=== PATIENT | male | born 1935 | race Caucasian/White ===

== ENCOUNTER 2019-11-01 18:44 | Emergency (ER) | payer MEDICARE, SELFPAY ==
--- NOTE | ~2019-11-01 | XR_ITS ---
EXAMINATION: XR chest 2V DATE: 11/01/2019 19:34 INDICATION: Dizziness TECHNIQUE: frontal and lateral views of the chest were obtained. COMPARISON: Chest radiograph dated 07/22/[address] dated 07/29/2013 FINDINGS: Emphysema better appreciated on prior chest CT. Increased indistinct interstitial pattern in the bila teral lower lung zones with a few peripheral Elvia B-lines near the right costophrenic angle. Small bilateral pleural effusions with blunting at the costophrenic angles and posterior sulci. No pneumoth orax. Calcified pleural plaque projects between the anterior left third and fourth ribs. The cardiome diastinal silhouette is normal. There are bridging osteophytes at multiple levels in the spine, consi stent with diffuse idiopathic skeletal hyperostosis (DISH). IMPRESSION: 1. Emphysema. 2. Mild interstitial opacities at the bilateral lower lung bases most likely mild pulmonary edema alt rashaun differential includes atelectasis and pneumonia. 3. Small bilateral pleural effusions. Reviewed, dictated and finalized at location A. E REELING MACHINE OPERATOR IMPRESSION: 1. Emphysema. 2. Mild interstitial opacities at the bilateral lower lung bases most likely mi ld pulmonary edema although differential includes atelectasis and pneumonia. 3. Small bilateral pleural effusions.
[2019-11-01 18:46] VITALS: BP 176/68; PULSE 83; RESP 16; TEMP 36.6; O2SAT 91
--- NOTE | 2019-11-01 18:55 | ECG_ITS ---
Measurements Intervals [place] Rate: 78 P: -9 AL: 155 QRS: 56 QRSD: 91 T: 49 QT: 375 QTc: 429 Interpretive Statements SINUS OR ECTOPIC ATRIAL RHYTHM CANNOT RULE OUT SEPTAL INFARCT, AGE INDETERMINATE ABNORMAL ECG Electronically Signed On 11-01-2019 19:05:19 CUSHION MAT MAKER by Alex Allred D.O.
[2019-11-01 19:13] LABS: Glucose Point of Care 92 (65-105)
--- NOTE | 2019-11-01 19:14 | ED.DIZZY ---
HPI - Dizziness General Chief Complaint: Dizziness Stated Complaint: light headed Source: patient and RN notes reviewed Mode of arrival: wheelchair Limitations: no limitations History of Present Illness HPI Narrative: The patient, smoker/ nondrinker on minimal meds but with several medical problems and lives alone/ independently, presents with lightheadedness. Patient states he has 1/2-week worsening of month-long history of lightheadedness. Symptoms are mild, worse with activity, with rest. No fever measured, vomiting/diarrhea/dehydration, head?chest?abdominal pain, lateralizing weakness, true vertigo, speech?visual changes; symptoms seem worse in the last half week since he developed a cough. Patient usually walks with a wheeled walker, now is unable to completely ambulate unless with a wheelchair Past history is remarkable for carotid ultrasound showing significant 70% stenosis in the right, CT of the abdomen showing cirrhosis, horeshoe kidney and emphysema. Echocardiogram [2014] showing good EF. Head CT in the past showing microvascular disease; imaging of the neck showing old fusion Tonight screening EKG shows sinus rhythm at 78 bpm, MA 0.155, QTc 0.409 normal axis with MA WP versus old septal UT; POC influenza screen is negative, glucose 96 Advise go to higher-level care facility for higher level testing, which he agrees The patient has been informed that they may have pre-hypertension or Hypertension based on a BP reading in the department. I recommend that the patient call the primary care provider listed on their discharge instructions or a physician of their choice this week to arrange follow up for further evaluation of possible pre-hypertension or Hypertension Related Data Home Medications Medication Instructions Recorded Confirmed lorazepam 0.5 mg PO DAILY 11/01/19 11/01/19 Allergies Allergy/AdvReac Type Severity Reaction Status Date / Time No Known Allergies Allergy Verified 11/01/19 20:01 [facility] Past Medical History Medical History Anxiety Arthritis Esophageal varices History of cerebrovascular disease History of emphysema History of peripheral arterial disease Positional lightheadedness Sleep apnea Smoker Surgical History Surgical History (Updated 11/01/19 @ 21:17 by Christie Pascal) H/O cervical spine surgery History of total right knee replacement Family History Family History (Updated 12/17/18 @ 15:54 by DOCTOR UNKNOWN) Grandparent Diabetes mellitus Sibling Diabetes mellitus Social History Social History Smoking status: Never smoker Second hand tobacco smoke exposure: No Comments General/Constitutional: No weight loss,fever Eyes: N0: Redness,discharge Ears/Nose/Throat: No: Epistaxis,ear discharge Respiratory: Denies: Hemoptysis Gastrointestinal: No Vomiting, Bleeding-rectal Skin: No Lumps, eruption Neurologic: No Focal Weakness,Sz Hematologic: Denies: Petechiae/Purpura Psychiatric: No: Suicida ideationl All Other Systems: Reviewed and Negative Exam Narrative: Exam Narrative: General Appearance: Aged appearing, No distress- in wheelchair EYE: PERRLA, Conjunctiva clear, EOMI Ears: External ear normal Nose: Normal nose Mouth/Throat: Normal appearing, Normal lips Neck: Supple Respiratory: Airway patent,No respiratory distress,increased AP janae , decreased BS with crackles at basers Cardiovascular: RRR Abdomen: Soft, Non-tender, No massess, No organomegaly Musculoskeletal: Bilateral UE congenital deformity Skin: Warm, Dry Neurological: A&O x3, CN II-X intact Psychiatric: Normal mood, Normal affect Course Vital Signs Vital signs: Vital Signs Temperature 97.9 F 11/01/19 18:46 Pulse Rate 83 11/01/19 18:46 Respiratory Rate 16 11/01/19 18:46 Blood Pressure 176/68 H 11/01/19 18:46 Pulse Oximetry 91 11/01/19 18:46 Temperature 97.9 F 11/01/19 18:46 Pulse Rate 83 11/01/19 18:46 Respiratory Rate 1
== END 2019-11-01 19:40 | disposition short-term general hospital (02) ==
PROVIDERS: Emergency Provider Emergency Medicine; PCP Family Medicine
DX: R42 Dizziness and giddiness (principal); R91.8 Other nonspecific abnormal finding of lung field; J43.9 Emphysema, unspecified; I73.9 Peripheral vascular disease, unspecified; F17.200 Nicotine dependence, unspecified, uncomplicated; F41.9 Anxiety disorder, unspecified; G47.30 Sleep apnea, unspecified; I67.9 Cerebrovascular disease, unspecified; Z96.651 Presence of right artificial knee joint
CPT/HCPCS: 71046; 82948; 87804; 93005; 99213; G0463

== ENCOUNTER 2019-11-01 19:53 | Emergency (ER) | payer MEDICARE, SELFPAY ==
--- NOTE | ~2019-11-01 | CT_ITS ---
EXAMINATION: CT brain wo con DATE: 11/01/2019 22:01 INDICATION: Headache, dizziness, ataxia TECHNIQUE: Computed tomography (CT) of the head was performed without intravenous contrast. The mA wa s adjusted according to patient size. Iterative reconstruction technique was employed. Exam dose: 68 1.00 mGy-cm total exam DLP. COMPARISON: 07/27/2014 CT brain FINDINGS: No intracranial mass lesion or hemorrhage or cerebrovascular accident is evident. No midlin e shift or mass effects. There is mild to moderate cerebral volume loss. No subdural or epidural alf diamond. No orbital mass lesion. Paranasal sinuses and mastoid air cells are unremarkable. No fracture or bone destruction of the cranial vault. IMPRESSION: No significant intracranial abnormality Reviewed, dictated and finalized At Location A. Reviewed, dictated and finalized at location A. ATION ASSOCIATE
[2019-11-01 19:56] VITALS: BP 172/76; PULSE 87; RESP 16; TEMP 36.5; O2SAT 98
--- NOTE | 2019-11-01 19:59 | ECG_ITS ---
Measurements Intervals [place] Rate: 74 P: 52 AL: 159 QRS: 44 QRSD: 90 T: 39 QT: 407 QTc: 453 Interpretive Statements SINUS RHYTHM ATRIAL PREMATURE COMPLEX POSSIBLE LEFT ATRIAL ENLARGEMENT CANNOT RULE OUT SEPTAL INFARCT, AGE INDETERMINATE BASELINE ARTIFACT- I, II, III, AVR, AVL, AVF, V1-V6 ABNORMAL ECG Electronically Signed On 11-02-2019 8:04:33 REVENUE STAMP CUTTER by Alex Allred D.O.
[2019-11-01 20:12] LABS: Basophils Percent Auto 0.3 % (0.2-1.2); Eosinophils Absolute Auto 0.1 K/mm3 (0-0.3); Eosinophils Percent Auto 0.9 % (0-4.4); Hematocrit 43.5 % (42.0-52.0); Hemoglobin 14.5 g/dL (14.0-18.0); Immature Granulocyte Absolute 0.01 K/mm3 (0.00-0.031); Immature Granulocyte Percent A 0.1 % (0-0.5); Lymphocytes Absolute Auto 0.96 K/mm3 (0.9-3.2); Lymphocytes Percent Auto 14.2 % (18.3-44.2); Mean Corpuscular HGB Conc 33.3 g/dl (32-36); Mean Corpuscular Hemoglobin 33.9 pg (26-34); Mean Corpuscular Volume 101.6 fl (80-100); Mean Platelet Volume 10.2 fl (7.4-10.4); Monocytes Absolute Auto 0.5 K/mm3 (0.1-0.6); Monocytes Percent Auto 7.1 % (2.6-8.5); Neutrophils Absolute Auto 5.2 K/mm3 (1.3-6.7); Neutrophils Percent Auto 77.4 % (45.5-73.1); Platelet Count Result 181 k/mm3 (150-375); Red Blood Count 4.28 M/mm3 (4.6-6.20); Red Cell Distribution Width 13.9 % (11.5-14.5); White Blood Count 6.8 K/mm3 (4.5-10.0)
[2019-11-01 20:24] LABS: Blood Urea Nitrogen 10 mg/dL (9-20); Calcium 9.1 mg/dL (8.4-10.2); Carbon Dioxide 24 mmol/L (22-30); Chloride 103 mmol/L (98-107); Estimated CRCL calculation 77 ml/min; Estimated Glomerular Filt Rate > 60; Glucose 96 mg/dL (75-110); Potassium 4.1 mmol/L (3.4-5.0); Sodium 137 mmol/L (137-145)
[2019-11-01 20:36] LABS: Troponin I 0.015 ng/mL (0.000-0.034)
--- NOTE | 2019-11-01 20:56 | ED.DIZZY ---
HPI - Dizziness General Chief Complaint: Dizziness Stated Complaint: dizzy, cough Time Seen by Provider: 11/01/19 20:49 Source: patient, family and RN notes reviewed Mode of arrival: other Limitations: no limitations History of Present Illness HPI Narrative: Pt is a 84 y/o male who presents to the ED with c/o dizziness that began 10 years ago, but has progressively worsened. He notes that he sat on the edge of his bed for an hour before he moved to his seated walker. He states the severity of his dizziness is intermittent. Per pt's family, pt goes to bed late. Pt's family also states that a few months ago the pt got too dizzy and could not stand up. The family states the pt had to sit down for awhile before being able to get up to go back inside the house. Pt also reports near syncope to where he felt like he was tipping over, but denies a CHRISTIANSEN, ringing in his ears, changes in his vision, urinary hesitancy, urinary frequency, and urinary retention. Friends report to nurses they think maybe he takes too much ativan. MD elicited complaint: dizziness Onset (ago): year(s) (10, but progressively worsened today) Timing: constant Context: change in body position History of similar symptoms: Yes Associated symptoms: other (near syncope to where he felt like he was tipping over) Related Data Home Medications Medication Instructions Recorded Confirmed lorazepam 0.5 mg PO DAILY 11/01/19 11/01/19 Allergies Allergy/AdvReac Type Severity Reaction Status Date / Time No Known Allergies Allergy Verified 11/01/19 20:01 Review of Systems Review of Systems: All systems reviewed & are unremarkable except as noted in HPI and below Eyes: Eyes: Denies change in vision ENT: Denies other (ringing in his ears) Genitourinary: Genitourinary: Denies urinary frequency, Denies urinary hesitancy and Denies other (urinary retention) Neurologic: Reports dizziness, Reports syncope (near, to where he felt like he was tipping over) and Denies headache(s) [facility] Past Medical History Medical History Anxiety Arthritis Esophageal varices History of cerebrovascular disease History of emphysema History of peripheral arterial disease Positional lightheadedness Sleep apnea Smoker Surgical History Surgical History (Updated 11/01/19 @ 21:17 by Christie Pascal) H/O cervical spine surgery History of total right knee replacement Family History Family History (Updated 12/17/18 @ 15:54 by DOCTOR UNKNOWN) Grandparent Diabetes mellitus Sibling Diabetes mellitus Social History Social History Smoking status: Never smoker Second hand tobacco smoke exposure: No Exam Const: General: no acute distress and other (elderly, frail) Nutritional Appearance: well nourished Orientation/consciousness: patient oriented x3 (alert) and Other orientation findings (Alert) Limitations: no limitations HENMT: Head: normocephalic and atraumatic Ears: other (decreased hearing acuity in both ears) General nose exam: No nasal discharge present and no epistaxis Face and sinus: face symmetric Mouth: Yes lip normal, Yes tongue normal and Yes moist mucous membranes Throat: other (No exudate, no erythema) Eyes: Conjunctivae: conjunctivae normal Sclera: sclerae normal EOM: EOMs intact bilaterally Neck: Neck: full ROM, no lymphadenopathy and supple Thyroid: thyroid normal Chest: Chest palpation & inspection: no tenderness Resp: Effort & Inspection: normal respiratory effort Auscultation: clear to auscultation bilaterally, no rales, no rhonchi, no wheezes and other (breath sounds equal) Cardio: Rate: regular rate Rhythm: regular rhythm Heart sounds: Murmur heart sound present other (2/6 heart murmur at the apex) Back/Spine/Pelvis: Cervical Spine: cervical ROM abnormal (decreased movement of his head when rotating to the right) Skin: General skin exam: normal color and no rashes or lesions noted Neuro: General: patient oriented x3 (alert), moves all
[2019-11-01 21:34] VITALS: BP 168/69; BP 169/65; BP 174/71; PULSE 81; PULSE 93; PULSE 94
[2019-11-01 21:37] VITALS: BP 168/69; PULSE 88; RESP 21; O2SAT 91
[2019-11-01 22:12] VITALS: BP 192/75; PULSE 74; RESP 21; O2SAT 91
[2019-11-01 22:31] VITALS: BP 179/75; PULSE 81; RESP 20; O2SAT 91
[2019-11-01 23:31] VITALS: BP 182/77; PULSE 84; RESP 21; O2SAT 95
[2019-11-02 00:34] VITALS: BP 157/53; PULSE 70; RESP 18; TEMP 37.2; O2SAT 93
== END 2019-11-02 00:37 | disposition home or self-care (01) ==
PROVIDERS: Emergency Medicine; Emergency Provider Emergency Medicine; PCP Family Medicine
DX: R42 Dizziness and giddiness (principal); F41.9 Anxiety disorder, unspecified; M19.90 Unspecified osteoarthritis, unspecified site; Z86.73 Personal history of transient ischemic attack (TIA), and cerebral infarction without residual deficits; J43.9 Emphysema, unspecified; I73.9 Peripheral vascular disease, unspecified; G47.30 Sleep apnea, unspecified; Z96.651 Presence of right artificial knee joint; I49.1 Atrial premature depolarization; R94.31 Abnormal electrocardiogram [ECG] [EKG]
CPT/HCPCS: 36415; 70450; 80048; 84484; 85025; 93005; 99284

== ENCOUNTER 2019-12-08 09:07 | Outpatient (CLI) | payer MEDICARE, SELFPAY ==
--- NOTE | 2019-12-08 | ECHO_ITS ---
Patient Info Name: Tera Cortez Age: 84 years : 1935 Gender: Male Ht: 71 in Wt: 175 lbs BSA: 2.00 m2 HR: 73 bpm BP: 117 / 73 mmHg Technical Quality: Good Exam Date: 12/08/2019 9:43 AM Exam Location: [facility] Patient Status: Outpatient Admit Date: 12/08/2019 Staff Ordering Physician: Alex Allred DO Networking Specialist: Jean Carlos Osorio RDCS, RT Attending Provider: Alex Allred DO Referring Physician: Chalino DENT; Exam Type: CA echo doppler color flow Study Info Indications R60.0 - Localized edema Complete two-dimensional, color flow and Doppler transthoracic echocardiogram is performed. Summary 1. Left ventricular chamber dimension is normal. 2. Left ventricular systolic function is normal, estimated at 65-70%. 3. There is mildly increased left ventricular wall thickness. 4. The left ventricular diastolic function is grade I diastolic dysfunction. 5. E/e' 19 is elevated. 6. Global longitudinal strain is abnormal at -15.2%. 7. There is moderate aortic valve sclerosis. 8. The mitral valve has moderately calcified annulus. 9. There is mild to moderate tricuspid valve regurgitation. 10. Severe pulmonary hypertension, estimated pulmonary arterial systolic pressure is 66 mmHg. 11. There is trace pulmonic regurgitation. 12. Dilated inferior vena cava with >50% collapse upon inspiration consistent with elevated right atrial pressure, 10 mmHg. Left Ventricle E/e' 19 is elevated. Global longitudinal strain is abnormal at -15.2%. Left ventricular chamber dimension is normal. Left ventricular systolic function is normal, estimated at 65-70%. There is mildly increased left ventricular wall thickness. The left ventricular diastolic function is grade I diastolic dysfunction. Right Ventricle Right ventricular chamber dimension is normal. Right ventricular systolic function is normal. Left Atria Left atrial chamber dimension is normal. Right Atria Right atrial chamber dimension is normal. Aortic Valve The aortic valve is trileaflet. There is moderate aortic valve sclerosis. There is no aortic valve stenosis. There is no aortic valve regurgitation. Pulmonic Valve There is trace pulmonic regurgitation. Mitral Valve The mitral valve has moderately calcified annulus. There is no mitral valve stenosis. There is no mitral valve regurgitation. Tricuspid Valve There is mild to moderate tricuspid valve regurgitation. Severe pulmonary hypertension, estimated pulmonary arterial systolic pressure is 66 mmHg. Pericardium/Pleural There is no pericardial effusion. Inferior Vena Cava Dilated inferior vena cava with >50% collapse upon inspiration consistent with elevated right atrial pressure, 10 mmHg. Aorta The aortic root size at the sinus of Valsalva is not well visualized. Left Ventricular Outflow Tract Name Value Normal LVOT 2D LVOT Diameter 2.1 cm LVOT Doppler LVOT Peak Gradient 6 mmHg LVOT Mean Gradient 3 mmHg LVOT VTI 27 cm LVOT VTI/AV VTI Ratio 0.8
== END 2019-12-08 09:08 | disposition home or self-care (01) ==
PROVIDERS: PCP Family Medicine; Visit Provider Internal Medicine Cardiovascular Disease
DX: R60.0 Localized edema (principal); I08.3 Combined rheumatic disorders of mitral, aortic and tricuspid valves
CPT/HCPCS: 93306

== ENCOUNTER 2020-03-05 00:33 | Outpatient (CLI) | payer MEDICARE, SELFPAY ==
[2020-03-05 17:48] LABS: SARS-CoV-2 RNA PCR Negative
== END 2020-03-05 00:34 | disposition home or self-care (01) ==
LOC: ANHCOVIDDT 00:33
PROVIDERS: PCP Family Medicine; Visit Provider Specialist
DX: Z01.818 Encounter for other preprocedural examination (principal); Z11.59 Encounter for screening for other viral diseases
CPT/HCPCS: 87635; C9803; U0003

== ENCOUNTER 2020-03-08 05:37 | Day surgery (SDC) | payer MEDICARE, SELFPAY ==
[2020-03-05 11:10] VITALS: BMI 21.8
[2020-03-08] VITALS (14 sets, daily range): BP systolic 99–153; BP diastolic 38–69; PULSE 67–80; RESP 12–20; TEMP 36–37.1; O2SAT 94–99
--- NOTE | ~2020-03-08 | XR_ITS ---
EXAMINATION: XR chest 1V portable DATE: 03/08/2020 14:06 INDICATION: Pacer placement. TECHNIQUE: A single frontal view of the chest was obtained. COMPARISON: Chest 2 views 11/01/2019, CT abdomen and pelvis 08/13/2015 FINDINGS: There is a small right pleural effusion. There are calcified pleural plaques on the left. T here are airspace opacities in right mid and lower lung zones. No pneumothorax. The heart size is nor mal. There is a left chest wall pacer with leads in the right atrium and right ventricle. IMPRESSION: 1. Worsened small right pleural effusion. 2. Worsened airspace opacities in right mid and lower lung zones, consistent with atelectasis versus pneumonia. Reviewed, dictated and finalized at location A. IMPRESSION: 1. Worsened small right pleural effusion. 2. Worsened airspace opacities in right mid and lower lung zones, consistent wi th atelectasis versus pneumonia.
--- NOTE | ~2020-03-08 | XR_ITS ---
EXAMINATION: XR chest 2V DATE: 03/09/2020 14:37 INDICATION: Pacer placement. TECHNIQUE: Frontal and lateral views of the chest were obtained. COMPARISON: Chest single view 03/06/2020, CT abdomen and pelvis 08/13/2015 FINDINGS: There are lucencies and interstitial opacities in the lungs, consistent with emphysema. The re is a small right pleural effusion. There are airspace opacities at right lung base. No pneumothora x. The heart size is normal. There is a left chest wall pacer with leads in the right atrium and righ t ventricle. IMPRESSION: 1. Small right pleural effusion. 2. Airspace opacities at right lung base with interval improvement, consistent with atelectasis versu s pneumonia. 3. Emphysema. Reviewed, dictated and finalized at location A. IMPRESSION: 1. Small right pleural effusion. 2. Airspace opacities at right lung base with interval improvement, consistent with atelectasis versus pneumonia. 3. Emphysema.
--- NOTE | 2020-03-08 06:13 | ECG_ITS ---
Measurements Intervals [place] Rate: 66 P: 55 UT: 169 QRS: 61 QRSD: 88 T: 60 QT: 394 QTc: 415 Interpretive Statements SINUS RHYTHM CANNOT RULE OUT SEPTAL INFARCT, AGE INDETERMINATE ABNORMAL ECG Electronically Signed On 03-08-2020 14:27:46 CDT by Alex Allred D.O.
[2020-03-08 10:48] LABS: Basophils Percent Auto 0.4 % (0.2-1.2); Eosinophils Absolute Auto 0.2 K/mm3 (0-0.3); Eosinophils Percent Auto 2.4 % (0-4.4); Hematocrit 41.2 % (42.0-52.0); Hemoglobin 14.3 g/dL (14.0-18.0); Immature Granulocyte Absolute 0.01 K/mm3 (0.00-0.031); Immature Granulocyte Percent A 0.1 % (0-0.5); Lymphocytes Absolute Auto 1.11 K/mm3 (0.9-3.2); Lymphocytes Percent Auto 16.5 % (18.3-44.2); Mean Corpuscular HGB Conc 34.7 g/dl (32-36); Mean Corpuscular Hemoglobin 34.1 pg (26-34); Mean Corpuscular Volume 98.3 fl (80-100); Mean Platelet Volume 9.6 fl (7.4-10.4); Monocytes Absolute Auto 0.7 K/mm3 (0.1-0.6); Monocytes Percent Auto 9.7 % (2.6-8.5); Neutrophils Absolute Auto 4.8 K/mm3 (1.3-6.7); Neutrophils Percent Auto 70.9 % (45.5-73.1); Platelet Count Result 212 k/mm3 (150-375); Red Blood Count 4.19 M/mm3 (4.6-6.20); Red Cell Distribution Width 14.8 % (11.5-14.5); White Blood Count 6.7 K/mm3 (4.5-10.0)
[2020-03-08 11:01] LABS: Prothrombin Time 13.2 Seconds (11.1-14.7)
[2020-03-08 11:33] LABS: Blood Urea Nitrogen 15 mg/dL (9-20); Carbon Dioxide 26 mmol/L (22-30); Chloride 97 mmol/L (98-107); Estimated CRCL calculation 57 ml/min; Estimated Glomerular Filt Rate > 60; Glucose 88 mg/dL (75-110); Potassium 4.5 mmol/L (3.4-5.0); Sodium 127 mmol/L (137-145)
--- NOTE | 2020-03-08 13:15 | WPDCARDPROC ---
Cardiac Cath Procedure Note Date of procedure:: 03/08/20 Performing physician:: Misha Mariano MD Indication:: AV block with near-syncope Brief clinical history:: this is an 84-year-old man with the onset of near syncopal episode several months ago. Outpatient event monitor demonstrated variable AV block with AV block between 1st , and some third-degree AV block also. Because of symptomatic Nikolay arrhythmias and no medications that would affect AV node function pacemaker implantation was recommended Procedure Procedure performed:: implantation of permanent Medtronic dual chamber pacemaker Sedation/Medication given:: fentanyl 50 mg Versed 2 mg case start time 12:14 p.m. case end time 12:58 p.m. sedation provided by Shanda Ballard RN, trained observer Access site:: left subclavian vein Estimated blood loss:: 10-15 cc Procedure note:: Patient was brought to the cardiac catheterization lab in the postabsorptive state the left anterior chest wall was prepped and draped in the usual fashion. Anesthesia was given with 1% lidocaine infiltrated locally. An incision was then made about 1 in below the clavicle from the midclavicular line to the deltopectoral groove. Electrocautery was used to provide cutaneous hemostasis and using blunt dissection the prepectoral fascia was identified and a pacemaker pocket was created using blunt dissection inferior to the incision. This pocket was then packed with the antibiotic soaked 4 x 14 following this attention was turned to venous access. The patient had 2 punctures made of the left subclavian vein using modified Seldinger technique and 2 J wires with the supplied sheath were placed into the right atrial location on fluoroscopic visualization. Attention was turned to the ventricular lead. A 6 straight stylet was removed and the 3 cc syringe was used to form AJ tipped stylet which was used to navigate the lead through the right ventricle on out to the PA position. The straight stylet was then replaced into the lead is positioned into the right ventricular apex. The fixation screw was deployed and then the analyzer was used to assess pacing and sensing which was found to be appropriate. A 10 volt stimulation showed no evidence of extracardiac stimulation. Following this attention was turned to the atrial lead. The straight stylet was removed and a preformed J stylet was placed into the lead was maneuvered into the right atrial appendage easily. The fixation screw was then deployed in the analyzer demonstrated appropriate pacing and sensing. Once again a 10 volts stimuli showed no evidence of extracardiac stimulation. After this the leads were secured to the base of the pocket using the suture sleeves and 2 0 silk ties. The retained sponge was then removed from the pocket which was irrigated with antibiotic infused saline. Following this the pacemaker generator detailed below was connected to the leads using torque wrench in the entire assembly was placed into the newly created pocket. Pocket was then closed in layers using 3 0 Vicryl in interrupted fashion for the subcutaneous tissue and 4 0 Vicryl in a running subcuticular fashion for the skin. The wound was dressed with an Aquacel dressing and the patient was taken back to the holding area for recovery there were no apparent complications the procedure was uncomplicated. postop antibiotics analgesics and chest x-ray were ordered. Findings:: The patient received a CrowdCuritytronic dual-chamber pacemaker model WID R01. serial number is [id number] . programmed in the DDD mode lower rate limit is 60 upper rate limit 130 paste deviated AV delay 220 millisecond sensed AV delay 200 millisecond. The atrial lead is a Medtronic screw-in bipolar lead model 5076-52. serial number [id number]. the P-waves are sensed at 2.6 mV threshold is 0.75 volts at 0.4 milliseconds pacing impedance 532 Ohms. The ventricular lead is a Medtronic bipolar screw-in lead model 506-58
--- NOTE | 2020-03-08 14:33 | SUR.PHASEII ---
END PHASE II RECOVERY S/P PPM INSERTION W/ DR. PEPPER. PT. STATUS TO CHANGE TO EXTENDED RECOVERY OBSERVATION POST OUTPATIENT PROCEDURE AND REMAIN IN VIDEO EDITING INTERN 6 AT THIS TIME. SEE PCS FOR FURTHER DOCUMENTATION.
--- NOTE | 2020-03-08 14:34 | ADMGEN ---
This patient, Tera Cortez, was admitted to IMU Room 211-01. Patient/family oriented to hospital policies and general routines including ID bracelet, bed and alarms, visiting hours, pain management, procedures, bathroom and other care routines, personal items, smoking policy, room service/diet, and visiting hours. Valuables list has been completed. Information on how to activate the Rapid Response Team has been discussed. Patient/Family are encouraged to report perceived risks to care and to ask questions if they do not understand what they are told or what they should do.
[2020-03-08] MEDS: SODIUM CHLORIDE 0.9% IV 1,000 ML 50 ML IV CONT (17:03)
--- NOTE | 2020-03-08 18:30 | PC.NURSE ---
REPORT GIVEN TO ADAM ANAYA IN IMU. PT. IS EXTENDED RECOVERY STATUS POST PROCEDURE. HAS BEEN IN SOAPING DEPARTMENT SUPERVISOR 6 UP TO THIS TIME. NOW IS TRANSFERRING TO IMU 211 TO COMPLETE EXTENDED RECOVERY STAY. FAMILY HAS BEEN NOTIFIED OF ROOM CHANGE.
--- NOTE | 2020-03-08 18:45 | PC.NURSE ---
TRANSFERRED PT. FROM PHOTONICS ENGINEERING TECHNOLOGIST 6 TO IMU 211 VIA BED FOR BALANCE OF EXTENDED RECOVERY OBSERVATION STAY. ALL PERSONAL BELONGINGS SENT W/ PT. VOICES NO C/O. FAMILY AWARE OF TRANSFER.
--- NOTE | 2020-03-08 19:13 | PC.NURSE ---
Patient arrived via bed from [facility] pain center. Received report from HÉCTOR Godwin. NO s/s of distress. Left chest site unchanged from report.
[2020-03-08] MEDS: POTASSIUM CHLORIDE 10 MEQ TABLET.ER PO (21:08)
[2020-03-09] VITALS (12 sets, daily range): BP systolic 87–147; BP diastolic 45–61; PULSE 65–84; RESP 12–18; TEMP 35.8–36.9; O2SAT 94–96
[2020-03-09] MEDS: OMEGA 3 POLYUNSAT FATTY ACIDS 1 GM CAP PO (08:05)
[2020-03-09] MEDS: MULTIVITAMINS THERAPEUTIC TAB (*BKC) 1 TABLET PO (08:05)
[2020-03-09] MEDS: POTASSIUM CHLORIDE 10 MEQ TABLET.ER PO (08:05)
[2020-03-09] MEDS: lisinopriL 10 MG TABLET PO (08:06)
[2020-03-09] MEDS: FUROSEMIDE 20 MG TABLET PO (08:08)
[2020-03-09] MEDS: ASPIRIN 325 MG ENTERIC TABLET PO (08:08)
--- NOTE | 2020-03-09 14:53 | PM.DS ---
DS: Admitting Diagnosis Admitting Diagnosis Admitting Diagnosis: Symptomatic bradyarrhythmia (1st and 3rd degree heart block) DS: Discharge Diagnosis Discharge Diagnosis (1) Heart block AV complete: Code(s): I44.2 - Atrioventricular block, complete Status: Acute Assessment and Plan: Status post Medtronic dual-chamber pacemaker placement 03/08/[address] Mariano. Pacemaker functioning normally on interrogation on the day of discharge. Chest x-ray PA and lateral reveals no pneumothorax. (2) Dizziness: Code(s): R42 - Dizziness and giddiness Status: Acute Assessment and Plan: Dizziness when up to chair this morning. Found to be profoundly orthostatic. Dr Allred was contacted. Lisinopril will be decreased to 5 mg daily. After eating and 255 cc fluid bolus he was no longer dizzy. On second time out of bed he was not orthostatic. DS: Summary Hospital Course Hospital Course: 84-year-old man with the onset of near syncopal episode several months ago. Outpatient event monitor demonstrated variable AV block with AV block between 1st and some third-degree AV block also. Because of symptomatic Nikolay arrhythmias and no medications that would affect AV node function pacemaker implantation was recommended. Medtronic dual-chamber pacemaker was implanted by Dr. Mariano on March 08, 2020. He was monitored overnight. Pacemaker was functioning normally on the day of discharge. When he was assisted to the chair prior to his chest x-ray he became very dizzy. Blood pressure prior to getting out of bed was 143/55 at 11:30 a.m.. At 12:00 p.m. his blood pressure was 87/45 and he was symptomatic. He was not pacing at the time of this event. Over time his symptoms improved. Blood pressure was 104/79. He was given [address] Allred was contacted. He recommended decreasing lisinopril to 5 mg daily. He was assisted back to bed. He ate lunch. Again assisted out of bed with no changes in his blood pressure or reporting and symptoms. Chest x-ray PA and lateral was performed revealing no pneumothorax. He had no further dizziness. He was discharged home in stable condition. Status at Discharge Functional status at discharge: uses cane/walker Overall status at discharge: patient is back to baseline Time Spent with Patient Time attestation: Total time spent providing and/or coordinating discharge services: 32 minutes was spent in discharge. Time spent: Greater than 30 minutes Specific discharge activities: Instruction on activity restrictions including movement of his left arm, lifting restrictions and wearing the immobilizer. He was instructed the certainly may use his Rollator for balance. Instructions regarding his incision including not trying to remove the Aquacel dressing and to keep the dressing dry. Follow-up in [facility] office for incision check and pacemaker check in 1 week. Follow-up with Dr Allred 1-2 weeks. Time to do discharge order as well as discharge summary. Exam Narrative: Exam Narrative: Pleasant elderly gentleman in chair complaining of dizziness. Const: General: cooperative and no acute distress Nutritional Appearance: thin Orientation/consciousness: patient oriented x3 HENMT: Head: normal to inspection and atraumatic Ears: hearing grossly normal bilaterally General nose exam: Normal external nose present Face and sinus: normal facial exam Mouth: Yes moist mucous membranes Eyes: General: appearance normal, both eyes and all related structures Chest: Other: Left subclavian Aquacel dressing intact. No swelling or drainage on the dressing. Resp: Effort & Inspection: normal respiratory effort and able to speak in complete sentences Auscultation: diminished lung sounds on the right in the lower lung solorio Cardio: Rate: regular rate Rhythm: regular rhythm Heart sounds: no murmurs Peripher
== END 2020-03-09 16:20 | disposition home or self-care (01) ==
LOC: ANHCATHLAB 09:53 → ANHIMU 17:35
PROVIDERS: PCP Family Medicine; Visit Provider Specialist
PROC: 0JH606Z Insertion of Pacemaker, Dual Chamber into Chest Subcutaneous Tissue and Fascia, Open Approach (ICD-10-PCS; CPT 33208; principal; 2020-03-08 11:30)
DX: I44.2 Atrioventricular block, complete (principal); R55 Syncope and collapse; R42 Dizziness and giddiness; F17.210 Nicotine dependence, cigarettes, uncomplicated
CPT/HCPCS: 33208; 36415; 71045; 71046; 80048; 85025; 85610; 87635; 93005; A9270; C1779; C1785; C9803; J0690; J2250; J3010; J7030; J7040; U0003

== ENCOUNTER 2020-03-11 19:19 | Observation (INO) | payer MEDICARE, SELFPAY ==
--- NOTE | ~2020-03-11 | XR_ITS ---
EXAMINATION: XR chest 1V portable DATE: 03/11/2020 20:45 INDICATION: Hematoma line recently placed cardiac pacemaker. TECHNIQUE: frontal view of the chest was obtained. COMPARISON: Chest radiograph dated 03/09/2020 FINDINGS: Persistent small to moderate-sized right pleural effusion with associated atelectasis at the right syl ng base. Emphysema better appreciated on prior CT. Scattered calcified pleural plaques consistent wit h prior asbestos exposure. No pneumothorax or left-sided pleural effusion. Ill-defined hazy increased opacity projecting over the left upper lung zone which on CT corresponds to a large subcutaneous hem atoma surrounding the pacemaker. Pacemaker leads remain in expected position projecting over the righ t atrial appendage and apex of the right ventricle. The cardiomediastinal silhouette is normal. IMPRESSION: 1. Ill-defined hazy opacity projecting over the left upper lung zone which on CT corresponds to a lar ge subcutaneous hematoma surrounding the recently placed cardiac pacemaker in the left pectoral regio n. 2. Moderate right pleural effusion with right basilar atelectasis. 3. Emphysema. Reviewed, dictated and finalized at location A. IMPRESSION: 1. Ill-defined hazy opacity projecting over the left upper lung zone which on C T corresponds to a large subcutaneous hematoma surrounding the recently placed cardiac pacemaker in the left pectoral region. 2. Moderate right pleural effusion with right basilar atelectasis. 3. Emphysema.
--- NOTE | ~2020-03-11 | CT_ITS ---
EXAMINATION: CTA chest DATE: 03/11/2020 20:40 INDICATION: Hematoma overlying pacemaker side of the left chest. TECHNIQUE: Computed tomographic angiography (CTA) of the chest was performed with 100 mL Omnipaque-35 0 intravenous contrast. Volume-rendered 3D-reconstructions of the aorta and large arteries were const ructed by the technologist on a separate workstation. Automated exposure control and iterative recons truction technique were employed. The dose-length product was 478 mGy-cm. COMPARISON: None. FINDINGS: Moderate emphysema. Moderate posteriorly layering right pleural effusion with compressive atelectasis in the right upper and lower lobes. Mild smooth septal line thickening at the lung bases, right grea ter than left consistent with mild pulmonary edema. No pneumonia or pneumothorax. Scattered bilateral calcified pleural plaques consistent with prior asbestos exposure. Heart size is normal. No pericard ial effusion. Thoracic aorta is normal in caliber with no aneurysm or dissection. Dual-lead cardiac p acemaker with lead tips at the right atrial appendage and at the apex of the right ventricle. There i s a large hematoma surrounding the pacemaker device in the subcutaneous tissues overlying the left pe ctoral muscle. The hematoma measures 11.5 cm medial collateral, 11.4 cm craniocaudally and 6.2 cm ant eroposterior. There is asymmetric swelling of the left pectoral muscle but without a clearly defined intramuscular hematoma. Likely benign 7 mm low-attenuation nodule in the deep left thyroid lobe. No p athologically enlarged thoracic lymphadenopathy. Visualized upper abdomen is unremarkable. There are bridging osteophytes at multiple levels in the spine, consistent with diffuse idiopathic skeletal hyp erostosis (DISH). IMPRESSION: 1. 11.5 x 11.4 x 6.2 cm subcutaneous hematoma surrounding a left pectoral cardiac pacemaker device. 2. Moderate-sized right pleural effusion with dependent compressive atelectasis. 3. Moderate emphysema with mild pulmonary edema at the lung bases. 4. 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 Reviewed, dictated and finalized at location A. IMPRESSION: 1. 11.5 x 11.4 x 6.2 cm subcutaneous hematoma surrounding a left pectoral cardi ac pacemaker device. 2. Moderate-sized right pleural effusion with dependent compressive atelectasis . 3. Moderate emphysema with mild pulmonary edema at the lung bases. 4. 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
[2020-03-11 19:19] VITALS: BP 139/70; PULSE 82; RESP 23; TEMP 36.3; O2SAT 98
--- NOTE | 2020-03-11 19:23 | ED.GENADULT ---
HPI - General Adult General Chief complaint: Unspecified Stated complaint: pacemaker post op issues Time Seen by Provider: 03/11/20 19:23 Source: patient Mode of arrival: EMS Limitations: no limitations History of Present Illness HPI narrative: Patient is an 84-year-old male who presents to the emergency department for evaluation of postoperative complication. Patient had a dual-chamber pacemaker placed by Dr. Mariano on March 08, states he been doing well without complications after the surgery aside from this afternoon, when the patient walked from the kitchen into the living room, sat down in a recliner chair, leaned backwards, and all of a sudden felt acute pain over his left chest at the site of the pacemaker. Patient immediately began to notice a great deal of swelling, bruising, and called EMS. Patient was transported to our facility, reporting pain, swelling and bruising to the upper left chest. Pain is currently rated at a 7. Patient denies any recent heavy lifting. States he has been compliant with his medications, is only taking a daily aspirin. No numbness in the left arm. No difficulty breathing. Related Data Home Medications Medication Instructions Recorded Confirmed aspirin 325 mg tablet,delayed 325 mg PO DAILY 11/10/19 03/08/20 release multivitamin 1 tablet PO DAILY 11/10/19 03/08/20 omega-3 fatty acids 1,000 mg 1,000 mg PO DAILY 11/10/19 03/08/20 capsule lorazepam 0.5 mg tablet 1 mg PO DAILY PRN tablet 11/15/19 03/08/20 Allergies Allergy/AdvReac Type Severity Reaction Status Date / Time No Known Allergies Allergy Verified 03/11/20 19:24 Review of Systems Review of Systems: Narrative: CONSTITUTIONAL: Denies fever CARDIOVASCULAR: Reports left chest pain at the site of the pacemaker RESPIRATORY: Denies cough or dyspnea. GASTROINTESTINAL: Denies abdominal pain SKIN: Denies rash MUSCULOSKELETAL: Denies back pain NEUROLOGIC: Denies headache PMFSH Past Medical History Medical History Anxiety Arthritis Bradycardia Esophageal varices History of cerebrovascular disease History of emphysema History of peripheral arterial disease Positional lightheadedness Sleep apnea Smoker Surgical History Surgical History H/O cervical spine surgery History of total right knee replacement Family History Family History Grandparent Diabetes mellitus Sibling Diabetes mellitus Social History Social History Smoking status: Current every day smoker Tobacco type: cigarettes Second hand tobacco smoke exposure: No Alcohol intake: never Substance use: never Substance use type: does not use Gender identity (if verbalized by the patient): Male Spiritual care concerns: Yes Agree to blood products: Yes Exam Narrative: Exam Narrative: GENERAL: Awake, alert, conversant, thin, elderly HEAD: Normocephalic, atraumatic. EYES: PERRLA and EOMI. ENT: Nares clear, no rhinorrhea or epistaxis. Mucous membranes moist. NECK: Supple. CHEST: No respiratory distress, breathing even and non labored, significant area of ecchymosis, edema, to the left chest wall at the site of the pacemaker, over 10 cm of what appears to be hematoma, it is very firm to touch, no numbness HEART: Regular rate, sinus rhythm ABDOMEN:Non distended, non tender EXTREMITIES: Normal range of motion. No edema. SKIN: Warm, dry, no rash. NEURO:No focal deficits. Alert and oriented x3 Course Vital Signs Vital signs: Vital Signs Temperature 36.3 C L 03/11/20 19:19 Pulse Rate 82 03/11/20 19:19 Respiratory Rate 23 H 03/11/20 19:19 Blood Pressure 139/70 03/11/20 19:19 Pulse Oximetry 98 03/11/20 19:19 Temperature 36.3 C L 03/11/20 19:19 Pulse Rate 78 03/11/20 22:21 Respiratory Rate 18 03/11/20 22:21 Blood Pressure 124/58 L 03/11/20 22:21
[2020-03-11 19:24] VITALS: PULSE 78
[2020-03-11] MEDS: MORPHINE SULFATE 2 MG/ML INJ IV PUSH (19:41)
[2020-03-11 19:44] LABS: Basophils Percent Auto 0.4 % (0.2-1.2); Eosinophils Absolute Auto 0.1 K/mm3 (0-0.3); Eosinophils Percent Auto 1.3 % (0-4.4); Hematocrit 35.4 % (42.0-52.0); Hemoglobin 12.2 g/dL (14.0-18.0); Immature Granulocyte Absolute 0.01 K/mm3 (0.00-0.031); Immature Granulocyte Percent A 0.2 % (0-0.5); Lymphocytes Absolute Auto 0.78 K/mm3 (0.9-3.2); Lymphocytes Percent Auto 14.3 % (18.3-44.2); Mean Corpuscular HGB Conc 34.5 g/dl (32-36); Mean Corpuscular Hemoglobin 33.9 pg (26-34); Mean Corpuscular Volume 98.3 fl (80-100); Mean Platelet Volume 9.4 fl (7.4-10.4); Monocytes Absolute Auto 0.4 K/mm3 (0.1-0.6); Monocytes Percent Auto 7.9 % (2.6-8.5); Neutrophils Absolute Auto 4.1 K/mm3 (1.3-6.7); Neutrophils Percent Auto 75.9 % (45.5-73.1); Platelet Count Result 145 k/mm3 (150-375); Red Cell Distribution Width 14.4 % (11.5-14.5); White Blood Count 5.5 K/mm3 (4.5-10.0)
--- NOTE | 2020-03-11 19:49 | PC.NURSE ---
farhan wrap applied to contusion as ordered, pt mckay fair. no resp distress after wrap applied.
[2020-03-11 19:50] VITALS: BP 116/62; PULSE 83; RESP 16; O2SAT 99
[2020-03-11 19:54] LABS: INR 1.1; Prothrombin Time 13.6 Seconds (11.1-14.7)
[2020-03-11 19:55] LABS: Partial Thromboplastin Time 32.6 SECONDS (22.3-36.8)
[2020-03-11 20:01] LABS: Blood Urea Nitrogen 14 mg/dL (9-20); Carbon Dioxide 25 mmol/L (22-30); Chloride 98 mmol/L (98-107); Estimated CRCL calculation 74 ml/min; Estimated Glomerular Filt Rate > 60; Glucose 108 mg/dL (75-110); Potassium 4.4 mmol/L (3.4-5.0); Sodium 127 mmol/L (137-145)
[2020-03-11] MEDS: MORPHINE SULFATE 4 MG/ML INJ (21:33)
[2020-03-11 21:55] VITALS: BP 146/88; PULSE 79; RESP 16; O2SAT 98
[2020-03-11 22:21] VITALS: BP 124/58; PULSE 78; RESP 18; O2SAT 98
[2020-03-11 22:47] VITALS: BP 104/56; PULSE 104; RESP 18; O2SAT 98
--- NOTE | 2020-03-11 23:38 | ADMGEN ---
This patient, Tera Cortez, was admitted to 2 Medical Room 254-01. Patient/family oriented to hospital policies and general routines including ID bracelet, bed and alarms, visiting hours, pain management, procedures, bathroom and other care routines, personal items, smoking policy, room service/diet, and visiting hours. Valuables list has been completed. Information on how to activate the Rapid Response Team has been discussed. Patient/Family are encouraged to report perceived risks to care and to ask questions if they do not understand what they are told or what they should do.
[2020-03-11] MEDS: SODIUM CHLORIDE 0.9% IV 1,000 ML 75 ML IV CONT (23:53)
[2020-03-12] VITALS (11 sets, daily range): BP systolic 75–127; BP diastolic 40–55; PULSE 68–82; RESP 18–22; TEMP 36.4–36.6; O2SAT 94–100; BMI 21.4
[2020-03-12 05:47] LABS: Basophils Percent Auto 0.7 % (0.2-1.2); Eosinophils Absolute Auto 0.2 K/mm3 (0-0.3); Eosinophils Percent Auto 3.8 % (0-4.4); Hematocrit 29.8 % (42.0-52.0); Hemoglobin 10.4 g/dL (14.0-18.0); Immature Granulocyte Absolute 0.02 K/mm3 (0.00-0.031); Immature Granulocyte Percent A 0.3 % (0-0.5); Lymphocytes Absolute Auto 1.15 K/mm3 (0.9-3.2); Lymphocytes Percent Auto 19.2 % (18.3-44.2); Mean Corpuscular HGB Conc 34.9 g/dl (32-36); Mean Corpuscular Hemoglobin 33.7 pg (26-34); Mean Corpuscular Volume 96.4 fl (80-100); Mean Platelet Volume 9.3 fl (7.4-10.4); Monocytes Absolute Auto 0.6 K/mm3 (0.1-0.6); Platelet Count Result 131 k/mm3 (150-375); Red Blood Count 3.09 M/mm3 (4.6-6.20); Red Cell Distribution Width 14.1 % (11.5-14.5)
[2020-03-12 05:54] LABS: Potassium 4.5 mmol/L (3.4-5.0)
--- NOTE | 2020-03-12 09:06 | PM.IMHP ---
H&P: HPI History of Present Illness Chief complaint: Post operative hematoma Narrative: date of service : 03/12/2020 Tera Cortez is a 84 year old male With past medical history of hypertension , CVA, COPD, esophageal varices, tobacco abusewho underwent Medtronic dual-chamber pacemaker insertion on March 08, 2020 by . he went home on 03/09 . yesterday when he sat in his recliner he suddenly developed severe pain at the pacemaker site and noticed that there is swelling. It was very intense pain not relieved by Tylenol. he decided to come here to the emergency room. denies lower limb edema, shortness of breath, dizziness, syncope. he was take aspirin 325 mg daily. hemoglobin was 14 on March 08 and today it is 10, platelet count 130, sodium 127 CT thorax shows [id number] cm hematoma subcutaneous tissue with moderate size right pleural effusion, underlying emphysema, asbestosis.. echo 11/2019: 1. Left ventricular chamber dimension is normal. 2. Left ventricular systolic function is normal, estimated at 65-70%. 3. There is mildly increased left ventricular wall thickness. 4. The left ventricular diastolic function is grade I diastolic dysfunction. 5. E/e' 19 is elevated. 6. Global longitudinal strain is abnormal at -15.2%. 7. There is moderate aortic valve sclerosis. 8. The mitral valve has moderately calcified annulus. 9. There is mild to moderate tricuspid valve regurgitation. 10. Severe pulmonary hypertension, estimated pulmonary arterial systolic pressure is 66 mmHg. 11. There is trace pulmonic regurgitation. 12. Dilated inferior vena cava with >50% collapse upon inspiration consistent with elevated right atrial pressure, 10 mmHg. Review of Systems Review of Systems: All systems reviewed & are unremarkable except as noted in HPI and below Constitutional: Constitutional: Denies chills, Denies fatigue, Denies fever(s), Denies headache(s) and Denies snoring Eyes: Eyes: Denies eye discharge and Denies loss of vision ENT: Denies dizziness, Denies headache(s), Denies nasal discharge and Denies sore throat Cardiovascular: Cardiovascular: Reports as per HPI, Denies chest pain, Denies syncope, Denies rapid heart rate, Denies leg edema, Denies dyspnea, Denies dyspnea on exertion, Denies orthopnea and Denies paroxysmal nocturnal dyspnea Respiratory: Respiratory: Denies chest congestion, Denies cough, Denies dyspnea, Denies dyspnea on exertion, Denies snoring and Denies wheezing Gastrointestinal: Gastrointestinal: Denies abdominal pain, Denies diarrhea, Denies nausea and Denies vomiting Genitourinary: Genitourinary: Denies hematuria, Denies dysuria, Denies flank pain and Denies urinary frequency Musculoskeletal: Musculoskeletal: Denies myalgias, Denies arthralgias and Denies joint swelling Neurologic: Denies Abnormal speech present, Denies dizziness, Denies syncope, Denies headache(s), Denies focal weakness and Denies loss of vision Psychiatric: Psychiatric: Denies anxiety and Denies depression Endocrine: Endocrine: Denies cold intolerance, Denies fatigue and Denies heat intolerance Hematologic/Lymphatic: Hematologic/Lymphatic: Denies easy bleeding and Denies easy bruising Allergic/Immunologic: Allergic/Immunologic: Denies urticaria and Denies wheezing PMFSH Past Medical History Medical History Anxiety Arthritis Bradycardia Esophageal varices History of cerebrovascular disease History of emphysema History of peripheral arterial disease Positional lightheadedness Sleep apnea Smoker Surgical History Surgical History H/O cervical spine surgery History of total right knee replacement Family History Family History Grandparent Diabetes mellitus Sibling Diabetes mellitus Social History Social History
[2020-03-12] MEDS: POTASSIUM CHLORIDE 10 MEQ TABLET.ER PO (09:21)
[2020-03-12] MEDS: lisinopriL 5 MG TABLET PO (09:21)
[2020-03-12] MEDS: SODIUM CHLORIDE 0.9% IV 500 ML IV CONT (19:31)
[2020-03-13] VITALS (7 sets, daily range): BP systolic 123; BP diastolic 45–72; PULSE 72–107; RESP 18–20; TEMP 36.4–36.6; O2SAT 95–98
[2020-03-13 06:34] LABS: Hematocrit 30.3 % (42.0-52.0); Hemoglobin 10.5 g/dL (14.0-18.0); Mean Corpuscular HGB Conc 34.7 g/dl (32-36); Mean Corpuscular Hemoglobin 33.5 pg (26-34); Mean Corpuscular Volume 96.8 fl (80-100); Mean Platelet Volume 9.9 fl (7.4-10.4); Platelet Count Result 136 k/mm3 (150-375); Red Blood Count 3.13 M/mm3 (4.6-6.20); Red Cell Distribution Width 14.4 % (11.5-14.5); White Blood Count 5.7 K/mm3 (4.5-10.0)
[2020-03-13 06:43] LABS: Blood Urea Nitrogen 16 mg/dL (9-20); Calcium 8.3 mg/dL (8.4-10.2); Carbon Dioxide 24 mmol/L (22-30); Chloride 104 mmol/L (98-107); Estimated CRCL calculation 63 ml/min; Estimated Glomerular Filt Rate > 60; Glucose 84 mg/dL (75-110); Potassium 4.5 mmol/L (3.4-5.0); Sodium 131 mmol/L (137-145)
[2020-03-13] MEDS: POTASSIUM CHLORIDE 10 MEQ TABLET.ER PO (07:59)
--- NOTE | 2020-03-13 12:57 | PM.DS ---
DS: Admitting Diagnosis Admitting Diagnosis Admitting Diagnosis: Postprocedural hematoma of skin and subcutaneous tissue following other procedure DS: Summary Hospital Course Reason for hospitalization: Pacemaker Pocket hematoma Hospital Course: Patient presented with moderate to sever left shoulder pain and swelling start on day after hospital discharge where he received dual chamber pacer. His pain is not radiating and not limiting left arm function beyond baseline. He had mild swelling in left arm. His arm and left subclavicular swelling has been stable. CTA showed no extra-vasation. Hematoma has been stable in size and drop in HGB has become stable for last 48 hours. Pain has improved. Status at Discharge Functional status at discharge: uses cane/walker Time Spent with Patient Time attestation: Total time spent providing and/or coordinating discharge services: Exam Const: General: comfortable and no acute distress Other: Able to lie flat Neck: Neck: supple and no JVD Carotids: no bruits Resp: Auscultation: clear to auscultation bilaterally and lung sounds not diminished Other: Left subclavicular swelling and tenderness Cardio: Rate: regular rate Rhythm: regular rhythm Heart sounds: no gallops, no murmurs and no rubs GI: GI Palp: Yes Soft to palpation and No Tenderness to palpation present (GI) Auscultation: normal bowel sounds Skin: General skin exam: normal color, rashes and/or lesions noted and no erythema Other: Warm Neuro: Cranial nerves: Yes Equal, round and reactive pupils present Speech: normal speech Other: No obvious focal deficit or facial asymmetry Extrem: General: no edema Other: Normal capillary refills Intact distal pulses. DS: Data Data Completed and Pending Labs on day of discharge: Labs from last 24 hours 03/13/20 03/13/20 05:45 05:45 WBC 5.7 RBC 3.13 L Hgb 10.5 L Hct 30.3 L MCV 96.8 MCH 33.5 MCHC 34.7 RDW 14.4 Plt Count 136 L MPV 9.9 Sodium 131 L Potassium 4.5 Chloride 104 Carbon Dioxide 24 BUN 16 Creatinine 0.80 Estim Creat Clear Calc 63 Estimated GFR > 60 Glucose 84 Calcium 8.3 L Discharge Plan Discharge Attending physician on discharge: Philippe Glynn Discharging Clinician: Philippe Glynn Anticipated Discharge Date/Time: 03/13/20 13:06 Patient Disposition: Home, Self-Care Activity: other - see discharge instructions Diet: heart healthy Wound Care Instructions: other - see discharge instructions Discharge Instructions: ACTIVITY: No lifting, pushing or pulling more than 5 pounds with left arm for 3 more WEEKS No lifting left arm above shoulder height for 3 more WEEKS Wear immobilizer only if you are unable to remember the above activity restrictions. Recommend that it be worn at night. No tub baths, swimming pool or hot tub for 1MONTH. May shower after you are released to get incision wet FOLLOW-UP: Follow up with [facility], [place] office at [facility] [address] On March 16, 2020 at 1:30 pm to have dressing removed, incision checked and pacemaker checked. Please arrive by 1:15 pm for your appointment. Bring photo ID and insurance card(s) Sign up for [employer]. The activation code is on your appointment confirmation WOUND CARE: Do not remove elastistic dressing. You have a lot of bruising under your arm, down your stay left side and at the pacemaker site. This will possibly spread further down your body and turn several colors. This is to be expected. Do not get your dressing wet. When you are able to shower AFTER you are seen for your incision check in the office do not rub or scrub the incision. Pat dry after shower. NO lotions, powders, creams or ointments are to be applied to the incision Patient Instructions: Antibiotic Form, How to Stop Smoking (DC) Stand Alone Forms: General Discharge Inf
== END 2020-03-13 15:00 | disposition home health service (06) ==
LOC: ANHED 22:38 → ANH2MED 22:57
PROVIDERS: Nurse Practitioner Adult Health; Admitting Provider Internal Medicine Interventional Cardiology; Emergency Provider Emergency Medicine; PCP Family Medicine; Visit Provider Internal Medicine Interventional Cardiology
DX: L76.32 Postprocedural hematoma of skin and subcutaneous tissue following other procedure (principal); Z95.0 Presence of cardiac pacemaker; E87.1 Hypo-osmolality and hyponatremia; F17.210 Nicotine dependence, cigarettes, uncomplicated; I73.9 Peripheral vascular disease, unspecified; J44.9 Chronic obstructive pulmonary disease, unspecified; Z96.651 Presence of right artificial knee joint; Z86.73 Personal history of transient ischemic attack (TIA), and cerebral infarction without residual deficits
CPT/HCPCS: 36415; 71045; 71275; 80048; 84132; 85025; 85027; 85610; 85730; 96361; 96374; 96375; 96376; 99285; A9270; G0378; J0131; J2270; J7030; J7040; Q9967

== ENCOUNTER 2020-03-17 12:25 | Observation (INO) | payer MEDICARE, SELFPAY ==
[2020-03-17] VITALS (8 sets, daily range): BP systolic 110–156; BP diastolic 49–64; PULSE 72–86; RESP 12–22; TEMP 37.2–37.6; O2SAT 94–100; BMI 21.8
[2020-03-17 12:44] LABS: Hematocrit 32.1 % (42.0-52.0); Hemoglobin 10.8 g/dL (14.0-18.0); Mean Corpuscular HGB Conc 33.6 g/dl (32-36); Mean Corpuscular Hemoglobin 33.8 pg (26-34); Mean Corpuscular Volume 100.3 fl (80-100); Mean Platelet Volume 8.8 fl (7.4-10.4); Platelet Count Result 171 k/mm3 (150-375); Red Cell Distribution Width 14.8 % (11.5-14.5); White Blood Count 6.1 K/mm3 (4.5-10.0)
[2020-03-17 12:54] LABS: Prothrombin Time 13.3 Seconds (11.1-14.7)
[2020-03-17 12:55] LABS: Partial Thromboplastin Time 28.3 SECONDS (22.3-36.8)
[2020-03-17 13:00] LABS: Blood Urea Nitrogen 13 mg/dL (9-20); Calcium 8.7 mg/dL (8.4-10.2); Carbon Dioxide 28 mmol/L (22-30); Chloride 96 mmol/L (98-107); Estimated Glomerular Filt Rate > 60; Glucose 110 mg/dL (75-110); Potassium 4.3 mmol/L (3.4-5.0); Sodium 128 mmol/L (137-145)
--- NOTE | 2020-03-17 13:22 | P.HPUP_ITS ---
History and Physical Update Update Date/Time: 03/17/20 13:22 History and Physical has been reviewed, including an updated exam of the patient. The patient had an eventful pacemaker implant last Sunday by Dr. Mariano and the incision and site looked fine on discharge on Sunday. Howeve r on night he had intense pain and was admitted with a large hematoma of the pacemaker pocket. Hematocrit dropped from 41 to 35. This is treated conservatively, with a sling, cold compresses, analgesics is cetera. He was seen yesterday in the office and the hematoma seemed to be softer, although there was a lot of surrounding ecchymosis. Last night while sitting in doing nothing he again had fairly intense pain of the left shoulder area/pocket and came today to the office. His hematoma looks bigger, and more tense. It appears he has had intermittent bleeding into the pocket perhaps from a arterial bleed. I think that since this has not resolved with conservative measures, we need to evacuate the hematoma and look for a source of bleeding. Risks, benefits, and alternatives have been discussed and questions answered. One of my main concerns is that the patient will be at increased risk of infection with pocket re-exploration. He understands this. He is also aware that we may not find anything in particular that is bleeding which would be unfortunate but possible. Patient agrees to proceed with procedure.
--- NOTE | 2020-03-17 13:27 | WPDMODSED ---
Moderate Sedation Note-Pt Data Patient Data Diagnosis: Large pocket hematoma with recurrent bleeding into the pocket Present Complaint: Pain and swelling of the pacemaker pocket Procedure to be performed/Plan: Conscious sedation Exploration of the pacer pocket Hematoma evacuation Allergies Allergy/AdvReac Type Severity Reaction Status Date / Time No Known Allergies Allergy Verified 03/11/20 19:24 Home Medications Medication Instructions Recorded Confirmed Type multivitamin 1 tablet PO DAILY 11/10/19 03/17/20 History omega-3 fatty acids 1,000 mg 1,000 mg PO DAILY 11/10/19 03/17/20 History capsule lorazepam 0.5 mg tablet 1 mg PO HS PRN tablet 11/15/19 03/17/20 History potassium chloride 10 mEq 10 meq PO BID #60 tablet 12/16/19 03/17/20 Rx tablet,extended release furosemide 20 mg tablet 20 mg PO DAILY #90 tablet 01/27/20 03/17/20 Rx lisinopril 5 mg PO DAILY #15 tablet 03/09/20 03/17/20 Rx Sedation/Anesthesia: No previous sedation/anesthesia problems (including family history). [facility]LY [facility] Past Medical History Medical History Anxiety Arthritis Bradycardia Esophageal varices History of cerebrovascular disease History of emphysema History of peripheral arterial disease Positional lightheadedness Sleep apnea Smoker Surgical History Surgical History H/O cervical spine surgery History of total right knee replacement Family History Family History Grandparent Diabetes mellitus Sibling Diabetes mellitus Social History Social History Smoking packs per day: 0.5 Smoking cigarettes per day: 10.0 Smoking status: Current every day smoker Tobacco type: cigarettes Second hand tobacco smoke exposure: Yes Alcohol intake: former Substance use: never Substance use type: does not use Gender identity (if verbalized by the patient): Male Spiritual care concerns: No Agree to blood products: Yes Mod Sed Physical Exam Physical Exam Pre Procedural Exam: Normal: Appearance (Thin older male in no distress), Eyes, Ears, Nose, Neck, Throat, Lungs, Heart Size, Heart Rate, Heart Rhythm, Neuro Exam, Abdomen, Liver and Extremities and Variation: Airway (Dentures) and Skin (Pacemaker incision is intact. However there was a very large hematoma larger than a grapefruit in this area with a lot of surrounding ecchymosis) Hours since solid foods: 6 Hours since liquid intake: 6 Internal Medicine - PN: Obj Da Vital Signs Vital Signs: Vital Signs - 24 hr 03/17/20 13:01 Temperature 99.0 F Pulse Rate 79 Respiratory Rate 22 H Blood Pressure 121/52 L Pulse Oximetry 98 Labs CBC & Chem 7: 03/17/20 12:39 03/17/20 12:39 Labs: Laboratory Results - last 24 hr 03/17/20 03/17/20 03/17/20 12:39 12:39 12:39 WBC 6.1 RBC 3.20 L Hgb 10.8 L Hct 32.1 L MCV 100.3 H MCH 33.8 MCHC 33.6 RDW 14.8 H Plt Count 171 MPV 8.8 PT 13.3 INR 1.0 APTT 28.3 Sodium 128 L Potassium 4.3 Chloride 96 L Carbon Dioxide 28 BUN 13 Creatinine 0.70 Estim Creat Clear Calc Not Reportable Estimated GFR > 60 Glucose 110 Calcium 8.7 I have reviewed the patient's chest x-ray, op report, and CT scan. ASA Classification/Sedation ASA Classification/Sedation ASA Class: III Risks: Risks, benefits and alternatives explained and patient/family accepted plan for sedation. Patient re-evaluated immediately prior to sedation.
--- NOTE | 2020-03-17 14:58 | PM.PROC ---
Procedure Note - Detailed Date of procedure: 03/17/20 Pre-op diagnosis: PACEMAKER COMPLICATIONS Expanding hematoma of pacemaker pocket Post-op diagnosis: same Procedure performed: Conscious sedation Hematoma evacuation Exploration of the pacemaker pocket Description of procedure: Conscious sedation: Assessment: The patient has no history of anesthesia problems. The patient's oropharynx is clear. The patient was deemed to be a good candidate for conscious sedation. The patient had continuous hemodynamic monitoring during the procedure. Start time: 1349 Completion time: 1456 Total conscious sedation time: 67 minutes Medications: Versed 100 mcg IV push Trained observer: Joey Cardoza RN Outcome: The patient tolerated the procedure well with no complications. The patient was brought to the medical laboratory technologist and the left prepectoral area was prepped and draped in the usual fashion. He received lidocaine local anesthesia as well as vancomycin 1 g IV push and conscious sedation. An incision was made with the plasma blade over the existing pacemaker incision and carried down to the pocket. There was a very large amount of coagulated blood present which was evacuated with manual extraction as well as suction. The pacemaker pocket had been dissected by the hematoma and was the pocket was quite large. The pacemaker and leads were unremarkable , as was the insertion of the leads into the pectoral muscle. The pulse generator was placed in a vancomycin soaked gauze wrap. The site was irrigated multiple times with vancomycin solution. No single source of bleeding was noted but there was generalized oozing of the pectoral muscle and fascia which was cauterized extensively. When the pocket appeared clean and dry, the pulse generator was reintroduced into the pocket. A stay stitch was applied with 2 silk suture. 2 doses of topical thrombin were applied to the pectoral muscle and the entire pocket. The subcutaneous tissues were closed in a double layer intermittent suture fashion with 2 0 Vicryl suture and skin was closed in a continuous fashion with 4 0 Vicryl suture. A Steri-Strip was applied as was a clean dry dressing and a pressure dressing applied. Anesthesia: local Surgeon: Amanda Leahy MD Estimated blood loss (mL): 500 ( 500+ cc of clotted blood, active bleeding 15 cc's.) Drains: No Packing: No Pathology: none sent Complications: No immediate complications Condition: stable Disposition: observation
--- NOTE | 2020-03-17 16:08 | SUR.PHASEII ---
1520-pt back from the CCL after a successful hematoma extraction. No distress noted. Pressure dressing applied per MD order. No evidence of bleeding noted. AOx4. Will continue to monitor.
--- NOTE | 2020-03-17 17:15 | ADMGEN ---
This patient, Tera Cortez, was admitted to [facility]. Patient/family oriented to hospital policies and general routines including ID bracelet, bed and alarms, visiting hours, pain management, procedures, bathroom and other care routines, personal items, smoking policy, room service/diet, and visiting hours. Valuables list has been completed. Information on how to activate the Rapid Response Team has been discussed. Patient/Family are encouraged to report perceived risks to care and to ask questions if they do not understand what they are told or what they should do.
--- NOTE | 2020-03-17 18:53 | SUR.PHASEII ---
1620-pt into PCS recovery. No distress noted. End of Phase II recovery.
[2020-03-17] MEDS: SODIUM CHLORIDE 0.9% IV 1,000 ML 100 ML IV CONT (18:58)
[2020-03-17] MEDS: ACETAMINOPHEN 325 MG TABLET 650 MG PO (23:16)
[2020-03-18] VITALS: BP 107/35; PULSE 93; RESP 19; O2SAT 93
[2020-03-18] MEDS: LORAZEPAM 0.5 MG TABLET 1 MG PO (00:19)
[2020-03-18 04:00] VITALS: BP 144/49; PULSE 85; PULSE 89; RESP 15; TEMP 37.1; O2SAT 92
[2020-03-18 08:00] VITALS: BP 124/57; PULSE 90; RESP 14; O2SAT 100
--- NOTE | 2020-03-18 10:55 | PC.NURSE ---
1000-pt had slight puffy area under pressure dressing. Dressing applied. No distress noted. AOx4. Will continue to monitor.
[2020-03-18 11:49] LABS: Hematocrit 28.2 % (42.0-52.0); Hemoglobin 9.5 g/dL (14.0-18.0)
[2020-03-18 12:00] VITALS: BP 118/47; PULSE 94; RESP 16; O2SAT 97
[2020-03-18] MEDS: ACETAMINOPHEN 325 MG TABLET 650 MG PO (14:21)
--- NOTE | 2020-03-18 14:32 | PM.DS ---
DS: Admitting Diagnosis Admitting Diagnosis Admitting Diagnosis: Hematomas pacemaker pocket DS: Discharge Diagnosis Discharge Diagnosis (1) Postoperative hematoma: Qualifiers: Procedure type: non-dermatologic Surgical complication system/body Area: subcutaneous tissue Qualified Code(s): L76.32 - Postprocedural hematoma of skin and subcutaneous tissue following other procedure Status: Acute Assessment and Plan: Admitted for observation from the office 03/17/2020 due to development of a large hematoma at the pacemaker pocket. This was evacuated by Dr Leahy on 03/17/2020. Treat pressure dressings were applied. Vital signs were stable. Hemoglobin 03/17/2020 10.8. Hemoglobin this morning 9.5. H&H will be repeated on Sunday when he comes to the office. He will also have a BMP to evaluate his sodium. DS: Summary Hospital Course Reason for hospitalization: Hematoma pacemaker pocket Hospital Course: 84-year-old male that had a pacemaker implantation 03/08/2020. Complication with hematoma and significant pain at the site was admitted on 03/11/2020. Pressure dressings were applied. Vital signs and H&H were stable and he was discharged on 03/13/2020. Seen in the office on Sunday. Pressure dressing was removed. Hematomas was soft. It was smaller than the assessment on Sunday. He had no pain at that site. He was instructed to continue to hold his medications including aspirin, fish oil, furosemide, lisinopril. He presented back to the office on 03/17/2020 with a large hematoma that developed overnight. This was evacuated by Dr Leahy. The pocket was flushed with vancomycin as well as he received a dose of vancomycin. A pressure dressing was applied. Small amount of swelling noted at the base of the pocket this morning an additional pressure dressing applied. Vital signs were stable. hemoglobin 03/17/2020 10.8. Hemoglobin this morning 9.5. H&H as well as BMP will be repeated on Sunday when he comes to the office. He will be discharged with Keflex for 7 days. He was discharged home in stable condition . Status at Discharge Functional status at discharge: uses cane/walker Overall status at discharge: patient is not back to baseline (Due to limited mobility of the left arm) Time Spent with Patient Time attestation: Total time spent providing and/or coordinating discharge services: Time spent in the room with assessment, pressure dressing application, updating Angelika by phone, time spent in discharge summary as well as discharge orders. Total time 35 minutes Time spent: Greater than 30 minutes Exam Narrative: Exam Narrative: Comfortable in bed after eating lunch. Denied pain. Const: General: cooperative, comfortable and no acute distress Nutritional Appearance: thin Orientation/consciousness: patient oriented x3 HENMT: Head: normal to inspection, normocephalic and atraumatic Ears: hearing grossly impaired General nose exam: Normal external nose present, Normal nares present and no epistaxis Mouth: Yes Normal oral and palatal mucosa present and Yes moist mucous membranes Eyes: General: appearance normal, both eyes and all related structures Neck: Neck: normal visual inspection and no JVD Chest: Other: Pressure dressing left subclavian. Ecchymosis on the left ribcage in to his hip. Resp: Effort & Inspection: normal respiratory effort and able to speak in complete sentences Auscultation: clear to auscultation bilaterally Cardio: Jugular venous distension: no JVD Rate: regular rate Rhythm: regular rhythm Heart sounds: no murmurs GI: GI Palp: Yes Soft to palpation Auscultation: normal bowel sounds Skin: Lesions: no lesions Rashes: no rashes Other: Ecchymoses left rib cage. Neuro: General: patient oriented x3 Speech: normal speech Extrem: Right upper extremity: normal to inspection; no cyanosis Lef
== END 2020-03-18 16:00 | disposition home health service (06) ==
PROVIDERS: Nurse Practitioner Adult Health; Admitting Provider Internal Medicine Cardiovascular Disease; PCP Family Medicine; Visit Provider Internal Medicine Cardiovascular Disease
PROC: 0JH606Z Insertion of Pacemaker, Dual Chamber into Chest Subcutaneous Tissue and Fascia, Open Approach (ICD-10-PCS; CPT 33208; principal; 2020-03-17 13:00)
DX: L76.32 Postprocedural hematoma of skin and subcutaneous tissue following other procedure (principal); E87.1 Hypo-osmolality and hyponatremia; F17.210 Nicotine dependence, cigarettes, uncomplicated; Z96.651 Presence of right artificial knee joint
CPT/HCPCS: 10140; 33208; 36415; 80048; 85014; 85018; 85027; 85610; 85730; 96360; 96361; A9270; C1779; C1785; G0378; J0690; J2250; J3010; J3370; J7030; J7040

== ENCOUNTER 2020-03-23 12:31 | Outpatient (CLI) | payer MEDICARE, SELFPAY ==
[2020-03-23 13:21] LABS: Hematocrit 31.3 % (42.0-52.0); Hemoglobin 10.6 g/dL (14.0-18.0)
[2020-03-23 13:35] LABS: Blood Urea Nitrogen 11 mg/dL (9-20); Calcium 8.6 mg/dL (8.4-10.2); Carbon Dioxide 28 mmol/L (22-30); Chloride 97 mmol/L (98-107); Estimated Glomerular Filt Rate > 60; Glucose 97 mg/dL (75-110); Potassium 4.3 mmol/L (3.4-5.0); Sodium 130 mmol/L (137-145)
== END 2020-03-23 12:32 | disposition home or self-care (01) ==
PROVIDERS: Family Provider Internal Medicine Cardiovascular Disease; Visit Provider Nurse Practitioner Adult Health
DX: E87.1 Hypo-osmolality and hyponatremia (principal)
CPT/HCPCS: 36415; 80048; 85014; 85018

== ENCOUNTER 2020-11-30 14:58 | Outpatient (CLI) | payer MEDICARE, SELFPAY | END 2020-11-30 14:59 | disposition home or self-care (01) | LOC: ANHCOVIDVC 14:58 | PROVIDERS: PCP Internal Medicine Cardiovascular Disease | DX: Z23 Encounter for immunization (principal) | CPT/HCPCS: 0001A; 91300 ==

== ENCOUNTER 2020-12-21 14:58 | Outpatient (CLI) | payer MEDICARE, SELFPAY | END 2020-12-21 14:59 | disposition home or self-care (01) | LOC: ANHCOVIDVC 14:58 | PROVIDERS: PCP Internal Medicine Cardiovascular Disease | DX: Z23 Encounter for immunization (principal) | CPT/HCPCS: 0002A; 91300 ==

== ENCOUNTER 2021-05-20 18:43 | Emergency (ER) | payer MEDICARE, SELFPAY ==
--- NOTE | ~2021-05-20 | CT_ITS ---
EXAMINATION: CT abdomen pelvis w con DATE: 05/20/2021 20:05 INDICATION: Abdominal pain TECHNIQUE: Computed tomography (CT) of the abdomen and pelvis was performed with intravenous contrast . Automated exposure control and iterative reconstruction technique were employed. Exam dose: 372.56 mGy-cm total exam DLP. COMPARISON: 08/20/2017 Limited abdominal ultrasound 08/13/2015 CT abdomen pelvis FINDINGS: Severe emphysematous changes are noted in the lung bases, interstitial septal soft tissue t hickening involving particularly the right lung base, consistent with interstitial fibrosis or pneumo nitis. Normal heart size. Right atrial and ventricular pacemaker leads. No pericardial effusion. No pleural effusion. There is surface nodularity of the liver consistent with cirrhosis. No hepatic space-occupying mass l esion is evident. Normal splenic size. The gallbladder is present. No bile duct or pancreatic duct di latation. No pancreatic mass lesion or calcification. Adrenal glands are unremarkable. Horseshoe kidney. Up to 3.5 cm renal cysts. There is extensive abdominal aortic calcification but not aneurysm. No intraperitoneal or retroperit cerrato or pelvic mass lesion or lymphadenopathy or ascites. Prostate enlargement and calcifications. There is diffuse moderate bladder wall thickening. Diverticulosis of the colon; no evidence of diverticulitis. There are are fluid distended small bowel segments with fluid levels which may be secondary to enteritis or mild adynamic ileus. No bowel obst ruction or intraperitoneal free air. Diffuse osteopenia. Very prominent spurring. The lumbar spine.] Is fusion at L4-5 interspace. There is degenerative disc disease throughout the lumbar spine. There is prominent degenerative change at the apophyseal joints. No spondylolisthesis. Bilateral hip osteoarthritis. IMPRESSION: Severe emphysema Interstitial fibrosis or pneumonitis, right lower lobe Cirrhosis Horseshoe kidney; renal cysts Prostate enlargement and calcifications, with associated moderate diffuse bladder wall thickening Fluid distended small bowel with air-fluid levels, which may be due to enteritis or adynamic ileus Diverticulosis of the colon; no CT evidence of diverticulitis or bowel obstruction Reviewed, dictated and finalized at [facility] Reviewed, dictated and finalized at [facility]. IMPRESSION: Severe emphysema Interstitial fibrosis or pneumonitis, right lower lobe Cirrhosis Horseshoe kidney; renal cysts Prostate enlargement and calcifications, with associated moderate diffuse bladd er wall thickening Fluid distended small bowel with air-fluid levels, which may be due to enteriti s or adynamic ileus Diverticulosis of the colon; no CT evidence of diverticulitis or bowel obstruct ion
[2021-05-20 18:53] VITALS: BP 133/75; PULSE 86; RESP 19; TEMP 36.6; O2SAT 96
--- NOTE | 2021-05-20 19:15 | ED.GENADULT ---
HPI - General Adult General Chief complaint: Abdominal Pain Stated complaint: llq pain Time Seen by Provider: 05/20/21 19:03 Source: RN notes reviewed History of Present Illness HPI narrative: Patient presents emergency department from home via EMS for abdominal pain. Patient states pain began approximately a month ago but is worsened over the past 2 days the pain is located left lower quadrant and radiates into the left side states the pain is worse at times with movement and he states the pain will come and go states at times will have no pain and other times he will have severe pain she is currently laying in bed his pain is improved he denies any fevers or chills nausea vomiting diarrhea or any other symptoms states he not taking medication for the pain today Related Data Home Medications Medication Instructions Recorded Confirmed multivitamin 1 tablet PO DAILY 11/10/19 05/19/21 acetaminophen 500 mg tablet 500 mg PO Q6H PRN 04/08/20 05/19/21 Allergies Allergy/AdvReac Type Severity Reaction Status Date / Time No Known Allergies Allergy Verified 05/19/21 15:28 Review of Systems Review of Systems: Gen.: Denies fevers or chills ENT: Denies congestion Respiratory: Denies shortness of breath or cough CV: Denies chest pain or palpitations GI: See HPI denies burning, urgency, frequency or hematuria Musculoskeletal: Denies back pain or muscle pain Neuro: Denies numbness, tingling, weakness or focal weakness Skin: Denies rash Except as documented, all other systems reviewed and negative [facility] Past Medical History Medical History Anxiety Arthritis Bradycardia Esophageal varices History of cerebrovascular disease History of emphysema History of peripheral arterial disease Hypertension Positional lightheadedness Sleep apnea Smoker Surgical History Surgical History H/O cervical spine surgery History of total right knee replacement Family History Family History Grandparent Diabetes mellitus Sibling Diabetes mellitus Social History Social History Smoking packs per day: 0.5 Smoking cigarettes per day: 10.0 Smoking status: Current every day smoker Tobacco type: cigarettes Second hand tobacco smoke exposure: Yes Alcohol intake: former Substance use: never Substance use type: does not use Gender identity (if verbalized by the patient): Male Sexual Orientation (if Verbalized by the Patient): Straight or Heterosexual Spiritual care concerns: No Agree to blood products: Yes Exam Narrative: APPEARANCE: No acute distress, nontoxic, resting in bed HEENT: Normocephalic, atraumatic, OMM RESPIRATORY: No respiratory distress, clear to auscultation bilaterally with no rhonchi wheezing or rales CARDIOVASCULAR: RRR s murmur ABDOMINAL: Soft nondistended nontender palpation left lower quadrant with a hernia present that is reducible no percussion tenderness MUSCULOSKELETAl: Moves all extremities. No clubbing, cyanosis or edema. NEURO: Awake and alert. Following commands, speech normal, no focal deficits SKIN:: Warm, dry. Normal Color PSYCHIATRIC: Normal affect/mood Course Course Emergency Course: Called and discussed with Dr. Mcclendon presentation work-up agrees with plan for discharge to follow-up as an outpatient Reviewed CT scan believe interstitial pneumonitis on CT scan as the patient's pain is in the left lower quadrant ongoing for the past 1 month no cough On reexam patient has no further recurrence of hernia patient able to ambulate in the ED with no difficulty patient also able to eat and drink in ED with no difficulty Discharge Vital Signs Vital signs: Vital Signs Temperature 98 F 05/20/21 18:53 Pulse Rate 86 05/20/21 18:53 Respiratory Rate 19 05/20/21 18:53 Blood Pressure 133/75 05/20/21 18:53 Puls
[2021-05-20 19:28] VITALS: BP 121/71; PULSE 77; RESP 17; TEMP 36.9; O2SAT 95
[2021-05-20 19:32] LABS: Basophils Percent Auto 0.7 % (0.2-1.2); Eosinophils Absolute Auto 0.1 K/mm3 (0-0.3); Eosinophils Percent Auto 2.2 % (0-4.4); Hematocrit 41.3 % (42.0-52.0); Hemoglobin 13.9 g/dL (14.0-18.0); Immature Granulocyte Absolute 0.01 K/mm3 (0.00-0.031); Immature Granulocyte Percent A 0.2 % (0-0.5); Lymphocytes Absolute Auto 0.82 K/mm3 (0.9-3.2); Lymphocytes Percent Auto 18.1 % (18.3-44.2); Mean Corpuscular HGB Conc 33.7 g/dl (32-36); Mean Corpuscular Hemoglobin 34.5 pg (26-34); Mean Corpuscular Volume 102.5 fl (80-100); Mean Platelet Volume 9.5 fl (7.4-10.4); Monocytes Absolute Auto 0.4 K/mm3 (0.1-0.6); Monocytes Percent Auto 9.1 % (2.6-8.5); Neutrophils Absolute Auto 3.2 K/mm3 (1.3-6.7); Neutrophils Percent Auto 69.7 % (45.5-73.1); Platelet Count Result 158 k/mm3 (150-375); Red Blood Count 4.03 M/mm3 (4.6-6.20); Red Cell Distribution Width 14.6 % (11.5-14.5); White Blood Count 4.5 K/mm3 (4.5-10.0)
--- NOTE | 2021-05-20 19:36 | PC.NURSE ---
Patient attempting to provided urine at this time
[2021-05-20 19:42] LABS: Alanine Aminotransferase 21 U/L (4-50); Albumin Level 3.9 g/dL (3.5-5.1); Alkaline Phosphatase 130 U/L (38-126); Anion Gap 5 mmol/L (8-16); Aspartate Amino Transferase 31 U/L (17-59); Bilirubin,Total 0.8 mg/dL (0.2-1.3); Blood Urea Nitrogen 13 mg/dL (9-20); Calcium 8.9 mg/dL (8.4-10.2); Carbon Dioxide 28 mmol/L (22-30); Chloride 100 mmol/L (98-107); Estimated Glomerular Filt Rate > 60; Glucose 99 mg/dL (65-110); Lactic Acid Reflex 0.8 mmol/L (0.7-2.1); Lipase 57 U/L (23-300); Potassium 4.2 mmol/L (3.4-5.0); Sodium 133 mmol/L (137-145)
[2021-05-20 19:43] LABS: INR 0.9; Prothrombin Time 12.5 Seconds (11.1-14.7)
[2021-05-20 19:44] LABS: Partial Thromboplastin Time 27.3 SECONDS (22.3-36.8)
[2021-05-20 19:49] LABS: Add Urine Microscopic? YES; Appearance Urine Clear (Clear); Bilirubin Urine Negative (Negative); Blood Urine Negative (Negative); Color Urine Yellow (Yellow); Glucose Urine UA Negative (Negative); Ketones Urine Negative (Negative); Leukocyte Esterase Ur Negative LEU/UL (Negative); Nitrate Urine Negative (Negative); Protein Urine 1+ mg/dL (Negative); RBC Urine 0-2 /hpf (0-2); Specific Grav Ur 1.012 (1.001-1.035); Squamous Epithelial Cell Urine Rare /hpf (Few); Urobilinogen Urine Negative mg/dL (<2.0); WBC Urine 0-3 /hpf
[2021-05-20 20:07] VITALS: BP 120/72; PULSE 77; RESP 24; TEMP 36.6; O2SAT 94
[2021-05-20 21:01] VITALS: BP 144/75; PULSE 101; RESP 18; TEMP 37.3; O2SAT 97
[2021-05-20 22:14] VITALS: BP 149/63; PULSE 75; RESP 13; TEMP 37.2; O2SAT 97
[2021-05-20 23:50] VITALS: BP 149/63; PULSE 104; RESP 24; O2SAT 98
== END 2021-05-20 23:51 | disposition home or self-care (01) ==
PROVIDERS: Emergency Provider Emergency Medicine; PCP Family Medicine
DX: K46.9 Unspecified abdominal hernia without obstruction or gangrene (principal); J43.9 Emphysema, unspecified; Z86.73 Personal history of transient ischemic attack (TIA), and cerebral infarction without residual deficits; M19.90 Unspecified osteoarthritis, unspecified site; I73.9 Peripheral vascular disease, unspecified; G47.30 Sleep apnea, unspecified; Z96.651 Presence of right artificial knee joint; F17.210 Nicotine dependence, cigarettes, uncomplicated; R91.8 Other nonspecific abnormal finding of lung field; Q63.1 Lobulated, fused and horseshoe kidney; N28.1 Cyst of kidney, acquired; K57.90 Diverticulosis of intestine, part unspecified, without perforation or abscess without bleeding; R93.3 Abnormal findings on diagnostic imaging of other parts of digestive tract; N40.0 Benign prostatic hyperplasia without lower urinary tract symptoms
CPT/HCPCS: 36415; 74177; 80053; 81001; 83605; 83690; 85025; 85610; 85730; 96374; 99284; J0131; Q9967

== ENCOUNTER 2021-06-17 13:43 | Outpatient (CLI) | payer MEDICARE, SELFPAY ==
--- NOTE | 2021-06-17 13:45 | ECG_ITS ---
Measurements Intervals [place] Rate: 82 P: 64 [place]: 168 QRS: 52 QRSD: 86 T: 56 QT: 355 QTc: 416 Interpretive Statements SINUS RHYTHM ATRIAL AND VENTRICULAR PREMATURE COMPLEXES POSSIBLE LEFT ATRIAL ENLARGEMENT DELAYED PRECORDIAL R/S TRANSITION BASELINE ARTIFACT- I, II, AVR, AVL, AVF BORDERLINE ECG Electronically Signed On 06-17-2021 14:09:22 CDT by Alex Allred D.O.
== END 2021-06-17 13:44 | disposition home or self-care (01) ==
PROVIDERS: PCP Family Medicine; Visit Provider Surgery
DX: Z01.818 Encounter for other preprocedural examination (principal); K40.90 Unilateral inguinal hernia, without obstruction or gangrene, not specified as recurrent; Z95.0 Presence of cardiac pacemaker
CPT/HCPCS: 36415; 86850; 86900; 86901; 93005

== ENCOUNTER 2021-06-22 11:06 | Observation (INO) | payer MEDICARE, SELFPAY ==
[2021-06-10 15:09] VITALS: BMI 22.4
[2021-06-21] VITALS (14 sets, daily range): BP systolic 106–159; BP diastolic 50–82; PULSE 61–110; RESP 12–18; TEMP 36.2–36.9; O2SAT 91–100
[2021-06-21] MEDS: ACETAMINOPHEN 500 MG TABLET 1000 MG PO (07:08)
[2021-06-21] MEDS: LACTATED RINGERS 1,000 ML 30 ML IV CONT ×2 (07:22→10:04)
[2021-06-21] MEDS: KETOROLAC 15 MG/ML VIAL (*BKC) IV PUSH (07:23)
--- NOTE | 2021-06-21 08:18 | WPDHPUPDATE1 ---
History and Physical Update Update Date/Time: 06/21/21 08:18 History and Physical has been reviewed, including an updated exam of the patient. There are NO changes in the patient's condition. Risks, benefits, and alternatives have been discussed and questions answered. Patient agrees to proceed with procedure.
[2021-06-21] MEDS: ceFAZolin 2 GM/D5W 50 ML 2 GM/50 ML BAG IVPB (08:26)
[2021-06-21] MEDS: BUPIVACAINE HCL 0.5% PF 30 ML VIAL INFILTRATE (09:08)
--- NOTE | 2021-06-21 09:55 | W.PM.PROC2 ---
Procedure Note - Detailed Date of Procedure 06/21/21 Pre-op Diagnosis Left inguinal hernia Post-op Diagnosis same (Direct LIH) Procedure Performed Laparoscopic left inguinal hernia repair with mesh, da Earnestine assisted Surgeon Alan Mcclendon DO Anesthesia general and local (0.5% bupivacaine) Indications This is an 85-year-old man who presents for left inguinal hernia repair. The patient has a large left inguinal hernia and recently had an ER visit with an incarceration of the hernia. The hernia was able to be reduced in the emergency department but patient continues to have problems with and pain and a large bulge. Discussions were made with the patient about treatment options and decision was made to proceed with laparoscopic left inguinal hernia repair with mesh, de Earnestine assisted. Findings Laparoscopic left inguinal hernia repair was performed. A robotic transabdominal preperitoneal approach was used. The patient was found to have a large direct left inguinal hernia. A wide preperitoneal pocket was created and the hernia was then repaired using a Bard 3DMax large mid mesh. No specimens were obtained for pathology. There was no evidence of right inguinal hernia. Description of Procedure Procedure as well as risks, benefits, and alternatives were discussed with the patient. Written consent was obtained and placed in chart prior to procedure. Patient was brought back to surgical suite. He was placed supine on operating table. Time-out was done to confirm patient and procedure. He was then intubated by Anesthesia Department. His abdomen was prepped and draped in sterile fashion using chlorhexidine prep. 0.5% bupivacaine with epinephrine was infiltrated at each location for incision. A 12 millimeter transverse incision was made just superior to the umbilicus using a 15 blade scalpel. Blunt dissection was carried out down to the linea alba. A vertical incision was made at the linea alba using a 15 blade scalpel. The peritoneum was then bluntly entered. A 12 millimeter trocar was inserted and carbon dioxide insufflation was used to create a pneumoperitoneum. A camera was inserted and the abdominal cavity was inspected. The patient was placed in slight Trendelenburg position. An 8 millimeter incision was made on the right lateral abdomen and an 8 millimeter trocar was inserted under direct visualization. Another 8 millimeter incision was made in the left lateral abdomen and an 8 millimeter trocar was inserted under direct visualization. The robotic arms were brought up to the patient's bedside and secured to the ports. The camera and instruments were inserted. I then moved over to the robotic console and took control of the camera and instruments. After careful inspection of the abdominal cavity, I began scoring the peritoneum along the left lower quadrant using scissors with electrocautery. The preperitoneal plane was entered and this was carefully dissected caudally along the inferior epigastric vessels. Careful dissection with scissors with electrocautery and blunt dissection was used to continue this dissection. I dissected far enough laterally to allow for mesh placement, and also dissected medially to identify the pubic arch and Merlin's ligament. The hernia sac was identified and carefully dissected posteriorly. The cord contents were also identified and the peritoneum was carefully dissected far enough posteriorly to allow for mesh placement. Once an adequate pocket was created, I then placed the mesh within the preperitoneal pocket and carefully unfolded it. The mesh was centered on the hernia defect with adequate overlap circumferentially. The inferior edge of the mesh was inspected to ensure that it was far enough away from the peritoneal edge. The mesh appeared in proper position overlying the entire myopectineal orifice. The peritoneum was then closed over the mesh using a 3-0 V-lock running absorbable suture. The robotic instrum
[2021-06-21] MEDS: fentaNYL CITRATE INJ (*CRX) 100 MCG/2 ML VIAL 25 MCG IV PUSH (10:24)
--- NOTE | 2021-06-21 11:45 | ADMGEN ---
This patient, Tera Cortez, was admitted to Medical Room 246-01. Patient/family oriented to hospital policies and general routines including ID bracelet, bed and alarms, visiting hours, pain management, procedures, bathroom and other care routines, personal items, smoking policy, room service/diet, and visiting hours. Information on how to activate the Rapid Response Team has been discussed. Patient/Family are encouraged to report perceived risks to care and to ask questions if they do not understand what they are told or what they should do.
[2021-06-21] MEDS: HYDROcodone/acetaminophen (*CRX) 5-325 MG TABLET 1 TAB PO ×2 (12:08→20:49)
[2021-06-21] MEDS: LACTATED RINGERS 1,000 ML 100 ML IV CONT (12:08)
[2021-06-21] MEDS: LORazepam (*CRX) 1 MG TABLET PO (23:24)
[2021-06-21] MEDS: LIDOCAINE HCL 2% GEL UROJET 10 ML PKG MUCOUS MEM (23:41)
[2021-06-21] MEDS: MORPHINE SULFATE (*CRX) 2 MG/ML INJ IV PUSH (23:43)
[2021-06-22] VITALS (9 sets, daily range): BP systolic 84–120; BP diastolic 38–76; PULSE 77–106; RESP 14–18; TEMP 36.6–37.7; O2SAT 92–99
[2021-06-22] MEDS: HYDROcodone/acetaminophen (*CRX) 5-325 MG TABLET 1 TAB PO ×3 (05:10→20:33)
[2021-06-22] MEDS: TAMSULOSIN HCL 0.4 MG CAPSULE PO (09:35)
--- NOTE | 2021-06-22 10:47 | ECG_ITS ---
Measurements Intervals [place] Rate: 91 P: 33 ID: 157 QRS: 39 QRSD: 88 T: 45 QT: 331 QTc: 407 Interpretive Statements SINUS RHYTHM VENTRICULAR PREMATURE COMPLEX AND FREQUENT ATRIAL PREMATURE COMPLEXES POSSIBLE LEFT ATRIAL ENLARGEMENT ABNORMAL ECG Electronically Signed On 06-22-2021 11:37:45 CDT by Alex Allred D.O.
--- NOTE | 2021-06-22 10:48 | PM.PNGS ---
Progress Note: A&P Assessment and Plan (1) Left inguinal hernia: Code(s): K40.90 - Unilateral inguinal hernia, without obstruction or gangrene, not specified as recurrent Status: Acute Assessment and Plan: Patient POD#1 and had urinary retention overnight. Now with slight hypotension this morning and some dizziness. Will order a 500 cc IV fluid bolus. HR irregular on exam as well, obtain EKG. Continue Coude catheter for urinary retention. If BP and dizziness improves, encouraged trying to increase activity and ambulating later today. Patient does live at home alone and has not yet been out of bed. Plan to monitor him again overnight. (2) Dizziness: Code(s): R42 - Dizziness and giddiness Status: Acute (3) Urinary retention: Code(s): R33.9 - Retention of urine, unspecified Status: Acute Assessment and Plan: Coude catheter in place. Will leave indwelling urinary catheter for now. Started Flomax this morning. With his issues with dizziness and hypotention, may need to hold this for now. Subjective Subjective Date/Time Seen: 06/22/21 10:48 Post Op day: 1 (lap left inguinal hernia repair, da marry assisted) Patient reports: no new complaints, still having pain and no flatus Interval history: 85 yo M who underwent a laparoscopic left inguinal hernia repair yesterday. Reportedly, had issues with urinary retention overnight and nursing had complications with trying to straight cath the patient. Ultimately, a Coude catheter was placed as an indwelling catheter, which is still in place. This morning, his blood pressure was 84/46 per the nurse and this was taken manually. I went to the bedside after she reported this. Patient is alert and oriented. He states he feels foggy and has had some dizziness when sitting up this morning. He does have a history of positional dizziness. BP retaken and was 98/42. He recently had a pain pill and states his pain is okay right now. He still has not gotten out of bed. Review of Systems Review of Systems: All systems reviewed & are unremarkable except as noted in HPI and below Constitutional: Constitutional: Reports as per HPI, Reports no additional constitutional complaints, Denies chills and Denies weakness Cardiovascular: Cardiovascular: Reports no additional cardiovascular complaints, Denies chest pain and Denies leg edema Respiratory: Respiratory: Reports no additional respiratory complaints, Denies cough and Denies dyspnea Gastrointestinal: Gastrointestinal: Reports as per HPI, Reports no additional gastrointestinal complaints and Reports bloating Neurologic: Reports system reviewed and no additional complaints, except as documented, Denies Abnormal speech present, Denies confusion, Reports dizziness, Denies focal weakness, Denies numbness and Denies tingling Exam Const: General: comfortable, no acute distress, alert and awake Orientation/consciousness: patient oriented x3 Resp: Effort & Inspection: normal respiratory effort Auscultation: clear to auscultation bilaterally Cardio: Rate: regular rate Rhythm: abnormal rhythm irregularly irregular GI: Inspection: non-distended, incision (Abdominal incisions clean and dry, glue intact.) and no visible herniation GI Palp: Yes Soft to palpation, Yes Tenderness to palpation present (GI) (incisional) and No Guarding due to palpation present (GI) Auscultation: normal bowel sounds : Male General Exam: No hernia Scrotum: no scrotal swelling Urinary Catheter: Urinary Catheter: patent and draining and urine dark Skin: General skin exam: normal color Neuro: General: moves all extremities and no focal motor deficits Cranial nerves: Yes Equal, round and reactive pupils present Speech: normal speech Gait exam (Neuro): Unable to assess gait Motor exam (neuro): 5/5 motor strength present throughout Sensory Exam: normal sensation Extrem: General: no clubbing, cyanosis or edema and no calf tenderness Psych: Men
[2021-06-22] MEDS: SODIUM CHLORIDE 0.9% IV 500 ML IV CONT (11:20)
[2021-06-22 13:25] LABS: Anion Gap 6 mmol/L (8-16); Blood Urea Nitrogen 18 mg/dL (9-20); Calcium 8.2 mg/dL (8.4-10.2); Carbon Dioxide 27 mmol/L (22-30); Chloride 100 mmol/L (98-107); Estimated CRCL calculation 60 ml/min; Estimated Glomerular Filt Rate > 60; Glucose 150 mg/dL (65-110); Potassium 4.2 mmol/L (3.4-5.0); Sodium 133 mmol/L (137-145)
--- NOTE | 2021-06-22 14:02 | WPDANESPN ---
Anes - Prog Note Post-Op Date/Time: 06/22/21 14:02 Cardiovascular status: normal Respiratory status: normal Airway patency: baseline Mental status: baseline Post-Op hydration status: normal Vital Signs: Last Vital Signs Temp 36.9 C 06/22/21 10:02 Pulse 77 06/22/21 10:02 Resp 14 06/22/21 10:02 BP 98/42 L 06/22/21 10:42 Pulse Ox 92 06/22/21 10:02 Pain Score (VAS): 0 I/O: Intake & Output 06/21/21 06/22/21 06/22/21 23:59 07:59 15:59 Intake Total 121 906 8070 Output Total 600 Balance 900 -150 1220 Laboratory Tests 06/22/21 12:46 06/22/21 12:46 Sodium 133 L Potassium 4.2 Chloride 100 Carbon Dioxide 27 Anion Gap 6 L BUN 18 Creatinine 0.80 Estim Creat Clear Calc 60 Estimated GFR > 60 Glucose 150 H Calcium 8.2 L Post-procedural complaints: none Patient Feedback: Patient satisfied with anesthetic care.
--- NOTE | 2021-06-22 14:03 | WPDANESPN ---
Anes - Prog Note Post-Op Date/Time: 06/22/21 14:03 Cardiovascular status: normal Respiratory status: normal Airway patency: baseline Mental status: baseline Post-Op hydration status: normal Vital Signs: Last Vital Signs Temp 36.9 C 06/22/21 10:02 Pulse 77 06/22/21 10:02 Resp 14 06/22/21 10:02 BP 98/42 L 06/22/21 10:42 Pulse Ox 92 06/22/21 10:02 Pain Score (VAS): 0 I/O: Intake & Output 06/21/21 06/22/21 06/22/21 23:59 07:59 15:59 Intake Total 232 919 1740 Output Total 600 Balance 900 -150 1220 Laboratory Tests 06/22/21 12:46 06/22/21 12:46 Sodium 133 L Potassium 4.2 Chloride 100 Carbon Dioxide 27 Anion Gap 6 L BUN 18 Creatinine 0.80 Estim Creat Clear Calc 60 Estimated GFR > 60 Glucose 150 H Calcium 8.2 L Post-procedural complaints: none Patient Feedback: Patient satisfied with anesthetic care.
[2021-06-23] VITALS (12 sets, daily range): BP systolic 108–149; BP diastolic 40–64; PULSE 72–87; RESP 14–18; TEMP 36.7–37.3; O2SAT 89–99
[2021-06-23] MEDS: HYDROcodone/acetaminophen (*CRX) 5-325 MG TABLET 1 TAB PO ×2 (04:05→21:37)
--- NOTE | 2021-06-23 09:00 | PC.NURSE ---
Patient continues to c/o dizziness when up to chair. Flomax held per conversation with Sakina Acosta NP.
[2021-06-23] MEDS: FAMOTIDINE 20 MG TABLET PO ×2 (10:06→21:32)
[2021-06-23] MEDS: LORazepam (*CRX) 1 MG TABLET PO (10:06)
--- NOTE | 2021-06-23 13:01 | PM.PNGS ---
Progress Note: A&P Assessment and Plan (1) Left inguinal hernia: Code(s): K40.90 - Unilateral inguinal hernia, without obstruction or gangrene, not specified as recurrent Status: Acute Assessment and Plan: patient is still not ambulating much and requiring supplemental oxygen. I discussed that ambulation will help with some of the pneumoperitoneum pains that patient is likely experiencing. Encouraged incentive spirometry. Patient is still not safe to go home on his own, therefore will continue to work on ambulation and breathing and plan to discharge tomorrow if improving. Will remove Lebron at 7:00 a.m. and have a voiding trial. (2) Urinary retention: Code(s): R33.9 - Retention of urine, unspecified Status: Acute (3) COPD with emphysema: Qualifiers: Emphysema type: unspecified Qualified Code(s): J43.9 - Emphysema, unspecified Code(s): J43.9 - Emphysema, unspecified Status: Acute (4) Hypoxia: Code(s): R09.02 - Hypoxemia Status: Acute Subjective Subjective Date/Time Seen: 06/23/21 13:01 Interval history: Patient still not able to ambulate much. Still on supplemental oxygen per nasal cannula. Typically uses a walker at home and has a walker in his room. Still has a Lebron in place. He is mostly complaining of right upper abdominal pain. Not really complaining of any pain at the incisions or in the left groin. Tolerating diet. Exam GI: Inspection: incision ( Mild ecchymosis around incisions) GI Palp: Yes Tenderness to palpation present (GI) ( right upper quadrant), No Guarding due to palpation present (GI) and No Hernia present Auscultation: normal bowel sounds Objective Data Vital Signs Vital Signs: Vital Signs - 24 hr 06/22/21 13:45 06/22/21 14:15 06/22/21 17:30 Temperature 36.6 C 36.9 C Pulse Rate 83 87 Respiratory Rate 16 18 Blood Pressure 94/38 L 109/54 L 117/58 L Pulse Oximetry 99 99 06/22/21 20:31 06/23/21 02:00 06/23/21 05:24 Temperature 36.7 C 37.2 C 36.7 C Pulse Rate 77 87 72 Respiratory Rate 16 18 14 Blood Pressure 120/50 L 112/40 L 108/49 L Pulse Oximetry 97 91 99 09/30/21 05:45 06/23/21 06:07 06/23/21 08:00 Temperature Pulse Rate Respiratory Rate Blood Pressure Pulse Oximetry 99 96 96 06/23/21 09:54 Temperature 37.1 C Pulse Rate 82 Respiratory Rate 16 Blood Pressure 109/50 L Pulse Oximetry 94 Intake/Output Intake/Output: Intake & Output 06/20/21 06/21/21 06/22/21 06/23/21 23:59 23:59 23:59 23:59 Intake Total 1400 2210 810 Output Total 1100 1300 Balance 1400 1110 -490 Meds/Results Medications: Active Medications Generic Name Dose Route Start Last Admin Trade Name Freq PRN Reason Stop Dose Admin Acetaminophen 500 mg 06/21/21 11:38 Acetaminophen 500 Mg Tablet PO Q6H PRN Mild Pain (1-3) or Fever Hydrocodone Bitart/Acetaminophen 1 tab 06/21/21 11:38 06/23/21 04:05 Hydrocodone/Acetaminophen (*Crx) 5-325 Mg Tablet PO 1 tab Q4H PRN Administration Pain Rated 4-6 Famotidine 20 mg 06/23/21 09:00 06/23/21 10:06 Famotidine 20 Mg Tablet PO 20 mg Q12HR BROOKS Administration Lorazepam 1 mg 06/21/21 11:38 06/23/21 10:06 Lorazepam (*Crx) 1 Mg Tablet PO 1 mg BID PRN Administration anxiety Morphine Sulfate 2 mg 06/21/21 11:38 06/21/21 23:43 Morphine Sulfate (*Crx) 2 Mg/Ml Inj IV PUSH 2 mg Q2H PRN Administration Pain Rated 4-6 Ondansetron HCl 4 mg 06/21/21 11:38 Ondansetron Inj 4 Mg/2 Ml Vial IV PUSH Q4H PRN Nausea And Vomiting Tamsulosin HCl 0.4 mg 06/22/21 09:00 06/23/21 10:02 Tamsulosin Hcl 0.4 Mg Capsule PO Not Given [facility] Labs Labs: Laboratory Results - last 24 hr 06/22/21 12:46 Sodium 133 L Potassium 4.2 Chloride 100 Carbon Dioxide 27 Anion Gap 6 L BUN 18 Creatinine 0.80 Estim Creat Clear Calc 60 Estimated GFR > 60 Glucose 150 H Calcium 8.2
[2021-06-24 00:52] VITALS: BP 127/57; PULSE 89; RESP 16; TEMP 37.1; O2SAT 92
[2021-06-24] MEDS: HYDROcodone/acetaminophen (*CRX) 5-325 MG TABLET 1 TAB PO (03:19)
[2021-06-24 05:26] VITALS: BP 156/70; PULSE 84; RESP 20; TEMP 37.3; O2SAT 91
[2021-06-24] MEDS: LORazepam (*CRX) 1 MG TABLET PO (08:09)
[2021-06-24] MEDS: FAMOTIDINE 20 MG TABLET PO (08:09)
[2021-06-24 10:00] VITALS: BP 116/48; PULSE 89; RESP 16; TEMP 36.9; O2SAT 94
[2021-06-24] MEDS: polyethylene glycoL 3350 17 GM POWD.PACK PO (10:34)
--- NOTE | 2021-06-24 11:24 | PM.DS ---
DS: Admitting Diagnosis Discharge Date 06/24/21 Admitting Diagnosis Left inguinal hernia, postoperative pain DS: Discharge Diagnosis Discharge Diagnosis (1) Left inguinal hernia: Code(s): K40.90 - Unilateral inguinal hernia, without obstruction or gangrene, not specified as recurrent Status: Acute (2) Urinary retention: Code(s): R33.9 - Retention of urine, unspecified Status: Resolved Assessment and Plan: Lebron catheter removed this patient able to urinate difficulty (3) Sleep apnea: Code(s): G47.30 - Sleep apnea, unspecified Status: Acute (4) Smoker: Code(s): F17.200 - Nicotine dependence, unspecified, uncomplicated Status: Acute DS: Summary Hospital Course Reason for hospitalization: recovery after left inguinal hernia repair Hospital Course: this is an 85-year-old man who presented for left inguinal hernia repair. He underwent laparoscopic left inguinal hernia repair on 06/21/2021 and was admitted for postoperative pain control recovery. He was requiring IV and p.o. pain meds initially and had very limited mobility. He experienced postoperative urinary retention and required a Lebron to be placed overnight on 06/21. On postop day 1 he was slightly hypotensive and was experiencing some with orthostasis with dizziness and lightheadedness when he would stand up. He was still requiring maximum assistance for any mobility with and getting out of bed. He was given a 500 mL bolus of IV fluids and this appeared to help with his blood pressure. On postop day 2 his blood pressure was more stable and he was tolerating a regular diet. He was still having limited mobility and was requiring supplemental oxygen per nasal cannula. Physical therapy was ordered to help with ambulation and further assessment for safety needs at home. On postop day 3 his Lebron catheter was removed and he was able to urinate without difficulty. He was able to get up and ambulate with a walker a little better. Home health arrangements were made and patient felt comfortable going home with the aid of his family and home health. He was discharged on 06/24/2021 Status at Discharge Functional status at discharge: uses cane/walker Overall status at discharge: patient is progressing back to baseline Time Spent with Patient Time attestation: Total time spent providing and/or coordinating discharge services: Time spent: Less than 30 minutes Exam Const: General: cooperative and no acute distress Chest: Chest palpation & inspection: normal inspection of the chest Resp: Effort & Inspection: normal respiratory effort Auscultation: clear to auscultation bilaterally Cardio: Jugular venous distension: no JVD Rate: regular rate Rhythm: regular rhythm Heart sounds: S1 normal heart sound present and S2 normal heart sound present GI: Inspection: non-distended and incision ( healing well) GI Palp: Yes Soft to palpation and Yes Tenderness to palpation present (GI) ( slight tenderness at right subcostal region) Auscultation: normal bowel sounds Other: right subcostal tenderness likely musculoskeletal in origin Discharge Plan Discharge Attending physician on discharge: Alan Perez Discharging Clinician: Alan Perez Patient Disposition: Home Health Service Activity: may shower Diet: regular Wound Care Instructions: follow printed instructions Discharge Instructions: Per Care Coordination, Patient will discharge home with [facility] ([phone]) for PT/OT and correction. Please fax discharge instructions and medications to [phone]. DISCHARGE INSTRUCTION SHEET FOR HERNIA, GALLBLADDER AND APPENDIX SURGERIES DR. PEREZ PATIENT TO TAKE HOME 1. May shower, no soaking in bath x 2weeks. 2. Call office for: Wound increasingly painful or bleeding Vomiting Fever of greater than 101 degrees 3. If no bowel movement for three days, t
== END 2021-06-24 14:45 | disposition home health service (06) ==
LOC: ANHSURGERY 11:18 → ANH2MED 11:18
PROVIDERS: Nurse Practitioner Family; Admitting Provider Surgery; PCP Family Medicine; Visit Provider Surgery
PROC: 8E0Y4CZ Robotic Assisted Procedure of Lower Extremity, Percutaneous Endoscopic Approach (ICD-10-PCS; CPT 49650; principal; 2021-06-21 08:30)
DX: K40.90 Unilateral inguinal hernia, without obstruction or gangrene, not specified as recurrent (principal); J43.9 Emphysema, unspecified; G47.30 Sleep apnea, unspecified; R33.9 Retention of urine, unspecified; F17.210 Nicotine dependence, cigarettes, uncomplicated; Z95.0 Presence of cardiac pacemaker
CPT/HCPCS: 49650; S2900; 36415; 80048; 86850; 86900; 86901; 93005; 97165; 97535; A9270; G0378; J0330; J0690; J1100; J1885; J2270; J2370; J2405; J2704; J2710; J3010; J7030; J7040; J7120

== ENCOUNTER 2022-03-06 09:14 | Outpatient (CLI) | payer MEDICARE, SELFPAY ==
--- NOTE | ~2022-03-06 | US_ITS ---
EXAMINATION: US abdomen complete DATE: 03/06/2022 10:46 INDICATION: Unspecified cirrhosis of the liver TECHNIQUE: Multiple grayscale and Doppler ultrasound images of the abdomen were obtained. COMPARISON: 08/20/2017 FINDINGS: Atherosclerotic abdominal aorta measures 2.3 cm in AP diameter proximally, 2.1 cm in the mid aorta an d 2.6 cm the distal thoracic aorta. The visualized proximal inferior vena cava is normal. The pancrea tic head and body are normal in appearance. The pancreatic tail is not visualized. Liver has normal contour. There is increased parenchymal echogenicity and coarsened echotexture with mild surface nodu larity consistent with cirrhosis. No liver lesion identified. No intrahepatic biliary duct dilation suspected. Portal venous flow was seen in the hepatopetal, normal direction and has normal Doppler wa veform. The gallbladder is normal in appearance. There is no cholelithiasis. The common bile duct me asures 4 mm, which is normal. 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 Diffuse kid baldev measures approximately 12.5 cm in maximal transaxial length and 4.7 cm in maximal orthogonal widt h of the left moiety and 3.6 cm at the right renal moiety. 3.6 cm anechoic cyst arising from the righ t renal moiety. No urolithiasis or hydronephrosis. Normal spleen measuring 10.2 cm in maximal length. IMPRESSION: 1. Horseshoe kidney. 2. Cirrhosis. Reviewed, dictated and finalized at location A.
[2022-03-06 10:41] LABS: Hematocrit 41.4 % (42.0-52.0); Hemoglobin 13.7 g/dL (14.0-18.0); Mean Corpuscular HGB Conc 33.1 g/dl (32-36); Mean Corpuscular Hemoglobin 34.8 pg (26-34); Mean Corpuscular Volume 105.1 fl (80-100); Mean Platelet Volume 9.5 fl (7.4-10.4); Platelet Count Result 143 k/mm3 (150-375); Red Blood Count 3.94 M/mm3 (4.6-6.20); Red Cell Distribution Width 14.6 % (11.5-14.5); White Blood Count 3.8 K/mm3 (4.5-10.0)
[2022-03-06 10:57] LABS: INR 1.1; Prothrombin Time 14.2 Seconds (11.1-14.7)
[2022-03-06 10:58] LABS: Ammonia < 9 umol/L (9-30); Partial Thromboplastin Time 29.7 SECONDS (22.3-36.8)
[2022-03-06 10:59] LABS: Alanine Aminotransferase 21 U/L (6-50); Albumin Level 3.8 g/dL (3.5-5.1); Alkaline Phosphatase 107 U/L (38-126); Anion Gap 0 mmol/L (8-16); Aspartate Amino Transferase 31 U/L (17-59); Bilirubin,Total 0.8 mg/dL (0.2-1.3); Blood Urea Nitrogen 13 mg/dL (9-20); Calcium 8.5 mg/dL (8.4-10.2); Carbon Dioxide 32 mmol/L (22-30); Chloride 104 mmol/L (98-107); Cholesterol 146 mg/dL (0-200); Estimated Glomerular Filt Rate > 60; Glucose 90 mg/dL (65-110); HDL Direct 55 mg/dL; Hemoglobin A1C 5.3 % (<5.7); Potassium 4.1 mmol/L (3.4-5.0); Sodium 136 mmol/L (137-145); Triglycerides 62 mg/dL (<150)
[2022-03-06 11:10] LABS: LDL Cholesterol Direct 61 mg/dL
[2022-03-07 15:07] LABS: Folic Acid > 20.0 ng/mL (2.76->20)
== END 2022-03-06 09:15 | disposition home or self-care (01) ==
PROVIDERS: PCP Family Medicine; Visit Provider Family Medicine
DX: K74.60 Unspecified cirrhosis of liver (principal); R42 Dizziness and giddiness; E78.2 Mixed hyperlipidemia; D75.89 Other specified diseases of blood and blood-forming organs; E11.65 Type 2 diabetes mellitus with hyperglycemia; Q63.1 Lobulated, fused and horseshoe kidney
CPT/HCPCS: 36415; 76700; 80053; 80061; 82140; 82607; 82746; 83036; 84443; 85027; 85610; 85730

== ENCOUNTER 2023-02-18 20:42 | Observation (INO) | payer MEDICARE, SELFPAY ==
[2023-02-18] VITALS (20 sets, daily range): BP systolic 144–184; BP diastolic 73–103; PULSE 64–88; RESP 14–27; TEMP 36.3; O2SAT 91–94
--- NOTE | ~2023-02-18 | XR_ITS ---
EXAMINATION: XR chest 1V portable DATE: 02/18/2023 21:21 INDICATION: Food bolus TECHNIQUE: frontal view of the chest was obtained. COMPARISON: Chest radiograph and CT dated 03/11/2020 FINDINGS: Hyperexpansion of lungs consistent with moderate emphysema better appreciated on prior CT. 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 Reticular opacities in the bilateral mid and lower lung zones, right greater than left, which could represent a telectasis, mild pulmonary edema or pneumonia. No pneumothorax. Possible very small right pleural eff usion. The cardiomediastinal silhouette is within normal limits for AP technique. Dual lead pacemaker seen with leads projecting over the expected locations of the right atrium and right ventricle. IMPRESSION: 1. Reticular opacities in the bilateral mid and lower lung zones which could represent atelectasis/sc arring versus mild pulmonary edema or pneumonia. 2. 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 Reviewed, dictated and finalized at location A. IMPRESSION: 1. Reticular opacities in the bilateral mid and lower lung zones which could re present atelectasis/scarring versus mild pulmonary edema or pneumonia. 2. Emphysema and bilateral calcified pleural plaques consistent with prior asbe stos exposure.
--- NOTE | 2023-02-18 21:02 | ED.SKABFB ---
HPI - Skin/Abscess/Foreign Bdy General Chief complaint: Skin/Abscess/Foreign Body <MARSHA Coyle Last Filed: 02/19/23 01:16> Stated complaint: GI FOOD BOLUS <MARSHA Coyle Last Filed: 02/19/23 01:16> Time Seen by Provider: 02/18/23 20:50 <MARSHA Coyle Last Filed: 02/19/23 01:16> History of Present Illness HPI narrative: Patient is an 87-year-old male here for evaluation of suspected food bolus. Patient states that he was eating steak for dinner about an hour ago and he felt it get stuck in his esophagus. He has since been unable to swallow his own secretions and has been spitting them out. He attempted to clear it by drinking small sips of fluids but has been spitting them out. He states this is happened once in the past but it cleared on its own and he has never required an EGD. <MARSHA Coyle Last Filed: 02/19/23 01:16> Related Data Home medications: Home Medications Medication Instructions Recorded Confirmed multivitamin (Daily Multi-Vitamin 1 tablet PO DAILY 11/10/19 02/19/23 tablet) acetaminophen 500 mg tablet 500 mg PO Q6H PRN Pain 04/08/20 02/19/23 (Tylenol Extra Strength) <MARSHA Coyle Last Filed: 02/19/23 01:16> Allergies/Adverse reactions: Allergies Allergy/AdvReac Type Severity Reaction Status Date / Time No Known Allergies Allergy Verified 02/18/23 20:52 <MARSHA Coyle Last Filed: 02/19/23 01:16> Review of Systems Review of Systems: Gen.: Denies fevers or chills Eyes: Denies eye pain or visual change ENT: Denies congestion Respiratory: Denies shortness of breath or cough CV: Denies chest pain or palpitations GI: Reports food bolus sensation. Denies abdominal pain nausea, emesis or diarrhea denies burning, urgency, frequency or hematuria Musculoskeletal: Denies back pain or muscle pain Neuro: Denies numbness, tingling, weakness or focal weakness Skin: Denies rash Except as documented, all other systems reviewed and negative <Janell George PA-C - Last Filed: 02/19/23 01:16> [facility] Past Medical History Medical History: Medical History Anxiety Arthritis Bradycardia Cirrhosis History of cerebrovascular disease History of emphysema History of peripheral arterial disease Hypertension Hyponatremia Positional lightheadedness Sleep apnea Smoker <Janell George PA-C - Last Filed: 02/19/23 01:16> Surgical History Surgical History: Surgical History H/O cervical spine surgery H/O inguinal hernia repair Laparoscopic left inguinal hernia repair with mesh, da Earnestine assisted History of total right knee replacement <Janell George PA-C - Last Filed: 02/19/23 01:16> Family History Family History: Family History Grandparent Diabetes mellitus Sibling Diabetes mellitus Father Bladder cancer Mother Cerebrovascular accident <Janell George PA-C - Last Filed: 02/19/23 01:16> Social History Social History: Social History (Updated 12/18/22 @ 13:52 by Courtney Timmons [facility]) Smoking packs per day: 1 Smoking cigarettes per day: 20.0 Years smoked: 63 Smoking pack-years: 63.00 Smoking status: Current every day smoker Second hand tobacco smoke exposure: Yes Alcohol intake: never Alcohol use details: HEAVY DRINKER 40 YEARS AGO, QUIT 1979 Substance use: never Substance use type: does not use Lack of Transportation: No Lack of Food: Never True Current Housing: I Have Housing Concerned About Future Housing: No Difficulty Paying Gas/Electric Bills: No Difficulty Paying for Meds: No Currently Unemployed: No Education: High School Diploma/GED Difficulty w/ Childcare or Family Care: No Living arrangements: alone 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
[2023-02-18 21:21] LABS: Basophils Percent Auto 0.9 % (0.2-1.2); Eosinophils Absolute Auto 0.1 K/mm3 (0-0.3); Eosinophils Percent Auto 3.2 % (0-4.4); Hematocrit 44.1 % (42.0-52.0); Hemoglobin 14.5 g/dL (14.0-18.0); Immature Granulocyte Absolute 0.01 K/mm3 (0.00-0.031); Immature Granulocyte Percent A 0.2 % (0-0.5); Lymphocytes Percent Auto 27.3 % (18.3-44.2); Mean Corpuscular HGB Conc 32.9 g/dl (32-36); Mean Corpuscular Hemoglobin 34.7 pg (26-34); Mean Corpuscular Volume 105.5 fl (80-100); Mean Platelet Volume 10.2 fl (7.4-10.4); Monocytes Absolute Auto 0.4 K/mm3 (0.1-0.6); Monocytes Percent Auto 9.8 % (2.6-8.5); Neutrophils Absolute Auto 2.6 K/mm3 (1.3-6.7); Neutrophils Percent Auto 58.6 % (45.5-73.1); Platelet Count Result 137 k/mm3 (150-375); Red Blood Count 4.18 M/mm3 (4.6-6.20); Red Cell Distribution Width 15.3 % (11.5-14.5); White Blood Count 4.4 K/mm3 (4.5-10.0)
[2023-02-18] MEDS: HYOSCYAMINE SULFATE 0.125 MG TABLET SUBLINGUAL (22:44)
[2023-02-18] MEDS: SODIUM CHLORIDE 0.9% IV 1,000 ML 999 ML IV CONT (22:44)
[2023-02-18 22:59] LABS: Anion Gap 3 mmol/L (8-16); Blood Urea Nitrogen 24 mg/dL (9-20); Calcium 8.9 mg/dL (8.4-10.2); Carbon Dioxide 34 mmol/L (22-30); Chloride 102 mmol/L (98-107); Estimated CRCL calculation 64 ml/min; Estimated Glomerular Filt Rate > 60; Glucose 96 mg/dL (65-110); Potassium 4.6 mmol/L (3.4-5.0); Sodium 139 mmol/L (137-145)
[2023-02-19] VITALS (10 sets, daily range): BP systolic 94–170; BP diastolic 42–73; PULSE 79–94; RESP 16–25; TEMP 36.2–36.6; O2SAT 92–100; BMI 21.4; BMI 20.2
--- NOTE | 2023-02-19 01:12 | ADMGEN ---
This patient, Tera Cortez, was admitted to [facility] Surg Room 313-01. Patient/family oriented to hospital policies and general routines including ID bracelet, bed and alarms, visiting hours, pain management, procedures, bathroom and other care routines, personal items, smoking policy, room service/diet, and visiting hours. Information on how to activate the Rapid Response Team has been discussed. Patient/Family are encouraged to report perceived risks to care and to ask questions if they do not understand what they are told or what they should do.
--- NOTE | 2023-02-19 01:46 | PM.IMHP ---
H&P: [facility] History of Present Illness Date/Time: 02/19/23 01:46 Chief Complaint: Steak is stuck in my throat Narrative: 87-year-old male with a past medical history of severe pulmonary hypertension, diastolic dysfunction, pacemaker placement and chronic tobacco use who presented to the ER via EMS after eating a steak and getting the food stuck. He reports that he made a steak at home and after he had eaten a couple of bites he got a bite stuck. He reported that the bite was a little bit larger than his prior bite. He denies ever having had an EGD before. He has noticed over the year having more difficulty swallowing certain foods. He has gotten food stuck 1 other time but was able to clear the food on his own. At this time he has not been able the clearly food and is unable to manage his secretions. He waited for an hour before calling EMS in the sitting to come to the ER. In the ER they tried to give the patient some sips of soda but he immediately had emesis of the material. He is unable to manage his secretions in his having to suction himself. Gastroenterology recommend the patient received hyoscyamine. The patient had no response to this. Gastroenterology also recommend patient receive a bolus of IV fluids which the patient received. The patient denies any shortness of breath, chest pain or palpitations. He denies any lower extremity swelling although some is noted on exam. He denies history of heart failure. He does have a history of obstructive sleep apnea. He has no current respiratory symptoms. He reports that he has been having normal bowel movements. On exam he had a palpable large bladder. However the patient was able double weighed 600 mL right after my exam. He does have a history of urinary retention in the past but is not on any medications. He denies any current urinary symptoms. He does report that he has had progressive decline in function of his right arm. He has chronic congenital deformities of bilateral forearms. He has noticed some muscle wasting of the thenar eminence and inter thenar space. He has chronic decreased sensation of the left hand in arm he has been having some lightheadedness with standing. Review of Systems Review of Systems: 12 systems were reviewed with pertinent positives and negatives per HPI. Except as documented in the HPI, all other systems were reviewed and are negative. 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 History of emphysema History of peripheral arterial disease Hypertension Hyponatremia Positional lightheadedness Severe pulmonary hypertension Noted on echo 11/2019: RVSP 66, EF 65-70, mildly increased left ventricular wall thickness, diastolic dysfunction grade 1, moderate aortic valve sclerosis, [id number] tricuspid valve regurgitation, elevated right atrial pressures Sleep apnea Smoker Tricuspid regurgitation Surgical History Surgical History (Updated 02/19/23 @ 03:44 by Tarsha Goins DO) H/O cervical spine surgery H/O inguinal hernia repair Laparoscopic left inguinal hernia repair with mesh, da Earnestine assisted History of surgery on upper extremity Surgery of the forearms as a child to help with function History of total right knee replacement Pacemaker (02/2020) Family History Family History Grandparent Diabetes mellitus Sibling Diabetes mellitus Father Bladder cancer Mother Cerebrovascular accident Social History Social History (Updated 02/19/23 @ 03:43 by Tarsha Goins DO) Social History: His common-law of 50 years in 2009. He has no biologic children but had 5 step children. He is still in close contact with
[2023-02-19] MEDS: LORazepam INJ (*CRX) 2 MG/ML VIAL 0.5 MG IV PUSH (02:18)
[2023-02-19] MEDS: SODIUM CHLORIDE 0.9% IV 1,000 ML 75 ML IV CONT (02:18)
--- NOTE | 2023-02-19 07:09 | WPDGICN ---
Assessment and Plan Assessment and plan (1) Food impaction of esophagus: Qualifiers: Encounter type: initial encounter Qualified Code(s): T18.128A - Food in esophagus causing other injury, initial encounter Code(s): T18.128A - Food in esophagus causing other injury, initial encounter Status: Acute Assessment and Plan: Patient presents with food impaction. This is suspicious for esophageal narrowing. Patient has received IV fluids. Plan for EGD and attempt to dislodge this piece of food. Further recommendations may be given after endoscopy. (2) COPD with emphysema: Qualifiers: Emphysema type: unspecified Qualified Code(s): J43.9 - Emphysema, unspecified Code(s): J43.9 - Emphysema, unspecified Status: Acute GI Consult Note Consult date/time: 02/19/23 07:09 Reason for consult: Food impaction. HPI: Tera Cortez is a 87 year old male I am asked to see at the request of the emergency room because of food impaction. Patient in usual state of health. On Sunday evening was eating steak. He states this became lodged in his chest he subsequently was unable to eat or swallow. Patient states he has had some increasing difficulty swallowing recently. Patient denies any weight loss. Previous EGD 2016 was unremarkable. Patient's family history noncontributory. Patient was given a trial of sublingual Levsin with no change in symptoms. He was given IV fluids. In monitored overnight. He continues to have difficulty swallowing this morning. . Review of Systems Review of Systems: Review of systems noncontributory. 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 History of emphysema History of peripheral arterial disease Hypertension Hyponatremia Positional lightheadedness Severe pulmonary hypertension Noted on echo 11/2019: RVSP 66, EF 65-70, mildly increased left ventricular wall thickness, diastolic dysfunction grade 1, moderate aortic valve sclerosis, [id number] tricuspid valve regurgitation, elevated right atrial pressures Sleep apnea Smoker Tricuspid regurgitation Surgical History Surgical History (Updated 02/19/23 @ 03:44 by Tarsha Goins DO) H/O cervical spine surgery H/O inguinal hernia repair Laparoscopic left inguinal hernia repair with mesh, da Earnestine assisted History of surgery on upper extremity Surgery of the forearms as a child to help with function History of total right knee replacement Pacemaker (02/2020) Family History Family History Grandparent Diabetes mellitus Sibling Diabetes mellitus Father Bladder cancer Mother Cerebrovascular accident Social History Social History (Updated 02/19/23 @ 03:43 by Tarsha Goins DO) Social History: His common-law of 50 years in 2009. He has no biologic children but had 5 step children. He is still in close contact with 3 of his step children. He has smoked between 0.5-1 pack of cigarettes per day since he was a teenager and still continues to smoke. He quit drinking alcohol when he was 42 years old but used to be quite heavy drinker. He denies any illicit substance use. 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 Code status: DNR/DNI (the patient reports he would be okay with noninvasive ventilatory support and or pressors if needed but if these measures fail he would not want to be intubated or have cardiac resuscitation. He is looking for good quality of life not necessarily quantity.) Healthcare power of estate attorney: Angelika Gann (stepdaughter) Smoking packs per day: 1 Smoking cigarettes per day: 20.0 Years smoked: 69 Smoking p
--- NOTE | 2023-02-19 08:44 | PM.IMPN ---
Progress Note: A&P Assessment and Plan (1) Food impaction of esophagus: Qualifiers: Encounter type: initial encounter Qualified Code(s): T18.128A - Food in esophagus causing other injury, initial encounter Code(s): T18.128A - Food in esophagus causing other injury, initial encounter Status: Acute Assessment and Plan: Patient reports symptom onset after eating T-bone steak. Appreciate gastroenterology consultation. Planning for EGD this afternoon to attempt to remove fluid bolus. NPO diet at this time. (2) Smoker: Code(s): F17.200 - Nicotine dependence, unspecified, uncomplicated Status: Acute Assessment and Plan: Nicotine patch has been provided as needed for symptoms of withdrawal per patient request. (3) COPD with emphysema: Qualifiers: Emphysema type: unspecified Qualified Code(s): J43.9 - Emphysema, unspecified Code(s): J43.9 - Emphysema, unspecified Status: Acute Assessment and Plan: No evidence of acute exacerbation. Patient does not use nebulizers at home. He is in no distress. Chest x-ray does demonstrate reticular opacities bilateral mid and lower lung zones which could be atelectasis scarring versus mild pulmonary edema or pneumonia. Patient is asymptomatic and appears euvolemic. IV fluids decreased to 75 mL/hour given the patient's history of severe pulmonary hypertension to try to avoid fluid overload. Plan to discontinue IV fluids when diet is advanced (4) Severe pulmonary hypertension: Code(s): I27.20 - Pulmonary hypertension, unspecified Status: Acute Assessment and Plan: The patient may have some pulmonary edema versus atelectasis. See plan above. Incentive spirometry during admission (5) Gait instability: Code(s): R26.81 - Unsteadiness on feet Status: Acute Assessment and Plan: The patient ambulates with a walker at home. Continue fall precautions. Will change activity level to ambulate with assistance. (6) On supplemental oxygen therapy: Code(s): Z99.81 - Dependence on supplemental oxygen Status: Acute Assessment and Plan: Patient has been placed on 2 L supplemental oxygen, however no documented episodes of hypoxia. He is not on home oxygen therapy. CXR reviewed as discussed above. Continue incentive spirometry. Wean oxygen as tolerated with goal sats 90% or above Subjective Date/time seen: 02/19/23 08:44 Interval history: Date of service: 02/19/2023 Tera Cortez an 87-year-old male with history of COPD, vascular disease, hypertension, sleep apnea who is seen in follow-up for food impaction of the esophagus. Patient states that he is feeling better today, though still is having some difficulty with swallowing. He feels this that a piece of food is stuck right in the middle of his throat. Reports he was eating steak with this sensation occurred. Reports a similar issue over 1 year ago, but states he typically has no trouble swallowing his food. Denies dysphagia or odynophagia. States that he thinks sometimes he gets ?too lazy to chew.? Denies nausea, vomiting, fever, chills, cough, chest pain, shortness of breath, dizziness, lightheadedness. Review of Systems Review of Systems: All systems reviewed & are unremarkable except as noted in HPI and below Exam Narrative: General: Thin, chronically ill-appearing 87-year-old male, sitting up in bed, comfortable, NARD Neuro: awake, alert and oriented x4, speech clear, no focal neuro deficits noted HEENMT: normocephalic, atraumatic, EOMI, sclerae anicteric Respiratory: Diminished breath sounds bilaterally without crackles, rhonchi, or wheezes, nonlabored breathing Cardio: regular rate, regular rhythm, pacemaker implanted in left chest wall Abdomen: nondistended, normoactive bowel sounds, soft, nontender to palpation Extremities: no edema, erythema, or tenderness to palpation Ski
--- NOTE | 2023-02-19 09:31 | PC.NURSE ---
To GI Lab per zee at 0830, IV saline locked. Report given to HÉCTOR Thompson.
[2023-02-19] MEDS: LACTATED RINGERS 1,000 ML 150 ML IV CONT (09:49)
--- NOTE | 2023-02-19 09:57 | WPDANESEPPF ---
Anes - Initial Pre Proc Eval Procedure: Operation Date: 02/19/23 08:30 Proposed Procedures p Esophagogastroduodenoscopy - Roberto Garcia MD Date/Time: 02/19/23 09:57 Surgeon: Khalida Hidalgo PA-C Pre Op Diagnosis: food bolus Patient Data Age: 87 Gender: M Height: 1.83 m Weight: 67.8 kg Last Vital Signs Temp 36.6 C 02/19/23 06:00 Pulse 81 02/19/23 08:59 Resp 18 02/19/23 08:59 BP 114/63 02/19/23 09:12 Pulse Ox 97 02/19/23 08:59 O2 Del Method Nasal Cannula 02/19/23 08:59 O2 Flow Rate 2 02/19/23 08:59 Allergies Allergy/AdvReac Type Severity Reaction Status Date / Time No Known Allergies Allergy Verified 02/19/23 08:55 Home Medications Medication Instructions Recorded Confirmed Type multivitamin (Daily Multi-Vitamin 1 tablet PO DAILY 11/10/19 02/19/23 History tablet) acetaminophen 500 mg tablet 500 mg PO Q6H PRN Pain 04/08/20 02/19/23 History (Tylenol Extra Strength) zinc oxide-white petrolatum 15 1 applic topical TID #113 grams 05/02/22 02/19/23 Rx %-49 % topical ointment (Sensi-Care Protective Barrier) alprazolam 1 mg tablet 1 mg PO TID PRN anxiety #90 tabs 12/18/22 02/19/23 Rx Laboratory Tests 02/18/23 02/18/23 21:16 22:38 WBC 4.4 L K/mm3 (4.5-10.0) RBC 4.18 L M/mm3 (4.6-6.20) Hgb 14.5 g/dL (14.0-18.0) Hct 44.1 % (42.0-52.0) MCV 105.5 H fl (80-100) MCH 34.7 H pg (26-34) MCHC 32.9 g/dl (32-36) RDW 15.3 H % (11.5-14.5) Plt Count 137 L k/mm3 (150-375) MPV 10.2 fl (7.4-10.4) Immature Gran % (Auto) 0.2 % (0-0.5) Neut % (Auto) 58.6 % (45.5-73.1) Lymph % (Auto) 27.3 % (18.3-44.2) [place] % (Auto) 9.8 H % (2.6-8.5) Eos % (Auto) 3.2 % (0-4.4) Baso % (Auto) 0.9 % (0.2-1.2) Lymph # (Auto) 1.20 K/mm3 (0.9-3.2) [place] # (Auto) 0.4 K/mm3 (0.1-0.6) Eos # (Auto) 0.1 K/mm3 (0-0.3) Baso # (Auto) 0.0 K/mm3 (0.0-0.1) Abs Immat Gran (auto) 0.01 K/mm3 (0.00-0.031) Absolute Neuts (auto) 2.6 K/mm3 (1.3-6.7) Absolute Nucleated RBC 0.0 K/mm3 (0.0-0.012) Nucleated RBC % 0.0 % (0.0-0.2) Sodium 139 mmol/L (137-145) Potassium 4.6 mmol/L (3.4-5.0) Chloride 102 mmol/L (98-107) Carbon Dioxide 34 H mmol/L (22-30) Anion Gap 3 L mmol/L (8-16) BUN 24 H D mg/dL (9-20) Creatinine 0.70 mg/dL (0.7-1.3) Estim Creat Clear Calc 64 ml/min Estimated GFR > 60 (59 - ) Glucose 96 mg/dL (65-110) Calcium 8.9 mg/dL (8.4-10.2) Patient hx anesthesia problems: none Family hx anesthesia problems: none Results Review: All pre-operative results and documents have been reviewed as part of the pre-operative evaluation. 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 History of emphysema History of peripheral arterial disease Hypertension Hyponatremia Positional lightheadedness Severe pulmonary hypertension Noted on echo 11/2019: RVSP 66, EF 65-70, mildly increased left ventricular wall thickness, diastolic dysfunction grade 1, moderate aortic valve sclerosis, [id number] tricuspid valve regurgitation, elevated right atrial pressures Sleep apnea Smoker Tricuspid regurgitation Surgical History Surgical History (Updated 02/19/23 @ 03:44 by Tarsha Goins, ) H/O cervical spine surgery H/O inguinal hernia repair Laparoscopic left inguinal hernia repair with mesh, da Earnestine assisted History of surgery on upper extremity Surgery of the forearms as a child to help with function History of total right knee replacement Pacemake
--- NOTE | 2023-02-19 10:54 | PC.NURSE ---
Returned from GI Lab at 1045. Report received from HÉCTOR Thompson.
[2023-02-19] MEDS: ALPRAZolam (*CRX) 0.5 MG TABLET 1 MG PO (12:35)
--- NOTE | 2023-02-19 13:29 | PM.DS ---
DS: Admitting Diagnosis Discharge Date 02/19/2023 Admitting Diagnosis Food impaction of esophagus DS: Discharge Diagnosis Discharge Diagnosis (1) Food impaction of esophagus: Qualifiers: Encounter type: initial encounter Qualified Code(s): T18.128A - Food in esophagus causing other injury, initial encounter Code(s): T18.128A - Food in esophagus causing other injury, initial encounter Status: Acute Assessment and Plan: Patient reports symptom onset after eating T-bone steak. Seen in consultation by Gastroenterology. Underwent EGD and food impaction was removed. Patient noted to have esophagitis from trauma due to food impaction therefore dilation was not performed. He will need to follow-up in 1-2 months for repeat EGD with dilation. Maintain soft, bite size diet and chew food thoroughly prior to swallowing. (2) Smoker: Code(s): F17.200 - Nicotine dependence, unspecified, uncomplicated Status: Acute Assessment and Plan: Nicotine patch provided during admission. Alcohol cessation Education provided (3) COPD with emphysema: Qualifiers: Emphysema type: unspecified Qualified Code(s): J43.9 - Emphysema, unspecified Code(s): J43.9 - Emphysema, unspecified Status: Acute Assessment and Plan: Not in acute exacerbation. Chest x-ray does demonstrate reticular opacities bilateral mid and lower lung zones which could be atelectasis scarring versus mild pulmonary edema or pneumonia. No findings to suggest infectious process, patient asymptomatic, euvolemic. (4) Severe pulmonary hypertension: Code(s): I27.20 - Pulmonary hypertension, unspecified Status: Acute Assessment and Plan: The patient may have some pulmonary edema versus atelectasis. See above. Incentive spirometry provided during admission (5) Gait instability: Code(s): R26.81 - Unsteadiness on feet Status: Acute Assessment and Plan: The patient ambulates with a walker at home. Fall precautions implemented during admission. (6) On supplemental oxygen therapy: Code(s): Z99.81 - Dependence on supplemental oxygen Status: Resolved Assessment and Plan: Patient was placed on 2 L supplemental oxygen, however no documented episodes of hypoxia. He is not on home oxygen therapy. CXR reviewed as discussed above. Patient was able to be weaned to room air without difficulty and O2 sats were stable DS: Summary Hospital Course Hospital Course: Date of admission: 02/18/2023 Date of discharge: 02/19/2023 Tera Cortez an 87-year-old male with history of COPD, vascular disease, hypertension, sleep apnea?who presented to the emergency department on 02/18/2023 due to concerns for food bolus. On presentation to ED, vital signs were stable, CBC and BMP unremarkable. Patient admitted to hospitalist service for further evaluation management was seen in consultation by Gastroenterology. Underwent EGD on 02/19/2023 with removal of food bolus. Follow-up with GI in 1-2 months for a esophageal dilation. Patient feeling improved, eager for discharge home. He was discharged in hemodynamically stable condition on 02/19/2023. Time Spent with Patient Time attestation: Total time spent providing and/or coordinating discharge services: 45 minutes Time spent: Greater than 30 minutes Exam Narrative: General: Thin, chronically ill-appearing 87-year-old male, sitting up in bed, comfortable, NARD Neuro: awake, alert and oriented x4, speech clear, no focal neuro deficits noted HEENMT: normocephalic, atraumatic, EOMI, sclerae anicteric Respiratory: Diminished breath sounds bilaterally without crackles, rhonchi, or wheezes, nonlabored breathing Cardio: regular rate, regular rhythm, pacemaker implanted in left chest wall Abdomen: nondistended, normoactive bowel sounds, soft, nontender to palpation Extremities: no edema, erythema, or
== END 2023-02-19 15:00 | disposition home or self-care (01) ==
LOC: ANHED 23:37 → ANH3MEDSUR 02-19 06:26
PROVIDERS: Internal Medicine Gastroenterology; Admitting Provider Internal Medicine; Emergency Provider Physician Assistant; PCP Family Medicine; Visit Provider Physician Assistant
PROC: 0DJ08ZZ Inspection of Upper Intestinal Tract, Via Natural or Artificial Opening Endoscopic (ICD-10-PCS; CPT 43235; principal; 2023-02-19 08:30)
DX: T18.128A Food in esophagus causing other injury, initial encounter (principal); K20.90 Esophagitis, unspecified without bleeding; Q39.4 Esophageal web; J43.9 Emphysema, unspecified; F41.9 Anxiety disorder, unspecified; M19.90 Unspecified osteoarthritis, unspecified site; I11.9 Hypertensive heart disease without heart failure; Z95.0 Presence of cardiac pacemaker; R26.81 Unsteadiness on feet; I27.20 Pulmonary hypertension, unspecified; G47.30 Sleep apnea, unspecified; F17.210 Nicotine dependence, cigarettes, uncomplicated; J92.9 Pleural plaque without asbestos; I73.9 Peripheral vascular disease, unspecified; Z99.81 Dependence on supplemental oxygen; Z79.1 Long term (current) use of non-steroidal anti-inflammatories (NSAID); Z79.899 Other long term (current) drug therapy
CPT/HCPCS: 43247; 36415; 71045; 80048; 85025; 96361; 96374; 99285; A9270; G0378; J2060; J2704; J7030; J7120

== ENCOUNTER 2023-05-23 20:49 | Inpatient (IN) | payer MEDICARE, SELFPAY ==
--- NOTE | ~2023-05-23 | XR_ITS ---
EXAMINATION: XR chest 2V DATE: 05/29/2023 14:14 INDICATION: Diastolic heart failure. TECHNIQUE: Frontal and lateral views of the chest were obtained. COMPARISON: Chest single view 05/23/2023, chest single view 02/18/2023 FINDINGS: There are small right and moderate-sized left pleural effusions. There are lucencies in the lungs, consistent with emphysema. There are airspace opacities at right lung base and left mid and l ower lung zones. There is a diffuse interstitial pattern in the lungs. There are calcified bilateral pleural plaques, which may be seen with asbestosis exposure. No pneumothorax. The heart size is little l. There is a left chest wall pacer with leads in the right atrium and right ventricle. IMPRESSION: 1. Mild pulmonary edema. 2. Airspace opacities at right lung base and in left mid and lower lung zones, consistent with atelec tasis versus pneumonia. 3. Emphysema. 4. Small right and moderate-sized left pleural effusions. Reviewed, dictated and finalized at location A. IMPRESSION: 1. Mild pulmonary edema. 2. Airspace opacities at right lung base and in left mid and lower lung zones, consistent with atelectasis versus pneumonia. 3. Emphysema. 4. Small right and moderate-sized left pleural effusions.
--- NOTE | ~2023-05-23 | XR_ITS ---
EXAMINATION: XR chest 1V portable Exam Date/Time: 05/23/2023 21:35 CDT HISTORY: CHF Comparison: 02/10/2023. RESULT: Lines, tubes, and devices: Left chest pacer with intact leads. Lungs and pleura: Moderate diffuse reticular opacities and scattered patchy groundglass opacities. S egmental consolidation in the left lung base. Moderate left and mild right costophrenic angle bluntin g. Cardiomediastinal silhouette: Stable. Other: No acute osseous or upper abdominal finding. Calcified pleural plaques. IMPRESSION: Moderate pulmonary edema. Left basilar airspace disease, likely represents atelectasis, but infection is not excluded. Moderate left and small right pleural effusions. Asbestos related pleural disease. Reviewed, dictated and finalized at location K. IMPRESSION: Moderate pulmonary edema. Left basilar airspace disease, likely represents atel ectasis, but infection is not excluded. Moderate left and small right pleural e ffusions. Asbestos related pleural disease.
--- NOTE | ~2023-05-23 | XR_ITS ---
Portable chest x-ray Comparison: 05/29/2023 Clinical History: Shortness of breath Findings: [id number] left pleural effusion present with left basilar atelectasis. There is pa tchy bilateral airspace disease and interstitial prominence, most compatible pulmonary edema. Underly ing COPD/chronic interstitial disease is possible. Cardiomediastinal silhouette is stable, with pace maker device. Bones and soft tissues are unremarkable. Impression: [id number]-me-[id number] left pleural effusion with left basilar atelectasis. Probable mild pulmonary edema pattern. Probable underlying COPD/chronic interstitial disease. Reviewed, dictated and finalized at location . Impression: Bofeq-ee-vcrzyiii left pleural effusion with left basilar atelectasis. Probable mild pulmonary edema pattern. Probable underlying COPD/chronic interstitial disease.
--- NOTE | 2023-05-23 20:57 | ED.MALEGU ---
HPI - Male Genitourinary General Chief complaint: Urogenital-Male Stated complaint: GROIN AND GENITAL SWELLING Time Seen by Provider: 05/23/23 20:54 Related Data Home Medications Medication Instructions Recorded Confirmed multivitamin (Daily Multi-Vitamin 1 tablet PO DAILY 11/10/19 02/19/23 tablet) acetaminophen 500 mg tablet 500 mg PO Q6H PRN Pain 04/08/20 02/19/23 (Tylenol Extra Strength) Allergies Allergy/AdvReac Type Severity Reaction Status Date / Time No Known Allergies Allergy Verified 02/19/23 08:55 [facility] Past Medical History Medical History (Updated 02/19/23 @ 13:31 by Khalida Hidalgo PA-C) Anxiety Arthritis Bradycardia Cirrhosis Congenital deformity of both upper extremities Forearms 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 History of emphysema History of peripheral arterial disease Hypertension Hyponatremia Positional lightheadedness Severe pulmonary hypertension Noted on echo 11/2019: RVSP 66, EF 65-70, mildly increased left ventricular wall thickness, diastolic dysfunction grade 1, moderate aortic valve sclerosis, [id number] tricuspid valve regurgitation, elevated right atrial pressures Sleep apnea Smoker Tricuspid regurgitation Surgical History Surgical History (Updated 02/19/23 @ 03:44 by Tarsha Goins DO) H/O cervical spine surgery H/O inguinal hernia repair Laparoscopic left inguinal hernia repair with mesh, da Earnestine assisted History of surgery on upper extremity Surgery of the forearms as a child to help with function History of total right knee replacement Pacemaker (02/2020) Family History Family History Grandparent Diabetes mellitus Sibling Diabetes mellitus Father Bladder cancer Mother Cerebrovascular accident Social History Social History (Updated 02/19/23 @ 03:43 by Tarsha Goins DO) Social History: His common-law of 50 years in 2009. He has no biologic children but had 5 step children. He is still in close contact with 3 of his step children. He has smoked between 0.5-1 pack of cigarettes per day since he was a teenager and still continues to smoke. He quit drinking alcohol when he was 42 years old but used to be quite heavy drinker. He denies any illicit substance use. 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 Code status: DNR/DNI (the patient reports he would be okay with noninvasive ventilatory support and or pressors if needed but if these measures fail he would not want to be intubated or have cardiac resuscitation. He is looking for good quality of life not necessarily quantity.) Healthcare power of state's attorney: Angelika Gann (stepdaughter) Smoking packs per day: 1 Smoking cigarettes per day: 20.0 Years smoked: 69 Smoking pack-years: 69.00 Smoking status: Current every day smoker Second hand tobacco smoke exposure: Yes Alcohol intake: former Alcohol use details: HEAVY DRINKER 40 YEARS AGO, QUIT 1979 Substance use: never Substance use type: does not use Lack of Transportation: No Lack of Food: Never True Current Housing: I Have Housing Concerned About Future Housing: No Difficulty Paying Gas/Electric Bills: No Difficulty Paying for Meds: No Currently Unemployed: No Education: High School Diploma/GED Difficulty w/ Childcare or Family Care: No Living arrangements: alone 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nder identity (if verbalized by the patient): Male Sexual Orientation (if Verbalized by the Patient): Straight or Heterosexual Spiritual care concerns: No Agree to blood products: Yes Discharge Plan Discharge Prescriptions: No Action Sensi-Care Protective Barrier 15-49 % ointment 1 applic topical TID Qty: 113 0RF multivitamin [Daily Multi-Vitamin] Tablet 1 tablet PO DAILY acetaminophen [Tylenol Extra Strength] 500
[2023-05-23 20:58] VITALS: BP 120/74; PULSE 87; RESP 15; TEMP 36.3; O2SAT 85
[2023-05-23 21:01] VITALS: O2SAT 100
--- NOTE | 2023-05-23 21:09 | ECG_ITS ---
Measurements Intervals [place] Rate: 78 P: 48 MD: 180 QRS: 163 QRSD: 130 T: -29 QT: 376 QTc: 430 Interpretive Statements SINUS RHYTHM WITH OCCASIONAL SUPRAVENTRICULAR PREMATURE COMPLEXES LEFT ATRIAL ENLARGEMENT [-0.15mV P WAVE IN V1/V2] MARKED RIGHT AXIS DEVIATION [QRS AXIS > 100] RIGHT BUNDLE BRANCH BLOCK [120+ ms QRS DURATION, UPRIGHT V1, 40+ ms S IN I/aVL/V4/V5/V6] ANTEROSEPTAL MYOCARDIAL INFARCTION , OF INDETERMINATE AGE [40+ ms Q WAVE IN V1-V4] ABNORMAL ECG COMPARED TO ECG 06/22/2021 11:01:52 RIGHT BUNDLE-BRANCH BLOCK NOW PRESENT MYOCARDIAL INFARCT FINDING NOW PRESENT Electronically Signed On 05-24-2023 9:45:10 CDT by Arnold Perales M.D.
--- NOTE | 2023-05-23 21:48 | PC.NURSE ---
Patient's SPO2 is down to 85% on room air. Notified EDP who advised to not apply oxygen until ABG was drawn by respiratory.
[2023-05-23 22:12] LABS: Alveolar/Arterial O2 Gradient 52.7 mmHg; Fractional Inspired Oxygen 21 %; HCO3 ABG 29.3 mEq/l (22.0-26.0); Oxygen Content ABG 15.8 %vol (16.0-22.0); PCO2 ABG 50.3 mmHg (35.0-45.0); PO2 FiO2 Ratio Arterial Blood 1.75 %; Total Hemoglobin 16.5 g/dL (12.0-18.0); pH ABG 7.383 (7.350-7.450)
[2023-05-23 22:14] LABS: Oxygen Saturation ABG 68.6 % (95.0-100.0); PO2 ABG 36.8 mmHg (80.0-100.0)
[2023-05-23 22:15] LABS: Modified Allen's Test Pass; Oxyhemoglobin 68.3 % THb (90.0-100.0); Site Drawn RIGHT BRACHIAL
[2023-05-23 22:16] LABS: Device ROOM AIR
[2023-05-23 22:29] LABS: Alanine Aminotransferase 26 U/L (6-50); Albumin Level 3.8 g/dL (3.5-5.1); Alkaline Phosphatase 123 U/L (38-126); Anion Gap 4 mmol/L (8-16); Aspartate Amino Transferase 39 U/L (17-59); Bilirubin,Total 1.1 mg/dL (0.2-1.3); Blood Urea Nitrogen 22 mg/dL (9-20); Calcium 8.7 mg/dL (8.4-10.2); Carbon Dioxide 32 mmol/L (22-30); Chloride 91 mmol/L (98-107); Estimated CRCL calculation 73 ml/min; Estimated Glomerular Filt Rate > 60; Glucose 93 mg/dL (65-110); INR 1.2; Potassium 4.8 mmol/L (3.4-5.0); Prothrombin Time 15.7 Seconds (11.1-14.7); Sodium 127 mmol/L (137-145)
[2023-05-23 22:30] LABS: Partial Thromboplastin Time 33.4 SECONDS (22.3-36.8)
[2023-05-23 22:41] VITALS: O2SAT 100
[2023-05-23 22:42] LABS: Basophils Percent Auto 0.5 % (0.2-1.2); Eosinophils Absolute Auto 0.1 K/mm3 (0-0.3); Hematocrit 47.1 % (42.0-52.0); Hemoglobin 15.9 g/dL (14.0-18.0); Immature Granulocyte Absolute 0.01 K/mm3 (0.00-0.031); Immature Granulocyte Percent A 0.2 % (0-0.5); Lymphocytes Absolute Auto 0.83 K/mm3 (0.9-3.2); Mean Corpuscular HGB Conc 33.8 g/dl (32-36); Mean Corpuscular Volume 103.7 fl (80-100); Mean Platelet Volume 9.9 fl (7.4-10.4); Monocytes Absolute Auto 0.7 K/mm3 (0.1-0.6); Monocytes Percent Auto 11.6 % (2.6-8.5); Neutrophils Absolute Auto 4.3 K/mm3 (1.3-6.7); Neutrophils Percent Auto 72.7 % (45.5-73.1); Platelet Count Result 130 k/mm3 (150-375); Red Blood Count 4.54 M/mm3 (4.6-6.20); Red Cell Distribution Width 16.2 % (11.5-14.5); White Blood Count 5.9 K/mm3 (4.5-10.0)
[2023-05-23 22:45] LABS: NT Pro B Type Natriuretic Pept 10300 pg/mL (19.9-100); Troponin I 0.097 ng/mL (0.000-0.034)
--- NOTE | 2023-05-23 22:56 | PC.NURSE ---
EDP ordered 60mg furosemide IVP.
[2023-05-23 22:57] VITALS: BP 120/68; PULSE 79; RESP 14; O2SAT 98
--- NOTE | 2023-05-23 22:57 | PC.NURSE ---
Per EDP patient does not need a urine specimen.
[2023-05-23] MEDS: FUROSEMIDE INJ 40 MG/4 ML VIAL 60 MG IV PUSH (23:04)
--- NOTE | 2023-05-23 23:26 | PM.IMHP ---
H&P: HPI History of Present Illness Date/Time: 05/23/23 23:26 Chief Complaint: Patient was brought to the ER for evaluation by his with complaints of swelling in the penis, scrotum and worsening shortness of breath Narrative: Our patient is an unfortunate 87 years old white male with multiple medical issues as mentioned below, who is complaining of worsening shortness of breath, weakness, tiredness and fatigue for the last few days. He also started noticing swelling of his penis and scrotum as well as his both legs over the last 24 hours, which made him concerned and he came to the ER for evaluation. Workup was done which showed generalized edema secondary to CHF exacerbation. Patient also had chest x-ray yet he denies any chest pain. He has been started on IV diuresis and is being admitted for medical management, cardiology evaluation and further workup per as per their recommendations. 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 History of emphysema History of peripheral arterial disease Hypertension Hyponatremia Positional lightheadedness Severe pulmonary hypertension Noted on echo 11/2019: RVSP 66, EF 65-70, mildly increased left ventricular wall thickness, diastolic dysfunction grade 1, moderate aortic valve sclerosis, [id number] tricuspid valve regurgitation, elevated right atrial pressures Sleep apnea Smoker Tricuspid regurgitation Surgical History Surgical History (Updated 02/19/23 @ 03:44 by Tarsha Goins DO) H/O cervical spine surgery H/O inguinal hernia repair Laparoscopic left inguinal hernia repair with mesh, da Earnestine assisted History of surgery on upper extremity Surgery of the forearms as a child to help with function History of total right knee replacement Pacemaker (02/2020) Family History Family History Grandparent Diabetes mellitus Sibling Diabetes mellitus Father Bladder cancer Mother Cerebrovascular accident Social History Social History (Updated 02/19/23 @ 03:43 by Tarsha Goins DO) Social History: His common-law of 50 years in 2009. He has no biologic children but had 5 step children. He is still in close contact with 3 of his step children. He has smoked between 0.5-1 pack of cigarettes per day since he was a teenager and still continues to smoke. He quit drinking alcohol when he was 42 years old but used to be quite heavy drinker. He denies any illicit substance use. 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 Code status: DNR/DNI (the patient reports he would be okay with noninvasive ventilatory support and or pressors if needed but if these measures fail he would not want to be intubated or have cardiac resuscitation. He is looking for good quality of life not necessarily quantity.) Healthcare power of criminal attorney: Angelika Johnlinda (stepdaughter) Smoking packs per day: 0.75 Smoking cigarettes per day: 15.0 Years smoked: 64 Smoking pack-years: 48.00 Smoking status: Current every day smoker Second hand tobacco smoke exposure: Yes Alcohol intake: current Alcohol use details: HEAVY DRINKER 40 YEARS AGO, QUIT 1979 Substance use: former Substance use type: does not use Lack of Transportation: No Lack of Food: Never True Current Housing: I Have Housing Concerned About Future Housing: No Difficulty Paying Gas/Electric Bills: No Difficulty Paying for Meds: No Currently Unemployed: No Education: Decline to Answer Difficulty w/ Childcare or Family Care: No Living arrangements: alone Occupation
[2023-05-23 23:53] VITALS: O2SAT 93
[2023-05-23 23:54] LABS: Appearance Urine Clear (Clear); Bilirubin Urine Negative (Negative); Blood Urine Negative (Negative); Color Urine Yellow (Yellow); Glucose Urine UA Negative (Negative); Ketones Urine Negative (Negative); Leukocyte Esterase Ur Negative LEU/UL (Negative); Nitrate Urine Negative (Negative); Protein Urine Negative (Negative); Specific Grav Ur 1.011 (1.001-1.035)
[2023-05-23 23:58] VITALS: BP 126/86; PULSE 88; RESP 15; O2SAT 99
--- NOTE | 2023-05-23 23:58 | PC.NURSE ---
After ABG was drawn per EDP keep SPO2 above 88% with nasal cannula. Patient currently at 2L/min with an SPO2 of 98%
[2023-05-23 23:59] LABS: Add Urine Microscopic? NO
[2023-05-24] VITALS (19 sets, daily range): BP systolic 93–120; BP diastolic 44–80; PULSE 50–98; RESP 16–94; TEMP 35.8–37.2; O2SAT 91–99; BMI 22.7
--- NOTE | 2023-05-24 | ECHO_ITS ---
Patient Info Name: Tera Cortez Age: 87 years : 1935 Gender: Male Ht: 72 in Wt: 166 lbs BSA: 1.95 m2 HR: 74 bpm BP: 94 / 74 mmHg Technical Quality: Fair Exam Date: 05/24/2023 12:48 PM Exam Location: [facility] Pulmonary Exam Room: 211 Patient Status: Inpatient Admit Date: 05/23/2023 Staff Ordering Physician: Anand Houston MD Cotton Puller: Abby Sanchez RDCS Attending Provider: Anand Houston MD Referring Physician: Rosemarie AGUIRRE; Exam Type: CA echo dop color flow w con Study Info Indications - chf Complete two-dimensional, color flow and Doppler transthoracic echocardiogram is performed with contrast to opacify the left ventricle and to improve the deliniation of the left ventricle endocardial borders. Contrast/Agitated Saline Contrast/Ag. Saline: Definity Amount: 2.00 ml Administered By: Abby Sanchez [facility] Existing IV Access: Yes IV Access Condition: patent with no signs of infiltration Summary 1. Definity contrast administered improved wall motion interpretation. 2. Left ventricular chamber dimension is normal. 3. Left ventricular systolic function is normal, estimated at 65-70%. 4. The left ventricular diastolic function is grade I diastolic dysfunction. 5. Linear artifact in right ventricle suggestive of catheter(s), pacemaker lead(s), or ICD lead(s). 6. Right ventricular chamber dimension is moderately enlarged. 7. Right ventricular systolic function is moderately reduced. 8. Linear artifact in the right atrium suggestive of catheter(s), pacemaker lead(s), or ICD lead(s). 9. There is mild aortic valve sclerosis. 10. The mitral valve has moderately calcified annulus. 11. There is mild tricuspid valve regurgitation. 12. Severe pulmonary hypertension, estimated pulmonary arterial systolic pressure is 84 mmHg. 13. Dilated inferior vena cava with >50% collapse upon inspiration consistent with elevated right atrial pressure, 10 mmHg. 14. There is trivial pericardial effusion. 15. Large pleural effusion noted with large coagulated masses suggesting chronicity. Left Ventricle Tissue doppler is not performed. Definity contrast administered improved wall motion interpretation. Left ventricular chamber dimension is normal. Left ventricular systolic function is normal, estimated at 65-70%. The left ventricular diastolic function is grade I diastolic dysfunction. Right Ventricle Linear artifact in right ventricle suggestive of catheter(s), pacemaker lead(s), or ICD lead(s). Right ventricular chamber dimension is moderately enlarged. Right ventricular systolic function is moderately reduced. Left Atria Left atrial chamber dimension is normal. Right Atria Linear artifact in the right atrium suggestive of catheter(s), pacemaker lead(s), or ICD lead(s). Right atrial chamber dimension is not well visualized. Aortic Valve The aortic valve is trileaflet. There is mild aortic valve sclerosis. There is no aortic valve stenosis. There is no aortic valve regurgitation. Pulmonic Valve There is no pulmonic regurgitation. Mitral Valve The mitral valve has moderately calcified annulus. There is no mitral valve stenosis. There is no mitral valve regurgitation. Tricuspid Valve There is mild tricuspid valve regurgitation. Severe pulmonary hypertension, estimated pulmonary arterial systolic pressure is 84 mmHg. Pericardium/Pleural Large pleural effusion noted with large coagulated masses suggesting chronicity. There is trivial pericardial effusion. Inferior Vena Cava Dilated infer
[2023-05-24 00:29] LABS: Influenza A QL RT-PCR Negative (Negative); Influenza B QL RT-PCR Negative (Negative); RSV RNA, RT-PCR Negative (Negative); SARS-CoV-2 RNA PCR Negative (Negative)
--- NOTE | 2023-05-24 00:35 | ADMGEN ---
0035: This patient, Tera Cortez, was admitted to IMU Room 211-01. Patient/family oriented to hospital policies and general routines including ID bracelet, bed and alarms, visiting hours, pain management, procedures, bathroom and other care routines, personal items, smoking policy, room service/diet, and visiting hours. Information on how to activate the Rapid Response Team has been discussed. Patient/Family are encouraged to report perceived risks to care and to ask questions if they do not understand what they are told or what they should do.
[2023-05-24 03:32] LABS: Troponin I 0.093 ng/mL (0.000-0.034)
[2023-05-24 05:43] LABS: Basophils Percent Auto 0.5 % (0.2-1.2); Eosinophils Absolute Auto 0.1 K/mm3 (0-0.3); Eosinophils Percent Auto 2.7 % (0-4.4); Hematocrit 46.7 % (42.0-52.0); Hemoglobin 15.9 g/dL (14.0-18.0); Lymphocytes Absolute Auto 0.65 K/mm3 (0.9-3.2); Lymphocytes Percent Auto 14.8 % (18.3-44.2); Mean Corpuscular Hemoglobin 34.5 pg (26-34); Mean Corpuscular Volume 101.3 fl (80-100); Mean Platelet Volume 9.3 fl (7.4-10.4); Monocytes Absolute Auto 0.5 K/mm3 (0.1-0.6); Monocytes Percent Auto 11.8 % (2.6-8.5); Neutrophils Absolute Auto 3.1 K/mm3 (1.3-6.7); Neutrophils Percent Auto 70.2 % (45.5-73.1); Platelet Count Result 133 k/mm3 (150-375); Red Blood Count 4.61 M/mm3 (4.6-6.20); Red Cell Distribution Width 15.6 % (11.5-14.5); White Blood Count 4.4 K/mm3 (4.5-10.0)
[2023-05-24 06:00] LABS: Anion Gap 2 mmol/L (8-16); Blood Urea Nitrogen 22 mg/dL (9-20); Calcium 8.2 mg/dL (8.4-10.2); Carbon Dioxide 37 mmol/L (22-30); Chloride 91 mmol/L (98-107); Estimated CRCL calculation 63 ml/min; Estimated Glomerular Filt Rate > 60; Glucose 100 mg/dL (65-110); Magnesium 1.7 mg/dL (1.6-2.3); Phosphorus 5.6 mg/dL (2.5-4.5); Potassium 4.4 mmol/L (3.4-5.0); Sodium 130 mmol/L (137-145)
[2023-05-24 06:05] LABS: Troponin I 0.116 ng/mL (0.000-0.034)
[2023-05-24] MEDS: ASPIRIN 81 MG CHEWABLE TABLET PO (08:54)
[2023-05-24] MEDS: DOCUSATE SODIUM 100 MG CAPSULE PO (08:54)
[2023-05-24] MEDS: MULTIVITAMINS THERAPEUTIC TAB (*BKC) 1 TABLET PO (08:54)
[2023-05-24] MEDS: ENOXAPARIN 40 MG/0.4 ML SYRINGE SUB-Q (08:55)
[2023-05-24] MEDS: ALPRAZolam (*CRX) 0.5 MG TABLET 1 MG PO (09:02)
[2023-05-24] MEDS: FUROSEMIDE INJ 40 MG/4 ML VIAL 20 MG IV PUSH (09:03)
--- NOTE | 2023-05-24 10:03 | PM.IMPN ---
Progress Note: A&P Assessment and Plan (1) Acute exacerbation of CHF (congestive heart failure): Code(s): I50.9 - Heart failure, unspecified Status: Acute Assessment and Plan: Continuous cardiac tele monitoring Oxygen via nasal cannula to keep O2 sats > 90% Patient received Lasix 60 mg IV x1 dose in the ER Continue with Lasix 40 mg IV b.i.d. on the floor Strict I&Os Patient's penile and scrotal swelling due to fluid accumulation is slowly improving with diuresis Fluid restriction and low-sodium diet Patient had minimally elevated troponin I level of 0.097 likely from demand ischemia. Patient is not complaining of any chest pain Cardiology consult ordered for evaluation and further treatment recommendations Continue with the current home meds to be adjusted as per Cardiology Will order echocardiogram (2) Severe pulmonary hypertension: Code(s): I27.20 - Pulmonary hypertension, unspecified Status: Acute Assessment and Plan: Will check echocardiogram to confirm (3) COPD with emphysema: Qualifiers: Emphysema type: unspecified Qualified Code(s): J43.9 - Emphysema, unspecified Code(s): J43.9 - Emphysema, unspecified Status: Acute Assessment and Plan: No wheezing. Continue nebulization (4) Cirrhosis: Code(s): K74.60 - Unspecified cirrhosis of liver Status: Acute (5) Tobacco abuse: Code(s): Z72.0 - Tobacco use Status: Acute Assessment and Plan: Patient counseled on smoking cessation (6) History of peripheral arterial disease: Code(s): Z86.79 - Personal history of other diseases of the circulatory system Status: Acute (7) History of cerebrovascular disease: Code(s): Z86.79 - Personal history of other diseases of the circulatory system Status: Acute Subjective Date/time seen: 05/24/23 10:03 Interval history: Patient reports some shortness of breath. Currently on oxygen. Not on oxygen at home Review of Systems Review of Systems: All systems reviewed & are unremarkable except as noted in HPI and below Exam Narrative: PHYSICAL EXAMINATION: General physical exam: Well-developed, well-nourished, patient appears very tired and fatigued Head/eyes: Atraumatic, EOMI, PERRLA. ENT: Moist mucous membranes, nasal passages clear. Neck: Supple, full range of motion, trachea midline. CVS: S1 + S2 + , regular rate and rhythm, no murmurs Respiratory: Bilaterally poor air entry in both lung solorio, mild B/L crackles, Urology: ++ swollen penis and scrotum secondary to dependent edema, no bilateral CVA tenderness Abdomen: Soft, non-tender, bowel sounds +ve, no organomegaly Extremities: No clubbing, no cyanosis, ++ bilateral pitting edema, no calf tenderness Musculoskeletal: Moves all, decreased range of motion, no muscle spasms Skin: Warm, dry, no jaundice, no cyanosis Neurological: Awake, alert, oriented x 3, cranial nerves II-XII intact, no focal neurological deficits Psychiatric: Normal mood, non suicidal Objective Data Vital Signs Vital Signs: Vital Signs - 24 hr 05/23/23 20:58 05/23/23 21:01 05/23/23 22:41 Temperature 97.4 F L Pulse Rate 87 Respiratory Rate 15 Blood Pressure 120/74 Pulse Oximetry 85 L 100 100 Oxygen Delivery Room Air Nasal Cannula Nasal Cannula Oxygen Flow Rate 3 2 05/23/23 22:57 05/23/23 23:53 05/23/23 23:58 Temperature Pulse Rate 79 88 Respiratory Rate 14 15 Blood Pressure 120/68 126/86 Pulse Oximetry 98 93 99 Oxygen Delivery Nasal Cannula Oxygen Flow Rate 2 05/24/23 00:22 05/24/23 00:31 05/24/23 01:03 Temperature 98.3 F 97.5 F L Pulse Rate 94 73 73 Respiratory Rate 17 18 Blood Pressure 112/80 120/80 Pulse Oximetry 95 91 96 Oxygen Delivery Nasal Cannula Oxygen Flow Rate 2 05/24/23 02:00 05/24/23 03:14 05/24/23 03:53 Temperature 97.7 F Pulse Rate 77 77 89 Respiratory Rate 20 Blood Pressure 115/59 L Pulse Oximetr
--- NOTE | 2023-05-24 11:47 | PM.CNCAR ---
Assessment and Plan Assessment and plan (1) Acute exacerbation of CHF (congestive heart failure): Code(s): I50.9 - Heart failure, unspecified Status: Acute Assessment and Plan: Probably acute on chronic diastolic heart failure. Obtain echo. Continue Furosemide 40 mg IV BID. (2) COPD with emphysema: Qualifiers: Emphysema type: unspecified Qualified Code(s): J43.9 - Emphysema, unspecified Code(s): J43.9 - Emphysema, unspecified Status: Acute (3) Tobacco abuse: Code(s): Z72.0 - Tobacco use Status: Acute Assessment and Plan: Counseled regarding smoking cessation. (4) Pacemaker: Onset Date: 02/2020 Code(s): Z95.0 - Presence of cardiac pacemaker Status: Acute Assessment and Plan: Stable. (5) Hypertension: Code(s): I10 - Essential (primary) hypertension Status: Acute Assessment and Plan: Stable. (6) Elevated troponin: Code(s): R77.8 - Other specified abnormalities of plasma proteins Status: Acute Assessment and Plan: Trending up to .116. Could be related to acute heart failure. Check troponin in AM. History of Present Illness History of Present Illness Consult date/time: 05/24/23 11:47 Reason For Visit: CHF, Acute Hypoxic Respiratory Failure, Elevated T Narrative: 87 yr old man who is my regular cardiology patient presents to ER due to sob. He has a history of COPD, TIA, smoking, hypertension, Medtronic pacemaker for heart block. His is present at bedside. Reports in past month he noted more sob and edema of legs and has progressed to scrotal swelling. He ambulates with a walker about 100 feet and at times feels off balance and has left hip pain.? Denies chest pain, orthopnea, PND.? Admits to smoking less than 1/2 ppd. Cardiovascular Procedures Echo/MUGA:: 12/08/19 EF 65-70%, mild LVH, grade I diastolic dysfunction (E/e' 19), mod MAC, mild-mod TR with severe pulm hypertension with RVSP 66 mmHg, trace PI. Electrophysiology:: 06/22/21 EKG: Sinus rhythm, PAC's and PVC's. 03/17/20 Dr. Leahy: Evacuation of hematoma from pacemaker pocket. 03/08/20 Dr. Mariano: Implant Medtronic dual chamber pacemaker. 11/28/19 EKG: Sinus rhythm with second degree AV block 2:1 AV block, type I or II, with ventricular rate at 43 bpm. 11/01/19 EKG: Sinus rhythm at 76 bpm, PAC, LAE, cannot r/o septal infarct, age indeterminate. Stress Tests:: 11/01/19 CXR: Small bilateral pleural effusions. Mild interstitial opacities bilaterally, likely pulm edema or atelectasis or pneumonia. Review of Systems Review of Systems: All systems reviewed & are unremarkable except as noted in HPI and below Constitutional: Constitutional: Reports as per HPI, Denies chills, Reports fatigue and Denies fever(s) Cardiovascular: Cardiovascular: Reports as per HPI, Denies chest pain, Denies irregular heart rhythm, Reports leg edema and Denies lightheadedness Respiratory: Respiratory: Reports as per HPI and Reports dyspnea Gastrointestinal: Gastrointestinal: Reports as per HPI and Denies abdominal pain Genitourinary: Genitourinary: Reports as per HPI and Denies dysuria Musculoskeletal: Musculoskeletal: Reports as per HPI Neurologic: Reports as per HPI, Denies dizziness and Denies syncope [facility] Past Medical History Medical History (Updated 05/24/23 @ 11:53 by Alex Allred DO) Anxiety Arthritis Bradycardia Cirrhosis Congenital deformity of both upper extremities Forearms 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
[2023-05-24] MEDS: PERFLUTREN LIPID MICROSPHERES 1.5 ML VIAL DILUTED TO 10 ML TOTAL VOLUME IV PUSH (13:15)
--- NOTE | 2023-05-24 15:07 | IVDEFINITY ---
Prior to administration of IV Definity the patient was educated on the risks and benefits of the imaging enhancing agent including potential adverse side effects. The patient verbalized understanding. Allergies were verified. No exclusion criteria were identified and at least one of the following inclusion criteria were met: 1) physician request, 2) patient technically difficult to image (per the [place] [employer]chocardi[employer] guidelines of two or more segments not discernable within the apical view), or 3) questionable left ventricular function. ?
[2023-05-24] MEDS: FUROSEMIDE INJ 40 MG/4 ML VIAL IV PUSH (21:20)
[2023-05-25] VITALS (15 sets, daily range): BP systolic 94–127; BP diastolic 39–56; PULSE 80–107; RESP 18–24; TEMP 36.2–37.5; O2SAT 90–98
[2023-05-25] MEDS: ALPRAZolam (*CRX) 0.5 MG TABLET 1 MG PO ×2 (04:39→16:38)
[2023-05-25 06:01] LABS: Blood Urea Nitrogen 23 mg/dL (9-20); Calcium 8.1 mg/dL (8.4-10.2); Carbon Dioxide > 40 mmol/L (22-30); Chloride 88 mmol/L (98-107); Estimated CRCL calculation 61 ml/min; Estimated Glomerular Filt Rate > 60; Glucose 98 mg/dL (65-110); Potassium 4.2 mmol/L (3.4-5.0); Sodium 132 mmol/L (137-145)
[2023-05-25 06:13] LABS: Troponin I 0.182 ng/mL (0.000-0.034)
--- NOTE | 2023-05-25 07:42 | PM.PNCARD ---
Progress Note: A&P Assessment and Plan (1) Acute exacerbation of CHF (congestive heart failure): Code(s): I50.9 - Heart failure, unspecified Status: Acute Assessment and Plan: Acute on chronic diastolic heart failure. 05/24/23 Echo: EF 65-70%, grade I diastolic dysfunction, mod RVE/hypokinesis, severe pulm hypertension with RVSP 84 mmHg. Continue Furosemide 40 mg IV BID. Start Spironolactone 12.5 mg daily and Jardiance 10 mg daily. Fluid restriction to 1.5 l/day. (2) COPD with emphysema: Qualifiers: Emphysema type: unspecified Qualified Code(s): J43.9 - Emphysema, unspecified Code(s): J43.9 - Emphysema, unspecified Status: Acute (3) Tobacco abuse: Code(s): Z72.0 - Tobacco use Status: Acute Assessment and Plan: Counseled regarding smoking cessation. (4) Pacemaker: Onset Date: 02/2020 Code(s): Z95.0 - Presence of cardiac pacemaker Status: Acute Assessment and Plan: Stable. (5) Hypertension: Code(s): I10 - Essential (primary) hypertension Status: Acute Assessment and Plan: Stable. (6) Elevated troponin: Code(s): R77.8 - Other specified abnormalities of plasma proteins Status: Acute Assessment and Plan: Trending up to .182. Probably secondary to acute diastolic heart failure and pulm hypertension. Subjective Date/time seen: 05/25/23 07:42 Interval history: Denies chest pain. Has some sob and cough. Exam Const: General: cooperative and comfortable Orientation/consciousness: oriented to person, oriented to place and oriented to time Resp: Auscultation: no crackles, no rales, no rhonchi, no wheezes and diminished lung sounds Cardio: Rate: regular rate Rhythm: regular rhythm Heart sounds: no murmurs Peripheral pulses: dorsalis pedis present Neuro: General: oriented to person, oriented to place and oriented to time Extrem: Right lower extremity: edema Left lower extremity: edema Other: Mild edema of both legs Objective Data Vital Signs Vital Signs: Vital Signs - 24 hr 05/24/23 08:00 05/24/23 08:00 05/24/23 08:00 Temperature 97.2 F L Pulse Rate 74 80 Respiratory Rate 20 Blood Pressure 94/44 L Pulse Oximetry 96 94 Oxygen Delivery Nasal Cannula Oxygen Flow Rate 2 05/24/23 10:00 05/24/23 12:00 05/24/23 12:00 Temperature 96.4 F L Pulse Rate 82 80 Respiratory Rate 22 H Blood Pressure 112/65 Pulse Oximetry 97 99 Oxygen Delivery Nasal Cannula Oxygen Flow Rate 2 05/24/23 16:00 05/24/23 08:13 05/24/23 12:00 Temperature 98 F Pulse Rate 50 L 95 Respiratory Rate 94 H Blood Pressure 93/56 L Pulse Oximetry 94 93 Oxygen Delivery Nasal Cannula Oxygen Flow Rate 2 05/24/23 14:00 05/24/23 16:00 05/24/23 18:00 Temperature Pulse Rate 85 87 98 Respiratory Rate Blood Pressure Pulse Oximetry Oxygen Delivery Oxygen Flow Rate 05/24/23 16:00 05/24/23 20:00 05/24/23 20:00 Temperature 99 F Pulse Rate 84 Respiratory Rate 16 Blood Pressure 103/56 L Pulse Oximetry 96 94 97 Oxygen Delivery Nasal Cannula Nasal Cannula Oxygen Flow Rate 2 2 05/24/23 20:00 05/24/23 22:00 05/24/23 23:50 Temperature Pulse Rate 86 92 Respiratory Rate Blood Pressure Pulse Oximetry 97 Oxygen Delivery Nasal Cannula Oxygen Flow Rate 2 05/25/23 00:00 05/25/23 00:00 05/25/23 01:58 Temperature 97.1 F L Pulse Rate 95 95 82 Respiratory Rate 18 Blood Pressure 108/39 L Pulse Oximetry 95 Oxygen Delivery Oxygen Flow Rate 05/25/23 03:30 05/25/23 04:00 05/25/23 04:45 Temperature 98.5 F Pulse Rate 80 90 84 Respiratory Rate 18 Blood Pressure 125/46 L Pulse Oximetry 97 98 Oxygen Delivery Nasal Cannula Oxygen Flow Rate 2 05/25/23 06:00 Temperature Pulse Rate 90 Respiratory Rate Blood Pressure Pulse Oximetry Oxygen Delivery Oxygen Flow Rate Intake/Output
--- NOTE | 2023-05-25 08:18 | PCOTNOTE ---
Pt. currently has Bed Rest orders. Can be seen be seen by therapy when activity is approved by hospitalist. Following.
[2023-05-25] MEDS: ASPIRIN 81 MG CHEWABLE TABLET PO (08:24)
[2023-05-25] MEDS: EMPAGLIFLOZIN 10 MG TABLET PO (08:24)
[2023-05-25] MEDS: FUROSEMIDE INJ 40 MG/4 ML VIAL IV PUSH (08:24)
[2023-05-25] MEDS: MULTIVITAMINS THERAPEUTIC TAB (*BKC) 1 TABLET PO (08:24)
[2023-05-25] MEDS: DOCUSATE SODIUM 100 MG CAPSULE PO ×2 (08:24→16:36)
[2023-05-25] MEDS: ENOXAPARIN 40 MG/0.4 ML SYRINGE SUB-Q (08:25)
[2023-05-25] MEDS: SPIRONOLACTONE 12.5 MG TABLET PO (08:26)
--- NOTE | 2023-05-25 10:29 | PM.IMPN ---
Progress Note: A&P Assessment and Plan (1) Acute exacerbation of CHF (congestive heart failure): Code(s): I50.9 - Heart failure, unspecified Status: Acute Assessment and Plan: Oxygen via nasal cannula to keep O2 sats > 90% improving with diuresis With change Lasix to p.o. since he appears to be in contraction alkalosis Fluid restriction and low-sodium diet Continue with the current home meds to be adjusted as per Cardiology Will order echocardiogram (2) Severe pulmonary hypertension: Code(s): I27.20 - Pulmonary hypertension, unspecified Status: Acute Assessment and Plan: Will check echocardiogram to confirm (3) COPD with emphysema: Qualifiers: Emphysema type: unspecified Qualified Code(s): J43.9 - Emphysema, unspecified Code(s): J43.9 - Emphysema, unspecified Status: Acute Assessment and Plan: No wheezing. Continue nebulization (4) Cirrhosis: Code(s): K74.60 - Unspecified cirrhosis of liver Status: Acute (5) Tobacco abuse: Code(s): Z72.0 - Tobacco use Status: Acute Assessment and Plan: Patient counseled on smoking cessation (6) History of peripheral arterial disease: Code(s): Z86.79 - Personal history of other diseases of the circulatory system Status: Acute (7) History of cerebrovascular disease: Code(s): Z86.79 - Personal history of other diseases of the circulatory system Status: Acute Subjective Date/time seen: 05/25/23 10:29 Interval history: Improving. Oxygen requirement coming down Review of Systems Review of Systems: All systems reviewed & are unremarkable except as noted in HPI and below Exam Narrative: PHYSICAL EXAMINATION: General physical exam: Well-developed, well-nourished, patient appears very tired and fatigued Head/eyes: Atraumatic, EOMI, PERRLA. ENT: Moist mucous membranes, nasal passages clear. Neck: Supple, full range of motion, trachea midline. CVS: S1 + S2 + , regular rate and rhythm, no murmurs Respiratory: Bilaterally poor air entry in both lung solorio, mild B/L crackles, Urology: ++ swollen penis and scrotum secondary to dependent edema, no bilateral CVA tenderness Abdomen: Soft, non-tender, bowel sounds +ve, no organomegaly Extremities: No clubbing, no cyanosis, ++ bilateral pitting edema, no calf tenderness Musculoskeletal: Moves all, decreased range of motion, no muscle spasms Skin: Warm, dry, no jaundice, no cyanosis Neurological: Awake, alert, oriented x 3, cranial nerves II-XII intact, no focal neurological deficits Psychiatric: Normal mood, non suicidal Objective Data Vital Signs Vital Signs: Vital Signs - 24 hr 05/24/23 12:00 05/24/23 12:00 05/24/23 16:00 Temperature 96.4 F L 98 F Pulse Rate 80 50 L Respiratory Rate 22 H 94 H Blood Pressure 112/65 93/56 L Pulse Oximetry 97 99 94 Oxygen Delivery Nasal Cannula Oxygen Flow Rate 2 05/24/23 12:00 05/24/23 14:00 05/24/23 16:00 Temperature Pulse Rate 95 85 87 Respiratory Rate Blood Pressure Pulse Oximetry Oxygen Delivery Oxygen Flow Rate 05/24/23 18:00 05/24/23 16:00 05/24/23 20:00 Temperature Pulse Rate 98 Respiratory Rate Blood Pressure Pulse Oximetry 96 94 Oxygen Delivery Nasal Cannula Nasal Cannula Oxygen Flow Rate 2 2 05/24/23 20:00 05/24/23 20:00 05/24/23 22:00 Temperature 99 F Pulse Rate 84 86 92 Respiratory Rate 16 Blood Pressure 103/56 L Pulse Oximetry 97 Oxygen Delivery Oxygen Flow Rate 05/24/23 23:50 05/25/23 00:00 05/25/23 00:00 Temperature 97.1 F L Pulse Rate 95 95 Respiratory Rate 18 Blood Pressure 108/39 L Pulse Oximetry 97 95 Oxygen Delivery Nasal Cannula Oxygen Flow Rate 2 05/25/23 01:58 05/25/23 03:30 05/25/23 04:00 Temperature Pulse Rate 82 80 90 Respiratory Rate Blood Pressure Pulse Oximetry 97 Oxygen Delivery Nasal Cannula Oxygen Flow Ra
--- NOTE | 2023-05-25 13:17 | PCPTNOTE ---
Spoke with Dr. Houston, pt is OK to come off bedrest to participate in therapy. RN aware.
[2023-05-25] MEDS: FUROSEMIDE 40 MG TABLET PO (16:36)
[2023-05-26] VITALS (14 sets, daily range): BP systolic 103–114; BP diastolic 36–48; PULSE 81–104; RESP 17–20; TEMP 36.6–37.1; O2SAT 86–95
[2023-05-26] MEDS: ALPRAZolam (*CRX) 0.5 MG TABLET 1 MG PO ×2 (00:31→16:03)
[2023-05-26 06:03] LABS: Blood Urea Nitrogen 29 mg/dL (9-20); Calcium 7.9 mg/dL (8.4-10.2); Carbon Dioxide > 40 mmol/L (22-30); Chloride 89 mmol/L (98-107); Estimated CRCL calculation 61 ml/min; Estimated Glomerular Filt Rate > 60; Glucose 88 mg/dL (65-110); Potassium 3.9 mmol/L (3.4-5.0); Sodium 133 mmol/L (137-145)
--- NOTE | 2023-05-26 07:31 | PM.PNCARD ---
Progress Note: A&P Assessment and Plan (1) Acute exacerbation of CHF (congestive heart failure): Code(s): I50.9 - Heart failure, unspecified Status: Acute Assessment and Plan: Acute on chronic diastolic heart failure. 05/24/23 Echo: EF 65-70%, grade I diastolic dysfunction, mod RVE/hypokinesis, severe pulm hypertension with RVSP 84 mmHg. Continue Furosemide 40 mg PO BID. Increase Spironolactone 25 mg daily and Jardiance 10 mg daily. Fluid restriction to 1.5 l/day. (2) COPD with emphysema: Qualifiers: Emphysema type: unspecified Qualified Code(s): J43.9 - Emphysema, unspecified Code(s): J43.9 - Emphysema, unspecified Status: Acute (3) Tobacco abuse: Code(s): Z72.0 - Tobacco use Status: Acute Assessment and Plan: Counseled regarding smoking cessation. (4) Pacemaker: Onset Date: 02/2020 Code(s): Z95.0 - Presence of cardiac pacemaker Status: Acute Assessment and Plan: Stable. (5) Hypertension: Code(s): I10 - Essential (primary) hypertension Status: Acute Assessment and Plan: Stable. (6) Elevated troponin: Code(s): R77.8 - Other specified abnormalities of plasma proteins Status: Acute Assessment and Plan: Trending up to .182. Probably secondary to acute diastolic heart failure and pulm hypertension. Subjective Date/time seen: 05/26/23 07:31 Interval history: Denies chest pain. Has some sob and cough. Exam Const: General: cooperative and comfortable Orientation/consciousness: oriented to person, oriented to place and oriented to time Resp: Auscultation: no crackles, no rales, no rhonchi, no wheezes and diminished lung sounds Cardio: Rate: regular rate Rhythm: regular rhythm Heart sounds: no murmurs Peripheral pulses: dorsalis pedis present Neuro: General: oriented to person, oriented to place and oriented to time Extrem: Right lower extremity: edema Left lower extremity: edema Other: Mild edema of both legs Objective Data Vital Signs Vital Signs: Vital Signs - 24 hr 05/25/23 08:00 05/25/23 08:00 05/25/23 10:00 Temperature 97.8 F Pulse Rate 84 90 89 Respiratory Rate 22 H Blood Pressure 104/48 L Pulse Oximetry 94 Oxygen Delivery Oxygen Flow Rate 05/25/23 08:00 05/25/23 12:00 05/25/23 12:12 Temperature 98.5 F Pulse Rate 89 82 Respiratory Rate 22 H 22 H Blood Pressure 111/46 L Pulse Oximetry 94 92 92 Oxygen Delivery Nasal Cannula Nasal Cannula Oxygen Flow Rate 2 1 05/25/23 12:00 05/25/23 12:00 05/25/23 13:19 Temperature Pulse Rate 97 97 Respiratory Rate 22 H Blood Pressure Pulse Oximetry 92 Oxygen Delivery Nasal Cannula Nasal Cannula Oxygen Flow Rate 2 2 05/25/23 14:00 05/25/23 16:00 05/25/23 16:00 Temperature 98.5 F Pulse Rate 91 86 89 Respiratory Rate 24 H Blood Pressure 127/56 L Pulse Oximetry 92 Oxygen Delivery Oxygen Flow Rate 05/25/23 16:00 05/25/23 18:00 05/25/23 20:00 Temperature 99.5 F Pulse Rate 89 96 107 H Respiratory Rate 24 H 20 Blood Pressure 94/39 L Pulse Oximetry 92 90 Oxygen Delivery Nasal Cannula Oxygen Flow Rate 2 05/25/23 20:00 05/25/23 20:00 05/25/23 22:00 Temperature Pulse Rate 97 85 Respiratory Rate Blood Pressure Pulse Oximetry 90 Oxygen Delivery Nasal Cannula Oxygen Flow Rate 2 05/26/23 00:00 05/26/23 00:00 05/26/23 04:00 Temperature 98.8 F Pulse Rate 84 Respiratory Rate 20 Blood Pressure 106/43 L Pulse Oximetry 92 95 90 Oxygen Delivery Nasal Cannula Nasal Cannula Oxygen Flow Rate 2 2 05/26/23 04:00 05/26/23 00:00 05/26/23 02:00 Temperature 97.9 F Pulse Rate 92 85 89 Respiratory Rate 20 Blood Pressure 106/36 L Pulse Oximetry 90 Oxygen Delivery Oxygen Flow Rate 05/26/23 04:00 05/26/23 05:46 Temperature Pulse Rate 85 94 Respiratory Rate Blood Pressure Pulse Oximetry
[2023-05-26] MEDS: DOCUSATE SODIUM 100 MG CAPSULE PO ×2 (09:07→16:03)
[2023-05-26] MEDS: ENOXAPARIN 40 MG/0.4 ML SYRINGE SUB-Q (09:07)
[2023-05-26] MEDS: EMPAGLIFLOZIN 10 MG TABLET PO (09:07)
[2023-05-26] MEDS: SPIRONOLACTONE 25 MG TABLET PO (09:07)
[2023-05-26] MEDS: MULTIVITAMINS THERAPEUTIC TAB (*BKC) 1 TABLET PO (09:07)
[2023-05-26] MEDS: FUROSEMIDE 40 MG TABLET PO ×2 (09:07→16:03)
[2023-05-26] MEDS: ASPIRIN 81 MG CHEWABLE TABLET PO (09:08)
--- NOTE | 2023-05-26 11:54 | PM.IMPN ---
Progress Note: A&P Assessment and Plan (1) Acute exacerbation of CHF (congestive heart failure): Code(s): I50.9 - Heart failure, unspecified Status: Acute Assessment and Plan: Continue p.o. Lasix Fluid restriction and low-sodium diet Continue with the current home meds to be adjusted as per Cardiology echocardiogram ?1. Definity contrast administered improved wall motion interpretation. ? 2. Left ventricular chamber dimension is normal. ? 3. Left ventricular systolic function is normal, estimated at 65-70%. ? 4. The left ventricular diastolic function is grade I diastolic dysfunction. ? 5. Linear artifact in right ventricle suggestive of catheter(s), pacemaker lead(s), or ICD lead(s). ? 6. Right ventricular chamber dimension is moderately enlarged. ? 7. Right ventricular systolic function is moderately reduced. ? 8. Large pleural effusion noted with large coagulated masses suggesting chronicity. ? 9. There is mild aortic valve sclerosis. ? 10. The mitral valve has moderately calcified annulus. ? 11. There is mild tricuspid valve regurgitation. ? 12. Severe pulmonary hypertension, estimated pulmonary arterial systolic pressure is 84 mmHg. ? 13. Dilated inferior vena cava with >50% collapse upon inspiration consistent with elevated right atrial pressure, 10 mmHg. ? 14. There is trivial pericardial effusion. ? (2) Severe pulmonary hypertension: Code(s): I27.20 - Pulmonary hypertension, unspecified Status: Acute Assessment and Plan: Echocardiogram done (3) COPD with emphysema: Qualifiers: Emphysema type: unspecified Qualified Code(s): J43.9 - Emphysema, unspecified Code(s): J43.9 - Emphysema, unspecified Status: Acute Assessment and Plan: No wheezing. Continue nebulization (4) Cirrhosis: Code(s): K74.60 - Unspecified cirrhosis of liver Status: Acute (5) Tobacco abuse: Code(s): Z72.0 - Tobacco use Status: Acute Assessment and Plan: Patient counseled on smoking cessation (6) History of peripheral arterial disease: Code(s): Z86.79 - Personal history of other diseases of the circulatory system Status: Acute (7) History of cerebrovascular disease: Code(s): Z86.79 - Personal history of other diseases of the circulatory system Status: Acute Plan Needs PT OT. Needs rehab Subjective Date/time seen: 05/26/23 11:54 Interval history: at baseline clinically. Significant weakness Review of Systems Review of Systems: All systems reviewed & are unremarkable except as noted in HPI and below Exam Narrative: PHYSICAL EXAMINATION: General physical exam: Well-developed, well-nourished, patient appears very tired and fatigued Head/eyes: Atraumatic, EOMI, PERRLA. ENT: Moist mucous membranes, nasal passages clear. Neck: Supple, full range of motion, trachea midline. CVS: S1 + S2 + , regular rate and rhythm, no murmurs Respiratory: Bilaterally poor air entry in both lung solorio, mild B/L crackles, Urology: ++ swollen penis and scrotum secondary to dependent edema, no bilateral CVA tenderness Abdomen: Soft, non-tender, bowel sounds +ve, no organomegaly Extremities: No clubbing, no cyanosis, ++ bilateral pitting edema, no calf tenderness Musculoskeletal: Moves all, decreased range of motion, no muscle spasms Skin: Warm, dry, no jaundice, no cyanosis Neurological: Awake, alert, oriented x 3, cranial nerves II-XII intact, no focal neurological deficits Psychiatric: Normal mood, non suicidal Objective Data Vital Signs Vital Signs: Vital Signs - 24 hr 05/25/23 12:00 05/25/23 12:12 05/25/23 12:00 Temperature 98.5 F Pulse Rate 82 97 Respiratory Rate 22 H Blood Pressure 111/46 L Pulse Oximetry 92 92 Oxygen Delivery Nasal Cannula Oxygen Flow Rate 1 05/25/23 12:00 05/25/23 13:19 05/25/23 14:00 Temperature Pulse Rate 97 91 Respiratory Rate 22 H Blood Pressure Pulse Oximetr
--- NOTE | 2023-05-26 15:09 | PC.NURSE ---
This patient, Tera Cortez, was transferred to [facility] on 05/26/23 at 1510. Personal belongings sent with patient. Report given to Nargis ANAYA. Appropriate documentation sent with patient. patient family notified of new room.
--- NOTE | 2023-05-26 22:22 | PC.NURSE ---
HR recheck 86 apical
[2023-05-27] VITALS (7 sets, daily range): BP systolic 100–123; BP diastolic 41–53; PULSE 69–100; RESP 13–20; TEMP 36.3–37.2; O2SAT 90–98
[2023-05-27] MEDS: ALPRAZolam (*CRX) 0.5 MG TABLET 1 MG PO ×3 (00:46→16:15)
[2023-05-27 07:11] LABS: Blood Urea Nitrogen 30 mg/dL (9-20); Calcium 7.9 mg/dL (8.4-10.2); Carbon Dioxide > 40 mmol/L (22-30); Chloride 90 mmol/L (98-107); Estimated CRCL calculation 58 ml/min; Estimated Glomerular Filt Rate > 60; Glucose 90 mg/dL (65-110); Potassium 4.2 mmol/L (3.4-5.0); Sodium 134 mmol/L (137-145)
[2023-05-27 07:45] LABS: Hematocrit 44.4 % (42.0-52.0); Mean Corpuscular HGB Conc 31.5 g/dl (32-36); Mean Corpuscular Volume 107.8 fl (80-100); Mean Platelet Volume 10.1 fl (7.4-10.4); Platelet Count Result 141 k/mm3 (150-375); Red Blood Count 4.12 M/mm3 (4.6-6.20); Red Cell Distribution Width 15.9 % (11.5-14.5); White Blood Count 4.7 K/mm3 (4.5-10.0)
[2023-05-27] MEDS: ASPIRIN 81 MG CHEWABLE TABLET PO (08:11)
[2023-05-27] MEDS: FUROSEMIDE 40 MG TABLET PO ×2 (08:11→16:15)
[2023-05-27] MEDS: DOCUSATE SODIUM 100 MG CAPSULE PO ×2 (08:11→16:15)
[2023-05-27] MEDS: MULTIVITAMINS THERAPEUTIC TAB (*BKC) 1 TABLET PO (08:11)
[2023-05-27] MEDS: EMPAGLIFLOZIN 10 MG TABLET PO (08:11)
[2023-05-27] MEDS: ENOXAPARIN 40 MG/0.4 ML SYRINGE SUB-Q (08:11)
[2023-05-27] MEDS: SPIRONOLACTONE 25 MG TABLET PO (08:11)
--- NOTE | 2023-05-27 08:26 | PM.PNCARD ---
Progress Note: A&P Assessment and Plan (1) Acute exacerbation of CHF (congestive heart failure): Code(s): I50.9 - Heart failure, unspecified Status: Acute Assessment and Plan: Acute on chronic diastolic heart failure. 05/24/23 Echo: EF 65-70%, grade I diastolic dysfunction, mod RVE/hypokinesis, severe pulm hypertension with RVSP 84 mmHg. Continue Furosemide 40 mg PO BID, Spironolactone 25 mg daily and Jardiance 10 mg daily. Fluid restriction to 1.5 l/day. PT/OT. (2) COPD with emphysema: Qualifiers: Emphysema type: unspecified Qualified Code(s): J43.9 - Emphysema, unspecified Code(s): J43.9 - Emphysema, unspecified Status: Acute (3) Tobacco abuse: Code(s): Z72.0 - Tobacco use Status: Acute Assessment and Plan: Counseled regarding smoking cessation. (4) Pacemaker: Onset Date: 02/2020 Code(s): Z95.0 - Presence of cardiac pacemaker Status: Acute Assessment and Plan: Stable. (5) Hypertension: Code(s): I10 - Essential (primary) hypertension Status: Acute Assessment and Plan: Stable. (6) Elevated troponin: Code(s): R77.8 - Other specified abnormalities of plasma proteins Status: Acute Assessment and Plan: Trending up to .182. Probably secondary to acute diastolic heart failure and pulm hypertension. Subjective Date/time seen: 05/27/23 08:26 Interval history: Denies chest pain. Has some sob and cough. Exam Const: General: cooperative and comfortable Orientation/consciousness: oriented to person, oriented to place and oriented to time Resp: Auscultation: clear to auscultation bilaterally, no crackles, no rales, no rhonchi, no wheezes and diminished lung sounds Cardio: Rate: regular rate Rhythm: regular rhythm Heart sounds: no murmurs Peripheral pulses: dorsalis pedis present Neuro: General: oriented to person, oriented to place and oriented to time Extrem: Right lower extremity: edema Left lower extremity: edema Other: Mild edema of both legs Objective Data Vital Signs Vital Signs: Vital Signs - 24 hr 05/26/23 10:22 05/26/23 10:29 05/26/23 10:00 Temperature Pulse Rate 101 H Respiratory Rate Blood Pressure Pulse Oximetry 86 L 90 Oxygen Delivery Nasal Cannula Nasal Cannula Oxygen Flow Rate 1 2 Fraction of Inspired Oxygen 05/26/23 12:00 05/26/23 20:00 05/26/23 22:00 Temperature 97.9 F Pulse Rate 104 H 86 Respiratory Rate 17 Blood Pressure 114/48 L Pulse Oximetry 90 92 Oxygen Delivery Nasal Cannula Oxygen Flow Rate 2 Fraction of Inspired Oxygen 05/26/23 22:20 05/27/23 05:48 05/26/23 23:02 Temperature 97.3 F L Pulse Rate 86 84 Respiratory Rate 13 Blood Pressure 107/53 L Pulse Oximetry 93 94 Oxygen Delivery Nasal Cannula Oxygen Flow Rate 2 Fraction of Inspired Oxygen 28 Intake/Output Intake/Output: Intake & Output 05/24/23 05/25/23 05/26/23 05/27/23 23:59 23:59 23:59 23:59 Intake Total 960 1010 1340 Output Total 4950 2800 1302 600 Balance -3990 -1790 38 -600 Meds/Results Medications: Active Medications Generic Name Dose Route Start Last Admin Trade Name Freq PRN Reason Stop Dose Admin Acetaminophen 500 mg 05/24/23 06:12 Acetaminophen 500 Mg Tablet PO Q6H PRN Pain Al Hydrox/Mg Hydrox/Simethicone 30 ml 05/24/23 01:31 Mag Hydrox/Al Hydrox/Simeth 30 Ml Udc PO QID PRN Dyspepsia Alprazolam 1 mg 05/24/23 06:12 05/27/23 08:11 Alprazolam (*Crx) 0.5 Mg Tablet PO 1 mg TID PRN Administration anxiety Aspirin 81 mg 05/24/23 08:00 05/27/23 08:11 Aspirin 81 Mg Chewable Tablet PO 81 mg DAILY@0800 BROOKS Administration Docusate Sodium 100 mg 05/24/23 09:00 05/27/23 08:11 Docusate Sodium 100 Mg Capsule PO 100 mg BID BROOKS Administration Empagliflozin 10 mg 05/25/23 09:00 05/27/23 08:11 Empagliflozin 10 Mg Tablet PO 10 m
--- NOTE | 2023-05-27 10:14 | PM.IMPN ---
Progress Note: A&P Assessment and Plan (1) Acute exacerbation of CHF (congestive heart failure): Code(s): I50.9 - Heart failure, unspecified Status: Acute Assessment and Plan: Continue p.o. Lasix, Jardiance Fluid restriction and low-sodium diet Continue with the current home meds to be adjusted as per Cardiology echocardiogram ?1. Definity contrast administered improved wall motion interpretation. ? 2. Left ventricular chamber dimension is normal. ? 3. Left ventricular systolic function is normal, estimated at 65-70%. ? 4. The left ventricular diastolic function is grade I diastolic dysfunction. ? 5. Linear artifact in right ventricle suggestive of catheter(s), pacemaker lead(s), or ICD lead(s). ? 6. Right ventricular chamber dimension is moderately enlarged. ? 7. Right ventricular systolic function is moderately reduced. ? 8. Large pleural effusion noted with large coagulated masses suggesting chronicity. ? 9. There is mild aortic valve sclerosis. ? 10. The mitral valve has moderately calcified annulus. ? 11. There is mild tricuspid valve regurgitation. ? 12. Severe pulmonary hypertension, estimated pulmonary arterial systolic pressure is 84 mmHg. ? 13. Dilated inferior vena cava with >50% collapse upon inspiration consistent with elevated right atrial pressure, 10 mmHg. ? 14. There is trivial pericardial effusion. ? (2) Severe pulmonary hypertension: Code(s): I27.20 - Pulmonary hypertension, unspecified Status: Acute Assessment and Plan: Echocardiogram done (3) COPD with emphysema: Qualifiers: Emphysema type: unspecified Qualified Code(s): J43.9 - Emphysema, unspecified Code(s): J43.9 - Emphysema, unspecified Status: Acute Assessment and Plan: No wheezing. Continue nebulization (4) Cirrhosis: Code(s): K74.60 - Unspecified cirrhosis of liver Status: Acute (5) Tobacco abuse: Code(s): Z72.0 - Tobacco use Status: Acute Assessment and Plan: Patient counseled on smoking cessation (6) History of peripheral arterial disease: Code(s): Z86.79 - Personal history of other diseases of the circulatory system Status: Acute (7) History of cerebrovascular disease: Code(s): Z86.79 - Personal history of other diseases of the circulatory system Status: Acute Plan Needs PT OT. Needs rehab. Pending placement Subjective Date/time seen: 05/27/23 10:14 Interval history: Shortness of breath is at baseline. Review of Systems Review of Systems: All systems reviewed & are unremarkable except as noted in HPI and below Exam Narrative: PHYSICAL EXAMINATION: General physical exam: Well-developed, well-nourished, patient appears very tired and fatigued Head/eyes: Atraumatic, EOMI, PERRLA. ENT: Moist mucous membranes, nasal passages clear. Neck: Supple, full range of motion, trachea midline. CVS: S1 + S2 + , regular rate and rhythm, no murmurs Respiratory: Bilaterally poor air entry in both lung solorio, mild B/L crackles, Urology: ++ swollen penis and scrotum secondary to dependent edema, no bilateral CVA tenderness Abdomen: Soft, non-tender, bowel sounds +ve, no organomegaly Extremities: No clubbing, no cyanosis, ++ bilateral pitting edema, no calf tenderness Musculoskeletal: Moves all, decreased range of motion, no muscle spasms Skin: Warm, dry, no jaundice, no cyanosis Neurological: Awake, alert, oriented x 3, cranial nerves II-XII intact, no focal neurological deficits Psychiatric: Normal mood, non suicidal Objective Data Vital Signs Vital Signs: Vital Signs - 24 hr 05/26/23 10:22 05/26/23 10:29 05/26/23 12:00 Temperature Pulse Rate 104 H Respiratory Rate Blood Pressure Pulse Oximetry 86 L 90 Oxygen Delivery Nasal Cannula Nasal Cannula Oxygen Flow Rate 1 2 Fraction of Inspired Oxygen 05/26/23 20:00 05/26/23 22:00 05/26/23 22:20 Temperature 97.9 F Pulse Rate 86 86
--- NOTE | 2023-05-27 11:08 | PC.NURSE ---
Pt's step daughter and self-appointed primary administrator health care facility informed me that pt should not be taking Xanax. She believes he is addicted and should be weaned off. I explained that it was based on his pharmacy/home med history and that it is PRN. Pt is also oriented and of legal age therefore pt has the right to take or not take a med. Pt is asking for the PRN med, it is available, therefore I gave him the PRN med. At this time pt stated, I have been really anxious and I asked for it and want it. I don't want her to stop it. Pt's step-daughter was quite argumentative and accused me of refusing to do my job. I attempted to explain that I do not order meds, merely administer the ones available as appropriate and that we are an acute care facility not a [employer] [facility] [employer] [facility] facility therefore weaning pt off of meds is not within our scope as it takes months to do that therefore this is a conversation to be had with the primary care doctor. Pt agreed and was satisfied. Pt's step daughter was not.
[2023-05-28 06:00] VITALS: BP 135/58; PULSE 88; RESP 20; TEMP 37.2; O2SAT 91
[2023-05-28 06:52] LABS: Blood Urea Nitrogen 31 mg/dL (9-20); Calcium 8.1 mg/dL (8.4-10.2); Carbon Dioxide > 40 mmol/L (22-30); Chloride 91 mmol/L (98-107); Estimated CRCL calculation 60 ml/min; Estimated Glomerular Filt Rate > 60; Glucose 106 mg/dL (65-110); Potassium 4.2 mmol/L (3.4-5.0); Sodium 135 mmol/L (137-145)
--- NOTE | 2023-05-28 07:45 | PM.PNCARD ---
Progress Note: A&P Assessment and Plan (1) Acute exacerbation of CHF (congestive heart failure): Code(s): I50.9 - Heart failure, unspecified Status: Acute Assessment and Plan: Acute on chronic diastolic heart failure. 05/24/23 Echo: EF 65-70%, grade I diastolic dysfunction, mod RVE/hypokinesis, severe pulm hypertension with RVSP 84 mmHg. Continue Furosemide 40 mg PO BID, Spironolactone 25 mg daily and Jardiance 10 mg daily. Fluid restriction to 1.5 l/day. Decrease Furosemide 40 mg PO daily. PT/OT. (2) COPD with emphysema: Qualifiers: Emphysema type: unspecified Qualified Code(s): J43.9 - Emphysema, unspecified Code(s): J43.9 - Emphysema, unspecified Status: Acute (3) Tobacco abuse: Code(s): Z72.0 - Tobacco use Status: Acute Assessment and Plan: Counseled regarding smoking cessation. (4) Pacemaker: Onset Date: 02/2020 Code(s): Z95.0 - Presence of cardiac pacemaker Status: Acute Assessment and Plan: Stable. (5) Hypertension: Code(s): I10 - Essential (primary) hypertension Status: Acute Assessment and Plan: Stable. (6) Elevated troponin: Code(s): R77.8 - Other specified abnormalities of plasma proteins Status: Acute Assessment and Plan: Trending up to .182. Probably secondary to acute diastolic heart failure and pulm hypertension. Subjective Date/time seen: 05/28/23 07:45 Interval history: Denies chest pain. Has some sob and cough. Exam Const: General: cooperative and comfortable Orientation/consciousness: oriented to person, oriented to place and oriented to time Resp: Auscultation: clear to auscultation bilaterally, no crackles, no rales, no rhonchi, no wheezes and diminished lung sounds Cardio: Rate: regular rate Rhythm: regular rhythm Heart sounds: no murmurs Peripheral pulses: dorsalis pedis present Neuro: General: oriented to person, oriented to place and oriented to time Extrem: Right lower extremity: edema Left lower extremity: edema Other: Mild edema of both legs Objective Data Vital Signs Vital Signs: Vital Signs - 24 hr 05/27/23 08:10 05/27/23 09:15 05/27/23 14:00 Temperature 98.7 F Pulse Rate 69 Respiratory Rate 20 Blood Pressure 100/41 L Pulse Oximetry 92 91 98 Oxygen Delivery Nasal Cannula Nasal Cannula Oxygen Flow Rate 2 2 Fraction of Inspired Oxygen 05/27/23 20:49 05/27/23 20:00 05/27/23 22:00 Temperature 98.9 F Pulse Rate 100 Respiratory Rate 20 Blood Pressure 123/44 L Pulse Oximetry 92 92 90 Oxygen Delivery Nasal Cannula Nasal Cannula Oxygen Flow Rate 2 2 Fraction of Inspired Oxygen 28 05/28/23 06:00 Temperature 98.9 F Pulse Rate 88 Respiratory Rate 20 Blood Pressure 135/58 L Pulse Oximetry 91 Oxygen Delivery Oxygen Flow Rate Fraction of Inspired Oxygen Intake/Output Intake/Output: Intake & Output 05/25/23 05/26/23 05/27/23 05/28/23 23:59 23:59 23:59 23:59 Intake Total 1010 1340 660 240 Output Total 2800 1302 1400 300 Balance -1790 38 -740 -60 Meds/Results Medications: Active Medications Generic Name Dose Route Start Last Admin Trade Name Freq PRN Reason Stop Dose Admin Acetaminophen 500 mg 05/24/23 06:12 Acetaminophen 500 Mg Tablet PO Q6H PRN Pain Al Hydrox/Mg Hydrox/Simethicone 30 ml 05/24/23 01:31 Mag Hydrox/Al Hydrox/Simeth 30 Ml Udc PO QID PRN Dyspepsia Alprazolam 1 mg 05/24/23 06:12 05/27/23 16:15 Alprazolam (*Crx) 0.5 Mg Tablet PO 1 mg TID PRN Administration anxiety Aspirin 81 mg 05/24/23 08:00 05/27/23 08:11 Aspirin 81 Mg Chewable Tablet PO 81 mg DAILY@0800 BROOKS Administration Docusate Sodium 100 mg 05/24/23 09:00 05/27/23 16:15 Docusate Sodium 100 Mg Capsule PO 100 mg BID BROOKS Administration Empagliflozin 10 mg 05/25/23 09:00 05/27/23 08:11 Empagliflozin 10 Mg Tablet PO 10 mg
[2023-05-28] MEDS: DOCUSATE SODIUM 100 MG CAPSULE PO ×2 (08:23→16:31)
[2023-05-28] MEDS: SPIRONOLACTONE 25 MG TABLET PO (08:23)
[2023-05-28] MEDS: EMPAGLIFLOZIN 10 MG TABLET PO (08:23)
[2023-05-28] MEDS: MULTIVITAMINS THERAPEUTIC TAB (*BKC) 1 TABLET PO (08:23)
[2023-05-28] MEDS: ASPIRIN 81 MG CHEWABLE TABLET PO (08:23)
[2023-05-28] MEDS: FUROSEMIDE 40 MG TABLET PO (08:24)
[2023-05-28] MEDS: ENOXAPARIN 40 MG/0.4 ML SYRINGE SUB-Q (08:24)
--- NOTE | 2023-05-28 11:08 | PM.IMPN ---
Progress Note: A&P Assessment and Plan (1) Acute exacerbation of CHF (congestive heart failure): Code(s): I50.9 - Heart failure, unspecified Status: Acute Assessment and Plan: Continue p.o. Lasix, Jardiance Fluid restriction and low-sodium diet Continue with the current home meds to be adjusted as per Cardiology echocardiogram ?1. Definity contrast administered improved wall motion interpretation. ? 2. Left ventricular chamber dimension is normal. ? 3. Left ventricular systolic function is normal, estimated at 65-70%. ? 4. The left ventricular diastolic function is grade I diastolic dysfunction. ? 5. Linear artifact in right ventricle suggestive of catheter(s), pacemaker lead(s), or ICD lead(s). ? 6. Right ventricular chamber dimension is moderately enlarged. ? 7. Right ventricular systolic function is moderately reduced. ? 8. Large pleural effusion noted with large coagulated masses suggesting chronicity. ? 9. There is mild aortic valve sclerosis. ? 10. The mitral valve has moderately calcified annulus. ? 11. There is mild tricuspid valve regurgitation. ? 12. Severe pulmonary hypertension, estimated pulmonary arterial systolic pressure is 84 mmHg. ? 13. Dilated inferior vena cava with >50% collapse upon inspiration consistent with elevated right atrial pressure, 10 mmHg. ? 14. There is trivial pericardial effusion. ? (2) Severe pulmonary hypertension: Code(s): I27.20 - Pulmonary hypertension, unspecified Status: Acute (3) COPD with emphysema: Qualifiers: Emphysema type: unspecified Qualified Code(s): J43.9 - Emphysema, unspecified Code(s): J43.9 - Emphysema, unspecified Status: Acute Assessment and Plan: No wheezing. Continue nebulization (4) Cirrhosis: Code(s): K74.60 - Unspecified cirrhosis of liver Status: Acute (5) Tobacco abuse: Code(s): Z72.0 - Tobacco use Status: Acute Assessment and Plan: Patient counseled on smoking cessation (6) History of peripheral arterial disease: Code(s): Z86.79 - Personal history of other diseases of the circulatory system Status: Acute (7) History of cerebrovascular disease: Code(s): Z86.79 - Personal history of other diseases of the circulatory system Status: Acute Plan Needs PT OT. Needs rehab. Pending placement Subjective Date/time seen: 05/28/23 11:08 Interval history: Stable Review of Systems Review of Systems: All systems reviewed & are unremarkable except as noted in HPI and below Exam Narrative: PHYSICAL EXAMINATION: General physical exam: Well-developed, well-nourished, patient appears very tired and fatigued Head/eyes: Atraumatic, EOMI, PERRLA. ENT: Moist mucous membranes, nasal passages clear. Neck: Supple, full range of motion, trachea midline. CVS: S1 + S2 + , regular rate and rhythm, no murmurs Respiratory: Bilaterally poor air entry in both lung solorio, mild B/L crackles, Urology: ++ swollen penis and scrotum secondary to dependent edema, no bilateral CVA tenderness Abdomen: Soft, non-tender, bowel sounds +ve, no organomegaly Extremities: No clubbing, no cyanosis, ++ bilateral pitting edema, no calf tenderness Musculoskeletal: Moves all, decreased range of motion, no muscle spasms Skin: Warm, dry, no jaundice, no cyanosis Neurological: Awake, alert, oriented x 3, cranial nerves II-XII intact, no focal neurological deficits Psychiatric: Normal mood, non suicidal Objective Data Vital Signs Vital Signs: Vital Signs - 24 hr 05/27/23 14:00 05/27/23 20:49 05/27/23 20:00 Temperature 98.7 F Pulse Rate 69 Respiratory Rate 20 Blood Pressure 100/41 L Pulse Oximetry 98 92 92 Oxygen Delivery Nasal Cannula Nasal Cannula Oxygen Flow Rate 2 2 Fraction of Inspired Oxygen 28 05/27/23 22:00 05/28/23 06:00 Temperature 98.9 F 98.9 F Pulse Rate 100 88 Respiratory Rate 20 20 Blood Pressure 123/44 L 135/58 L Pulse Oximetry 9
[2023-05-28 14:00] VITALS: BP 118/48; PULSE 83; RESP 22; TEMP 36.3; O2SAT 85
[2023-05-28] MEDS: ALPRAZolam (*CRX) 0.5 MG TABLET 1 MG PO ×2 (16:31→23:53)
[2023-05-28 20:00] VITALS: O2SAT 90
[2023-05-28 22:00] VITALS: BP 108/46; PULSE 88; RESP 20; TEMP 36.4; O2SAT 90
[2023-05-29 06:00] VITALS: BP 110/46; PULSE 87; RESP 20; TEMP 36.8; O2SAT 93
[2023-05-29 07:00] LABS: Blood Urea Nitrogen 34 mg/dL (9-20); Carbon Dioxide > 40 mmol/L (22-30); Chloride 94 mmol/L (98-107); Estimated CRCL calculation 68 ml/min; Estimated Glomerular Filt Rate > 60; Glucose 93 mg/dL (65-110); Potassium 4.3 mmol/L (3.4-5.0); Sodium 136 mmol/L (137-145)
--- NOTE | 2023-05-29 07:48 | PM.PNCARD ---
Progress Note: A&P Assessment and Plan (1) Acute exacerbation of CHF (congestive heart failure): Code(s): I50.9 - Heart failure, unspecified Status: Acute Assessment and Plan: Acute on chronic diastolic heart failure. 05/24/23 Echo: EF 65-70%, grade I diastolic dysfunction, mod RVE/hypokinesis, severe pulm hypertension with RVSP 84 mmHg. Continue Furosemide 40 mg PO daily, Spironolactone 25 mg daily and Jardiance 10 mg daily. Fluid restriction to 1.5 l/day. Recheck CXR. PT/OT. (2) COPD with emphysema: Qualifiers: Emphysema type: unspecified Qualified Code(s): J43.9 - Emphysema, unspecified Code(s): J43.9 - Emphysema, unspecified Status: Acute (3) Tobacco abuse: Code(s): Z72.0 - Tobacco use Status: Acute Assessment and Plan: Counseled regarding smoking cessation. (4) Pacemaker: Onset Date: 02/2020 Code(s): Z95.0 - Presence of cardiac pacemaker Status: Acute Assessment and Plan: Stable. (5) Hypertension: Code(s): I10 - Essential (primary) hypertension Status: Acute Assessment and Plan: Stable. (6) Elevated troponin: Code(s): R77.8 - Other specified abnormalities of plasma proteins Status: Acute Assessment and Plan: Trending up to .182. Probably secondary to acute diastolic heart failure and pulm hypertension. Subjective Date/time seen: 05/29/23 07:48 Interval history: Denies chest pain. Has some sob and cough. Exam Const: General: cooperative and comfortable Orientation/consciousness: oriented to person, oriented to place and oriented to time Resp: Auscultation: clear to auscultation bilaterally, no crackles, no rales, no rhonchi, no wheezes and diminished lung sounds Cardio: Rate: regular rate Rhythm: regular rhythm Heart sounds: no murmurs Peripheral pulses: dorsalis pedis present Neuro: General: oriented to person, oriented to place and oriented to time Extrem: Right lower extremity: edema Left lower extremity: edema Other: Mild edema of both legs Objective Data Vital Signs Vital Signs: Vital Signs - 24 hr 05/28/23 14:00 05/28/23 22:00 05/28/23 20:00 Temperature 97.3 F L 97.6 F Pulse Rate 83 88 Respiratory Rate 22 H 20 Blood Pressure 118/48 L 108/46 L Pulse Oximetry 85 L 90 90 Oxygen Delivery Nasal Cannula Oxygen Flow Rate 3 Fraction of Inspired Oxygen 28 05/29/23 06:00 Temperature 98.2 F Pulse Rate 87 Respiratory Rate 20 Blood Pressure 110/46 L Pulse Oximetry 93 Oxygen Delivery Oxygen Flow Rate Fraction of Inspired Oxygen Intake/Output Intake/Output: Intake & Output 05/26/23 05/27/23 05/28/23 05/29/23 23:59 23:59 23:59 23:59 Intake Total 1340 660 240 Output Total 1302 1400 900 150 Balance 38 -740 -660 -150 Meds/Results Medications: Active Medications Generic Name Dose Route Start Last Admin Trade Name Freq PRN Reason Stop Dose Admin Acetaminophen 500 mg 05/24/23 06:12 Acetaminophen 500 Mg Tablet PO Q6H PRN Pain Al Hydrox/Mg Hydrox/Simethicone 30 ml 05/24/23 01:31 Mag Hydrox/Al Hydrox/Simeth 30 Ml Udc PO QID PRN Dyspepsia Alprazolam 1 mg 05/24/23 06:12 05/28/23 23:53 Alprazolam (*Crx) 0.5 Mg Tablet PO 1 mg TID PRN Administration anxiety Aspirin 81 mg 05/24/23 08:00 05/28/23 08:23 Aspirin 81 Mg Chewable Tablet PO 81 mg DAILY@0800 BROOKS Administration Docusate Sodium 100 mg 05/24/23 09:00 05/28/23 16:31 Docusate Sodium 100 Mg Capsule PO 100 mg BID BROOKS Administration Empagliflozin 10 mg 05/25/23 09:00 05/28/23 08:23 Empagliflozin 10 Mg Tablet PO 10 mg DAILY BROOKS Administration Enoxaparin Sodium 40 mg 05/24/23 09:00 05/28/23 08:24 Enoxaparin 40 Mg/0.4 Ml Syringe SUB-Q 40 mg DAILY BROOKS Administration Furosemide 40 mg 05/28/23 09:00 05/28/23 08:24 Furosemide 40 Mg Tablet PO 40 mg DAILY BROOKS Administrati
[2023-05-29] MEDS: SPIRONOLACTONE 25 MG TABLET PO (09:13)
[2023-05-29] MEDS: ASPIRIN 81 MG CHEWABLE TABLET PO (09:13)
[2023-05-29] MEDS: MULTIVITAMINS THERAPEUTIC TAB (*BKC) 1 TABLET PO (09:13)
[2023-05-29] MEDS: DOCUSATE SODIUM 100 MG CAPSULE PO ×2 (09:13→17:37)
[2023-05-29] MEDS: FUROSEMIDE 40 MG TABLET PO (09:13)
[2023-05-29] MEDS: ENOXAPARIN 40 MG/0.4 ML SYRINGE SUB-Q (09:14)
[2023-05-29] MEDS: EMPAGLIFLOZIN 10 MG TABLET PO (09:14)
--- NOTE | 2023-05-29 10:27 | PM.IMPN ---
Progress Note: A&P Assessment and Plan (1) Acute exacerbation of CHF (congestive heart failure): Code(s): I50.9 - Heart failure, unspecified Status: Acute Assessment and Plan: Acute on chronic diastolic heart failure. 05/24/23 Echo: EF 65-70%, grade I diastolic dysfunction, mod RVE/hypokinesis, severe pulm hypertension with RVSP 84 mmHg. Continue Furosemide 40 mg PO daily, Spironolactone 25 mg daily and Jardiance 10 mg daily. Fluid restriction to 1.5 l/day. (2) COPD with emphysema: Qualifiers: Emphysema type: unspecified Qualified Code(s): J43.9 - Emphysema, unspecified Code(s): J43.9 - Emphysema, unspecified Status: Acute Assessment and Plan: Stable (3) Tobacco abuse: Code(s): Z72.0 - Tobacco use Status: Acute Assessment and Plan: Counseled regarding smoking cessation. (4) Pacemaker: Onset Date: 02/2020 Code(s): Z95.0 - Presence of cardiac pacemaker Status: Acute Assessment and Plan: Stable. (5) Hypertension: Code(s): I10 - Essential (primary) hypertension Status: Acute Assessment and Plan: Stable. (6) Elevated troponin: Code(s): R77.8 - Other specified abnormalities of plasma proteins Status: Acute Assessment and Plan: Trending up to .182. Probably secondary to acute diastolic heart failure and pulm hypertension. Plan Pending placement Subjective Date/time seen: 05/29/23 10:27 Interval history: Stable Review of Systems Review of Systems: All systems reviewed & are unremarkable except as noted in HPI and below Exam Narrative: PHYSICAL EXAMINATION: General physical exam: thin Head/eyes: Atraumatic, EOMI, PERRLA. ENT: Moist mucous membranes, nasal passages clear. Neck: Supple, full range of motion, trachea midline. CVS: S1 + S2 + , regular rate and rhythm, no murmurs Respiratory: Bilaterally poor air entry in both lung solorio, mild B/L crackles, Urology: ++ swollen penis and scrotum secondary to dependent edema, no bilateral CVA tenderness Abdomen: Soft, non-tender, bowel sounds +ve, no organomegaly Extremities: No clubbing, no cyanosis, ++ bilateral pitting edema, no calf tenderness Musculoskeletal: Moves all, decreased range of motion, no muscle spasms Skin: Warm, dry, no jaundice, no cyanosis Neurological: Awake, alert, oriented x 3, cranial nerves II-XII intact, no focal neurological deficits Psychiatric: Normal mood, non suicidal Objective Data Vital Signs Vital Signs: Vital Signs - 24 hr 05/28/23 14:00 05/28/23 22:00 05/28/23 20:00 Temperature 97.3 F L 97.6 F Pulse Rate 83 88 Respiratory Rate 22 H 20 Blood Pressure 118/48 L 108/46 L Pulse Oximetry 85 L 90 90 Oxygen Delivery Nasal Cannula Oxygen Flow Rate 3 Fraction of Inspired Oxygen 28 05/29/23 06:00 Temperature 98.2 F Pulse Rate 87 Respiratory Rate 20 Blood Pressure 110/46 L Pulse Oximetry 93 Oxygen Delivery Oxygen Flow Rate Fraction of Inspired Oxygen Intake/Output Intake/Output: Intake & Output 05/26/23 05/27/23 05/28/23 05/29/23 23:59 23:59 23:59 23:59 Intake Total 1340 / 1340 660 / 660 240 / 240 236 / 236 Output Total 1302 / 1302 1400 / 1400 900 / 900 610 / 610 Balance 38 / 38 -740 / -740 -660 / -660 -374 / -374 Meds/Results Medications: Active Medications Generic Name Dose Route Start Last Admin Trade Name Freq PRN Reason Stop Dose Admin Acetaminophen 500 mg 05/24/23 06:12 Acetaminophen 500 Mg Tablet PO Q6H PRN Pain Al Hydrox/Mg Hydrox/Simethicone 30 ml 05/24/23 01:31 Mag Hydrox/Al Hydrox/Simeth 30 Ml Udc PO QID PRN Dyspepsia Alprazolam 1 mg 05/24/23 06:12 05/28/23 23:53 Alprazolam (*Crx) 0.5 Mg Tablet PO 1 mg TID PRN Administration anxiety Aspirin 81 mg 05/24/23 08:00 05/29/23 09:13 Aspirin 81 Mg Chewable Tablet PO 81 mg DAILY@0800 BROOKS Administration Docusate Sodium 100 mg 04/26
[2023-05-29 14:00] VITALS: BP 114/54; PULSE 80; RESP 22; TEMP 36.1; O2SAT 90
[2023-05-29] MEDS: ALPRAZolam (*CRX) 0.5 MG TABLET 1 MG PO ×2 (14:22→22:53)
[2023-05-29 20:00] VITALS: O2SAT 93
[2023-05-29 22:00] VITALS: BP 109/56; PULSE 79; RESP 14; TEMP 36.3; O2SAT 90
[2023-05-30 06:00] VITALS: BP 115/64; PULSE 74; RESP 14; TEMP 36.2; O2SAT 95
--- NOTE | 2023-05-30 07:55 | PM.PNCARD ---
Progress Note: A&P Assessment and Plan (1) Acute exacerbation of CHF (congestive heart failure): Code(s): I50.9 - Heart failure, unspecified Status: Acute Assessment and Plan: Acute on chronic diastolic heart failure. 05/24/23 Echo: EF 65-70%, grade I diastolic dysfunction, mod RVE/hypokinesis, severe pulm hypertension with RVSP 84 mmHg. Continue Furosemide 40 mg PO daily, Spironolactone 25 mg daily and Jardiance 10 mg daily. Fluid restriction to 1.5 l/day. CXR 05/29/23 shows improvement in pulm edema to mild now. PT/OT. No further cardiac workup. Continue diuretics and Jardiance. (2) COPD with emphysema: Qualifiers: Emphysema type: unspecified Qualified Code(s): J43.9 - Emphysema, unspecified Code(s): J43.9 - Emphysema, unspecified Status: Acute (3) Tobacco abuse: Code(s): Z72.0 - Tobacco use Status: Acute Assessment and Plan: Counseled regarding smoking cessation. (4) Pacemaker: Onset Date: 02/2020 Code(s): Z95.0 - Presence of cardiac pacemaker Status: Acute Assessment and Plan: Stable. (5) Hypertension: Code(s): I10 - Essential (primary) hypertension Status: Acute Assessment and Plan: Stable. (6) Elevated troponin: Code(s): R77.8 - Other specified abnormalities of plasma proteins Status: Acute Assessment and Plan: Trending up to .182. Probably secondary to acute diastolic heart failure and pulm hypertension. Subjective Date/time seen: 05/30/23 07:55 Interval history: Denies chest pain. Has some sob and cough. Exam Const: General: cooperative and comfortable Orientation/consciousness: oriented to person, oriented to place and oriented to time Resp: Auscultation: no crackles, no rales, no rhonchi, no wheezes and diminished lung sounds Cardio: Rate: regular rate Rhythm: regular rhythm Heart sounds: no murmurs Peripheral pulses: dorsalis pedis present Neuro: General: oriented to person, oriented to place and oriented to time Extrem: Right lower extremity: edema Left lower extremity: edema Other: Mild edema of both legs Objective Data Vital Signs Vital Signs: Vital Signs - 24 hr 05/29/23 14:00 05/29/23 20:00 05/29/23 22:00 Temperature 96.9 F L 97.3 F L Pulse Rate 80 79 Respiratory Rate 22 H 14 Blood Pressure 114/54 L 109/56 L Pulse Oximetry 90 93 90 Oxygen Delivery Nasal Cannula Oxygen Flow Rate 2 05/30/23 06:00 Temperature 97.2 F L Pulse Rate 74 Respiratory Rate 14 Blood Pressure 115/64 Pulse Oximetry 95 Oxygen Delivery Oxygen Flow Rate Intake/Output Intake/Output: Intake & Output 05/27/23 05/28/23 05/29/23 05/30/23 23:59 23:59 23:59 23:59 Intake Total 660 240 416 Output Total 9055 499 8474 950 [facility]740 [phone] Meds/Results Medications: Active Medications Generic Name Dose Route Start Last Admin Trade Name Freq PRN Reason Stop Dose Admin Acetaminophen 500 mg 05/24/23 06:12 Acetaminophen 500 Mg Tablet PO Q6H PRN Pain Al Hydrox/Mg Hydrox/Simethicone 30 ml 05/24/23 01:31 Mag Hydrox/Al Hydrox/Simeth 30 Ml Udc PO QID PRN Dyspepsia Alprazolam 1 mg 05/24/23 06:12 05/29/23 22:53 Alprazolam (*Crx) 0.5 Mg Tablet PO 1 mg TID PRN Administration anxiety Aspirin 81 mg 05/24/23 08:00 05/29/23 09:13 Aspirin 81 Mg Chewable Tablet PO 81 mg DAILY@0800 BROOKS Administration Docusate Sodium 100 mg 05/24/23 09:00 05/29/23 17:37 Docusate Sodium 100 Mg Capsule PO 100 mg BID BROOKS Administration Empagliflozin 10 mg 05/25/23 09:00 05/29/23 09:14 Empagliflozin 10 Mg Tablet PO 10 mg DAILY BROOKS Administration Enoxaparin Sodium 40 mg 05/24/23 09:00 05/29/23 09:14 Enoxaparin 40 Mg/0.4 Ml Syringe SUB-Q 40 mg DAILY BROOKS Administration Furosemide 40 mg 05/28/23 09:00 05/29/23 09:13 Furosemide 40 Mg Tablet PO 40 mg DAILY [facility] Adm
[2023-05-30] MEDS: MULTIVITAMINS THERAPEUTIC TAB (*BKC) 1 TABLET PO (08:46)
[2023-05-30] MEDS: ALPRAZolam (*CRX) 0.5 MG TABLET 1 MG PO ×2 (08:46→16:04)
[2023-05-30] MEDS: EMPAGLIFLOZIN 10 MG TABLET PO (08:46)
[2023-05-30] MEDS: DOCUSATE SODIUM 100 MG CAPSULE PO ×2 (08:46→16:04)
[2023-05-30] MEDS: SPIRONOLACTONE 25 MG TABLET PO (08:46)
[2023-05-30] MEDS: ASPIRIN 81 MG CHEWABLE TABLET PO (08:46)
[2023-05-30] MEDS: FUROSEMIDE 40 MG TABLET PO (08:46)
--- NOTE | 2023-05-30 09:33 | PCNWS ---
Weekly nutritional screen. Patient is tolerating current diet Heart healthy with adequate intake, 100% meals. 1600 ml/day fluid restriction. No weight loss reported. No nutritional needs at this time.
[2023-05-30 09:54] VITALS: O2SAT 90
[2023-05-30 10:26] LABS: Hematocrit 46.3 % (42.0-52.0); Mean Corpuscular HGB Conc 32.4 g/dl (32-36); Mean Corpuscular Hemoglobin 34.5 pg (26-34); Mean Corpuscular Volume 106.4 fl (80-100); Mean Platelet Volume 9.7 fl (7.4-10.4); Platelet Count Result 144 k/mm3 (150-375); Red Blood Count 4.35 M/mm3 (4.6-6.20); Red Cell Distribution Width 15.9 % (11.5-14.5); White Blood Count 4.8 K/mm3 (4.5-10.0)
[2023-05-30] MEDS: ENOXAPARIN 40 MG/0.4 ML SYRINGE SUB-Q (10:42)
[2023-05-30 14:00] VITALS: BP 114/52; PULSE 92; RESP 16; TEMP 36.3; O2SAT 91
--- NOTE | 2023-05-30 15:24 | PM.IMPN ---
Progress Note: A&P Assessment and Plan (1) Acute exacerbation of CHF (congestive heart failure): Code(s): I50.9 - Heart failure, unspecified Status: Acute Assessment and Plan: Acute on chronic diastolic heart failure. 05/24/23 Echo: EF 65-70%, grade I diastolic dysfunction, mod RVE/hypokinesis, severe pulm hypertension with RVSP 84 mmHg. Continue Furosemide 40 mg PO daily, Spironolactone 25 mg daily and Jardiance 10 mg daily. Fluid restriction to 1.5 l/day. (2) COPD with emphysema: Qualifiers: Emphysema type: unspecified Qualified Code(s): J43.9 - Emphysema, unspecified Code(s): J43.9 - Emphysema, unspecified Status: Acute Assessment and Plan: Stable (3) Tobacco abuse: Code(s): Z72.0 - Tobacco use Status: Acute Assessment and Plan: Counseled regarding smoking cessation. (4) Pacemaker: Onset Date: 02/2020 Code(s): Z95.0 - Presence of cardiac pacemaker Status: Acute Assessment and Plan: Stable. (5) Hypertension: Code(s): I10 - Essential (primary) hypertension Status: Acute Assessment and Plan: Stable. (6) Elevated troponin: Code(s): R77.8 - Other specified abnormalities of plasma proteins Status: Acute Assessment and Plan: Trending up to .182. Probably secondary to acute diastolic heart failure and pulm hypertension. Plan Pending placement Subjective Date/time seen: 05/30/23 15:24 Interval history: Patient was brought to the ER for evaluation by his with complaints of swelling in the penis, scrotum and worsening shortness of breath secondary to CHF exacerbation pt doing better, still needing oxygen continue to diuresis in the hospital transitioned to oral medications hopeful dc in 1-2 days time Review of Systems Review of Systems: All systems reviewed & are unremarkable except as noted in HPI and below Exam Narrative: PHYSICAL EXAMINATION: General physical exam: thin Head/eyes: Atraumatic, EOMI, PERRLA. ENT: Moist mucous membranes, nasal passages clear. Neck: Supple, full range of motion, trachea midline. CVS: S1 + S2 + , regular rate and rhythm, no murmurs Respiratory: Bilaterally poor air entry in both lung solorio, mild B/L crackles, Urology: ++ swollen penis and scrotum secondary to dependent edema, no bilateral CVA tenderness Abdomen: Soft, non-tender, bowel sounds +ve, no organomegaly Extremities: No clubbing, no cyanosis, ++ bilateral pitting edema, no calf tenderness Musculoskeletal: Moves all, decreased range of motion, no muscle spasms Skin: Warm, dry, no jaundice, no cyanosis Neurological: Awake, alert, oriented x 3, cranial nerves II-XII intact, no focal neurological deficits Psychiatric: Normal mood, non suicidal Objective Data Vital Signs Vital Signs: Vital Signs - 24 hr 05/29/23 20:00 05/29/23 22:00 05/30/23 06:00 Temperature 36.3 C L 36.2 C L Pulse Rate 79 74 Respiratory Rate 14 14 Blood Pressure 109/56 L 115/64 Pulse Oximetry 93 90 95 Oxygen Delivery Nasal Cannula Oxygen Flow Rate 2 05/30/23 09:54 05/30/23 14:00 Temperature 36.3 C L Pulse Rate 92 Respiratory Rate 16 Blood Pressure 114/52 L Pulse Oximetry 90 91 Oxygen Delivery Nasal Cannula Oxygen Flow Rate 2 Intake/Output Intake/Output: Intake & Output 05/27/23 05/28/23 05/29/23 05/30/23 23:59 23:59 23:59 23:59 Intake Total 660 240 416 480 Output Total 4176 328 4856 1650 [facility]740 [phone] Meds/Results Medications: Active Medications Generic Name Dose Route Start Last Admin Trade Name Freq PRN Reason Stop Dose Admin Acetaminophen 500 mg 05/24/23 06:12 Acetaminophen 500 Mg Tablet PO Q6H PRN Pain Al Hydrox/Mg Hydrox/Simethicone 30 ml 05/24/23 01:31 Mag Hydrox/Al Hydrox/Simeth 30 Ml Udc PO QID PRN Dyspepsia Alprazolam 1 mg 05/24/23 06:12 05/30/23 08:46 Alprazolam (*Crx) 0.5 Mg Tablet PO 1
[2023-05-30 20:00] VITALS: PULSE 80; RESP 20; O2SAT 93
[2023-05-30 21:59] VITALS: BP 113/52; PULSE 80; RESP 20; TEMP 36.1; O2SAT 93
[2023-05-31] MEDS: ACETAMINOPHEN 500 MG TABLET PO ×2 (03:18→17:15)
[2023-05-31] MEDS: ALPRAZolam (*CRX) 0.5 MG TABLET 1 MG PO ×2 (03:18→20:33)
[2023-05-31 06:00] VITALS: BP 103/50; PULSE 73; RESP 18; TEMP 36.4; O2SAT 93
[2023-05-31 06:48] LABS: Anion Gap 0 mmol/L (8-16); Blood Urea Nitrogen 31 mg/dL (9-20); Carbon Dioxide 39 mmol/L (22-30); Chloride 92 mmol/L (98-107); Estimated CRCL calculation 64 ml/min; Estimated Glomerular Filt Rate > 60; Glucose 94 mg/dL (65-110); Potassium 4.5 mmol/L (3.4-5.0); Sodium 131 mmol/L (137-145)
[2023-05-31 08:00] VITALS: O2SAT 94
--- NOTE | 2023-05-31 08:00 | PM.PNCARD ---
Progress Note: A&P Assessment and Plan (1) Acute exacerbation of CHF (congestive heart failure): Code(s): I50.9 - Heart failure, unspecified Status: Acute Assessment and Plan: Acute on chronic diastolic heart failure. 05/24/23 Echo: EF 65-70%, grade I diastolic dysfunction, mod RVE/hypokinesis, severe pulm hypertension with RVSP 84 mmHg. Continue Furosemide 40 mg PO daily, Spironolactone 25 mg daily and Jardiance 10 mg daily. Fluid restriction to 1.5 l/day. CXR 05/29/23 shows improvement in pulm edema to mild now. PT/OT. No further cardiac workup. Continue diuretics and Jardiance. (2) COPD with emphysema: Qualifiers: Emphysema type: unspecified Qualified Code(s): J43.9 - Emphysema, unspecified Code(s): J43.9 - Emphysema, unspecified Status: Acute (3) Tobacco abuse: Code(s): Z72.0 - Tobacco use Status: Acute Assessment and Plan: Counseled regarding smoking cessation. (4) Pacemaker: Onset Date: 02/2020 Code(s): Z95.0 - Presence of cardiac pacemaker Status: Acute Assessment and Plan: Stable. (5) Hypertension: Code(s): I10 - Essential (primary) hypertension Status: Acute Assessment and Plan: Stable. (6) Elevated troponin: Code(s): R77.8 - Other specified abnormalities of plasma proteins Status: Acute Assessment and Plan: Trending up to .182. Probably secondary to acute diastolic heart failure and pulm hypertension. Subjective Date/time seen: 05/31/23 08:00 Interval history: Denies chest pain. Has some sob and cough. Exam Const: General: cooperative and comfortable Orientation/consciousness: oriented to person, oriented to place and oriented to time Resp: Auscultation: no crackles, no rales, no rhonchi, no wheezes and diminished lung sounds Cardio: Rate: regular rate Rhythm: regular rhythm Heart sounds: no murmurs Peripheral pulses: dorsalis pedis present Neuro: General: oriented to person, oriented to place and oriented to time Extrem: Right lower extremity: edema Left lower extremity: edema Other: Mild edema of both legs Objective Data Vital Signs Vital Signs: Vital Signs - 24 hr 05/30/23 09:54 05/30/23 14:00 05/30/23 21:59 Temperature 97.3 F L 97.0 F L Pulse Rate 92 80 Respiratory Rate 16 20 Blood Pressure 114/52 L 113/52 L Pulse Oximetry 90 91 93 Oxygen Delivery Nasal Cannula Oxygen Flow Rate 2 Fraction of Inspired Oxygen 05/30/23 20:00 05/31/23 06:00 Temperature 97.6 F Pulse Rate 80 73 Respiratory Rate 20 18 Blood Pressure 103/50 L Pulse Oximetry 93 93 Oxygen Delivery Nasal Cannula Oxygen Flow Rate 2 Fraction of Inspired Oxygen 28 Intake/Output Intake/Output: Intake & Output 05/28/23 05/29/23 05/30/23 05/31/23 23:59 23:59 23:59 23:59 Intake Total 240 416 480 Output Total 900 2120 8340 [address] [place] [phone] Meds/Results Medications: Active Medications Generic Name Dose Route Start Last Admin Trade Name Freq PRN Reason Stop Dose Admin Acetaminophen 500 mg 05/24/23 06:12 05/31/23 03:18 Acetaminophen 500 Mg Tablet PO 500 mg Q6H PRN Administration Pain Al Hydrox/Mg Hydrox/Simethicone 30 ml 05/24/23 01:31 Mag Hydrox/Al Hydrox/Simeth 30 Ml Udc PO QID PRN Dyspepsia Alprazolam 1 mg 05/24/23 06:12 05/31/23 03:18 Alprazolam (*Crx) 0.5 Mg Tablet PO 1 mg TID PRN Administration anxiety Aspirin 81 mg 05/24/23 08:00 05/30/23 08:46 Aspirin 81 Mg Chewable Tablet PO 81 mg DAILY@0800 [facility] Administration Docusate Sodium 100 mg 05/24/23 09:00 05/30/23 16:04 Docusate Sodium 100 Mg Capsule PO 100 mg BID BROOKS Administration Empagliflozin 10 mg 05/25/23 09:00 05/30/23 08:46 Empagliflozin 10 Mg Tablet PO 10 mg DAILY BROOSK Administration Enoxaparin Sodium 40 mg 05/24/23 09:00 05/30/23 10:42 Enoxaparin 40 Mg/0.4 Ml Syringe SUB-Q
[2023-05-31 09:36] VITALS: O2SAT 90
[2023-05-31] MEDS: EMPAGLIFLOZIN 10 MG TABLET PO (09:54)
[2023-05-31] MEDS: ASPIRIN 81 MG CHEWABLE TABLET PO (09:54)
[2023-05-31] MEDS: MULTIVITAMINS THERAPEUTIC TAB (*BKC) 1 TABLET PO (09:54)
[2023-05-31] MEDS: FUROSEMIDE 40 MG TABLET PO (09:54)
[2023-05-31] MEDS: SPIRONOLACTONE 25 MG TABLET PO (09:54)
[2023-05-31] MEDS: DOCUSATE SODIUM 100 MG CAPSULE PO ×2 (09:54→17:13)
[2023-05-31] MEDS: ENOXAPARIN 40 MG/0.4 ML SYRINGE SUB-Q (09:56)
[2023-05-31 14:30] VITALS: BP 104/54; PULSE 98; RESP 16; TEMP 35.9; O2SAT 93
--- NOTE | 2023-05-31 16:04 | PM.IMPN ---
Progress Note: A&P Assessment and Plan (1) Acute exacerbation of CHF (congestive heart failure): Code(s): I50.9 - Heart failure, unspecified Status: Acute Assessment and Plan: Acute on chronic diastolic heart failure. 05/24/23 Echo: EF 65-70%, grade I diastolic dysfunction, mod RVE/hypokinesis, severe pulm hypertension with RVSP 84 mmHg. Continue Furosemide 40 mg PO daily, Spironolactone 25 mg daily and Jardiance 10 mg daily. Fluid restriction to 1.5 l/day. Will recheck chest x-ray in a.m. (2) COPD with emphysema: Qualifiers: Emphysema type: unspecified Qualified Code(s): J43.9 - Emphysema, unspecified Code(s): J43.9 - Emphysema, unspecified Status: Acute Assessment and Plan: Stable (3) Tobacco abuse: Code(s): Z72.0 - Tobacco use Status: Acute Assessment and Plan: Counseled regarding smoking cessation. (4) Pacemaker: Onset Date: 02/2020 Code(s): Z95.0 - Presence of cardiac pacemaker Status: Acute Assessment and Plan: Stable. (5) Hypertension: Code(s): I10 - Essential (primary) hypertension Status: Acute Assessment and Plan: Stable. (6) Elevated troponin: Code(s): R77.8 - Other specified abnormalities of plasma proteins Status: Acute Assessment and Plan: Trending up to .182. Probably secondary to acute diastolic heart failure and pulm hypertension. Plan Plan placement Subjective Date/time seen: 05/31/23 16:04 Interval history: Patient was brought to the ER for evaluation by his with complaints of swelling in the penis, scrotum and worsening shortness of breath secondary to CHF exacerbation No new complaints. Still has some shortness of breath with exertion. Feels better. Mild cough persist Review of Systems Review of Systems: All systems reviewed & are unremarkable except as noted in HPI and below Exam Narrative: General physical exam: thin any acute distress Head/eyes: Atraumatic, EOMI, PERRLA. ENT: Moist mucous membranes, nasal passages clear. Neck: Supple, full range of motion, trachea midline. CVS: S1 + S2 + , regular rate and rhythm, no murmurs Respiratory: Bilaterally poor air entry in both lung solorio, mild B/L crackles, Abdomen: Soft, non-tender, bowel sounds +ve, no organomegaly Extremities: No clubbing, no cyanosis, 1+ edema, no calf tenderness Musculoskeletal: Moves all, decreased range of motion, no muscle spasms Skin: Warm, dry, no jaundice, no cyanosis Neurological: Awake, alert, oriented x 3, cranial nerves II-XII intact, no focal neurological deficits Psychiatric: Normal mood, non suicidal Objective Data Vital Signs Vital Signs: Vital Signs - 24 hr 05/30/23 21:59 05/30/23 20:00 05/31/23 06:00 Temperature 97.0 F L 97.6 F Pulse Rate 80 80 73 Respiratory Rate 20 20 18 Blood Pressure 113/52 L 103/50 L Pulse Oximetry 93 93 93 Oxygen Delivery Nasal Cannula Oxygen Flow Rate 2 Fraction of Inspired Oxygen 28 05/31/23 09:36 05/31/23 08:00 05/31/23 14:30 Temperature 96.6 F L Pulse Rate 98 Respiratory Rate 16 Blood Pressure 104/54 L Pulse Oximetry 90 94 93 Oxygen Delivery Nasal Cannula Nasal Cannula Oxygen Flow Rate 2 2 Fraction of Inspired Oxygen Intake/Output Intake/Output: Intake & Output 05/28/23 05/29/23 05/30/23 05/31/23 23:59 23:59 23:59 23:59 Intake Total 240 416 480 480 Output Total 900 1610 1850 1025 [facility] [phone] Meds/Results Medications: Active Medications Generic Name Dose Route Start Last Admin Trade Name Freq PRN Reason Stop Dose Admin Acetaminophen 500 mg 05/24/23 06:12 05/31/23 03:18 Acetaminophen 500 Mg Tablet PO 500 mg Q6H PRN Administration Pain Al Hydrox/Mg Hydrox/Simethicone 30 ml 05/24/23 01:31 Mag Hydrox/Al Hydrox/Simeth 30 Ml Udc PO QID PRN Dyspepsia Alprazolam 1 mg 05/24/23 06:12 05/31/23 03:18 Alprazolam (*
[2023-05-31 20:00] VITALS: PULSE 98; RESP 16; O2SAT 93
[2023-05-31 22:00] VITALS: BP 102/49; PULSE 90; RESP 18; TEMP 37.2; O2SAT 93
[2023-06-01 01:19] VITALS: O2SAT 93
[2023-06-01 06:00] VITALS: BP 102/47; PULSE 76; RESP 18; TEMP 36.4; O2SAT 90
[2023-06-01 06:18] LABS: Eosinophils Absolute Auto 0.1 K/mm3 (0-0.3); Eosinophils Percent Auto 2.2 % (0-4.4); Hematocrit 44.8 % (42.0-52.0); Hemoglobin 14.2 g/dL (14.0-18.0); Immature Granulocyte Absolute 0.01 K/mm3 (0.00-0.031); Immature Granulocyte Percent A 0.2 % (0-0.5); Immature Platelet Fraction Pct 4.5 % (0.9-11.2); Lymphocytes Absolute Auto 0.81 K/mm3 (0.9-3.2); Lymphocytes Percent Auto 19.5 % (18.3-44.2); Mean Corpuscular HGB Conc 31.7 g/dl (32-36); Mean Corpuscular Hemoglobin 34.2 pg (26-34); Mean Platelet Volume 10.2 fl (7.4-10.4); Monocytes Absolute Auto 0.5 K/mm3 (0.1-0.6); Neutrophils Absolute Auto 2.7 K/mm3 (1.3-6.7); Neutrophils Percent Auto 65.1 % (45.5-73.1); Platelet Count Result 141 k/mm3 (150-375); Red Blood Count 4.15 M/mm3 (4.6-6.20); Red Cell Distribution Width 15.7 % (11.5-14.5); White Blood Count 4.2 K/mm3 (4.5-10.0)
[2023-06-01 06:25] LABS: Alanine Aminotransferase 28 U/L (6-50); Albumin Level 3.2 g/dL (3.5-5.1); Alkaline Phosphatase 111 U/L (38-126); Anion Gap 0 mmol/L (8-16); Aspartate Amino Transferase 33 U/L (17-59); Bilirubin,Total 0.9 mg/dL (0.2-1.3); Blood Urea Nitrogen 32 mg/dL (9-20); Calcium 8.2 mg/dL (8.4-10.2); Carbon Dioxide 39 mmol/L (22-30); Chloride 94 mmol/L (98-107); Estimated CRCL calculation 65 ml/min; Estimated Glomerular Filt Rate > 60; Glucose 86 mg/dL (65-110); Magnesium 2.3 mg/dL (1.6-2.3); Potassium 4.4 mmol/L (3.4-5.0); Sodium 133 mmol/L (137-145)
[2023-06-01 07:34] LABS: Hypochromasia 1+ (NORMAL); Macrocytosis 1+ (NORMAL); Platelet Estimate Decreased (Adequate); Schistocytes None Seen (NORMAL)
--- NOTE | 2023-06-01 07:57 | PM.PNCARD ---
Progress Note: A&P Assessment and Plan (1) Acute exacerbation of CHF (congestive heart failure): Code(s): I50.9 - Heart failure, unspecified Status: Acute Assessment and Plan: Resolving. Acute on chronic diastolic heart failure. 05/24/23 Echo: EF 65-70%, grade I diastolic dysfunction, mod RVE/hypokinesis, severe pulm hypertension with RVSP 84 mmHg. Continue Furosemide 40 mg PO daily, Spironolactone 25 mg daily and Jardiance 10 mg daily. Fluid restriction to 1.5 l/day. CXR 05/31/23 shows improvement in pleural effusion to mild-mod left side only now. PT/OT. No further cardiac workup. Continue diuretics and Jardiance. Placement in progress as he is too weak to go home. (2) COPD with emphysema: Qualifiers: Emphysema type: unspecified Qualified Code(s): J43.9 - Emphysema, unspecified Code(s): J43.9 - Emphysema, unspecified Status: Acute (3) Tobacco abuse: Code(s): Z72.0 - Tobacco use Status: Acute Assessment and Plan: Counseled regarding smoking cessation. (4) Pacemaker: Onset Date: 02/2020 Code(s): Z95.0 - Presence of cardiac pacemaker Status: Acute Assessment and Plan: Stable. (5) Hypertension: Code(s): I10 - Essential (primary) hypertension Status: Acute Assessment and Plan: Stable. (6) Elevated troponin: Code(s): R77.8 - Other specified abnormalities of plasma proteins Status: Acute Assessment and Plan: Trending up to .182. Probably secondary to acute diastolic heart failure and pulm hypertension. Subjective Date/time seen: 06/01/23 07:57 Interval history: Denies chest pain. Has some sob and cough. Exam Const: General: cooperative and comfortable Orientation/consciousness: oriented to person, oriented to place and oriented to time Resp: Auscultation: clear to auscultation bilaterally, no crackles, no rales, no rhonchi, no wheezes and diminished lung sounds Cardio: Rate: regular rate Rhythm: regular rhythm Heart sounds: no murmurs Peripheral pulses: dorsalis pedis present Neuro: General: oriented to person, oriented to place and oriented to time Extrem: Right lower extremity: edema Left lower extremity: edema Other: Mild edema of both legs Objective Data Vital Signs Vital Signs: Vital Signs - 24 hr 05/31/23 09:36 05/31/23 08:00 05/31/23 14:30 Temperature 96.6 F L Pulse Rate 98 Respiratory Rate 16 Blood Pressure 104/54 L Pulse Oximetry 90 94 93 Oxygen Delivery Nasal Cannula Nasal Cannula Oxygen Flow Rate 2 2 Fraction of Inspired Oxygen 05/31/23 20:00 05/31/23 22:00 06/01/23 01:19 Temperature 98.9 F Pulse Rate 98 90 Respiratory Rate 16 18 Blood Pressure 102/49 L Pulse Oximetry 93 93 93 Oxygen Delivery Nasal Cannula Nasal Cannula Oxygen Flow Rate 2 2 Fraction of Inspired Oxygen 28 06/01/23 06:00 Temperature 97.6 F Pulse Rate 76 Respiratory Rate 18 Blood Pressure 102/47 L Pulse Oximetry 90 Oxygen Delivery Oxygen Flow Rate Fraction of Inspired Oxygen Intake/Output Intake/Output: Intake & Output 05/29/23 05/30/23 05/31/23 06/01/23 23:59 23:59 23:59 23:59 Intake Total 416 480 720 Output Total 3165 7358 2827 [facility]8584 [phone] Meds/Results Medications: Active Medications Generic Name Dose Route Start Last Admin Trade Name Freq PRN Reason Stop Dose Admin Acetaminophen 500 mg 05/24/23 06:12 05/31/23 17:15 Acetaminophen 500 Mg Tablet PO 500 mg Q6H PRN Administration Pain Al Hydrox/Mg Hydrox/Simethicone 30 ml 05/24/23 01:31 Mag Hydrox/Al Hydrox/Simeth 30 Ml Udc PO QID PRN Dyspepsia Alprazolam 1 mg 05/24/23 06:12 05/31/23 20:33 Alprazolam (*Crx) 0.5 Mg Tablet PO 1 mg TID PRN Administration anxiety Aspirin 81 mg 05/24/23 08:00 05/31/23 09:54 Aspirin 81 Mg Chewable Tablet PO 81 mg DAILY@0800 BROOKS Administration Docusate Sodium 100
[2023-06-01] MEDS: EMPAGLIFLOZIN 10 MG TABLET PO (08:50)
[2023-06-01] MEDS: MULTIVITAMINS THERAPEUTIC TAB (*BKC) 1 TABLET PO (08:50)
[2023-06-01] MEDS: SPIRONOLACTONE 25 MG TABLET PO (08:50)
[2023-06-01] MEDS: FUROSEMIDE INJ 40 MG/4 ML VIAL IV PUSH (08:50)
[2023-06-01] MEDS: FUROSEMIDE 40 MG TABLET PO (08:50)
[2023-06-01] MEDS: ASPIRIN 81 MG CHEWABLE TABLET PO (08:50)
[2023-06-01] MEDS: ENOXAPARIN 40 MG/0.4 ML SYRINGE SUB-Q (08:50)
[2023-06-01] MEDS: DOCUSATE SODIUM 100 MG CAPSULE PO (08:50)
[2023-06-01] MEDS: ALPRAZolam (*CRX) 0.5 MG TABLET 1 MG PO (09:31)
--- NOTE | 2023-06-01 12:06 | PM.DS ---
DS: Admitting Diagnosis Discharge Date 06/01/2023 Admitting Diagnosis Shortness of breath DS: Discharge Diagnosis Discharge Diagnosis (1) Acute exacerbation of CHF (congestive heart failure): Code(s): I50.9 - Heart failure, unspecified Status: Acute (2) COPD with emphysema: Qualifiers: Emphysema type: unspecified Qualified Code(s): J43.9 - Emphysema, unspecified Code(s): J43.9 - Emphysema, unspecified Status: Acute (3) Tobacco abuse: Code(s): Z72.0 - Tobacco use Status: Acute (4) Pacemaker: Onset Date: 02/2020 Code(s): Z95.0 - Presence of cardiac pacemaker Status: Acute (5) Hypertension: Code(s): I10 - Essential (primary) hypertension Status: Acute (6) Elevated troponin: Code(s): R77.8 - Other specified abnormalities of plasma proteins Status: Acute DS: Summary Hospital Course Hospital Course: Is 87-year-old who presents with worsening shortness of breath weakness tiredness and fatigue for past few days. He also started noticing swelling in his penis and scrotum along with his legs. Workup revealed generalized edema secondary to CHF exacerbation. Elevated BNP 60942. Troponin was mildly elevated. He was started on IV diuresis. Cardiology was consulted. His diuresis was monitored with subsequent improvement. PT OT was also consulted during the hospital stay. He needed further rehabilitation is going to go to a rehab facility from here. Will continue to follow up with hand kiss setter as well as primary care for continued close monitoring. He also needed oxygen supplementation. Echo 05/24/2023 showed EF 65-70% grade 1 diastolic dysfunction moderate RV E/hypokinesis severe pulmonary hypertension with RVSP 84 mm Hg. Oxygen supplementation to keep SpO2 more than 90% Time Spent with Patient Time attestation: Total time spent providing and/or coordinating discharge services: 35 minutes Exam Narrative: General physical exam: thin any acute distress Head/eyes: Atraumatic, EOMI, PERRLA. ENT: Moist mucous membranes, nasal passages clear. Neck: Supple, full range of motion, trachea midline. CVS: S1 + S2 + , regular rate and rhythm, no murmurs Respiratory: Bilaterally poor air entry in both lung solorio, mild B/L crackles, Abdomen: Soft, non-tender, bowel sounds +ve, no organomegaly Extremities: No clubbing, no cyanosis, 1+ edema, no calf tenderness Musculoskeletal: Moves all, decreased range of motion, no muscle spasms Skin: Warm, dry, no jaundice, no cyanosis Neurological: Awake, alert, oriented x 3, cranial nerves II-XII intact, no focal neurological deficits Psychiatric: Normal mood, non suicidal DS: Data Data Completed and Pending Completed studies during hospitalization: Exam Type: ? ? CA echo dop color flow w con Study Info Indications ?? ? - chf Complete two-dimensional, color flow and Doppler transthoracic echocardiogram is performed with contrast to opacify the left ventricle and to improve the deliniation of the left ventricle endocardial borders. Account #: ? ? [id number] Contrast/Agitated Saline Contrast/Ag. Saline: ? ? Definity Amount: ? ? 2.00 ml Administered By: ? ? Daniel,? Abby ESQUIVEL Existing IV Access: ? ? Yes IV Access Condition: ? ? patent with no signs of infiltration Summary ? 1. Definity contrast administered improved wall motion interpretation. ? 2. Left ventricular chamber dimension is normal. ? 3. Left ventricular systolic function is normal, estimated at 65-70%. ? 4. The left ventricular diastolic function is grade I diastolic dysfunction. ? 5. Linear artifact in right ventricle suggestive of catheter(s), pacemaker lead(s), or ICD lead(s). ? 6. Right ventricular chamber dimension is moderately enlarged. ? 7. Right ventricular systolic function is moderately reduced. ? 8. Linear artifact in the right atrium suggestive of catheter(s), pacemaker lead(s)
[2023-06-01 14:00] VITALS: BP 106/60; PULSE 53; RESP 20; TEMP 36.4; O2SAT 96
== END 2023-06-01 15:35 | DRG 291 ==
LOC: ANHED 21:12 → ANHIMU 05-24 00:09 → ANH3MEDSUR 05-26 15:08
PROVIDERS: Family Medicine; Hospitalist; Internal Medicine Cardiovascular Disease; Admitting Provider Family Medicine; Emergency Provider Emergency Medicine; PCP Family Medicine; Visit Provider Internal Medicine
DX: I11.0 Hypertensive heart disease with heart failure (principal); I50.33 Acute on chronic diastolic (congestive) heart failure; J44.9 Chronic obstructive pulmonary disease, unspecified; I27.20 Pulmonary hypertension, unspecified; I73.9 Peripheral vascular disease, unspecified; I07.1 Rheumatic tricuspid insufficiency; K74.60 Unspecified cirrhosis of liver; Q68.8 Other specified congenital musculoskeletal deformities; G47.30 Sleep apnea, unspecified; M19.90 Unspecified osteoarthritis, unspecified site; F41.9 Anxiety disorder, unspecified; F17.210 Nicotine dependence, cigarettes, uncomplicated; Z96.651 Presence of right artificial knee joint; Z20.822 Contact with and (suspected) exposure to COVID-19; Z95.0 Presence of cardiac pacemaker
CPT/HCPCS: 36415; 36600; 71045; 71046; 80048; 80053; 81003; 82805; 83735; 83880; 84100; 84484; 85025; 85027; 85055; 85610; 85730; 87637; 93005; 96374; 97110; 97116; 97161; 97165; 97530; 97535; 99285; A9270; C8929; J1650; J1940; Q9957

== ENCOUNTER 2023-07-18 15:28 | Inpatient (IN) | payer MEDICARE, SELFPAY ==
[2023-07-18] VITALS (15 sets, daily range): BP systolic 94–129; BP diastolic 53–87; PULSE 100–118; RESP 14–98; TEMP 36.4; O2SAT 18–100
--- NOTE | ~2023-07-18 | XR_ITS ---
XR chest 2V DATE: 07/18/2023 16:06 INDICATION: Weakness TECHNIQUE: AP and lateral views COMPARISON: 06/01/2023 portable AP chest FINDINGS: There are patchy infiltrates in the mid and particularly lower lung zones, left greater marcela n right, with left lower lobe atelectasis additionally as a result of mild to moderate left pleural e ffusion. Small right pleural effusion. There is pulmonary vascular prominence and redistribution. Bilateral Elvia B-lines are noted suggesting pulmonary interstitial edema or interstitial pneumoniti s or fibrosis. Left dual-lead pacemaker device with leads overlying right atrium and right ventricle. Aortic arch ca lcification, mild aortic unfolding. IMPRESSION: Congestive changes including pulmonary vascular congestion, probably pulmonary interstiti al edema, bilateral pleural effusions, left greater than right Bilateral mid and lower pulmonary infiltrates, greater on the left. Differential diagnosis for infil trates includes pneumonia and/or pulmonary edema Reviewed, dictated and finalized at location A. IMPRESSION: Congestive changes including pulmonary vascular congestion, probabl y pulmonary interstitial edema, bilateral pleural effusions, left greater than right Bilateral mid and lower pulmonary infiltrates, greater on the left. Differenti al diagnosis for infiltrates includes pneumonia and/or pulmonary edema
--- NOTE | ~2023-07-18 | XR_ITS ---
EXAMINATION: XR chest 1V portable DATE: 07/23/2023 08:12 INDICATION: Left pleural effusion. Cough. TECHNIQUE: A single frontal view of the chest was obtained on 2 radiographs. COMPARISON: Chest single view 07/22/2023, chest CT 07/20/2023 FINDINGS: There is chronic mild elevation of left hemidiaphragm. There is a diffuse interstitial kitty arin in the lungs. There are small pleural effusions. No pneumothorax. The heart size is normal. There is a left chest wall pacer with leads in the right atrium and right ventricle. IMPRESSION: 1. Small pleural effusions. 2. Diffuse interstitial pattern in the lungs, likely secondary to a combination of emphysema and mild pulmonary edema. Reviewed, dictated and finalized at location E.
--- NOTE | ~2023-07-18 | XR_ITS ---
EXAM: XR pelvis 1-2V DATE: 07/18/2023 17:21 HISTORY: fall PATIENT UNABLE TO AMBULATE TODAY . COMPARISON: None available. FINDINGS: Normal mineralization. No fracture or dislocation. No lytic or blastic lesion. Severe dege nerative change in the lumbar spine. Moderate bilateral hip osteoarthritic arthritis. Moderate pelvic and hip enthesopathy. No erosion or periosteal change. Extensive vascular calcification. IMPRESSION: No acute osseous finding in the pelvis. Reviewed, dictated and finalized at location K.
--- NOTE | ~2023-07-18 | US_ITS ---
CORRECTED REPORT exam description [facility] [place]/26[place]23 This report was recreated on 07/26/23. Original report was US thoracentesis w imaging DATE: 07/22/2023 12:15 INDICATION: Left pleural effusion TECHNIQUE: The purpose, technique of the procedure and potential locations including bleeding and pneumothorax were discussed with the patient's healthcare power of prosecuting attorney as well as the patient himself. Both indicated understanding and gave consent. An appropriate site for percutaneous intercostal access was identified along the posterolateral lower left chest wall. The skin was prepared with sterile Betadine solution. 1% lidocaine local anesthetic was administered to the skin and underlying subcutaneous tissues. Subsequently a single stick needle/catheter was introduced into the pleural space uneventfully, yielding clear yellowish pleural fluid. A small specimen was collected for diagnostic testing. Subsequently, 1.6 L of dark fei pleural fluid was drained into a vacuum container. The patient was very cooperative and tolerated procedure without complaint or apparent complication. IMPRESSION: Successful percutaneous ultrasound guided left thoracentesis yielding 1.6 L of pleural fluid Reviewed, dictated and finalized at [facility]. Reviewed, dictated and finalized at location B. MTDD IMPRESSION: Successful percutaneous ultrasound guided left thoracentesis yieldi ng 1.6 L of pleural fluid
--- NOTE | ~2023-07-18 | XR_ITS ---
XR chest 1V portable DATE: 07/21/2023 07:24 INDICATION: Low oxygen saturation on BiPAP TECHNIQUE: Portable upright AP views on 07/13/202011/28/2014 and 0716 hours COMPARISON: 07/20/2023 CTA chest 07/20/2023 portable AP chest FINDINGS: There is bilateral hyperinflation consistent with COPD documented by CT chest examination o f 07/20/2023. There is moderate left pleural effusion. There are patchy bilateral pulmonary infiltrates and left mi d and both lower lung zones, left greater than right. No pneumothorax. Heart size is within normal range. There is thoracic aortic calcification. Left-sided dual-lead pacemaker device with leads overlying right atrium and right ventricle. Diffuse osteopenia. IMPRESSION: Persistent bilateral lung infiltrates involving particularly the left mid and both lower lung zones, left greater than right and moderate left pleural effusion; little interval change since 07/20/2023 Reviewed, dictated and finalized at location A. IMPRESSION: Persistent bilateral lung infiltrates involving particularly the le ft mid and both lower lung zones, left greater than right and moderate left ple ural effusion; little interval change since 07/20/2023
--- NOTE | ~2023-07-18 | XR_ITS ---
EXAMINATION: XR chest 1V portable DATE: 07/20/2023 11:01 INDICATION: Increasing oxygen requirement TECHNIQUE: frontal view of the chest was obtained. COMPARISON: Chest radiograph dated 07/18/2023 FINDINGS: Again seen is a gradient of the lower lung predominant airspace opacities throughout the left lung co nsistent with moderate-sized posterior layering pleural effusion. The degree of layering appears incr eased with increased density of the hazy opacities in the left midlung zone but decrease in size of a more dense opacity at the left lower lung zone. Persistent increased interstitial pattern in the sahil ateral mid and lower lung zones consistent with mild pulmonary edema. Small right pleural effusion wi th blunting at the costophrenic angle. No pneumothorax. Heart size is normal. Dual lead pacemaker see n with leads projecting over the expected locations of the right atrium and right ventricle. IMPRESSION: 1. No significant changes accounting for differences in positioning in a moderate-sized left and smal l right pleural effusions with associated atelectasis in the left lower lung zone. 2. Unchanged mild diffuse interstitial pattern which could represent pulmonary edema or pneumonia. Reviewed, dictated and finalized at location A. IMPRESSION: 1. No significant changes accounting for differences in positioning in a modera te-sized left and small right pleural effusions with associated atelectasis in the left lower lung zone. 2. Unchanged mild diffuse interstitial pattern which could represent pulmonary edema or pneumonia.
--- NOTE | ~2023-07-18 | CT_ITS ---
EXAMINATION: CTA chest PE protocol DATE: 07/20/2023 17:09 INDICATION: Worsening respiratory failure TECHNIQUE: Computed tomography angiography (CTA) of the chest was performed with 100 mL Omnipaque-350 intravenous contrast timed to evaluate the pulmonary arteries. Coronal maximum intensity projection 3D-reconstructions were created by the technologist. The dose-length product (DLP) was 416.46 mGy-cm. Automated exposure control and iterative reconstruction technique were employed. COMPARISON: 03/11/2020 FINDINGS: The pulmonary arteries are well-opacified. No pulmonary embolism is identified. There is mo derate emphysema. There is a moderate to large sized left pleural effusion. There is a small right pl eural effusion. There is dependent atelectasis of the lungs. The left lower lobe is nearly completely collapsed. Cardiomegaly is noted. There is enlargement of the main and central pulmonary arteries, c onsistent with pulmonary hypertension. A dual-lead cardiac pacemaker of the left chest wall ends with leads in expected locations. There are bridging osteophytes at multiple levels in the spine, consist ent with diffuse idiopathic skeletal hyperostosis (DISH). IMPRESSION: 1. No pulmonary embolus identified. 2. Moderate to large left pleural effusion with near complete passive atelectasis of the left lower l obe. 3. Cardiomegaly. 4. Moderate emphysema. Reviewed, dictated and finalized at location F. IMPRESSION: 1. No pulmonary embolus identified. 2. Moderate to large left pleural effusion with near complete passive atelectas is of the left lower lobe. 3. Cardiomegaly. 4. Moderate emphysema.
--- NOTE | ~2023-07-18 | CT_ITS ---
EXAMINATION: CT brain wo con DATE: 07/18/2023 17:48 INDICATION: fall . TECHNIQUE: Computed tomography (CT) of the head was performed without intravenous contrast. The mA wa s adjusted according to patient size. Iterative reconstruction technique was employed. The dose-lengt h product was 681.00 mGy-cm. COMPARISON: 11/01/19. FINDINGS: No acute intracranial hemorrhage or extra-axial fluid collection. No hydrocephalus, mass, or herniation. No acute ischemic infarct. Unremarkable dural venous sinus attenuation. No acute osseous abnormality. Bilateral mastoid fluid, the remaining aerated spaces are clear. Moderate atrophy and chronic white matter change. Atherosclerotic intracranial calcification. IMPRESSION: No acute intracranial process. Reviewed, dictated and finalized at location K.
--- NOTE | ~2023-07-18 | CT_ITS ---
EXAMINATION: CT cervical spine wo con DATE: 07/18/2023 17:48 INDICATION: fall TECHNIQUE: Computed tomography (CT) of the cervical spine was performed without intravenous contrast. Automated exposure control and iterative reconstruction technique were employed. The dose-length pro duct was 322.12 mGy-cm. COMPARISON: None. FINDINGS: Vertebral Body Alignment: Intact. Craniocervical and atlantoaxial alignment: Moderate degenerative change. Alignment intact. Osseous structures/fracture: No evidence of a lytic or blastic process in the visualized spine. No e vidence of acute fracture. Posterior decompression spanning C2-C7. Cervical soft tissues: The paraspinal soft tissues planes are maintained. Bilateral mastoid fluid. Bi apical pleural scarring. Emphysematous change. Partially visualized pacing wires. Degenerative changes: Severe multilevel degenerative disc disease. Moderate multilevel facet arthropa thy. IMPRESSION: No acute fracture or traumatic malalignment in the cervical spine. Severe emphysema. Large left pleural effusion. Reviewed, dictated and finalized at location K.
--- NOTE | ~2023-07-18 | XR_ITS ---
EXAMINATION: XR chest 1V portable Exam Date/Time: 07/22/2023 11:32 CDT HISTORY: Post Thoracentesis Comparison: 07/21/2023. RESULT: Lines, tubes, and devices: Left chest pacer with intact leads. Lungs and pleura: Moderate diffuse reticular opacities with scattered patchy groundglass opacities, overlying chronic senescent and emphysematous changes. Improved left basilar aeration. Cardiomediastinal silhouette: Stable. Other: No acute osseous or upper abdominal finding. IMPRESSION: Moderate interstitial edema. Improved small right pleural effusion. Infection is not excluded. Reviewed, dictated and finalized at location K. IMPRESSION: Moderate interstitial edema. Improved small right pleural effusion. Infection i s not excluded.
--- NOTE | ~2023-07-18 | XR_ITS ---
MODIFIED ESOPHAGRAM HISTORY: Witnessed choking episode TECHNIQUE: Modified barium esophagram was performed on 07/24/2023. I administered fluoroscopy and per formed the exam with speech pathologist. Patient was seated for lateral fluoroscopic imaging for ing estion of thin liquids, pudding, solids and quantified amounts, followed by thin liquids in uncontrol led amounts. This was recorded on tape. A single fluoroscopic spot image was also recorded. The DAP f or this procedure was 1.352 Gycm2. The amount of fluoroscopy time used during this procedure was 2.4 minutes. FINDINGS: Oral stage: Adequate function. Pharyngeal stage: There is reduced laryngeal elevation. There is vallecular residue. Laryngeal penetr ation with silent aspiration. There are bridging osteophytes at multiple levels consistent with diffu se idiopathic skeletal hyperostosis (DISH). This includes prominent anterior endplate osteophytes at C3-C4 which appear to contribute to the pharyngeal dysphagia. Cervical/esophageal stage: Adequate function. IMPRESSION: Pharyngeal dysphagia with laryngeal penetration and silent aspiration. Please correlate with speech pathologist findings and specific feeding recommendations. Reviewed, dictated and finalized at location A. IMPRESSION: Pharyngeal dysphagia with laryngeal penetration and silent aspirati on. Please correlate with speech pathologist findings and specific feeding rec ommendations.
--- NOTE | 2023-07-18 15:30 | ECG_ITS ---
Measurements Intervals [place] Rate: 93 P: 45 [place]: 159 QRS: 173 QRSD: 120 T: 14 QT: 339 QTc: 424 Interpretive Statements SINUS RHYTHM WITH OCCASIONAL SUPRAVENTRICULAR PREMATURE COMPLEXES POSSIBLE LEFT ATRIAL ENLARGEMENT [-0.1mV P WAVE IN V1/V2] MARKED RIGHT AXIS DEVIATION [QRS AXIS > 100] RIGHT BUNDLE BRANCH BLOCK POSSIBLE OLD sEPTAL MYOCARDIAL INFARCTION COMPARED TO ECG 05/23/2023 21:56:36 NO SIGNIFICANT CHANGES Electronically Signed On 07-18-2023 20:34:41 CDT by Amanda Leahy M.D.
[2023-07-18 16:02] LABS: Basophils Percent Auto 0.4 % (0.2-1.2); Eosinophils Percent Auto 0.7 % (0-4.4); Hematocrit 46.4 % (42.0-52.0); Hemoglobin 14.2 g/dL (14.0-18.0); Immature Granulocyte Absolute 0.01 K/mm3 (0.00-0.031); Immature Granulocyte Percent A 0.2 % (0-0.5); Lymphocytes Absolute Auto 0.34 K/mm3 (0.9-3.2); Lymphocytes Percent Auto 7.5 % (18.3-44.2); Mean Corpuscular HGB Conc 30.6 g/dl (32-36); Mean Corpuscular Hemoglobin 34.1 pg (26-34); Mean Corpuscular Volume 111.3 fl (80-100); Mean Platelet Volume 10.2 fl (7.4-10.4); Monocytes Absolute Auto 0.5 K/mm3 (0.1-0.6); Monocytes Percent Auto 11.8 % (2.6-8.5); Neutrophils Absolute Auto 3.6 K/mm3 (1.3-6.7); Neutrophils Percent Auto 79.4 % (45.5-73.1); Platelet Count Result 138 k/mm3 (150-375); Red Blood Count 4.17 M/mm3 (4.6-6.20); Red Cell Distribution Width 18.6 % (11.5-14.5); White Blood Count 4.5 K/mm3 (4.5-10.0)
--- NOTE | 2023-07-18 16:15 | PC.NURSE ---
Spoke w/ pt stepdaughter(POA) Munira, she would like an update because she does not believe the pt can or should go home. Would like the pt to go to a facility.
--- NOTE | 2023-07-18 16:17 | ED.WEAKNESS ---
HPI - Weakness General Chief complaint: Weakness Stated complaint: weakness Time Seen by Provider: 07/18/23 15:45 History of Present Illness HPI Narrative: Patient states that he has been having increasing dyspnea over the last couple of months, he had been admitted here recently for CHF exacerbation. He has been getting increasingly debilitated, he still lives alone with home health, however has been having more difficulty ambulating, and he thinks that is because of the oxygen that he has to carry around with them, he seemed to have gotten tingled with that last night and fell, and had trouble getting up until his heel dipper came this morning and that is why they came to the ER Related Data Home Medications Medication Instructions Recorded Confirmed multivitamin (Daily Multi-Vitamin 1 tablet PO DAILY 11/10/19 06/22/23 tablet) acetaminophen 500 mg tablet 500 mg PO Q6H PRN Pain 04/08/20 06/22/23 (Tylenol Extra Strength) Allergies Allergy/AdvReac Type Severity Reaction Status Date / Time No Known Allergies Allergy Verified 06/22/23 15:34 Review of Systems Review of Systems: CONST: No fever. HEENT: Denies head trauma C/V: No chest pain RESP: Difficulty breathing GI: No abdominal pain : No dysuria. M/S: No joint pain. SKIN: No rash. 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 History of emphysema History of peripheral arterial disease Hypertension Severe pulmonary hypertension Noted on echo 11/2019: RVSP 66, EF 65-70, mildly increased left ventricular wall thickness, diastolic dysfunction grade 1, moderate aortic valve sclerosis, [id number] tricuspid valve regurgitation, elevated right atrial pressures Sleep apnea Smoker Tricuspid regurgitation Surgical History Surgical History H/O cervical spine surgery H/O inguinal hernia repair Laparoscopic left inguinal hernia repair with mesh, da Earnestine assisted History of surgery on upper extremity Surgery of the forearms as a child to help with function History of total right knee replacement Pacemaker (02/2020) Family History Family History Grandparent Diabetes mellitus Sibling Diabetes mellitus Father Bladder cancer Mother Cerebrovascular accident Social History Social History (Updated 06/22/23 @ 15:37 by Carlee Benjamin [facility]) Social History: His common-law of 50 years in 2009. He has no biologic children but had 5 step children. He is still in close contact with 3 of his step children. He has smoked between 0.5-1 pack of cigarettes per day since he was a teenager and still continues to smoke. He quit drinking alcohol when he was 42 years old but used to be quite heavy drinker. He denies any illicit substance use. 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 Code status: DNR/DNI (the patient reports he would be okay with noninvasive ventilatory support and or pressors if needed but if these measures fail he would not want to be intubated or have cardiac resuscitation. He is looking for good quality of life not necessarily quantity.) Healthcare power of banking attorney: Angelika Gann (stepdaughter) Smoking packs per day: 0.75 Smoking cigarettes per day: 15.0 Years smoked: 64 Smoking pack-years: 48.00 Smoking status: Current every day smoker Second hand tobacco smoke exposure: Yes Smoking end date: 05/23/23 Alcohol intake: current Alcohol use details: HEAVY DRINKER 40 YEARS AGO, QUIT 1979 Substance use: former Substance use type: does not use Lack of Transpo
[2023-07-18 16:28] LABS: Alanine Aminotransferase 40 U/L (6-50); Albumin Level 3.5 g/dL (3.5-5.1); Alkaline Phosphatase 105 U/L (38-126); Aspartate Amino Transferase 38 U/L (17-59); Bilirubin,Total 0.8 mg/dL (0.2-1.3); Blood Urea Nitrogen 37 mg/dL (9-20); Calcium 8.5 mg/dL (8.4-10.2); Carbon Dioxide > 40 mmol/L (22-30); Chloride 98 mmol/L (98-107); Estimated CRCL calculation 81 ml/min; Estimated Glomerular Filt Rate > 60; Glucose 126 mg/dL (65-110); Potassium 4.5 mmol/L (3.4-5.0); Sodium 138 mmol/L (137-145)
[2023-07-18] MEDS: ALBUTEROL SULFATE NEB 2.5 MG/3 ML INH 15 MG INHALATION (16:38)
[2023-07-18] MEDS: IPRATROPIUM BR 0.02% INH SOLN 0.5 MG/2.5 ML VIAL 1 MG INHALATION (16:38)
[2023-07-18 16:40] LABS: Hypochromasia 1+ (NORMAL); Schistocytes None Seen (NORMAL)
[2023-07-18 16:41] LABS: Anisocytosis 2+ (NORMAL); Macrocytosis 1+ (NORMAL)
[2023-07-18] MEDS: FUROSEMIDE INJ 40 MG/4 ML VIAL IV PUSH (16:49)
[2023-07-18 16:58] LABS: NT Pro B Type Natriuretic Pept 8620 pg/mL (19.9-100)
[2023-07-18 17:46] LABS: Appearance Urine Clear (Clear); Bilirubin Urine Negative (Negative); Blood Urine Negative (Negative); Color Urine Yellow (Yellow); Glucose Urine UA 3+ mg/dL (Negative); Ketones Urine Negative (Negative); Leukocyte Esterase Ur Negative LEU/UL (Negative); Nitrate Urine Negative (Negative); Protein Urine Negative (Negative); Specific Grav Ur 1.019 (1.001-1.035); pH Urine 5.5 (5.0-9.0)
[2023-07-18 17:50] LABS: Add Urine Microscopic? NO
[2023-07-18 18:33] LABS: Alveolar/Arterial O2 Gradient 33.8 mmHg; Base Excess ABG 9.4 mEq/l (+/-2.0); Carboxyhemoglobin 1.9 % THb (0-2.0); Fractional Inspired Oxygen 21 %; HCO3 ABG 37.2 mEq/l (22.0-26.0); Methemoglobin ABG 0.3 %THb (0-1.5); Oxygen Content ABG 16.2 %vol (16.0-22.0); PO2 FiO2 Ratio Arterial Blood 1.91 %; Reduced Hemoglobin 24.5 %THb (0-5.0); Total Hemoglobin 15.8 g/dL (12.0-18.0); pH ABG 7.388 (7.350-7.450)
[2023-07-18 18:35] LABS: Oxyhemoglobin 73.3 % THb (90.0-100.0); PCO2 ABG 63.2 mmHg (35.0-45.0); PO2 ABG 40.2 mmHg (80.0-100.0); Site Drawn RIGHT RADIAL
[2023-07-18 18:36] LABS: Device ROOM AIR; Modified Allen's Test Pass
--- NOTE | 2023-07-18 18:36 | PC.NURSE ---
This RN noticed the pt was having difficulty breathing and laboring on 7L via nasal cannula. Pt oxygen saturation was 80%. Placed pt on non rebreather and O2 sats increased to 85%. MD notified and ordered BiPap and ABG for pt. Pt is now on Bipap and at 100% and no longer laboring.
--- NOTE | 2023-07-18 20:13 | PM.IMHP ---
H&P: HPI History of Present Illness Date/Time: 07/18/23 20:13 Chief Complaint: FALL Narrative: This is an 87-year-old male with past medical history significant for type diabetes mellitus, chronic respiratory failure on supplemental oxygen at home, COPD/emphysema, heart block, former smoker. Patient presents to the emergency room after he was found very weak he lives by himself and has home health care the home health nurse was there to visit patient had a fall recently with no loss of consciousness and has been very weak overall in emergency room patient found to have low pulse oxygenation currently on BiPAP most of the history has been obtained upon reviewing medical records and family member who is at bedside. Patient is unable to provide any history preliminary workup was significant for brain natriuretic peptide up wards 8000 XR chest 2V DATE: 07/18/2023 16:06 INDICATION: Weakness? TECHNIQUE: AP and lateral views? COMPARISON: 06/01/2023 portable AP chest? FINDINGS: There are patchy infiltrates in the mid and particularly lower lung zones, left greater than right, with left lower lobe atelectasis additionally as a result of mild to moderate left pleural effusion. Small right pleural effusion. There is pulmonary vascular prominence and redistribution. Bilateral Elvia B-lines are noted suggesting pulmonary interstitial edema or interstitial pneumonitis or fibrosis. Left dual-lead pacemaker device with leads overlying right atrium and right ventricle. Aortic arch calcification, mild aortic unfolding.? IMPRESSION: Congestive changes including pulmonary vascular congestion, probably pulmonary interstitial edema, bilateral pleural effusions, left greater than right Bilateral mid and lower pulmonary infiltrates, greater on the left.? Differential diagnosis for infiltrates includes pneumonia and/or pulmonary edema EXAM:? XR pelvis 1-2V DATE: 07/18/2023 17:21 HISTORY: fall PATIENT UNABLE TO AMBULATE TODAY . COMPARISON:? None available. FINDINGS:? Normal mineralization. No fracture or dislocation. No lytic or blastic lesion. Severe degenerative change in the lumbar spine. Moderate bilateral hip osteoarthritic arthritis. Moderate pelvic and hip enthesopathy. No erosion or periosteal change. Extensive vascular calcification. IMPRESSION: No acute osseous finding in the pelvis. EXAMINATION: CT brain wo con DATE: 07/18/2023 17:48 INDICATION: fall . TECHNIQUE: Computed tomography (CT) of the head was performed without intravenous contrast. The mA was adjusted according to patient size. Iterative reconstruction technique was employed. The dose-length product was 681.00 mGy-cm. COMPARISON: 11/01/19. FINDINGS: No acute intracranial hemorrhage or extra-axial fluid collection. No hydrocephalus, mass, or herniation. No acute ischemic infarct. Unremarkable dural venous sinus attenuation. No acute osseous abnormality. Bilateral mastoid fluid, the remaining aerated spaces are clear. Moderate atrophy and chronic white matter change. Atherosclerotic intracranial calcification. IMPRESSION:? No acute intracranial process. EXAMINATION: CT cervical spine wo con DATE: 07/18/2023 17:48 INDICATION: fall TECHNIQUE: Computed tomography (CT) of the cervical spine was performed without intravenous contrast. Automated exposure control and iterative reconstruction technique were employed. The dose-length product was 322.12 mGy-cm. COMPARISON: None. FINDINGS: Vertebral Body Alignment: Intact. Craniocervical and atlantoaxial alignment: Moderate degenerative change. Alignment intact. Osseous structures/fracture: No evidence of a lytic or blastic process in the visualized spine.? No evidence of acute fracture. Posterior decompression spanning C2-C7. Cervical soft tissues: The paraspinal soft tissues planes are maintained. Bilateral mastoid fluid. Biapical pleural scarring. Emphysematous change. Partially visualized pacing wire
[2023-07-19] VITALS (22 sets, daily range): BP systolic 91–134; BP diastolic 39–60; PULSE 55–117; RESP 12–26; TEMP 36.3–36.8; O2SAT 92–98; BMI 18.5; BMI 17.4
--- NOTE | 2023-07-19 01:29 | ADMGEN ---
This patient, Tera Cortez, was admitted to IMU Room 203-01 at 0050. Patient/family oriented to hospital policies and general routines including ID bracelet, bed and alarms, visiting hours, pain management, procedures, bathroom and other care routines, personal items, smoking policy, room service/diet, and visiting hours. Information on how to activate the Rapid Response Team has been discussed. Patient/Family are encouraged to report perceived risks to care and to ask questions if they do not understand what they are told or what they should do.
[2023-07-19] MEDS: ALBUTEROL SULFATE NEB 2.5 MG/3 ML INH INHALATION ×4 (07:20→20:31)
[2023-07-19] MEDS: IPRATROPIUM BR 0.02% INH SOLN 0.5 MG/2.5 ML VIAL INHALATION ×4 (07:20→20:31)
[2023-07-19] MEDS: ASPIRIN 81 MG CHEWABLE TABLET PO (10:32)
--- NOTE | 2023-07-19 10:56 | PCOTNOTE ---
Attempted OT evaluation at 1040, pt with respiratory. Will follow.
--- NOTE | 2023-07-19 11:30 | PM.CNCAR ---
Assessment and Plan Assessment and plan (1) Diastolic heart failure: Code(s): I50.30 - Unspecified diastolic (congestive) heart failure Status: Acute Assessment and Plan: Acute on chronic diastolic HF. NTproBNP 8,620 which is improved compared to last hospitalization. Start Lasix 20 mg IV BID and resume Spironolactone 25 mg daily and Jardiance 10 mg daily. (2) Pacemaker: Onset Date: 02/2020 Code(s): Z95.0 - Presence of cardiac pacemaker Status: Acute Assessment and Plan: Medtronic. Stable. (3) Severe pulmonary hypertension: Code(s): I27.20 - Pulmonary hypertension, unspecified Status: Acute (4) COPD with emphysema: Qualifiers: Emphysema type: unspecified Qualified Code(s): J43.9 - Emphysema, unspecified Code(s): J43.9 - Emphysema, unspecified Status: Acute History of Present Illness History of Present Illness Consult date/time: 07/19/23 11:30 Reason For Visit: Sepsis, PNA, Elev Trop Narrative: 87 yr old man who is a patient of Dr. Briceño presents for a follow up visit regarding his cardiovascular status.? He has a history of diastolic dysfunction, pulm hypertension, COPD, TIA, smoking, hypertension, Medtronic pacemaker for heart block. States he felt weak and sob, and home health called ambulance and brought him to ER. States he felt very weak and had some sob. He was hospitalized on 05/23/23 for diastolic heart failure. He is on 2 l/m oxygen since hospitalization. He quit smoking in April 2023. Denies chest pain, orthopnea, PND, edema. He had pacemaker implanted and since then he no longer feels dizzy or fuzzy.? Previously, he reported since he had cervical vertebral surgery he has been having difficulty with balance issues and feeling fuzzy. He ambulates with a walker about 100 feet and at times feels off balance and has left hip pain.? Cardiovascular Procedures Echo/MUGA:: 05/24/23 Echo: EF 65-70%, grade I diastolic dysfunction, mod RVE/hypokinesis, severe pulm hypertension with RVSP 84 mmHg. 12/08/19 EF 65-70%, mild LVH, grade I diastolic dysfunction (E/e' 19), mod MAC, mild-mod TR with severe pulm hypertension with RVSP 66 mmHg, trace PI. Electrophysiology:: 05/23/23 EKG: Sinus rhythm, PAC's, RAD, LAE, RBBB, anteroseptal infarct, age indeterminate. 06/22/21 EKG: Sinus rhythm, PAC's and PVC's. 03/17/20 Dr. Leahy: Evacuation of hematoma from pacemaker pocket. 03/08/20 Dr. Mariano: Implant Medtronic dual chamber pacemaker. 11/28/19 EKG: Sinus rhythm with second degree AV block 2:1 AV block, type I or II, with ventricular rate at 43 bpm. 11/01/19 EKG: Sinus rhythm at 76 bpm, PAC, LAE, cannot r/o septal infarct, age indeterminate. Stress Tests:: 11/01/19 CXR: Small bilateral pleural effusions. Mild interstitial opacities bilaterally, likely pulm edema or atelectasis or pneumonia. 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 History of emphysema History of peripheral arterial disease Hypertension Severe pulmonary hypertension Noted on echo 11/2019: RVSP 66, EF 65-70, mildly increased left ventricular wall thickness, diastolic dysfunction grade 1, moderate aortic valve sclerosis, [id number] tricuspid valve regurgitation, elevated right atrial pressures Sleep apnea Smoker Tricuspid regurgitation Surgical History Surgical History H/O cervical spine surgery H/O inguinal hernia repair Laparoscopic left inguinal hernia repair with mesh, da Earnestine assisted History of surgery on upper extremity Surgery of the forearms as a child to help with function History of total right knee replacement Pacemaker (02/2020) Family History Family History (Reviewed 06/22
[2023-07-19 12:19] LABS: Folic Acid > 20.0 ng/mL (2.76->20)
--- NOTE | 2023-07-19 14:46 | PCPTNOTE ---
Attempted PT evaluation, pt getting breathing treatment. Will follow.
--- NOTE | 2023-07-19 15:27 | PM.IMPN ---
Progress Note: A&P Assessment and Plan (1) Acute respiratory failure with hypoxia and hypercapnia: Code(s): J96.01 - Acute respiratory failure with hypoxia; J96.02 - Acute respiratory failure with hypercapnia Status: Acute Assessment and Plan: currently on Nasal cannula oxygen continue titrating (2) Acute exacerbation of CHF (congestive heart failure): Code(s): I50.9 - Heart failure, unspecified Status: Acute Assessment and Plan: cardiac diet strict input and output Lasix and Spironolactone Cardiology consulted Summary ? 1. Definity contrast administered improved wall motion interpretation. ? 2. Left ventricular chamber dimension is normal. ? 3. Left ventricular systolic function is normal, estimated at 65-70%. ? 4. The left ventricular diastolic function is grade I diastolic dysfunction. ? 5. Linear artifact in right ventricle suggestive of catheter(s), pacemaker lead(s), or ICD lead(s). ? 6. Right ventricular chamber dimension is moderately enlarged. ? 7. Right ventricular systolic function is moderately reduced. ? 8. Linear artifact in the right atrium suggestive of catheter(s), pacemaker lead(s), or ICD lead(s). ? 9. There is mild aortic valve sclerosis. ? 10. The mitral valve has moderately calcified annulus. ? 11. There is mild tricuspid valve regurgitation. ? 12. Severe pulmonary hypertension, estimated pulmonary arterial systolic pressure is 84 mmHg. ? 13. Dilated inferior vena cava with >50% collapse upon inspiration consistent with elevated right atrial pressure, 10 mmHg. ? 14. There is trivial pericardial effusion. ? 15. Large pleural effusion noted with large coagulated masses suggesting chronicity. (3) Pacemaker: Onset Date: 02/2020 Code(s): Z95.0 - Presence of cardiac pacemaker Status: Acute Assessment and Plan: Interrogate pacemaker as needed (4) Gait instability: Code(s): R26.81 - Unsteadiness on feet Status: Acute Assessment and Plan: Bed rest Fall precautions (5) Severe pulmonary hypertension: Code(s): I27.20 - Pulmonary hypertension, unspecified Status: Acute Assessment and Plan: Patient on chronic supplemental oxygen at home by nasal cannula (6) COPD with emphysema: Qualifiers: Emphysema type: unspecified Qualified Code(s): J43.9 - Emphysema, unspecified Code(s): J43.9 - Emphysema, unspecified Status: Acute Assessment and Plan: Breathing treatments q.4 hours (7) Sleep apnea: Code(s): G47.30 - Sleep apnea, unspecified Status: Acute Assessment and Plan: Currently on BiPAP Plan DVT prophylaxis Sq lovenox Subjective Date/time seen: 07/19/23 15:27 Interval history: Patient comfortable at bedside. noted he came to the ER on account of SOB and lightheadedness Review of Systems Review of Systems: ROS unobtainable: Yes unobtainable due to medical condition (on BiPAP) Exam Const: General: comfortable, no acute distress, well developed, alert, awake and average body habitus Nutritional Appearance: average body habitus Orientation/consciousness: patient oriented x3 HENMT: Head: normal to inspection, normocephalic and atraumatic Ears: hearing grossly normal bilaterally Face/Nose/Sinus: normal facial exam Face and sinus: normal facial exam Eyes: General: appearance normal, both eyes and all related structures Pupils: Equal, round and reactive pupils present EOM: EOMs intact bilaterally Neck: Neck: full ROM, no lymphadenopathy and no JVD Thyroid: thyroid normal Lymphatic: no lymphadenopathy noted Resp: Effort & Inspection: normal respiratory effort and able to speak in complete sentences Auscultation: clear to auscultation bilaterally Cardio: Jugular venous distension: no JVD Rate: regular rate Rhythm: regular rhythm Heart sounds: S1 normal heart sound present and S2 normal heart sound present : General: Yes deferre
[2023-07-19] MEDS: FUROSEMIDE INJ 40 MG/4 ML VIAL 20 MG IV PUSH (18:34)
[2023-07-20] VITALS (35 sets, daily range): BP systolic 98–128; BP diastolic 35–64; PULSE 91–185; RESP 18–33; TEMP 36.1–37; O2SAT 85–100
[2023-07-20] MEDS: IPRATROPIUM BR 0.02% INH SOLN 0.5 MG/2.5 ML VIAL INHALATION ×4 (00:17→20:21)
[2023-07-20] MEDS: ALBUTEROL SULFATE NEB 2.5 MG/3 ML INH INHALATION ×3 (00:17→12:20)
[2023-07-20 04:41] LABS: Basophils Percent Auto 0.3 % (0.2-1.2); Eosinophils Absolute Auto 0.1 K/mm3 (0-0.3); Eosinophils Percent Auto 1.8 % (0-4.4); Hematocrit 43.1 % (42.0-52.0); Hemoglobin 13.5 g/dL (14.0-18.0); Immature Granulocyte Absolute 0.02 K/mm3 (0.00-0.031); Immature Granulocyte Percent A 0.3 % (0-0.5); Lymphocytes Absolute Auto 0.59 K/mm3 (0.9-3.2); Lymphocytes Percent Auto 9.7 % (18.3-44.2); Mean Corpuscular HGB Conc 31.3 g/dl (32-36); Mean Corpuscular Hemoglobin 33.9 pg (26-34); Mean Corpuscular Volume 108.3 fl (80-100); Mean Platelet Volume 10.3 fl (7.4-10.4); Monocytes Absolute Auto 0.6 K/mm3 (0.1-0.6); Monocytes Percent Auto 9.6 % (2.6-8.5); Neutrophils Absolute Auto 4.7 K/mm3 (1.3-6.7); Neutrophils Percent Auto 78.3 % (45.5-73.1); Platelet Count Result 142 k/mm3 (150-375); Red Blood Count 3.98 M/mm3 (4.6-6.20); Red Cell Distribution Width 18.5 % (11.5-14.5); White Blood Count 6.1 K/mm3 (4.5-10.0)
[2023-07-20 04:59] LABS: Lactic Acid Reflex 1.7 mmol/L (0.7-2.0)
[2023-07-20 05:02] LABS: Alanine Aminotransferase 32 U/L (6-50); Albumin Level 3.1 g/dL (3.5-5.1); Alkaline Phosphatase 95 U/L (38-126); Aspartate Amino Transferase 32 U/L (17-59); Bilirubin,Total 1.1 mg/dL (0.2-1.3); Blood Urea Nitrogen 28 mg/dL (9-20); Calcium 8.4 mg/dL (8.4-10.2); Carbon Dioxide > 40 mmol/L (22-30); Chloride 95 mmol/L (98-107); Estimated CRCL calculation 76 ml/min; Estimated Glomerular Filt Rate > 60; Glucose 104 mg/dL (65-110); Potassium 3.8 mmol/L (3.4-5.0); Sodium 136 mmol/L (137-145)
[2023-07-20 05:17] LABS: Schistocytes None Seen (NORMAL); Target Cells 1+ (NORMAL)
[2023-07-20 05:18] LABS: Anisocytosis 1+ (NORMAL); Hypochromasia 1+ (NORMAL); Macrocytosis 1+ (NORMAL)
[2023-07-20 05:23] LABS: Platelet Estimate Adequate (Adequate)
--- NOTE | 2023-07-20 06:23 | ECG_ITS ---
Measurements Intervals [place] Rate: 110 P: AR: 0 QRS: 175 QRSD: 120 T: 25 QT: 344 QTc: 466 Interpretive Statements SINUS TACHYCARDIA WITH PACS AND PVCS MARKED RIGHT AXIS DEVIATION [QRS AXIS > 100] RIGHT BUNDLE BRANCH BLOCK AND POSSIBLE RIGHT VENTRICULAR HYPERTROPHY [RBBB, 1.5 mV R IN V1, RAD] ABNORMAL ECG COMPARED TO ECG 07/18/2023 15:36:20 NO SIGNIFICANT CHANGE Electronically Signed On 07-20-2023 7:39:17 CDT by Misha Mariano M.D.
--- NOTE | 2023-07-20 06:44 | PC.NURSE ---
0630 ekg obtained due to rhythm change. Patient noted to be in afib with a rate 100-125. 0645 Dr Rodriguez informed and orders received.
[2023-07-20] MEDS: dilTIAZem HCl INJ 25 MG/5 ML VIAL 10 MG IV PUSH (07:01)
--- NOTE | 2023-07-20 07:52 | PM.PNCARD ---
Progress Note: A&P Assessment and Plan (1) Diastolic heart failure: Code(s): I50.30 - Unspecified diastolic (congestive) heart failure Status: Acute Assessment and Plan: Acute on chronic diastolic HF. NTproBNP 8,620 which is improved compared to last hospitalization. On Lasix 20 mg IV BID and Spironolactone 25 mg daily and Jardiance 10 mg daily. (2) Pacemaker: Onset Date: 02/2020 Code(s): Z95.0 - Presence of cardiac pacemaker Status: Acute Assessment and Plan: Medtronic. Stable. (3) Severe pulmonary hypertension: Code(s): I27.20 - Pulmonary hypertension, unspecified Status: Acute (4) COPD with emphysema: Qualifiers: Emphysema type: unspecified Qualified Code(s): J43.9 - Emphysema, unspecified Code(s): J43.9 - Emphysema, unspecified Status: Acute Subjective Date/time seen: 07/20/23 07:52 Interval history: Has sob. No chest pain. He reports last night not knowing where he was at and got very anxious. Exam Const: General: cooperative, healthy appearing and comfortable Orientation/consciousness: oriented to person, oriented to place and oriented to time Resp: Auscultation: no crackles, no rales, no rhonchi, no wheezes and diminished lung sounds Cardio: Rate: tachycardic Rhythm: regular rhythm Heart sounds: no murmurs Peripheral pulses: dorsalis pedis present Neuro: General: oriented to person, oriented to place and oriented to time Extrem: Right lower extremity: no edema Left lower extremity: no edema Objective Data Vital Signs Vital Signs: Vital Signs - 24 hr 07/19/23 08:00 07/19/23 08:00 07/19/23 11:05 Temperature 97.3 F L Pulse Rate 60 60 87 Respiratory Rate 16 16 18 Blood Pressure 123/50 L Pulse Oximetry 97 97 Oxygen Delivery Nasal Cannula Oxygen Flow Rate 3 Fraction of Inspired Oxygen 40 07/19/23 11:15 07/19/23 08:00 07/19/23 10:00 Temperature Pulse Rate 88 97 83 Respiratory Rate 18 Blood Pressure Pulse Oximetry Oxygen Delivery Oxygen Flow Rate Fraction of Inspired Oxygen 07/19/23 12:00 07/19/23 12:00 07/19/23 12:00 Temperature 98.1 F Pulse Rate 94 111 H Respiratory Rate 12 Blood Pressure 91/48 L Pulse Oximetry 92 95 Oxygen Delivery Nasal Cannula Oxygen Flow Rate 3 Fraction of Inspired Oxygen 07/19/23 14:00 07/19/23 15:14 07/19/23 15:05 Temperature Pulse Rate 107 H 102 H Respiratory Rate 18 Blood Pressure Pulse Oximetry Oxygen Delivery Nasal Cannula Oxygen Flow Rate 3 Fraction of Inspired Oxygen 07/19/23 15:15 07/19/23 15:33 07/19/23 16:00 Temperature 98.3 F Pulse Rate 94 55 L Respiratory Rate 18 20 Blood Pressure 112/53 L Pulse Oximetry 95 Oxygen Delivery Nasal Cannula Oxygen Flow Rate 3 Fraction of Inspired Oxygen 07/19/23 16:00 07/19/23 16:00 07/19/23 18:00 Temperature Pulse Rate 108 H 108 H 117 H Respiratory Rate 20 Blood Pressure Pulse Oximetry 95 Oxygen Delivery Nasal Cannula Oxygen Flow Rate 3 Fraction of Inspired Oxygen 40 07/19/23 19:30 07/19/23 20:33 07/19/23 20:44 Temperature 97.4 F L Pulse Rate 100 112 H Respiratory Rate 18 18 18 Blood Pressure 134/57 L Pulse Oximetry 96 93 Oxygen Delivery Nasal Cannula Oxygen Flow Rate 3 Fraction of Inspired Oxygen 07/19/23 20:44 07/19/23 20:00 07/19/23 20:00 Temperature Pulse Rate 113 H 110 H Respiratory Rate 18 Blood Pressure Pulse Oximetry 95 Oxygen Delivery Nasal Cannula Oxygen Flow Rate 3 Fraction of Inspired Oxygen 07/19/23 22:00 07/20/23 00:00 07/20/23 00:17 Temperature 97 F L Pulse Rate 117 H 103 H 107 H Respiratory Rate 18 18 Blood Pressure 128/64 Pulse Oximetry 92 Oxygen Delivery Oxygen Flow Rate Fraction of Inspired Oxygen 07/20/23 00:26 07/20/23 00:00 07/20/23 00:00 Temperature Pulse Rate 108 H 109 H Respiratory Rate 18 Blood
[2023-07-20] MEDS: FUROSEMIDE INJ 40 MG/4 ML VIAL 20 MG IV PUSH (09:18)
[2023-07-20] MEDS: SPIRONOLACTONE 25 MG TABLET PO (09:18)
[2023-07-20] MEDS: EMPAGLIFLOZIN 10 MG TABLET PO (09:18)
[2023-07-20] MEDS: ASPIRIN 81 MG CHEWABLE TABLET PO (09:18)
[2023-07-20] MEDS: ENOXAPARIN 40 MG/0.4 ML SYRINGE SUB-Q (09:18)
[2023-07-20] MEDS: ALPRAZolam (*CRX) 0.5 MG TABLET 1 MG PO ×2 (09:27→21:10)
--- NOTE | 2023-07-20 10:17 | P.CDI_ITS ---
severe CDI Query Clarification Request BMI 17.4 Nutritional Diagnostic Statement Moderate protein calorie malnutrition related to inadequate energy intake and a reduced appetite as evidenced by significant weight loss of -14% noted in EMR, low BMI of 17.5, poor po intake. Please refer to the comprehensive nutrition assessment for further information. Please clarify severity of protein calorie malnutrition if known: * Mild * Moderate * Severe * Other/ Unspecified
--- NOTE | 2023-07-20 11:48 | PM.IMPN ---
Progress Note: A&P Assessment and Plan (1) Acute respiratory failure with hypoxia and hypercapnia: Code(s): J96.01 - Acute respiratory failure with hypoxia; J96.02 - Acute respiratory failure with hypercapnia Status: Acute Assessment and Plan: worsening oxygen increased from 2 to 8 liters overnight CTA chest ordered titrate oxygen and monitor (2) Acute exacerbation of CHF (congestive heart failure): Code(s): I50.9 - Heart failure, unspecified Status: Acute Assessment and Plan: cardiac diet strict input and output Hold Lasix and Spironolactone due to alkalosis, started on Acetazolamide Cardiology following Summary ? 1. Definity contrast administered improved wall motion interpretation. ? 2. Left ventricular chamber dimension is normal. ? 3. Left ventricular systolic function is normal, estimated at 65-70%. ? 4. The left ventricular diastolic function is grade I diastolic dysfunction. ? 5. Linear artifact in right ventricle suggestive of catheter(s), pacemaker lead(s), or ICD lead(s). ? 6. Right ventricular chamber dimension is moderately enlarged. ? 7. Right ventricular systolic function is moderately reduced. ? 8. Linear artifact in the right atrium suggestive of catheter(s), pacemaker lead(s), or ICD lead(s). ? 9. There is mild aortic valve sclerosis. ? 10. The mitral valve has moderately calcified annulus. ? 11. There is mild tricuspid valve regurgitation. ? 12. Severe pulmonary hypertension, estimated pulmonary arterial systolic pressure is 84 mmHg. ? 13. Dilated inferior vena cava with >50% collapse upon inspiration consistent with elevated right atrial pressure, 10 mmHg. ? 14. There is trivial pericardial effusion. ? 15. Large pleural effusion noted with large coagulated masses suggesting chronicity. (3) Pacemaker: Onset Date: 02/2020 Code(s): Z95.0 - Presence of cardiac pacemaker Status: Acute Assessment and Plan: Interrogate pacemaker as needed (4) Gait instability: Code(s): R26.81 - Unsteadiness on feet Status: Acute Assessment and Plan: Bed rest Fall precautions (5) Severe pulmonary hypertension: Code(s): I27.20 - Pulmonary hypertension, unspecified Status: Acute Assessment and Plan: Patient on chronic supplemental oxygen at home by nasal cannula (6) COPD with emphysema: Qualifiers: Emphysema type: unspecified Qualified Code(s): J43.9 - Emphysema, unspecified Code(s): J43.9 - Emphysema, unspecified Status: Acute Assessment and Plan: Breathing treatments q.4 hours (7) Sleep apnea: Code(s): G47.30 - Sleep apnea, unspecified Status: Acute Assessment and Plan: Currently on BiPAP Plan DVT prophylaxis Sq lovenox Subjective Date/time seen: 07/20/23 11:48 Interval history: oxygen requirement increased to 8 liters overnight, CT chest ordered, CXR unchanged Review of Systems Review of Systems: ROS unobtainable: Yes unobtainable due to medical condition (on BiPAP) Exam Const: General: comfortable, no acute distress, well developed, alert, awake and average body habitus Nutritional Appearance: average body habitus Orientation/consciousness: patient oriented x3 HENMT: Head: normal to inspection, normocephalic and atraumatic Ears: hearing grossly normal bilaterally Face/Nose/Sinus: normal facial exam Face and sinus: normal facial exam Eyes: General: appearance normal, both eyes and all related structures Pupils: Equal, round and reactive pupils present EOM: EOMs intact bilaterally Neck: Neck: full ROM, no lymphadenopathy and no JVD Thyroid: thyroid normal Lymphatic: no lymphadenopathy noted Resp: Effort & Inspection: normal respiratory effort and able to speak in complete sentences Auscultation: clear to auscultation bilaterally Cardio: Jugular venous distension: no JVD Rate: regular rate Rhythm: regular rhythm Heart sounds: S1 n
[2023-07-20] MEDS: AMIODARONE 360 MG/D5W 200 ML 360 MG/200 ML BAG 33.33 MG IV CONT (13:33)
[2023-07-20] MEDS: AMIODARONE 150 MG/D5W 100 ML 150 MG/100 ML BAG 200 MG IV CONT (13:59)
--- NOTE | 2023-07-20 15:44 | ECG_ITS ---
Measurements Intervals [place] Rate: 168 P: MT: 0 QRS: 170 QRSD: 119 T: 26 QT: 278 QTc: 465 Interpretive Statements ATRIAL FIBRILLATION WITH RAPID VENTRICULAR RESPONSE MARKED RIGHT AXIS DEVIATION [QRS AXIS > 100] PATTERN CONSISTENT WITH PULMONARY DISEASE RIGHT BUNDLE BRANCH BLOCK AND POSSIBLE RIGHT VENTRICULAR HYPERTROPHY [RBBB, 1.5 mV R IN V1, RAD] ABNORMAL ECG COMPARED TO ECG 07/20/2023 06:33:15 ATRIAL FIBRILLATION NOW PRESENT Electronically Signed On 07-21-2023 14:32:40 CDT by Mikael Crenshaw M.D.
[2023-07-20] MEDS: METOPROLOL TARTRATE 12.5 MG TABLET PO ×2 (17:22→23:48)
--- NOTE | 2023-07-20 19:35 | PC.NURSE ---
Patient's heart rate elevated to 180's at [address] Allred was notified of the status change, and he ordered an amiodarone drip for the patient, but to hold the bolus of amiodarone that we usually give since the patient's blood pressure is running soft. 1345 Dr. Allred was notified again of the patient's heart rate being in SVT, and still elevated between 160's and 200's. Patient was asymptomatic with a blood pressure 90's/50's. Dr. Allred ordered the original amiodarone bolus, but at a slower rate so as to not drop the patient's pressure, and it was administered over [address] Allred was called to notify him of the patient's heart rate still not decreasing and it had gone from an SVT to more of an A. fib.. Dr. Allred said to let the patient stay on the amiodarone drip, and that he should convert back to a regular rhythm with this medication. 1700 Dr. Allred said to give oral metoprolol if the blood pressure is greater than 100 systolically. 30 minutes after oral metoprolol was given, patient's rate decreased into the 110's. Amiodarone drip continued.
[2023-07-20] MEDS: AMIODARONE 360 MG/D5W 200 ML 360 MG/200 ML BAG 16.67 MG IV CONT (19:39)
[2023-07-20] MEDS: LEVALBUTEROL NEB 1.25 MG/3 ML INHALATION (20:21)
[2023-07-20] MEDS: ACETAMINOPHEN 325 MG TABLET 650 MG PO (21:10)
[2023-07-21] VITALS (31 sets, daily range): BP systolic 100–125; BP diastolic 39–58; PULSE 61–100; RESP 20–29; TEMP 36.3–36.8; O2SAT 89–100
[2023-07-21 04:46] LABS: Basophils Percent Auto 0.4 % (0.2-1.2); Eosinophils Absolute Auto 0.2 K/mm3 (0-0.3); Eosinophils Percent Auto 4.3 % (0-4.4); Hematocrit 49.3 % (42.0-52.0); Immature Granulocyte Absolute 0.01 K/mm3 (0.00-0.031); Immature Granulocyte Percent A 0.2 % (0-0.5); Lymphocytes Absolute Auto 0.57 K/mm3 (0.9-3.2); Lymphocytes Percent Auto 10.7 % (18.3-44.2); Mean Corpuscular HGB Conc 30.4 g/dl (32-36); Mean Corpuscular Hemoglobin 33.8 pg (26-34); Mean Platelet Volume 10.2 fl (7.4-10.4); Monocytes Absolute Auto 0.6 K/mm3 (0.1-0.6); Monocytes Percent Auto 11.3 % (2.6-8.5); Neutrophils Absolute Auto 3.9 K/mm3 (1.3-6.7); Neutrophils Percent Auto 73.1 % (45.5-73.1); Platelet Count Result 166 k/mm3 (150-375); Red Blood Count 4.44 M/mm3 (4.6-6.20); White Blood Count 5.3 K/mm3 (4.5-10.0)
[2023-07-21 04:51] LABS: Lactic Acid Reflex 0.8 mmol/L (0.7-2.0)
[2023-07-21 04:55] LABS: Alanine Aminotransferase 52 U/L (6-50); Albumin Level 3.5 g/dL (3.5-5.1); Alkaline Phosphatase 123 U/L (38-126); Aspartate Amino Transferase 53 U/L (17-59); Bilirubin,Total 0.9 mg/dL (0.2-1.3); Blood Urea Nitrogen 42 mg/dL (9-20); Calcium 8.3 mg/dL (8.4-10.2); Carbon Dioxide > 40 mmol/L (22-30); Chloride 95 mmol/L (98-107); Estimated CRCL calculation 41 ml/min; Estimated Glomerular Filt Rate > 60; Glucose 139 mg/dL (65-110); Potassium 4.9 mmol/L (3.4-5.0); Sodium 137 mmol/L (137-145)
[2023-07-21 05:06] LABS: Platelet Estimate Adequate (Adequate)
[2023-07-21 05:07] LABS: Anisocytosis 1+ (NORMAL); Polychromasia 1+ (NORMAL)
[2023-07-21 05:09] LABS: Schistocytes Rare (NORMAL)
--- NOTE | 2023-07-21 07:02 | PC.NURSE ---
Patient desatting to the 60s with bipap on. Pt coughing, FIO2 increased to 100%. Now satting 100. Dr Goins made aware and stat CXR ordered.
[2023-07-21] MEDS: AMIODARONE 360 MG/D5W 200 ML 360 MG/200 ML BAG 16.67 MG IV CONT ×2 (07:08→17:46)
--- NOTE | 2023-07-21 07:44 | ECG_ITS ---
Measurements Intervals [place] Rate: 85 P: 59 SD: 179 QRS: 170 QRSD: 131 T: 25 QT: 385 QTc: 459 Interpretive Statements SINUS RHYTHM WITH PREMATURE ATRIAL CONTRACTION LEFT ATRIAL ENLARGEMENT [-0.15mV P WAVE IN V1/V2] MARKED RIGHT AXIS DEVIATION [QRS AXIS > 100] RIGHT BUNDLE BRANCH BLOCK AND POSSIBLE RIGHT VENTRICULAR HYPERTROPHY [RBBB, 1.5 mV R IN V1, RAD] ABNORMAL ECG COMPARED TO ECG 07/20/2023 16:08:15 SINUS RHYTHM HAS REPLACED ATRIAL FIBRILLATION Electronically Signed On 07-21-2023 14:38:16 CDT by Mikael Crenshaw M.D.
--- NOTE | 2023-07-21 08:05 | PC.NURSE ---
This morning before shift change around 0650, MARKETING OPERATIONS CONSULTANT changed out pt's pulse ox due to poor pleth reading. When good wave form obtained, spo2 read 83% and then began to decline. Pt had already been on the bipap with an fio2 of 35%. Pt very drowsy but opened eyes to shaking, spo2 declined to 70's, increased fio2 to 100% but spo2 continued to drop down to high 50's. Pt able to cough and spo2 improved and held in the 70's. Called RT and charge histotechnologist. online editor ordered stat CXR per Dr Goins. Pt's spo2 then came back up to 100% and was able to titrate fio2 back down to 80%before leaving the room.
--- NOTE | 2023-07-21 08:34 | PM.PNCARD ---
Progress Note: A&P Assessment and Plan (1) Diastolic heart failure: Code(s): I50.30 - Unspecified diastolic (congestive) heart failure Status: Acute Assessment and Plan: Acute on chronic diastolic HF in setting of severe pulm hypertension. NTproBNP 8,620 which is improved compared to last hospitalization. On Lasix 20 mg IV BID and Spironolactone 25 mg daily which were discontinued by hospitalist due to metabolic alkalosis, and started on Diamox. On Jardiance 10 mg daily. Consider pulmonology consult to optimize oxygenation. Consider left thoracentesis given large pleural effusion with near complete collapse of left lower lobe and not being diuresed aggressively given metabolic alkalosi. (2) Pacemaker: Onset Date: 02/2020 Code(s): Z95.0 - Presence of cardiac pacemaker Status: Acute Assessment and Plan: [employer]. Stable. (3) Severe pulmonary hypertension: Code(s): I27.20 - Pulmonary hypertension, unspecified Status: Acute (4) COPD with emphysema: Qualifiers: Emphysema type: unspecified Qualified Code(s): J43.9 - Emphysema, unspecified Code(s): J43.9 - Emphysema, unspecified Status: Acute (5) PAF (paroxysmal atrial fibrillation): Code(s): I48.0 - Paroxysmal atrial fibrillation Status: Acute Assessment and Plan: Back in sinus rhythm. New onset on 07/20/23. Amiodarone drip started and restored sinus rhythm. Will continue as transition to PO this afternoon, however, given lethargy and unable to swallow pills, would continue Amiodarone drip. Subjective Date/time seen: 07/21/23 08:34 Interval history: He is lethargic this morning on BiPAP. Has sob. Had atrial fib with RVR yesterday and started on Amiodarone drip which restored sinus rhythm after a few hours. Exam Const: General: lethargic Resp: Auscultation: no crackles, no rales, no rhonchi, no wheezes and diminished lung sounds Cardio: Rate: regular rate Rhythm: regular rhythm Heart sounds: no murmurs Peripheral pulses: dorsalis pedis present Neuro: General: oriented to person, oriented to place and oriented to time Extrem: Right lower extremity: no edema Left lower extremity: no edema Objective Data Vital Signs Vital Signs: Vital Signs - 24 hr 07/20/23 08:35 07/20/23 09:20 07/20/23 11:55 Temperature 97.9 F Pulse Rate 106 H Respiratory Rate 18 Blood Pressure 100/51 L Pulse Oximetry 92 91 92 Oxygen Delivery High Flow Nasal Cannula High Flow Nasal Cannula Oxygen Flow Rate 8 6 07/20/23 12:20 07/20/23 12:36 07/20/23 13:33 Temperature Pulse Rate 118 H 120 H 168 H Respiratory Rate 20 20 Blood Pressure 113/48 L Pulse Oximetry Oxygen Delivery Oxygen Flow Rate 07/20/23 10:00 07/20/23 12:00 07/20/23 12:00 Temperature Pulse Rate 111 H 122 H Respiratory Rate Blood Pressure Pulse Oximetry 92 Oxygen Delivery High Flow Nasal Cannula Oxygen Flow Rate 6 07/20/23 14:00 07/20/23 15:58 07/20/23 16:00 Temperature 98.5 F Pulse Rate 162 H 169 H 185 H Respiratory Rate 20 Blood Pressure 106/56 L Pulse Oximetry 100 Oxygen Delivery Oxygen Flow Rate 07/20/23 16:00 07/20/23 18:00 07/20/23 19:39 Temperature Pulse Rate 105 H 101 H Respiratory Rate Blood Pressure Pulse Oximetry 100 Oxygen Delivery High Flow Nasal Cannula Oxygen Flow Rate 6 07/20/23 19:59 07/20/23 20:21 07/20/23 20:27 Temperature 97.9 F Pulse Rate 95 100 99 Respiratory Rate 20 20 Blood Pressure 99/47 L Pulse Oximetry 93 100 Oxygen Delivery High Flow Nasal Cannula Oxygen Flow Rate 6 07/20/23 20:44 07/20/23 20:00 07/20/23 22:00 Temperature Pulse Rate 105 H Respiratory Rate 20 Blood Pressure Pulse Oximetry 93 98 Oxygen Delivery High Flow Nasal Cannula High Flow Nasal Cannula Oxygen Flow Rate 6 5 07/20/23 23:05 07/20/23 21:00 07/20/23 22:00 Temperature Pulse Rate 9
[2023-07-21] MEDS: LEVALBUTEROL NEB 1.25 MG/3 ML INHALATION ×3 (08:36→19:40)
[2023-07-21] MEDS: IPRATROPIUM BR 0.02% INH SOLN 0.5 MG/2.5 ML VIAL INHALATION ×3 (08:36→19:40)
[2023-07-21 10:06] LABS: Alveolar/Arterial O2 Gradient 116.7 mmHg; Base Excess ABG 9.5 mEq/l (+/-2.0); Fractional Inspired Oxygen 40 %; HCO3 ABG 40.7 mEq/l (22.0-26.0); Oxygen Saturation ABG 88.3 % (95.0-100.0); Oxyhemoglobin 89.1 % THb (90.0-100.0); PO2 ABG 64.4 mmHg (80.0-100.0); PO2 FiO2 Ratio Arterial Blood 1.61 %; Total Hemoglobin 15.2 g/dL (12.0-18.0)
[2023-07-21 10:08] LABS: PCO2 ABG 90.5 mmHg (35.0-45.0)
[2023-07-21 10:09] LABS: Device NON-INVASIVE VENT; Modified Allen's Test Pass; Non-Invasive Vent Rate 4 /MIN; Site Drawn LEFT RADIAL; pH ABG 7.271 (7.350-7.450)
[2023-07-21 10:10] LABS: Non-Invasive Expiratory Pressure 5 CMH2O; Non-Invasive Inspiratory Pressure 12 CMH2O
--- NOTE | 2023-07-21 11:00 | PM.IMPN ---
Progress Note: A&P Assessment and Plan (1) Acute respiratory failure with hypoxia and hypercapnia: Code(s): J96.01 - Acute respiratory failure with hypoxia; J96.02 - Acute respiratory failure with hypercapnia Status: Acute Assessment and Plan: worsening oxygen increased from 2 to 8 liters overnight CTA chest showed left pleural effusion with emphysema titrate oxygen and monitor (2) Acute exacerbation of CHF (congestive heart failure): Code(s): I50.9 - Heart failure, unspecified Status: Acute Assessment and Plan: cardiac diet strict input and output Hold Lasix and Spironolactone due to alkalosis, started on Acetazolamide Alkalosis likely from respiratory acidosis compensation Monitor on BiPAP Cardiology following Summary ? 1. Definity contrast administered improved wall motion interpretation. ? 2. Left ventricular chamber dimension is normal. ? 3. Left ventricular systolic function is normal, estimated at 65-70%. ? 4. The left ventricular diastolic function is grade I diastolic dysfunction. ? 5. Linear artifact in right ventricle suggestive of catheter(s), pacemaker lead(s), or ICD lead(s). ? 6. Right ventricular chamber dimension is moderately enlarged. ? 7. Right ventricular systolic function is moderately reduced. ? 8. Linear artifact in the right atrium suggestive of catheter(s), pacemaker lead(s), or ICD lead(s). ? 9. There is mild aortic valve sclerosis. ? 10. The mitral valve has moderately calcified annulus. ? 11. There is mild tricuspid valve regurgitation. ? 12. Severe pulmonary hypertension, estimated pulmonary arterial systolic pressure is 84 mmHg. ? 13. Dilated inferior vena cava with >50% collapse upon inspiration consistent with elevated right atrial pressure, 10 mmHg. ? 14. There is trivial pericardial effusion. ? 15. Large pleural effusion noted with large coagulated masses suggesting chronicity. (3) Pacemaker: Onset Date: 02/2020 Code(s): Z95.0 - Presence of cardiac pacemaker Status: Acute Assessment and Plan: Interrogate pacemaker as needed (4) Gait instability: Code(s): R26.81 - Unsteadiness on feet Status: Acute Assessment and Plan: Bed rest Fall precautions PT/OT (5) Severe pulmonary hypertension: Code(s): I27.20 - Pulmonary hypertension, unspecified Status: Acute Assessment and Plan: Patient on chronic supplemental oxygen at home by nasal cannula, 1.5 L oxygen now on BiPAP (6) COPD with emphysema: Qualifiers: Emphysema type: unspecified Qualified Code(s): J43.9 - Emphysema, unspecified Code(s): J43.9 - Emphysema, unspecified Status: Acute Assessment and Plan: Breathing treatments q.4 hours Methylprednisone 40mg bid BiPAP and abg and adjust bipap accordingly (7) Sleep apnea: Code(s): G47.30 - Sleep apnea, unspecified Status: Acute Assessment and Plan: Currently on BiPAP (8) Pneumonia: Code(s): J18.9 - Pneumonia, unspecified organism Status: Acute Assessment and Plan: CXR showed bilateral infiltrates Blood culture and mRSA PCR Start Levaquin and Doxycycline monitor (9) Pleural effusion, left: Code(s): J90 - Pleural effusion, not elsewhere classified Status: Acute Assessment and Plan: thoracentesis and pleural fluid studies ordered (10) PAF (paroxysmal atrial fibrillation): Code(s): I48.0 - Paroxysmal atrial fibrillation Status: Acute Assessment and Plan: on Amiodarone cardiology following Plan DVT prophylaxis Sq lovenox Subjective Date/time seen: 07/21/23 11:00 Interval history: He is lethargic this morning on BiPAP. Has sob. Abg showed primary respiratory acidosis with metabolic alkalosis CXR showed bilateral infiltrate started on Cefepime and DOxycycline Review of Systems Review of Systems: ROS unobtainable: Yes unobtainable due to
[2023-07-21] MEDS: CEFEPIME 2 GM/NS 50 ML 2 GM/50 ML BAG IVPB (11:47)
[2023-07-21] MEDS: ENOXAPARIN 40 MG/0.4 ML SYRINGE SUB-Q (11:49)
[2023-07-21] MEDS: DOXYCYCLINE 100 MG/NS 100 ML 100 MG/100 ML BAG IVPB ×2 (12:40→23:26)
--- NOTE | 2023-07-21 12:50 | PM.CNPUL ---
Assessment and Plan Assessment and plan (1) Pleural effusion, left: Code(s): J90 - Pleural effusion, not elsewhere classified Status: Acute Assessment and Plan: He has a large left pleural effusion. This is loculated, can be seen in the coronal view with fluid all along the posterior lung and tracking up the side of the left thorax, trapping lung tissue. Thoracentesis may not be able to get much out. This is still worth a try. The echo on 05/24/23 notes that he has clotted material indicating chronicity, so thoracentesis may not be able to remove much fluid. He needs the tap for therapeutic and diagnostic purposes. He has orders for pleural fluid including pH, protein, LDH, glucose, cell count and differential. If he has a large volume of fluid that can be removed, he needs to have cytology on this. (2) Pneumonia: Code(s): J18.9 - Pneumonia, unspecified organism Status: Acute Assessment and Plan: He has bilat infiltrates, L>R, normal WBC without fever. He had a cough with clear thick sputum. Artur check CRP, procalcitonin, urine antigens for Legionella and Pneumococcus to assure that these common pathogens aren't missed. (3) Severe pulmonary hypertension: Code(s): I27.20 - Pulmonary hypertension, unspecified Status: Acute Assessment and Plan: echo 05/24/23 shows RVSP 84 mmHg, large RV, reduced RV function, preserved EF 65-70%. This is due to his COPD, may also be worsened by his dCHF, has not had ROBINA checked. I will send ROBINA to make sure that an unapprecaited autoimmune issue is not the cause of pulmonary hypertension. (4) Acute on chronic respiratory failure with hypoxia and hypercapnia: Code(s): J96.21 - Acute and chronic respiratory failure with hypoxia; J96.22 - Acute and chronic respiratory failure with hypercapnia Status: Acute Assessment and Plan: He has been on O2 since May discharge, using 3 L/min at home. Saturation drops with any activity. He will need re-evaluation before discharge. Plan He is improving with the changes in BiPAP, higher IPAP to EPAP gradient ordered by the hospitalist. His family asked about having the thoracentesis; this is a minor procedure, will help him feel less short of breath and give diagnostic information to help decide what is causing his effusion. plan: He needs to use BiPAP to improve ventilation and oxygenation; proceed with thoracentesis, add cytology to orders. He may not be able to get much fluid out since it is loculated and may be clotted per the echo 05/24/23. Continue antibiotics -Cefepime & Doxycycline- for now, decide to de-escalate and stop if his pleural fluid does not show signs of infection and infitlrates improve Add COPD controller medication; he is on no controller meds at home. I started nebulizer budesonide BID; he can continue levalbuterol and ipratropium nebs. He might benefit from having a nebulizer at home. ROBINA for severe pulmonary hypertension, TSH w reflex T4 for high MCV May need to look at placement at discharge. This is his third admission since January, going downhill since. More sedentary. We discussed code status; he does not want to be on a ventilator, does not want chest compressions or shocks. His code status was entered by ER physician Jul 18. He has discussed this on several occasions with family and staff. History of Present Illness History of Present Illness Consult date: 07/21/23 Requesting physician: Alex Allred DO Chief complaint: Pleural effusion Narrative: patient was seen 07/21 at 13:10, and I returned 15:50 when his step daughters were present; they helped with the history, mulu Angelika who spends significant time with him at
--- NOTE | 2023-07-21 12:51 | PCSTNOTE ---
Attempted bedside swallowing evaluation. Respiratory therapist with patient. On breathing treatment and not fully alert. Discussed with RN taking off patient's oxygen mask to do swallowing evaluation and was told not to. Patient will be scheduled for bedside swallowing evaluation tomorrow.
[2023-07-21 12:57] LABS: Alveolar/Arterial O2 Gradient 119.3 mmHg; Base Excess ABG 10.6 mEq/l (+/-2.0); Fractional Inspired Oxygen 40 %; HCO3 ABG 40.3 mEq/l (22.0-26.0); Oxygen Content ABG 19.7 %vol (16.0-22.0); Oxygen Saturation ABG 93.5 % (95.0-100.0); Oxyhemoglobin 93.4 % THb (90.0-100.0); PO2 ABG 75.5 mmHg (80.0-100.0); PO2 FiO2 Ratio Arterial Blood 1.89 %; pH ABG 7.328 (7.350-7.450)
[2023-07-21 13:01] LABS: PCO2 ABG 78.6 mmHg (35.0-45.0); Site Drawn LEFT BRACHIAL
[2023-07-21 13:02] LABS: Device NON-INVASIVE VENT
[2023-07-21 13:03] LABS: Non-Invasive Expiratory Pressure 5 CMH2O; Non-Invasive Inspiratory Pressure 16 CMH2O; Non-Invasive Vent Rate 20 /MIN
--- NOTE | 2023-07-21 13:47 | PCPTNOTE ---
RN advised to not see patient for PT today due to change in respiratory and patient on continuous BIPAP. PT will continue to follow per plan of care.
[2023-07-21 14:28] LABS: Mean Platelet Volume 10.5 fl (7.4-10.4); Platelet Count Result 160 k/mm3 (150-375)
[2023-07-21 14:41] LABS: INR 1.1; Prothrombin Time 14.3 Seconds (11.1-14.7)
[2023-07-21 14:42] LABS: Partial Thromboplastin Time 38.2 SECONDS (22.3-36.8)
[2023-07-21 16:27] LABS: Alveolar/Arterial O2 Gradient 132.5 mmHg; Base Excess ABG 12.5 mEq/l (+/-2.0); Fractional Inspired Oxygen 40 %; HCO3 ABG 40.9 mEq/l (22.0-26.0); Oxygen Content ABG 19.3 %vol (16.0-22.0); Oxygen Saturation ABG 93.8 % (95.0-100.0); Oxyhemoglobin 93.2 % THb (90.0-100.0); PO2 ABG 72.4 mmHg (80.0-100.0); PO2 FiO2 Ratio Arterial Blood 1.81 %; Total Hemoglobin 14.7 g/dL (12.0-18.0); pH ABG 7.386 (7.350-7.450)
[2023-07-21 16:30] LABS: PCO2 ABG 69.8 mmHg (35.0-45.0)
[2023-07-21 16:31] LABS: Device NON-INVASIVE VENT; Modified Allen's Test Pass; Site Drawn LEFT RADIAL
[2023-07-21 16:32] LABS: Non-Invasive Expiratory Pressure 5 CMH2O; Non-Invasive Inspiratory Pressure 16 CMH2O; Non-Invasive Vent Rate 20 /MIN
--- NOTE | 2023-07-21 16:41 | PCOTNOTE ---
Pt is not appropriate for Occupational Therapy treatment due to change in respiratory status and being on continuous bipap per RN. Will attempt per POC duration/frequency when appropriate.
[2023-07-21] MEDS: BUDESONIDE RESPULE NEB 0.5 MG/2 ML AMP INHALATION (19:40)
[2023-07-21] MEDS: methylPREDNISolone SOD SUCC 40 MG VIAL IV PUSH (20:36)
[2023-07-22] VITALS (27 sets, daily range): BP systolic 107–132; BP diastolic 48–69; PULSE 78–98; RESP 16–24; TEMP 36.6–37.1; O2SAT 91–100
[2023-07-22] MEDS: CEFEPIME 2 GM/NS 50 ML 2 GM/50 ML BAG IVPB ×2 (00:42→11:50)
[2023-07-22] MEDS: IPRATROPIUM BR 0.02% INH SOLN 0.5 MG/2.5 ML VIAL INHALATION ×4 (02:15→20:54)
[2023-07-22] MEDS: LEVALBUTEROL NEB 1.25 MG/3 ML INHALATION ×4 (02:15→20:54)
[2023-07-22 05:06] LABS: Alveolar/Arterial O2 Gradient 174.8 mmHg; Base Excess ABG 9.9 mEq/l (+/-2.0); Fractional Inspired Oxygen 45 %; HCO3 ABG 37.3 mEq/l (22.0-26.0); Oxygen Content ABG 18.8 %vol (16.0-22.0); Oxygen Saturation ABG 94.7 % (95.0-100.0); Oxyhemoglobin 93.9 % THb (90.0-100.0); PO2 ABG 75.5 mmHg (80.0-100.0); PO2 FiO2 Ratio Arterial Blood 1.68 %; Total Hemoglobin 14.2 g/dL (12.0-18.0); pH ABG 7.397 (7.350-7.450)
[2023-07-22 05:08] LABS: Device BIPAP; Modified Allen's Test Pass; Site Drawn LEFT RADIAL
[2023-07-22 05:09] LABS: Expiratory Pressure 5 cmH2O; Inspiratory Pressure 16 cmH2O
[2023-07-22 05:31] LABS: Hematocrit 43.3 % (42.0-52.0); Hemoglobin 13.2 g/dL (14.0-18.0); Lymphocytes Absolute Auto 0.13 K/mm3 (0.9-3.2); Lymphocytes Percent Auto 4.1 % (18.3-44.2); Mean Corpuscular HGB Conc 30.5 g/dl (32-36); Mean Corpuscular Hemoglobin 33.8 pg (26-34); Mean Platelet Volume 10.4 fl (7.4-10.4); Monocytes Absolute Auto 0.1 K/mm3 (0.1-0.6); Monocytes Percent Auto 1.6 % (2.6-8.5); Neutrophils Percent Auto 94.3 % (45.5-73.1); Platelet Count Result 155 k/mm3 (150-375); Red Cell Distribution Width 18.8 % (11.5-14.5); White Blood Count 3.1 K/mm3 (4.5-10.0)
[2023-07-22] MEDS: AMIODARONE 360 MG/D5W 200 ML 360 MG/200 ML BAG 16.67 MG IV CONT ×2 (05:43→17:06)
[2023-07-22 05:46] LABS: Lactic Acid Reflex 2.5 mmol/L (0.7-2.0)
[2023-07-22 06:00] LABS: Alanine Aminotransferase 33 U/L (6-50); Alkaline Phosphatase 91 U/L (38-126); Anion Gap 4 mmol/L (8-16); Aspartate Amino Transferase 29 U/L (17-59); Bilirubin,Total 0.7 mg/dL (0.2-1.3); Blood Urea Nitrogen 32 mg/dL (9-20); CRP 14.1 mg/dL (<1.0); Calcium 8.4 mg/dL (8.4-10.2); Carbon Dioxide 37 mmol/L (22-30); Chloride 95 mmol/L (98-107); Estimated CRCL calculation 66 ml/min; Estimated Glomerular Filt Rate > 60; Glucose 148 mg/dL (65-110); Magnesium 2.3 mg/dL (1.6-2.3); Potassium 4.5 mmol/L (3.4-5.0); Sodium 136 mmol/L (137-145)
[2023-07-22 06:27] LABS: Hypochromasia 1+ (NORMAL); Platelet Estimate Adequate (Adequate)
[2023-07-22 06:28] LABS: Anisocytosis 1+ (NORMAL); Schistocytes None Seen (NORMAL)
[2023-07-22 06:41] LABS: Procalcitonin 0.1 ng/mL
[2023-07-22 06:58] LABS: Thyroid Stimulating Hormone Reflex 0.134 uIU/mL (0.465-4.68)
--- NOTE | 2023-07-22 08:02 | PM.PNCARD ---
Progress Note: A&P Assessment and Plan (1) Diastolic heart failure: Code(s): I50.30 - Unspecified diastolic (congestive) heart failure Status: Acute Assessment and Plan: Acute on chronic diastolic HF in setting of severe pulm hypertension. NTproBNP 8,620 which is improved compared to last hospitalization. On Lasix 20 mg IV BID and Spironolactone 25 mg daily which were discontinued by hospitalist due to metabolic alkalosis, and started on Diamox. On Jardiance 10 mg daily. Pulmonology consulted with Dr. Carson. Appreciate her note. Plan for left thoracentesis given large pleural effusion with near complete collapse of left lower lobe and not being diuresed aggressively given metabolic alkalosis. (2) Pacemaker: Onset Date: 02/2020 Code(s): Z95.0 - Presence of cardiac pacemaker Status: Acute Assessment and Plan: [employer]. Stable. (3) Severe pulmonary hypertension: Code(s): I27.20 - Pulmonary hypertension, unspecified Status: Acute (4) COPD with emphysema: Qualifiers: Emphysema type: unspecified Qualified Code(s): J43.9 - Emphysema, unspecified Code(s): J43.9 - Emphysema, unspecified Status: Acute (5) PAF (paroxysmal atrial fibrillation): Code(s): I48.0 - Paroxysmal atrial fibrillation Status: Acute Assessment and Plan: Back in sinus rhythm. New onset on 07/20/23. Amiodarone drip started and restored sinus rhythm. Will continue as transition to PO this afternoon, however, given lethargy and unable to swallow pills, would continue Amiodarone drip. He is to have swallow study today. Subjective Date/time seen: 07/22/23 08:02 Interval history: He is not lethargic this morning, but he is on BiPAP. Has sob. No chest pains. Exam Const: General: cooperative, healthy appearing and comfortable Orientation/consciousness: oriented to person, oriented to place, oriented to time and lethargic Resp: Auscultation: no crackles, no rales, no rhonchi, no wheezes and diminished lung sounds Cardio: Rate: regular rate Rhythm: regular rhythm Heart sounds: no murmurs Peripheral pulses: dorsalis pedis present Neuro: General: oriented to person, oriented to place and oriented to time Extrem: Right lower extremity: no edema Left lower extremity: no edema Objective Data Vital Signs Vital Signs: Vital Signs - 24 hr 07/21/23 08:22 07/21/23 08:37 07/21/23 09:02 Temperature Pulse Rate 90 86 87 Respiratory Rate 29 H 25 H 24 H Blood Pressure Pulse Oximetry 100 Oxygen Delivery BiPAP Oxygen Flow Rate Fraction of Inspired Oxygen 07/21/23 09:02 07/21/23 10:02 07/21/23 10:35 Temperature Pulse Rate 92 Respiratory Rate 20 Blood Pressure Pulse Oximetry 100 94 93 Oxygen Delivery High Flow Nasal Cannula BiPAP Oxygen Flow Rate 6 Fraction of Inspired Oxygen 07/21/23 12:11 07/21/23 12:12 07/21/23 12:24 Temperature Pulse Rate 86 88 85 Respiratory Rate 21 H 20 21 H Blood Pressure Pulse Oximetry 94 Oxygen Delivery BiPAP Oxygen Flow Rate Fraction of Inspired Oxygen 07/21/23 12:00 07/21/23 16:08 07/21/23 17:46 Temperature 98.2 F Pulse Rate 100 90 91 Respiratory Rate 24 H 23 H Blood Pressure 105/41 L Pulse Oximetry 94 91 Oxygen Delivery BiPAP Oxygen Flow Rate Fraction of Inspired Oxygen 07/21/23 16:00 07/21/23 19:35 07/21/23 19:40 Temperature 98.0 F 98.1 F Pulse Rate 91 89 85 Respiratory Rate 21 H 20 22 H Blood Pressure 104/51 L 100/52 L Pulse Oximetry 100 92 Oxygen Delivery Oxygen Flow Rate Fraction of Inspired Oxygen 07/21/23 19:43 07/21/23 10:00 07/21/23 12:00 Temperature Pulse Rate 86 89 89 Respiratory Rate 22 H Blood Pressure Pulse Oximetry 89 L Oxygen Delivery BiPAP Oxygen Flow Rate Fraction of Inspired Oxygen 07/21/23 14:00 07/21/23 16:00 07/21/23 18:00 Temperature Pulse Rate 94 94 86 Respiratory Rate
[2023-07-22 08:26] LABS: Reflex Lactic Acid Yes or No Add Lactic
[2023-07-22] MEDS: BUDESONIDE RESPULE NEB 0.5 MG/2 ML AMP INHALATION ×2 (08:44→20:54)
[2023-07-22 09:11] LABS: Lactic Acid 1.7 mmol/L (0.7-2.0)
[2023-07-22] MEDS: methylPREDNISolone SOD SUCC 40 MG VIAL IV PUSH ×2 (09:54→16:51)
[2023-07-22] MEDS: DOXYCYCLINE 100 MG/NS 100 ML 100 MG/100 ML BAG IVPB ×2 (10:00→22:58)
[2023-07-22 11:40] LABS: Free T4 Free Thyroxine Reflex 1.46 ng/dL (0.78-2.19)
[2023-07-22 12:26] LABS: Folic Acid > 20.0 ng/mL (2.76->20)
[2023-07-22 12:46] LABS: Total Triiodothyronine (T3) 0.64 NG/ML (0.97-1.69)
--- NOTE | 2023-07-22 12:52 | PCSTNOTE ---
Bedside swallowing evaluation completed. Nurse switched patient to nasal cannula from full mask during evaluation and monitored respiration during procedure. Cursory oral peripheral examination results within functional limits, patient is edentulous and has dentures but not with him at hospital. Patient was positioned upright in bed with head of bed at maximum elevation. Trials of thin liquid by spoon and cup were within functional limits. Trial of mildly thickened liquid by cup was followed immediately by productive cough, and patient coughed out a chunk of dark mucous. Trial of moderately thickened liquid by spoon and cup within functional limits. Pureed consistency by spoon within functional limits. Solid food was not trialed due to patient's severely compromised respiratory status which means he is at risk for choking at this time. Recommendations: pureed diet with moderately thickened liquids by cup or spoon, no straws. No further speech therapy is recommended. Please note that silent aspiration cannot be ruled out at bedside and can be evaluated with a modifed barium swallow study. Thank you for the referral of this patient.
[2023-07-22 14:05] LABS: Color Pleural Fluid Yellow (Colorless); Pleural fluid source Pleural fluid
[2023-07-22 14:06] LABS: Appearance Pleural Fluid Hazy (Clear); Lymphocytes Pleural Fluid 86 %; Monocytes Pleural Fluid 2 %; Neutrophils Pleural Fluid 12 % (0-25)
[2023-07-22 14:07] LABS: Nucleated Cell Pleural Fluid 343 /uL (0-1000); RBC Pleural Fluid 3000 /uL (0-0)
--- NOTE | 2023-07-22 15:23 | PM.PNPUL ---
Progress Note: A&P Assessment and Plan (1) Pleural effusion: Code(s): J90 - Pleural effusion, not elsewhere classified Status: Acute Assessment and Plan: He has a large left pleural effusion. This is loculated, had thoracentesis today with 1600 ml dark fluid removed. His effusion is trapping lung tissue. (2) COPD with emphysema: Qualifiers: Emphysema type: unspecified Qualified Code(s): J43.9 - Emphysema, unspecified Code(s): J43.9 - Emphysema, unspecified Status: Acute Assessment and Plan: He sandoval a heavy history of tobacco, 48 pack year, quit 05/23/2023; chronic hypercarbic and hypoxemic respiratory failure on 3 L nasal cannula at home.? CT scan of the chest on 07/20/2023 with severe panlobular emphysema apices greater than bases.? ABG on 07/18/2023 on room air 7.39/63/40 with serum bicarb greater than 40 since 05/25/2023.? I have no PFTs (3) Pneumonia: Code(s): J18.9 - Pneumonia, unspecified organism Status: Acute Assessment and Plan: He has bilat infiltrates, L>R, normal WBC without fever. He had a cough with clear thick sputum. Artur check CRP, procalcitonin, urine antigens for Legionella and Pneumococcus to assure that these common pathogens aren't missed. (4) Severe pulmonary hypertension: Code(s): I27.20 - Pulmonary hypertension, unspecified Status: Acute Assessment and Plan: echo 05/24/23 shows RVSP 84 mmHg, large RV, reduced RV function, preserved EF 65-70%. This is due to his COPD, may also be worsened by his dCHF, has not had ROBINA checked. I will send ROBINA to make sure that an unapprecaited autoimmune issue is not the cause of pulmonary hypertension. (5) Acute on chronic respiratory failure with hypoxia and hypercapnia: Code(s): J96.21 - Acute and chronic respiratory failure with hypoxia; J96.22 - Acute and chronic respiratory failure with hypercapnia Status: Acute Assessment and Plan: He has been on O2 since May discharge, using 3 L/min at home. Saturation drops with any activity. He will need re-evaluation before discharge. Plan Continue BiPAP, improved. Continue antibiotics. evaluation of pleural fluid; some results not back yet. He had a left thoracentesis with 1600 mL of dark fei fluid removed.? Three hundred forty-three white blood cells, neutrophils 12%, lymphocytes 86%, monocytes 2%.? Postprocedure chest x-ray with no pneumothorax and very small left pleural effusion.? Remainder of chemistry and micro specimens pending. continue eval of pulmonary hyperextension Subjective Date/time seen: 07/22/23 15:23 Interval history: hoisital follow up : ?Tera Cortez is an 87-year-old man with a moderate to large Left pleural effusion, COPD with acute on chronic hypercapnic hypoxemic respiratory failure using O2 at home, now on BiPAP 20/5 and 40%. He is alert, able to give a history, speech a little muffled w PAP mask on. He lives alone, in 2019 after living in a NH for a while with dementia. He smoked until his admission, went to rehab, discharged when he was failing to make progress.? He uses a rollator at home,., O2 3 L/min, is sedentary, cannot walk easily or use a microwave. He has been eating and drinking less. On Sunday, he fell; Angelika was in the next room, called 911;? EMS came to assist him to the chair. He was lightheaded, feeling sick, came to the hospital with increased shortness of breath, cough with clear thick sputum, no leg swelling or chest pain. Labs showed normal WBC, normal H/H, chemistries Jul 18 ABG was possibly venous pH 7.38, 63, 40 on room air; CXR showed bila
--- NOTE | 2023-07-22 15:42 | PM.IMPN ---
Progress Note: A&P Assessment and Plan (1) Acute respiratory failure with hypoxia and hypercapnia: Code(s): J96.01 - Acute respiratory failure with hypoxia; J96.02 - Acute respiratory failure with hypercapnia Status: Acute Assessment and Plan: oxygenation improving with thoracentesis , transitioned from BiPAP to [place] oxygen 1 liters this afternooon CTA chest showed left pleural effusion with emphysema titrate oxygen and monitor pulm following (2) Acute exacerbation of CHF (congestive heart failure): Code(s): I50.9 - Heart failure, unspecified Status: Acute Assessment and Plan: cardiac diet strict input and output restart Lasix and Spironolactone due to alkalosis, alkalosis due to compensation to resp acidosis Alkalosis likely from respiratory acidosis compensation continue oxygen titration Cardiology following Summary ? 1. Definity contrast administered improved wall motion interpretation. ? 2. Left ventricular chamber dimension is normal. ? 3. Left ventricular systolic function is normal, estimated at 65-70%. ? 4. The left ventricular diastolic function is grade I diastolic dysfunction. ? 5. Linear artifact in right ventricle suggestive of catheter(s), pacemaker lead(s), or ICD lead(s). ? 6. Right ventricular chamber dimension is moderately enlarged. ? 7. Right ventricular systolic function is moderately reduced. ? 8. Linear artifact in the right atrium suggestive of catheter(s), pacemaker lead(s), or ICD lead(s). ? 9. There is mild aortic valve sclerosis. ? 10. The mitral valve has moderately calcified annulus. ? 11. There is mild tricuspid valve regurgitation. ? 12. Severe pulmonary hypertension, estimated pulmonary arterial systolic pressure is 84 mmHg. ? 13. Dilated inferior vena cava with >50% collapse upon inspiration consistent with elevated right atrial pressure, 10 mmHg. ? 14. There is trivial pericardial effusion. ? 15. Large pleural effusion noted with large coagulated masses suggesting chronicity. (3) Pacemaker: Onset Date: 02/2020 Code(s): Z95.0 - Presence of cardiac pacemaker Status: Acute Assessment and Plan: Interrogate pacemaker as needed (4) Gait instability: Code(s): R26.81 - Unsteadiness on feet Status: Acute Assessment and Plan: Bed rest Fall precautions PT/OT (5) Severe pulmonary hypertension: Code(s): I27.20 - Pulmonary hypertension, unspecified Status: Acute Assessment and Plan: Patient on chronic supplemental oxygen at home by nasal cannula, 1.5 L oxygen now on BiPAP (6) COPD with emphysema: Qualifiers: Emphysema type: unspecified Qualified Code(s): J43.9 - Emphysema, unspecified Code(s): J43.9 - Emphysema, unspecified Status: Acute Assessment and Plan: Breathing treatments q.4 hours Methylprednisone 40mg bid titrate oxygen pulm following (7) Sleep apnea: Code(s): G47.30 - Sleep apnea, unspecified Status: Acute Assessment and Plan: Currently on BiPAP (8) Pneumonia: Code(s): J18.9 - Pneumonia, unspecified organism Status: Acute Assessment and Plan: CXR showed bilateral infiltrates Blood culture and mRSA PCR Day 2 Cefepime and Doxycycline monitor (9) Pleural effusion, left: Code(s): J90 - Pleural effusion, not elsewhere classified Status: Acute Assessment and Plan: s/p thoracentesis and pleural fluid studies pending (10) PAF (paroxysmal atrial fibrillation): Code(s): I48.0 - Paroxysmal atrial fibrillation Status: Acute Assessment and Plan: on Amiodarone anticoagulation per cardiology cardiology following Plan DVT prophylaxis Sq lovenox Subjective Date/time seen: 07/22/23 15:42 Interval history: He is lethargic this morning on BiPAP. came off BiPAP this afternoon after thoracentesis Abg showed primary respiratory acidosis improving C
[2023-07-22 16:07] LABS: Alveolar/Arterial O2 Gradient 38.7 mmHg; Base Excess ABG 11.8 mEq/l (+/-2.0); Device NASAL CANNULA; Fractional Inspired Oxygen 24 %; HCO3 ABG 37.5 mEq/l (22.0-26.0); Modified Allen's Test Pass; Oxygen Content ABG 19.1 %vol (16.0-22.0); Oxygen Saturation ABG 94.8 % (95.0-100.0); Oxyhemoglobin 93.8 % THb (90.0-100.0); PCO2 ABG 52.4 mmHg (35.0-45.0); PO2 ABG 70.1 mmHg (80.0-100.0); PO2 FiO2 Ratio Arterial Blood 2.92 %; Site Drawn LEFT RADIAL; Total Hemoglobin 14.5 g/dL (12.0-18.0); pH ABG 7.473 (7.350-7.450)
[2023-07-22] MEDS: FUROSEMIDE INJ 40 MG/4 ML VIAL 20 MG IV PUSH (16:51)
[2023-07-22] MEDS: ALBUMIN HUMAN 25% 25 GM/100 ML 100 ML IVPB (16:51)
[2023-07-22] MEDS: METOPROLOL TARTRATE 12.5 MG TABLET PO (21:15)
[2023-07-23] VITALS (24 sets, daily range): BP systolic 98–115; BP diastolic 43–58; PULSE 67–90; RESP 17–27; TEMP 36.1–36.6; O2SAT 94–99
[2023-07-23] MEDS: CEFEPIME 2 GM/NS 50 ML 2 GM/50 ML BAG IVPB ×2 (00:04→12:27)
[2023-07-23] MEDS: LEVALBUTEROL NEB 1.25 MG/3 ML INHALATION ×3 (01:52→20:04)
[2023-07-23] MEDS: IPRATROPIUM BR 0.02% INH SOLN 0.5 MG/2.5 ML VIAL INHALATION ×3 (01:52→20:00)
[2023-07-23 04:18] LABS: Basophils Percent Auto 0.1 % (0.2-1.2); Hematocrit 41.9 % (42.0-52.0); Immature Granulocyte Absolute 0.05 K/mm3 (0.00-0.031); Immature Granulocyte Percent A 0.5 % (0-0.5); Lymphocytes Percent Auto 2.1 % (18.3-44.2); Mean Corpuscular Volume 106.3 fl (80-100); Mean Platelet Volume 10.2 fl (7.4-10.4); Monocytes Absolute Auto 0.2 K/mm3 (0.1-0.6); Monocytes Percent Auto 2.6 % (2.6-8.5); Neutrophils Absolute Auto 8.8 K/mm3 (1.3-6.7); Neutrophils Percent Auto 94.7 % (45.5-73.1); Platelet Count Result 171 k/mm3 (150-375); Red Blood Count 3.94 M/mm3 (4.6-6.20); Red Cell Distribution Width 18.6 % (11.5-14.5); White Blood Count 9.3 K/mm3 (4.5-10.0)
[2023-07-23 04:32] LABS: Alanine Aminotransferase 50 U/L (6-50); Albumin Level 3.3 g/dL (3.5-5.1); Alkaline Phosphatase 95 U/L (38-126); Anion Gap 2 mmol/L (8-16); Aspartate Amino Transferase 57 U/L (17-59); Bilirubin,Total 0.8 mg/dL (0.2-1.3); Blood Urea Nitrogen 39 mg/dL (9-20); Calcium 8.6 mg/dL (8.4-10.2); Carbon Dioxide 39 mmol/L (22-30); Chloride 96 mmol/L (98-107); Estimated CRCL calculation 57 ml/min; Estimated Glomerular Filt Rate > 60; Glucose 130 mg/dL (65-110); Magnesium 2.2 mg/dL (1.6-2.3); Potassium 4.2 mmol/L (3.4-5.0); Sodium 137 mmol/L (137-145)
[2023-07-23 04:33] LABS: Lactic Acid Reflex 1.4 mmol/L (0.7-2.0)
[2023-07-23 04:41] LABS: Fractional Inspired Oxygen 35 %; HCO3 ABG 38.6 mEq/l (22.0-26.0); Oxygen Content ABG 19.1 %vol (16.0-22.0); Oxyhemoglobin 95.8 % THb (90.0-100.0); PO2 ABG 90.1 mmHg (80.0-100.0); PO2 FiO2 Ratio Arterial Blood 2.57 %; Total Hemoglobin 14.1 g/dL (12.0-18.0); pH ABG 7.441 (7.350-7.450)
[2023-07-23 04:42] LABS: Device NON-INVASIVE VENT; Modified Allen's Test Pass; Site Drawn LEFT RADIAL
[2023-07-23 04:43] LABS: Non-Invasive Expiratory Pressure 5 CMH2O; Non-Invasive Inspiratory Pressure 16 CMH2O; Non-Invasive Vent Rate 20 /MIN
[2023-07-23 04:43] LABS: Anisocytosis 1+ (NORMAL); Hypochromasia 1+ (NORMAL); Platelet Estimate Adequate (Adequate); Schistocytes None Seen (NORMAL)
[2023-07-23] MEDS: AMIODARONE 360 MG/D5W 200 ML 360 MG/200 ML BAG 16.67 MG IV CONT (05:18)
--- NOTE | 2023-07-23 07:52 | PM.PNCARD ---
Progress Note: A&P Assessment and Plan (1) Diastolic heart failure: Code(s): I50.30 - Unspecified diastolic (congestive) heart failure Status: Acute Assessment and Plan: Acute on chronic diastolic HF in setting of severe pulm hypertension. NTproBNP 8,620 which is improved compared to last hospitalization. On Jardiance 10 mg daily. Pulmonology consulted with Dr. Carson. Appreciate her note. Had left thoracentesis 07/22/23 given large pleural effusion with near complete collapse of left lower lobe and not being diuresed aggressively given metabolic alkalosis. Back on Lasix 20 mg IV BID to prevent recurrence of pleural effusions. (2) Pacemaker: Onset Date: 02/2020 Code(s): Z95.0 - Presence of cardiac pacemaker Status: Acute Assessment and Plan: [employer]. Stable. (3) Severe pulmonary hypertension: Code(s): I27.20 - Pulmonary hypertension, unspecified Status: Acute (4) COPD with emphysema: Qualifiers: Emphysema type: unspecified Qualified Code(s): J43.9 - Emphysema, unspecified Code(s): J43.9 - Emphysema, unspecified Status: Acute (5) PAF (paroxysmal atrial fibrillation): Code(s): I48.0 - Paroxysmal atrial fibrillation Status: Acute Assessment and Plan: Back in sinus rhythm. New onset on 07/20/23. Amiodarone drip started and restored sinus rhythm. He is to have swallow study today. Stop Amiodarone drip. If has recurrence of atrial fib will resume Amiodarone drip. He is on Metoprolol now that he was not on prior to new onset atrial fibrillation. Subjective Date/time seen: 07/23/23 07:52 Interval history: He is not lethargic this morning and off BiPAP. Has sob. No chest pains. Exam Const: General: cooperative, healthy appearing, comfortable and lethargic Orientation/consciousness: oriented to person, oriented to place, oriented to time and lethargic Resp: Auscultation: no crackles, no rales, no rhonchi, no wheezes and diminished lung sounds Cardio: Rate: regular rate Rhythm: regular rhythm Heart sounds: no murmurs Peripheral pulses: dorsalis pedis present Neuro: General: oriented to person, oriented to place and oriented to time Extrem: Right lower extremity: no edema Left lower extremity: no edema Objective Data Vital Signs Vital Signs: Vital Signs - 24 hr 07/22/23 08:00 07/22/23 08:45 07/22/23 08:37 Temperature 98.1 F Pulse Rate 80 80 Respiratory Rate 23 H 21 H Blood Pressure 107/60 Pulse Oximetry 98 94 Oxygen Delivery BiPAP Oxygen Flow Rate Fraction of Inspired Oxygen 45 07/22/23 08:46 07/22/23 08:49 07/22/23 08:00 Temperature Pulse Rate 88 82 Respiratory Rate 23 H 22 H Blood Pressure Pulse Oximetry 95 Oxygen Delivery BiPAP BiPAP Oxygen Flow Rate Fraction of Inspired Oxygen 40 07/22/23 12:36 07/22/23 12:00 07/22/23 13:25 Temperature 97.9 F Pulse Rate 86 78 Respiratory Rate 24 H 18 Blood Pressure 132/69 Pulse Oximetry 94 100 Oxygen Delivery Nasal Cannula Oxygen Flow Rate 2 Fraction of Inspired Oxygen 07/22/23 17:06 07/22/23 08:00 07/22/23 10:00 Temperature Pulse Rate 98 87 90 Respiratory Rate Blood Pressure Pulse Oximetry Oxygen Delivery Oxygen Flow Rate Fraction of Inspired Oxygen 07/22/23 12:00 07/22/23 14:00 07/22/23 16:00 Temperature Pulse Rate 88 89 88 Respiratory Rate Blood Pressure Pulse Oximetry Oxygen Delivery Oxygen Flow Rate Fraction of Inspired Oxygen 07/22/23 12:00 07/22/23 16:00 07/22/23 16:00 Temperature 97.9 F Pulse Rate 79 Respiratory Rate 16 Blood Pressure 121/53 L Pulse Oximetry 94 97 Oxygen Delivery BiPAP Nasal Cannula Oxygen Flow Rate 2 Fraction of Inspired Oxygen 40 07/22/23 18:00 07/22/23 20:00 07/22/23 20:54 Temperature 98.1 F Pulse Rate 96 95 87 Respiratory Rate 24 H 20 Blood Pressure 110/48 L Pulse Oximetry 94 O
[2023-07-23 08:34] LABS: Lactate Dehydrogenase 187 U/L (120-246)
[2023-07-23 08:44] LABS: NT Pro B Type Natriuretic Pept 1460 pg/mL (19.9-100)
[2023-07-23] MEDS: METOPROLOL TARTRATE 12.5 MG TABLET PO ×2 (08:58→21:12)
[2023-07-23] MEDS: EMPAGLIFLOZIN 10 MG TABLET PO (08:59)
[2023-07-23] MEDS: FUROSEMIDE INJ 40 MG/4 ML VIAL 20 MG IV PUSH ×2 (08:59→17:55)
[2023-07-23] MEDS: ASPIRIN 81 MG CHEWABLE TABLET PO (08:59)
[2023-07-23] MEDS: methylPREDNISolone SOD SUCC 40 MG VIAL IV PUSH (09:10)
[2023-07-23] MEDS: BUDESONIDE RESPULE NEB 0.5 MG/2 ML AMP INHALATION ×2 (09:28→20:01)
--- NOTE | 2023-07-23 10:27 | PM.IMPN ---
Progress Note: A&P Assessment and Plan (1) Acute on chronic respiratory failure with hypoxia and hypercapnia: Code(s): J96.21 - Acute and chronic respiratory failure with hypoxia; J96.22 - Acute and chronic respiratory failure with hypercapnia Status: Acute (2) Pleural effusion, left: Code(s): J90 - Pleural effusion, not elsewhere classified Status: Acute (3) Pneumonia: Code(s): J18.9 - Pneumonia, unspecified organism Status: Acute (4) PAF (paroxysmal atrial fibrillation): Code(s): I48.0 - Paroxysmal atrial fibrillation Status: Acute (5) Diastolic heart failure: Code(s): I50.30 - Unspecified diastolic (congestive) heart failure Status: Acute (6) Acute respiratory failure with hypoxia and hypercapnia: Code(s): J96.01 - Acute respiratory failure with hypoxia; J96.02 - Acute respiratory failure with hypercapnia Status: Acute (7) Diastolic dysfunction: Code(s): I51.89 - Other ill-defined heart diseases Status: Acute (8) Hypertension: Code(s): I10 - Essential (primary) hypertension Status: Acute (9) Acute exacerbation of CHF (congestive heart failure): Code(s): I50.9 - Heart failure, unspecified Status: Acute (10) Severe pulmonary hypertension: Code(s): I27.20 - Pulmonary hypertension, unspecified Status: Acute Plan Assessment and Plan (1) Diastolic heart failure: ?Code(s): I50.30 - Unspecified diastolic (congestive) heart failure ?Status:?Acute ?Assessment and Plan: Acute on chronic diastolic HF in setting of severe pulm hypertension. NTproBNP 8,620 which is improved compared to last hospitalization. On Jardiance 10 mg daily. Pulmonology consulted with Dr. Carson. Appreciate her note. Had left thoracentesis 07/22/23 given large pleural effusion with near complete collapse of left lower lobe and not being diuresed aggressively given metabolic alkalosis. Back on Lasix 20 mg IV BID to prevent recurrence of pleural effusions. 07/23: Will eventually need to be transitioned to oral lasix, probably 40 mg bid or qd On metoprolol 12.5 bid, empaglofizin 10 qd, aldactone 25 qd which may not be needed for his diastolic chf bnp now 1460. still needs diuresis, but closer to euvolemic. recommend switching from iv to po diuretics. Only an off label use of aldactone for his diastolic heart disease which is not very severe. Will drop to 12.5 mg/day aldactone 2. Severe R sided heart failure on echo Likely from pulm htn from his chronic hypoxemic state. Echo does not have very severe diastolic dysfunction Summary ? 1. Definity contrast administered improved wall motion interpretation. ? 2. Left ventricular chamber dimension is normal. ? 3. Left ventricular systolic function is normal, estimated at 65-70%. ? 4. The left ventricular diastolic function is grade I diastolic dysfunction. ? 5. Linear artifact in right ventricle suggestive of catheter(s), pacemaker lead(s), or ICD lead(s). ? 6. Right ventricular chamber dimension is moderately enlarged. ? 7. Right ventricular systolic function is moderately reduced. ? 8. Linear artifact in the right atrium suggestive of catheter(s), pacemaker lead(s), or ICD lead(s). ? 9. There is mild aortic valve sclerosis. ? 10. The mitral valve has moderately calcified annulus. ? 11. There is mild tricuspid valve regurgitation. ? 12. Severe pulmonary hypertension, estimated pulmonary arterial systolic pressure is 84 mmHg. ? 13. Dilated inferior vena cava with >50% collapse upon inspiration consistent with elevated right atrial pressure, 10 mmHg. ? 14. There is trivial pericardial effusion. ? 15. Large pleural effusion noted with large coagulated masses suggesting chronicity. (3) Pacemaker: ?Onset Date:?02/2020 ?Code(s): Z95.0 - Presence of cardiac pacemaker ?Status:?Acute ?Assessment and Plan: [employer]. Stable. (4) Severe pulmonary hypertension: ?Code(s)
--- NOTE | 2023-07-23 10:32 | PM.PNPUL ---
Progress Note: A&P Assessment and Plan (1) COPD with emphysema: Qualifiers: Emphysema type: unspecified Qualified Code(s): J43.9 - Emphysema, unspecified Code(s): J43.9 - Emphysema, unspecified Status: Acute Assessment and Plan: Patient with 48 pack year tobacco use, quit 05/23/2023, chronic hypercarbic and hypoxemic respiratory failure on 3 L nasal cannula at home. CT scan of the chest on 07/20/2023 with severe panlobular emphysema apices greater than bases. ABG on 07/18/2023 on room air 7.39/63/40 with serum bicarb greater than 40 since 05/25/2023. I have no PFTs. Patient has COPD with chronic hypoxemic and hypercarbic respiratory failure. Patient would benefit from a noninvasive ventilator to prevent further deterioration and subsequent hospitalizations. 07/23/23: Patient has no wheezes on exam. I do not see that wheezes were documented during this hospitalization. He is currently being treated for COPD exacerbation as well as fluid overload. Plan: I will continue levalbuterol 1.25 mg nebulized q.6 hours, ipratropium 0.5 mg nebulized q.6 hours. I will continue budesonide 0.5 mg b.i.d.. I will change to prednisone 40 mg PO Q day starting today. Today is day 3 of steroids and will plan for 5 days total. Goal saturation 90-94%. Patient will need a formal home O2 assessment prior to discharge. Will follow with you. (2) Acute respiratory failure with hypoxia and hypercapnia: Code(s): J96.01 - Acute respiratory failure with hypoxia; J96.02 - Acute respiratory failure with hypercapnia Status: Acute Assessment and Plan: Patient has COPD with chronic hypoxemic and hypercarbic respiratory failure. Patient would benefit from a noninvasive ventilator to prevent further deterioration and subsequent hospitalizations. patient has difficulty wearing the BiPAP, he says that the mask leaks and gives him sore lips and nose. Patient wore BiPAP rate of 20, pressure 16/5 and 35% last night with a blood gas prior to removal of 7.44/58/90 (ABG 07/22/2023 at 3:56 p.m. on 3 L nasal cannula 7.47/52/70). The patient has failed BiPAP due to clinical issues as well as is suboptimal blood gas. Plan: I will place the patient on noninvasive ventilator with the AVAPS mode rate of 20, tidal volume 500, EPAP 5, minimal inspiratory pressure 6, maximal inspiratory pressure 25, inspiratory time 1.0, rise of 3 and 32% FiO2. I will obtain an ABG and an overnight oximetry on these studies. We will perform a mask refit to try to adjust his mask so it is more comfortable for him. I have initiated the process to obtain a home noninvasive ventilator for this patient. (3) Pleural effusion, left: Code(s): J90 - Pleural effusion, not elsewhere classified Status: Acute Assessment and Plan: 07/22/2023: Patient had a left thoracentesis with 1600 bird mL of dark fei fluid removed. Three hundred forty-three white blood cells, neutrophils 12%, lymphocytes 86%, monocytes 2%. Postprocedure chest x-ray with no pneumothorax and very small left pleural effusion. Remainder of chemistry and micro specimens pending. 07/23: Repeat chest x-ray today shows small bilateral pleural effusions with no rapid reaccumulation of his left-sided pleural effusion. Plan: Await chemistries and microbiology CT results. I have called cytology and I have ordered cytology on the pleural fluids. No evidence of an empyema at this point. Agree with ceftriaxone and doxycycline pending culture results. Subjective Date/time seen: 07/23/23 10:32 Interval history: 07/21/23: New consult Requesting physician: Alex Allred DO Chief complaint: Pleural effusion Narrative: patient was seen 07/21 at 13:10, and I returned 15:50 when his step daughters were present; they helped with the history, mulu Angelika who spends significant time with him at home NEW:?Tera Cortez is an 87-year-old man with a moderate to large Left pleural effusion
--- NOTE | 2023-07-23 11:10 | PCRCNOTE ---
FAXED PAPERWORK TO AILYN AT [facility] FOR APPROVAL FOR HOME TRILOGY NIV. AWAITING ORDER FORM FOR DR PALMER TO SIGN AND APPROVAL.
[2023-07-23] MEDS: DOXYCYCLINE 100 MG/NS 100 ML 100 MG/100 ML BAG IVPB (11:25)
[2023-07-23] MEDS: predniSONE 20 MG TABLET 40 MG PO (11:25)
[2023-07-23] MEDS: ALPRAZolam (*CRX) 0.5 MG TABLET 1 MG PO (11:30)
--- NOTE | 2023-07-23 13:08 | PC.NURSE ---
Addendum entered by Zee Phillips RN 07/23/23 13:09: Pt's POA (Jailene Gann, notified of pt being moved to new room Original Note: This patient, Tera Cortez, was transferred to [ [facility]] on 07/23/23 at 1308. Personal belongings sent with patient. Report given to [HÉCTOR Womack @ 1300 ]. Appropriate documentation sent with patient.
[2023-07-24] VITALS (18 sets, daily range): BP systolic 92–127; BP diastolic 44–65; PULSE 14–89; RESP 14–28; TEMP 36.4–36.9; O2SAT 92–100
[2023-07-24] MEDS: DOXYCYCLINE 100 MG/NS 100 ML 100 MG/100 ML BAG IVPB ×3 (00:25→22:33)
[2023-07-24] MEDS: CEFEPIME 2 GM/NS 50 ML 2 GM/50 ML BAG IVPB ×3 (01:28→23:32)
[2023-07-24 05:57] LABS: Alveolar/Arterial O2 Gradient 53.9 mmHg; Base Excess ABG 11.8 mEq/l (+/-2.0); Fractional Inspired Oxygen 30 %; HCO3 ABG 39.8 mEq/l (22.0-26.0); Oxygen Saturation ABG 96.9 % (95.0-100.0); Oxyhemoglobin 95.6 % THb (90.0-100.0); PO2 ABG 89.3 mmHg (80.0-100.0); PO2 FiO2 Ratio Arterial Blood 2.98 %; Total Hemoglobin 20.1 g/dL (12.0-18.0)
[2023-07-24 05:59] LABS: PCO2 ABG 60.2 mmHg (35.0-45.0)
[2023-07-24 06:00] LABS: Device BIPAP; Modified Allen's Test Pass; Site Drawn LEFT RADIAL
[2023-07-24 06:03] LABS: pH ABG 7.438 (7.350-7.450)
[2023-07-24 06:04] LABS: Expiratory Pressure 5 cmH2O
[2023-07-24] MEDS: LEVALBUTEROL NEB 1.25 MG/3 ML INHALATION ×3 (07:55→20:20)
[2023-07-24] MEDS: BUDESONIDE RESPULE NEB 0.5 MG/2 ML AMP INHALATION ×2 (07:55→20:20)
[2023-07-24] MEDS: IPRATROPIUM BR 0.02% INH SOLN 0.5 MG/2.5 ML VIAL INHALATION ×3 (07:55→20:20)
--- NOTE | 2023-07-24 08:04 | PM.PNCARD ---
Progress Note: A&P Assessment and Plan (1) Diastolic heart failure: Code(s): I50.30 - Unspecified diastolic (congestive) heart failure Status: Acute Assessment and Plan: Acute on chronic diastolic HF in setting of severe pulm hypertension. NTproBNP 8,620 which is improved compared to last hospitalization. On Jardiance 10 mg daily. Pulmonology consulted with Dr. Carson. Appreciate her note. Had left thoracentesis 07/22/23 removing 1.6 liters of fluid given large pleural effusion with near complete collapse of left lower lobe and not being diuresed aggressively given metabolic alkalosis. Back on Lasix 20 mg IV BID and Spironolactone 12.5 mg daily to prevent recurrence of pleural effusions. Change Lasix to 40 mg PO daily. (2) Pacemaker: Onset Date: 02/2020 Code(s): Z95.0 - Presence of cardiac pacemaker Status: Acute Assessment and Plan: [employer]. Stable. (3) Severe pulmonary hypertension: Code(s): I27.20 - Pulmonary hypertension, unspecified Status: Acute (4) COPD with emphysema: Qualifiers: Emphysema type: unspecified Qualified Code(s): J43.9 - Emphysema, unspecified Code(s): J43.9 - Emphysema, unspecified Status: Acute (5) PAF (paroxysmal atrial fibrillation): Code(s): I48.0 - Paroxysmal atrial fibrillation Status: Acute Assessment and Plan: Back in sinus rhythm. New onset on 07/20/23. Amiodarone drip started and restored sinus rhythm. He is to have swallow study today. Stopped Amiodarone drip. On Amiodarone 200 mg PO BID for 1 week then 200 mg daily. He is on low dose Metoprolol tartate 12.5 mg BID as he has soft BP. Check EKG on Amiodarone. Subjective Date/time seen: 07/24/23 08:04 Interval history: He is doing better today. Denies chest pain or sob. Exam Const: General: cooperative, healthy appearing, comfortable and lethargic Orientation/consciousness: oriented to person, oriented to place, oriented to time and lethargic Resp: Auscultation: no crackles, no rales, no rhonchi, no wheezes and diminished lung sounds Cardio: Rate: regular rate Rhythm: regular rhythm Heart sounds: no murmurs Peripheral pulses: dorsalis pedis present Neuro: General: oriented to person, oriented to place and oriented to time Extrem: Right lower extremity: no edema Left lower extremity: no edema Objective Data Vital Signs Vital Signs: Vital Signs - 24 hr 07/23/23 08:58 07/23/23 09:25 07/23/23 10:00 Temperature Pulse Rate 90 75 87 Respiratory Rate 20 Blood Pressure Pulse Oximetry Oxygen Delivery Oxygen Flow Rate 07/23/23 12:00 07/23/23 12:00 07/23/23 13:44 Temperature 97.3 F L 97.5 F L Pulse Rate 89 88 85 Respiratory Rate 20 17 Blood Pressure 98/43 L 98/49 L Pulse Oximetry 95 95 Oxygen Delivery Oxygen Flow Rate 07/23/23 17:56 07/23/23 16:00 07/23/23 20:08 Temperature Pulse Rate 80 79 78 Respiratory Rate 20 Blood Pressure Pulse Oximetry Oxygen Delivery Oxygen Flow Rate 07/23/23 20:22 07/23/23 21:12 07/23/23 20:00 Temperature Pulse Rate 79 67 Respiratory Rate 20 Blood Pressure Pulse Oximetry 95 Oxygen Delivery High Flow Nasal Cannula Oxygen Flow Rate 1 07/23/23 23:13 07/23/23 21:00 07/24/23 00:00 Temperature 98.0 F Pulse Rate 69 89 Respiratory Rate 25 H 16 Blood Pressure 106/65 Pulse Oximetry 97 94 96 Oxygen Delivery BiPAP Nasal Cannula Oxygen Flow Rate 2 07/23/23 20:00 07/24/23 03:03 07/24/23 07:43 Temperature 98.4 F Pulse Rate 83 76 Respiratory Rate 28 H 16 Blood Pressure 127/65 Pulse Oximetry 96 100 Oxygen Delivery BiPAP Oxygen Flow Rate 07/24/23 07:55 Temperature Pulse Rate 75 Respiratory Rate 20 Blood Pressure Pulse Oximetry Oxygen Delivery Oxygen Flow Rate Intake/Output Intake/Output: Intake & Output 07/21/23 07/22/23 07/23/23 07/24/23 23:59 23:59 23:59 23:59 In
--- NOTE | 2023-07-24 08:07 | ECG_ITS ---
Measurements Intervals Jackson Rate: 83 P: 60 MA: 167 QRS: 161 QRSD: 129 T: 48 QT: 400 QTc: 471 Interpretive Statements SINUS RHYTHM WITH SINUS ARRHYTHMIA RIGHT AXIS DEVIATION POSSIBLE LEFT ATRIAL ENLARGEMENT RIGHT BUNDLE BRANCH BLOCK CANNOT RULE OUT SEPTAL INFARCT, AGE INDETERMINATE BASELINE WANDER- I, III, AVL, V3 ABNORMAL ECG COMPARED TO ECG 07/21/2023 08:01:39 SINUS ARRHYTHMIA NOW PRESENT Electronically Signed On 07-25-2023 6:49:20 CDT by Alex Allred D.O.
[2023-07-24] MEDS: ACETAMINOPHEN 325 MG TABLET 650 MG PO ×2 (09:12→20:54)
[2023-07-24] MEDS: FUROSEMIDE 40 MG TABLET PO (09:13)
[2023-07-24] MEDS: METOPROLOL TARTRATE 12.5 MG TABLET PO (09:15)
[2023-07-24] MEDS: ENOXAPARIN 40 MG/0.4 ML SYRINGE SUB-Q (09:15)
[2023-07-24] MEDS: AMIODARONE HCL 200 MG TABLET PO ×2 (09:17→18:18)
[2023-07-24] MEDS: SPIRONOLACTONE 12.5 MG TABLET PO (09:17)
[2023-07-24] MEDS: EMPAGLIFLOZIN 10 MG TABLET PO (09:18)
[2023-07-24] MEDS: predniSONE 20 MG TABLET 40 MG PO (09:19)
[2023-07-24] MEDS: ASPIRIN 81 MG CHEWABLE TABLET PO (09:20)
[2023-07-24] MEDS: ALPRAZolam (*CRX) 0.5 MG TABLET 1 MG PO ×2 (09:41→20:54)
--- NOTE | 2023-07-24 09:49 | PM.PNPUL ---
Progress Note: A&P Assessment and Plan (1) COPD with emphysema: Qualifiers: Emphysema type: unspecified Qualified Code(s): J43.9 - Emphysema, unspecified Code(s): J43.9 - Emphysema, unspecified Status: Acute Assessment and Plan: Patient with 48 pack year tobacco use, quit 05/23/2023, chronic hypercarbic and hypoxemic respiratory failure on 3 L nasal cannula at home. CT scan of the chest on 07/20/2023 with severe panlobular emphysema apices greater than bases. ABG on 07/18/2023 on room air 7.39/63/40 with serum bicarb greater than 40 since 05/25/2023. I have no PFTs. Patient has COPD with chronic hypoxemic and hypercarbic respiratory failure. Patient would benefit from a noninvasive ventilator to prevent further deterioration and subsequent hospitalizations. 07/23/23: Patient has no wheezes on exam. I do not see that wheezes were documented during this hospitalization. He is currently being treated for COPD exacerbation as well as fluid overload. Plan: I will continue levalbuterol 1.25 mg nebulized q.6 hours, ipratropium 0.5 mg nebulized q.6 hours. I will continue budesonide 0.5 mg b.i.d.. I will change to prednisone 40 mg PO Q day starting today. Today is day 3 of steroids and will plan for 5 days total. Goal saturation 90-94%. Patient will need a formal home O2 assessment prior to discharge. 07/24: Patient tells me he has improved since yesterday. Patient is on 2 L nasal cannula saturations 94%. He has no wheezing. Plan: I will change the patient's nebulizers to inhaled Anoro Ellipta 62.5-25 at 1 puff q.day. I will continue prednisone 40 mg p.o. q.day, day 4 of 5. Goal saturation 90-94%. Discussed [facility] Dr. Armas. Will follow with you. (2) Acute respiratory failure with hypoxia and hypercapnia: Code(s): J96.01 - Acute respiratory failure with hypoxia; J96.02 - Acute respiratory failure with hypercapnia Status: Acute Assessment and Plan: Patient has COPD with chronic hypoxemic and hypercarbic respiratory failure. Patient would benefit from a noninvasive ventilator to prevent further deterioration and subsequent hospitalizations. patient has difficulty wearing the BiPAP, he says that the mask leaks and gives him sore lips and nose. Patient wore BiPAP rate of 20, pressure 16/5 and 35% last night with a blood gas prior to removal of 7.44/58/90 (ABG 07/22/2023 at 3:56 p.m. on 3 L nasal cannula 7.47/52/70). The patient has failed BiPAP due to clinical issues as well as is suboptimal blood gas. Plan: I will place the patient on noninvasive ventilator with the AVAPS mode rate of 20, tidal volume 500, EPAP 5, minimal inspiratory pressure 6, maximal inspiratory pressure 25, inspiratory time 1.0, rise of 3 and 32% FiO2. I will obtain an ABG and an overnight oximetry on these studies. We will perform a mask refit to try to adjust his mask so it is more comfortable for him. I have initiated the process to obtain a home noninvasive ventilator for this patient. 07/24: Patient wore the hospital noninvasive ventilator with the AVAPS mode rate of 20, tidal volume 500, EPAP 5, minimal inspiratory pressure 6, maximal inspiratory pressure 25, inspiratory time 1.0, rise of 3 with 30% FiO2. Patient had an overnight oximetry on these settings with a average saturation of 95%, low saturation 72%, time with saturation less than or equal to 88% was 39 minutes and his oxygen desaturation index was 1.9. ABG prior to removal of the mask was a pH of 7.44/60/89. Patient has a very erythematous bridge of the nose from the fullface mask. Plan: We will obtain an under the nose over the mouth mask for his noninvasive ventilator tonight. I will increase his respiratory rate and increase his tidal volume to 550 to increase his minute ventilation. I will increase his FiO2 to 36%. I will repeat an overnight oximetry on 36% and ABG prior to removal of the mask. I have initiated a home noninvasive face if ventila
--- NOTE | 2023-07-24 11:26 | PCSTNOTE ---
Therapist spoke with Dr. Armas about ordering Modified Barium Swallow study to assess need for thickener prior to discharge. Dr. Armas was in agreement; nursing notified.
--- NOTE | 2023-07-24 11:53 | PCNFU ---
Nutrition Follow-Up Complete: Moderate protein calorie malnutrition related to inadequate energy inake and reduced appetite as evidenced by significant weight loss of -14% noted in EMR, low BMI of 17.5, poor po intake. Goal:PO intake 50% or greater for meals and supplements Pt is meeting goal, continue with same goal. Pt current nutrition is Pureed level 4, regular, mildly thick liquids, Ensure compact TID. Nutrition recommendation: continue with current plan of care. Last recorded weight is 59.5 kg. Bowel Motility: +BM 07/24 Labs Reviewed: Hgb:13, HCt:41.9, Alb:3.3, BUN:39, Glu:130 Meds Noted: jardiance, lovenox, lasix Skin: maceration to buttocks Additional Notes: Pt is now on a pureed level 4 regular diet, mildly thick liquids. Intake 50-100% of meals, plus supplements as ordered. Continue to encourage po intake. Monitor intake, wt, labs. Follow up in 5 days.
--- NOTE | 2023-07-24 15:03 | PCSTNOTE ---
Please refer to the Bedside Swallow Evaluation in the EMR. Please note, silent aspiration cannot be ruled out at bedside.
[2023-07-24] MEDS: DEXTROSE 5%/0.45% SOD CHL 1,000 ML 75 ML IV CONT (18:18)
--- NOTE | 2023-07-24 20:34 | PM.IMPN ---
Progress Note: A&P Assessment and Plan (1) Acute on chronic respiratory failure with hypoxia and hypercapnia: Code(s): J96.21 - Acute and chronic respiratory failure with hypoxia; J96.22 - Acute and chronic respiratory failure with hypercapnia Status: Acute (2) Pleural effusion, left: Code(s): J90 - Pleural effusion, not elsewhere classified Status: Acute (3) Pneumonia: Code(s): J18.9 - Pneumonia, unspecified organism Status: Acute (4) PAF (paroxysmal atrial fibrillation): Code(s): I48.0 - Paroxysmal atrial fibrillation Status: Acute (5) Diastolic heart failure: Code(s): I50.30 - Unspecified diastolic (congestive) heart failure Status: Acute (6) Acute respiratory failure with hypoxia and hypercapnia: Code(s): J96.01 - Acute respiratory failure with hypoxia; J96.02 - Acute respiratory failure with hypercapnia Status: Acute (7) Diastolic dysfunction: Code(s): I51.89 - Other ill-defined heart diseases Status: Acute (8) Elevated troponin: Code(s): R77.8 - Other specified abnormalities of plasma proteins Status: Acute (9) Hypertension: Code(s): I10 - Essential (primary) hypertension Status: Acute Plan 1) Diastolic heart failure: ?Code(s): I50.30 - Unspecified diastolic (congestive) heart failure ?Status:?Acute ?Assessment and Plan: Acute on chronic diastolic HF in setting of severe pulm hypertension. NTproBNP 8,620 which is improved compared to last hospitalization. On Jardiance 10 mg daily. Pulmonology consulted with Dr. Carson. Appreciate her note. Had left thoracentesis 07/22/23 given large pleural effusion with near complete collapse of left lower lobe and not being diuresed aggressively given metabolic alkalosis. Back on Lasix 20 mg IV BID to prevent recurrence of pleural effusions. 07/23: Will eventually need to be transitioned to oral lasix, probably 40 mg bid or qd On metoprolol 12.5 bid, empaglofizin 10 qd, aldactone 25 qd which may not be needed for his diastolic chf bnp now 1460. still needs diuresis, but closer to euvolemic. recommend switching from iv to po diuretics. Only an off label use of aldactone for his diastolic heart disease which is not very severe. Will drop to 12.5 mg/day aldactone 07/24: lasix PO 40 /day. Being followed by cardiology. 2. Severe R sided heart failure on echo Likely from pulm htn from his chronic hypoxemic state. Echo does not have very severe diastolic dysfunction Summary ? 1. Definity contrast administered improved wall motion interpretation. ? 2. Left ventricular chamber dimension is normal. ? 3. Left ventricular systolic function is normal, estimated at 65-70%. ? 4. The left ventricular diastolic function is grade I diastolic dysfunction. ? 5. Linear artifact in right ventricle suggestive of catheter(s), pacemaker lead(s), or ICD lead(s). ? 6. Right ventricular chamber dimension is moderately enlarged. ? 7. Right ventricular systolic function is moderately reduced. ? 8. Linear artifact in the right atrium suggestive of catheter(s), pacemaker lead(s), or ICD lead(s). ? 9. There is mild aortic valve sclerosis. ? 10. The mitral valve has moderately calcified annulus. ? 11. There is mild tricuspid valve regurgitation. ? 12. Severe pulmonary hypertension, estimated pulmonary arterial systolic pressure is 84 mmHg. ? 13. Dilated inferior vena cava with >50% collapse upon inspiration consistent with elevated right atrial pressure, 10 mmHg. ? 14. There is trivial pericardial effusion. ? 15. Large pleural effusion noted with large coagulated masses suggesting chronicity. 07/24: on po lasix 40 /day (3) Pacemaker: ?Onset Date:?02/2020 ?Code(s): Z95.0 - Presence of cardiac pacemaker ?Status:?Acute ?Assessment and Plan: [employer]. Stable. (4) Severe pulmonary hypertension: ?Code(s): I27.20 - Pulmonary hypertension, unspecified Related to chronic hy
[2023-07-24 20:39] LABS: Glucose Pleural Fluid 136 mg/dL; Total Protein Pleural Fluid 3.2 g/dL
[2023-07-24 21:37] LABS: Pneumococcal Antigen Urine Not Detected (Not Detected)
[2023-07-25] VITALS (17 sets, daily range): BP systolic 102–108; BP diastolic 46–58; PULSE 60–78; RESP 14–26; TEMP 36.4–36.6; O2SAT 93–100
[2023-07-25 00:31] LABS: Glucose Point of Care 144 mg/dl (65-105)
--- NOTE | 2023-07-25 04:25 | PCRCNOTE ---
Due to patient being on an overnight oximetry study, pt did not receive his 0200 updraft treatment. Treatment will resume at 0800.
[2023-07-25 06:06] LABS: Alveolar/Arterial O2 Gradient 37.5 mmHg; Base Excess ABG 13.8 mEq/l (+/-2.0); Fractional Inspired Oxygen 36 %; HCO3 ABG 42.6 mEq/l (22.0-26.0); Oxygen Content ABG 20.1 %vol (16.0-22.0); Oxygen Saturation ABG 98.5 % (95.0-100.0); Oxyhemoglobin 97.2 % THb (90.0-100.0); PO2 ABG 134.5 mmHg (80.0-100.0); PO2 FiO2 Ratio Arterial Blood 3.74 %; Total Hemoglobin 14.6 g/dL (12.0-18.0); pH ABG 7.384 (7.350-7.450)
[2023-07-25 06:08] LABS: Modified Allen's Test Unable to perform; Site Drawn LEFT RADIAL
[2023-07-25 06:09] LABS: Device NON-INVASIVE VENT; Non-Invasive Vent Rate 24 /MIN
[2023-07-25 06:10] LABS: Non-Invasive Expiratory Pressure 5 CMH2O
--- NOTE | 2023-07-25 07:15 | PCRCNOTE ---
Under the nose PAP mask was trialed but failed to seal adequately. Full face mask used.
--- NOTE | 2023-07-25 07:34 | PM.PNCARD ---
Progress Note: A&P Assessment and Plan (1) Diastolic heart failure: Code(s): I50.30 - Unspecified diastolic (congestive) heart failure Status: Acute Assessment and Plan: Acute on chronic diastolic HF in setting of severe pulm hypertension. NTproBNP 8,620 which is improved compared to last hospitalization. On Jardiance 10 mg daily. Pulmonology consulted with Dr. Carson. Appreciate her note. Had left thoracentesis 07/22/23 removing 1.6 liters of fluid given large pleural effusion with near complete collapse of left lower lobe and not being diuresed aggressively given metabolic alkalosis. On Lasix 40 mg PO daily and Spironolactone 12.5 mg daily to prevent recurrence of pleural effusions. Appears euvolemic. May d/c home and f/u with me in 1-2 weeks. (2) Pacemaker: Onset Date: 02/2020 Code(s): Z95.0 - Presence of cardiac pacemaker Status: Acute Assessment and Plan: [employer]. Stable. (3) Severe pulmonary hypertension: Code(s): I27.20 - Pulmonary hypertension, unspecified Status: Acute (4) COPD with emphysema: Qualifiers: Emphysema type: unspecified Qualified Code(s): J43.9 - Emphysema, unspecified Code(s): J43.9 - Emphysema, unspecified Status: Acute (5) PAF (paroxysmal atrial fibrillation): Code(s): I48.0 - Paroxysmal atrial fibrillation Status: Acute Assessment and Plan: Back in sinus rhythm. New onset on 07/20/23. Amiodarone drip started and restored sinus rhythm. He is to have swallow study today. Stopped Amiodarone drip. On Amiodarone 200 mg PO BID for 1 week then 200 mg daily. He is on low dose Metoprolol tartate 12.5 mg BID as he has soft BP. Check EKG on Amiodarone. Subjective Date/time seen: 07/25/23 07:34 Interval history: He is doing better today. Denies chest pain or sob. Exam Const: General: cooperative, healthy appearing, comfortable and lethargic Orientation/consciousness: oriented to person, oriented to place, oriented to time and lethargic Resp: Auscultation: no crackles, no rales, no rhonchi, no wheezes and diminished lung sounds Cardio: Rate: regular rate and tachycardic Rhythm: regular rhythm Heart sounds: no murmurs Peripheral pulses: dorsalis pedis present Neuro: General: oriented to person, oriented to place and oriented to time Extrem: Right lower extremity: no edema Left lower extremity: no edema Objective Data Vital Signs Vital Signs: Vital Signs - 24 hr 07/24/23 07:43 07/24/23 07:55 07/24/23 08:11 Temperature 98.4 F Pulse Rate 76 75 77 Respiratory Rate 16 20 20 Blood Pressure 127/65 Pulse Oximetry 100 Oxygen Delivery Oxygen Flow Rate Fraction of Inspired Oxygen 07/24/23 09:15 07/24/23 09:17 07/24/23 08:00 Temperature Pulse Rate 76 73 Respiratory Rate Blood Pressure Pulse Oximetry 96 Oxygen Delivery High Flow Nasal Cannula Oxygen Flow Rate 1 Fraction of Inspired Oxygen 07/24/23 14:40 07/24/23 10:05 07/24/23 14:55 Temperature Pulse Rate 78 79 Respiratory Rate 20 20 Blood Pressure Pulse Oximetry 95 Oxygen Delivery Nasal Cannula Oxygen Flow Rate 2 Fraction of Inspired Oxygen 07/24/23 16:00 07/24/23 18:18 07/24/23 12:00 Temperature 97.8 F Pulse Rate 82 82 84 Respiratory Rate 16 Blood Pressure 110/62 Pulse Oximetry 96 Oxygen Delivery Oxygen Flow Rate Fraction of Inspired Oxygen 07/24/23 16:00 07/24/23 20:20 07/24/23 20:20 Temperature Pulse Rate 82 78 78 Respiratory Rate 20 Blood Pressure Pulse Oximetry 92 Oxygen Delivery Nasal Cannula Oxygen Flow Rate 1 Fraction of Inspired Oxygen 07/24/23 20:00 07/24/23 23:23 07/24/23 23:23 Temperature Pulse Rate 78 76 76 Respiratory Rate 20 24 H Blood Pressure Pulse Oximetry 92 98 98 Oxygen Delivery Nasal Cannula BiPAP BiPAP Oxygen Flow Rate 1 Fraction of Inspired Oxygen 35 36 07/24/23 22:00 07/24
--- NOTE | 2023-07-25 09:04 | PM.PNPUL ---
Progress Note: A&P Assessment and Plan (1) COPD with emphysema: Qualifiers: Emphysema type: unspecified Qualified Code(s): J43.9 - Emphysema, unspecified Code(s): J43.9 - Emphysema, unspecified Status: Acute Assessment and Plan: Patient with 48 pack year tobacco use, quit 05/23/2023, chronic hypercarbic and hypoxemic respiratory failure on 3 L nasal cannula at home. CT scan of the chest on 07/20/2023 with severe panlobular emphysema apices greater than bases. ABG on 07/18/2023 on room air 7.39/63/40 with serum bicarb greater than 40 since 05/25/2023. I have no PFTs. Patient has COPD with chronic hypoxemic and hypercarbic respiratory failure. Patient would benefit from a noninvasive ventilator to prevent further deterioration and subsequent hospitalizations. 07/23/23: Patient has no wheezes on exam. I do not see that wheezes were documented during this hospitalization. He is currently being treated for COPD exacerbation as well as fluid overload. Plan: I will continue levalbuterol 1.25 mg nebulized q.6 hours, ipratropium 0.5 mg nebulized q.6 hours. I will continue budesonide 0.5 mg b.i.d.. I will change to prednisone 40 mg PO Q day starting today. Today is day 3 of steroids and will plan for 5 days total. Goal saturation 90-94%. Patient will need a formal home O2 assessment prior to discharge. 07/24: Patient tells me he has improved since yesterday. Patient is on 2 L nasal cannula saturations 94%. He has no wheezing. Plan: I will change the patient's nebulizers to inhaled Anoro Ellipta 62.5-25 at 1 puff q.day. I will continue prednisone 40 mg p.o. q.day, day 4 of 5. Goal saturation 90-94%. Discussed [facility] Dr. Armas. Will follow with you. Later in the day the patient had a modified barium swallow with severe dysphagia and silent aspiration with a risk of aspiration with every consistency. If he was to remain orally fed the recommendations were pure a level 4 and moderately thick liquids. 07/25/23: I took the patient off the BiPAP and placed him on 1 L nasal cannula saturations were 98%. He states he was breathing good. He has decreased breath sounds throughout with no wheezing. Plan: I will discontinue his ipratropium, levalbuterol and budesonide nebulizers and place him on Anoro Ellipta 62.5-25 at 1 puff q.day. discontinue prednisone after today's dose. Continue 1 L cannula and wean for goal saturation 90-94%. (2) Acute respiratory failure with hypoxia and hypercapnia: Code(s): J96.01 - Acute respiratory failure with hypoxia; J96.02 - Acute respiratory failure with hypercapnia Status: Acute Assessment and Plan: Patient has COPD with chronic hypoxemic and hypercarbic respiratory failure. Patient would benefit from a noninvasive ventilator to prevent further deterioration and subsequent hospitalizations. patient has difficulty wearing the BiPAP, he says that the mask leaks and gives him sore lips and nose. Patient wore BiPAP rate of 20, pressure 16/5 and 35% last night with a blood gas prior to removal of 7.44/58/90 (ABG 07/22/2023 at 3:56 p.m. on 3 L nasal cannula 7.47//70). The patient has failed BiPAP due to clinical issues as well as is suboptimal blood gas. Plan: I will place the patient on noninvasive ventilator with the AVAPS mode rate of 20, tidal volume 500, EPAP 5, minimal inspiratory pressure 6, maximal inspiratory pressure 25, inspiratory time 1.0, rise of 3 and 32% FiO2. I will obtain an ABG and an overnight oximetry on these studies. We will perform a mask refit to try to adjust his mask so it is more comfortable for him. I have initiated the process to obtain a home noninvasive ventilator for this patient. 07/24: Patient wore the hospital noninvasive ventilator with the AVAPS mode rate of 20, tidal volume 500, EPAP 5, minimal inspiratory pressure 6, maximal inspiratory pressure 25, inspiratory time 1.0, rise of 3 with 30% FiO2. Patient had an overnight oxime
[2023-07-25] MEDS: BUDESONIDE RESPULE NEB 0.5 MG/2 ML AMP INHALATION (09:15)
[2023-07-25] MEDS: IPRATROPIUM BR 0.02% INH SOLN 0.5 MG/2.5 ML VIAL INHALATION (09:15)
[2023-07-25] MEDS: LEVALBUTEROL NEB 1.25 MG/3 ML INHALATION (09:15)
--- NOTE | 2023-07-25 09:54 | PCOTNOTE ---
Attempted to see Patient at this time. Patient unavailable due to having his ST treatment session. Will check back at a later time.
[2023-07-25] MEDS: UMECLIDINIUM/VILANTEROL 62.5-25 MCG ELLIPTA 1 PUFF INHALATION (10:02)
[2023-07-25] MEDS: DEXTROSE 5%/0.45% SOD CHL 1,000 ML 75 ML IV CONT (10:23)
[2023-07-25] MEDS: ASPIRIN 81 MG CHEWABLE TABLET PO (10:28)
[2023-07-25] MEDS: EMPAGLIFLOZIN 10 MG TABLET PO (10:29)
[2023-07-25] MEDS: predniSONE 20 MG TABLET 40 MG PO (10:29)
[2023-07-25] MEDS: ENOXAPARIN 40 MG/0.4 ML SYRINGE SUB-Q (10:31)
--- NOTE | 2023-07-25 10:56 | PC.NURSE ---
called and updated viktor Dent with current plan of care, and results of barrium swallow, vs. denies any further questions, encouraged her to call daily for updates.
[2023-07-25 12:11] LABS: Glucose Point of Care 130 mg/dl (65-105)
[2023-07-25] MEDS: DOXYCYCLINE 100 MG/NS 100 ML 100 MG/100 ML BAG IVPB ×2 (12:11→23:20)
[2023-07-25] MEDS: CEFEPIME 2 GM/NS 50 ML 2 GM/50 ML BAG IVPB ×2 (12:12→23:21)
[2023-07-25 17:08] LABS: Glucose Point of Care 146 mg/dl (65-105)
--- NOTE | 2023-07-25 20:06 | PM.IMPN ---
Progress Note: A&P Assessment and Plan (1) Acute on chronic respiratory failure with hypoxia and hypercapnia: Code(s): J96.21 - Acute and chronic respiratory failure with hypoxia; J96.22 - Acute and chronic respiratory failure with hypercapnia Status: Acute (2) Pleural effusion, left: Code(s): J90 - Pleural effusion, not elsewhere classified Status: Acute (3) Pneumonia: Code(s): J18.9 - Pneumonia, unspecified organism Status: Acute (4) PAF (paroxysmal atrial fibrillation): Code(s): I48.0 - Paroxysmal atrial fibrillation Status: Acute (5) Diastolic heart failure: Code(s): I50.30 - Unspecified diastolic (congestive) heart failure Status: Acute (6) Acute respiratory failure with hypoxia and hypercapnia: Code(s): J96.01 - Acute respiratory failure with hypoxia; J96.02 - Acute respiratory failure with hypercapnia Status: Acute (7) Diastolic dysfunction: Code(s): I51.89 - Other ill-defined heart diseases Status: Acute (8) Elevated troponin: Code(s): R77.8 - Other specified abnormalities of plasma proteins Status: Acute (9) Hypertension: Code(s): I10 - Essential (primary) hypertension Status: Acute (10) Pacemaker: Onset Date: 02/2020 Code(s): Z95.0 - Presence of cardiac pacemaker Status: Acute (11) Acute exacerbation of CHF (congestive heart failure): Code(s): I50.9 - Heart failure, unspecified Status: Acute Plan 1) Diastolic heart failure: ?Code(s): I50.30 - Unspecified diastolic (congestive) heart failure ?Status:?Acute ?Assessment and Plan: Acute on chronic diastolic HF in setting of severe pulm hypertension. NTproBNP 8,620 which is improved compared to last hospitalization. On Jardiance 10 mg daily. Pulmonology consulted with Dr. Carson. Appreciate her note. Had left thoracentesis 07/22/23 given large pleural effusion with near complete collapse of left lower lobe and not being diuresed aggressively given metabolic alkalosis. Back on Lasix 20 mg IV BID to prevent recurrence of pleural effusions. 07/23: Will eventually need to be transitioned to oral lasix, probably 40 mg bid or qd On metoprolol 12.5 bid, empaglofizin 10 qd, aldactone 25 qd which may not be needed for his diastolic chf bnp now 1460. still needs diuresis, but closer to euvolemic. recommend switching from iv to po diuretics. Only an off label use of aldactone for his diastolic heart disease which is not very severe. Will drop to 12.5 mg/day aldactone 07/24: lasix PO 40 /day. Being followed? by cardiology. 07/25: appreciate cardiology consultation. can see [employer] operator as outpt. aldactone 12.5 mg/day, amiodarone 200 mg bid, metoprolol 12.5 mg bid with holding parameters. 2. Severe R sided heart failure on echo Likely from pulm htn from his chronic hypoxemic state. Echo does not have very severe diastolic dysfunction 07/24: on po lasix 40 /day 07/25: euvolemic. on amiodarone [address] mg bid[address] aldactone 12.5 mg/day. may stop this too if bp does not tolerate. (3) Pacemaker: ?Onset Date:?02/2020 ?Code(s): Z95.0 - Presence of cardiac pacemaker ?Status:?Acute ?Assessment and Plan: [employer]. Stable. (4) Severe pulmonary hypertension: ?Code(s): I27.20 - Pulmonary hypertension, unspecified Related to chronic hypoxemia. Unlikely to recover. Will need ongoing inhalers. f/u ROBINA to see if pt has primary pulmonary hypertension ?Status:?Acute (5.? COPD with emphysema: ?Qualifiers: ?Emphysema type:?unspecified? Qualified Code(s):?J43.9 - Emphysema, unspecified ?Code(s): Breathing treatments q.4 hours Methylprednisone 40mg bid titrate oxygen pulm following start prednisone taper. 60 qd for 5 days, then 50, 40, 30, 20, 10 all for 5 days each until stop. On 3L O2 with 96% saturation. Recommend lowering him down to 88% on RA until starting O2 again to prevent hype
[2023-07-25] MEDS: ALPRAZolam (*CRX) 0.5 MG TABLET 1 MG PO (20:18)
[2023-07-25 20:24] LABS: Glucose Point of Care 166 mg/dl (65-105)
[2023-07-25] MEDS: ACETAMINOPHEN 325 MG TABLET 650 MG PO (20:42)
[2023-07-25 21:10] LABS: LDH Pleural Fluid 91 U/L
[2023-07-26] VITALS (14 sets, daily range): BP systolic 98–110; BP diastolic 40–54; PULSE 58–81; RESP 16–26; TEMP 36–37; O2SAT 90–98
[2023-07-26 06:02] LABS: Legionella pneumophila Ag Ur Not Detected (Not Detected)
[2023-07-26] MEDS: ACETAMINOPHEN 325 MG TABLET 650 MG PO ×2 (06:12→20:52)
[2023-07-26 06:46] LABS: Eosinophils Percent Auto 0.1 % (0-4.4); Hematocrit 43.9 % (42.0-52.0); Hemoglobin 13.3 g/dL (14.0-18.0); Immature Granulocyte Absolute 0.02 K/mm3 (0.00-0.031); Immature Granulocyte Percent A 0.3 % (0-0.5); Lymphocytes Absolute Auto 0.69 K/mm3 (0.9-3.2); Lymphocytes Percent Auto 9.9 % (18.3-44.2); Mean Corpuscular HGB Conc 30.3 g/dl (32-36); Mean Corpuscular Hemoglobin 33.8 pg (26-34); Mean Corpuscular Volume 111.4 fl (80-100); Mean Platelet Volume 10.4 fl (7.4-10.4); Monocytes Absolute Auto 0.6 K/mm3 (0.1-0.6); Neutrophils Absolute Auto 5.7 K/mm3 (1.3-6.7); Neutrophils Percent Auto 81.7 % (45.5-73.1); Platelet Count Result 173 k/mm3 (150-375); Red Blood Count 3.94 M/mm3 (4.6-6.20); Red Cell Distribution Width 18.3 % (11.5-14.5)
[2023-07-26 06:54] LABS: Blood Urea Nitrogen 35 mg/dL (9-20); Calcium 8.5 mg/dL (8.4-10.2); Carbon Dioxide > 40 mmol/L (22-30); Chloride 98 mmol/L (98-107); Estimated CRCL calculation 23 ml/min; Estimated Glomerular Filt Rate > 60; Glucose 64 mg/dL (65-110); Magnesium 2.3 mg/dL (1.6-2.3); Potassium 5.1 mmol/L (3.4-5.0); Sodium 139 mmol/L (137-145)
[2023-07-26 07:02] LABS: NT Pro B Type Natriuretic Pept 801 pg/mL (19.9-100)
[2023-07-26 07:44] LABS: Glucose Point of Care 75 mg/dl (65-105)
--- NOTE | 2023-07-26 08:00 | PM.PNCARD ---
Progress Note: A&P Assessment and Plan (1) Diastolic heart failure: Code(s): I50.30 - Unspecified diastolic (congestive) heart failure Status: Acute Assessment and Plan: Acute on chronic diastolic HF in setting of severe pulm hypertension. NTproBNP 8,620 which is improved compared to last hospitalization. On Jardiance 10 mg daily. Pulmonology consulted with Dr. aCrson. Appreciate her note. Had left thoracentesis 07/22/23 removing 1.6 liters of fluid given large pleural effusion with near complete collapse of left lower lobe and not being diuresed aggressively given metabolic alkalosis. On Lasix 40 mg PO daily and Spironolactone 12.5 mg daily to prevent recurrence of pleural effusions. Appears euvolemic. May d/c home and f/u with me in 1-2 weeks. Will sign off, please calll with questions. (2) Pacemaker: Onset Date: 02/2020 Code(s): Z95.0 - Presence of cardiac pacemaker Status: Acute Assessment and Plan: [employer]tronic. Stable. (3) Severe pulmonary hypertension: Code(s): I27.20 - Pulmonary hypertension, unspecified Status: Acute (4) COPD with emphysema: Qualifiers: Emphysema type: unspecified Qualified Code(s): J43.9 - Emphysema, unspecified Code(s): J43.9 - Emphysema, unspecified Status: Acute (5) PAF (paroxysmal atrial fibrillation): Code(s): I48.0 - Paroxysmal atrial fibrillation Status: Acute Assessment and Plan: Back in sinus rhythm. New onset on 07/20/23. Amiodarone drip started and restored sinus rhythm. He is to have swallow study today. Stopped Amiodarone drip. On Amiodarone 200 mg PO BID for 1 week then 200 mg daily. He is on low dose Metoprolol tartate 12.5 mg BID as he has soft BP. Subjective Date/time seen: 07/26/23 08:00 Interval history: He is doing better today. Denies chest pain or sob. Exam Const: General: cooperative, healthy appearing, comfortable and lethargic Orientation/consciousness: oriented to person, oriented to place, oriented to time and lethargic Resp: Auscultation: no crackles, no rales, no rhonchi, no wheezes and diminished lung sounds Cardio: Rate: regular rate Rhythm: regular rhythm Heart sounds: no murmurs Peripheral pulses: dorsalis pedis present Neuro: General: oriented to person, oriented to place and oriented to time Extrem: Right lower extremity: no edema Left lower extremity: no edema Objective Data Vital Signs Vital Signs: Vital Signs - 24 hr 07/25/23 09:16 07/25/23 09:16 07/25/23 09:50 Temperature Pulse Rate 76 71 Respiratory Rate 20 20 Blood Pressure Pulse Oximetry 93 Oxygen Delivery Nasal Cannula Oxygen Flow Rate 1 Fraction of Inspired Oxygen 07/25/23 10:27 07/25/23 10:29 07/25/23 10:30 Temperature Pulse Rate 74 74 74 Respiratory Rate 16 Blood Pressure 102/46 L Pulse Oximetry 96 Oxygen Delivery Oxygen Flow Rate Fraction of Inspired Oxygen 07/25/23 11:05 07/25/23 12:00 07/25/23 18:04 Temperature Pulse Rate 60 68 75 Respiratory Rate Blood Pressure Pulse Oximetry Oxygen Delivery Oxygen Flow Rate Fraction of Inspired Oxygen 07/25/23 16:00 07/25/23 23:15 07/25/23 20:00 Temperature 97.6 F Pulse Rate 76 75 Respiratory Rate 14 18 18 Blood Pressure 108/46 L Pulse Oximetry 99 99 Oxygen Delivery BiPAP BiPAP Oxygen Flow Rate Fraction of Inspired Oxygen 36 07/25/23 20:00 07/26/23 00:00 07/26/23 04:00 Temperature Pulse Rate 77 72 63 Respiratory Rate Blood Pressure Pulse Oximetry Oxygen Delivery Oxygen Flow Rate Fraction of Inspired Oxygen 07/26/23 06:00 Temperature 96.8 F L Pulse Rate 65 Respiratory Rate 16 Blood Pressure 107/54 L Pulse Oximetry 98 Oxygen Delivery Oxygen Flow Rate Fraction of Inspired Oxygen Intake/Output Intake/Output: Intake & Output 07/23/23 07/24/23 07/25/23 07/26/23 23:59 23:59 23:59 23:59 Intake To
[2023-07-26] MEDS: UMECLIDINIUM/VILANTEROL 62.5-25 MCG ELLIPTA 1 PUFF INHALATION (08:13)
[2023-07-26] MEDS: EMPAGLIFLOZIN 10 MG TABLET PO (09:15)
[2023-07-26] MEDS: ENOXAPARIN 40 MG/0.4 ML SYRINGE SUB-Q (09:15)
[2023-07-26] MEDS: ASPIRIN 81 MG CHEWABLE TABLET PO (09:15)
[2023-07-26 11:54] LABS: Glucose Point of Care 101 mg/dl (65-105)
--- NOTE | 2023-07-26 12:04 | PM.PNPUL ---
Progress Note: A&P Assessment and Plan (1) COPD with emphysema: Qualifiers: Emphysema type: unspecified Qualified Code(s): J43.9 - Emphysema, unspecified Code(s): J43.9 - Emphysema, unspecified Status: Acute Assessment and Plan: Patient with 48 pack year tobacco use, quit 05/23/2023, chronic hypercarbic and hypoxemic respiratory failure on 3 L nasal cannula at home. CT scan of the chest on 07/20/2023 with severe panlobular emphysema apices greater than bases. ABG on 07/18/2023 on room air 7.39/63/40 with serum bicarb greater than 40 since 05/25/2023. I have no PFTs. Patient has COPD with chronic hypoxemic and hypercarbic respiratory failure. Patient would benefit from a noninvasive ventilator to prevent further deterioration and subsequent hospitalizations. 07/23/23: Patient has no wheezes on exam. I do not see that wheezes were documented during this hospitalization. He is currently being treated for COPD exacerbation as well as fluid overload. Plan: I will continue levalbuterol 1.25 mg nebulized q.6 hours, ipratropium 0.5 mg nebulized q.6 hours. I will continue budesonide 0.5 mg b.i.d.. I will change to prednisone 40 mg PO Q day starting today. Today is day 3 of steroids and will plan for 5 days total. Goal saturation 90-94%. Patient will need a formal home O2 assessment prior to discharge. 07/24: Patient tells me he has improved since yesterday. Patient is on 2 L nasal cannula saturations 94%. He has no wheezing. Plan: I will change the patient's nebulizers to inhaled Anoro Ellipta 62.5-25 at 1 puff q.day. I will continue prednisone 40 mg p.o. q.day, day 4 of 5. Goal saturation 90-94%. Discussed [facility] Dr. Armas. Will follow with you. Later in the day the patient had a modified barium swallow with severe dysphagia and silent aspiration with a risk of aspiration with every consistency. If he was to remain orally fed the recommendations were puree level 4 and moderately thick liquids. 07/25/23: I took the patient off the BiPAP and placed him on 1 L nasal cannula saturations were 98%. He states he was breathing good. He has decreased breath sounds throughout with no wheezing. Plan: I will discontinue his ipratropium, levalbuterol and budesonide nebulizers and place him on Anoro Ellipta 62.5-25 at 1 puff q.day. discontinue prednisone after today's dose. Continue 1 L cannula and wean for goal saturation 90-94%. 07/26: Currently is on 1 L nasal cannula saturations 94%. He has no shortness of breath at rest. He walked to the door in the room and has dyspnea on exertion. Plan: Patient is stable on Anoro inhaler. He is now off prednisone. Stable on 1 L nasal cannula. Patient is at risk for further aspiration in the future given his swallow study above. (2) Acute respiratory failure with hypoxia and hypercapnia: Code(s): J96.01 - Acute respiratory failure with hypoxia; J96.02 - Acute respiratory failure with hypercapnia Status: Acute Assessment and Plan: Patient has COPD with chronic hypoxemic and hypercarbic respiratory failure. Patient would benefit from a noninvasive ventilator to prevent further deterioration and subsequent hospitalizations. patient has difficulty wearing the BiPAP, he says that the mask leaks and gives him sore lips and nose. Patient wore BiPAP rate of 20, pressure 16/5 and 35% last night with a blood gas prior to removal of 7.44/58/90 (ABG 07/22/2023 at 3:56 p.m. on 3 L nasal cannula 7.47/52/70). The patient has failed BiPAP due to clinical issues as well as is suboptimal blood gas. Plan: I will place the patient on noninvasive ventilator with the AVAPS mode rate of 20, tidal volume 500, EPAP 5, minimal inspiratory pressure 6, maximal inspiratory pressure 25, inspiratory time 1.0, rise of 3 and 32% FiO2. I will obtain an ABG and an overnight oximetry on these studies. We will perform a mask refit to try to adjust his mask so it is more comfortable fo
[2023-07-26] MEDS: DOXYCYCLINE 100 MG/NS 100 ML 100 MG/100 ML BAG IVPB ×2 (12:12→23:19)
[2023-07-26] MEDS: CEFEPIME 2 GM/NS 50 ML 2 GM/50 ML BAG IVPB ×2 (12:12→23:19)
--- NOTE | 2023-07-26 14:08 | PM.IMPN ---
Progress Note: A&P Assessment and Plan (1) Acute on chronic respiratory failure with hypoxia and hypercapnia: Code(s): J96.21 - Acute and chronic respiratory failure with hypoxia; J96.22 - Acute and chronic respiratory failure with hypercapnia Status: Acute (2) Pleural effusion, left: Code(s): J90 - Pleural effusion, not elsewhere classified Status: Acute (3) Pneumonia: Code(s): J18.9 - Pneumonia, unspecified organism Status: Acute (4) PAF (paroxysmal atrial fibrillation): Code(s): I48.0 - Paroxysmal atrial fibrillation Status: Acute (5) Diastolic heart failure: Code(s): I50.30 - Unspecified diastolic (congestive) heart failure Status: Acute (6) Acute respiratory failure with hypoxia and hypercapnia: Code(s): J96.01 - Acute respiratory failure with hypoxia; J96.02 - Acute respiratory failure with hypercapnia Status: Acute (7) Diastolic dysfunction: Code(s): I51.89 - Other ill-defined heart diseases Status: Acute (8) Elevated troponin: Code(s): R77.8 - Other specified abnormalities of plasma proteins Status: Acute (9) Hypertension: Code(s): I10 - Essential (primary) hypertension Status: Acute (10) Pacemaker: Onset Date: 02/2020 Code(s): Z95.0 - Presence of cardiac pacemaker Status: Acute (11) Acute exacerbation of CHF (congestive heart failure): Code(s): I50.9 - Heart failure, unspecified Status: Acute Plan 1) Diastolic heart failure: ?Code(s): I50.30 - Unspecified diastolic (congestive) heart failure ?Status:?Acute ?Assessment and Plan: Acute on chronic diastolic HF in setting of severe pulm hypertension. NTproBNP 8,620 which is improved compared to last hospitalization. On Jardiance 10 mg daily. Pulmonology consulted with Dr. Carson. Appreciate her note. Had left thoracentesis 07/22/23 given large pleural effusion with near complete collapse of left lower lobe and not being diuresed aggressively given metabolic alkalosis. Back on Lasix 20 mg IV BID to prevent recurrence of pleural effusions. 07/23: Will eventually need to be transitioned to oral lasix, probably 40 mg bid or qd On metoprolol 12.5 bid, empaglofizin 10 qd, aldactone 25 qd which may not be needed for his diastolic chf bnp now 1460. still needs diuresis, but closer to euvolemic. recommend switching from iv to po diuretics. Only an off label use of aldactone for his diastolic heart disease which is not very severe. Will drop to 12.5 mg/day aldactone 07/24: lasix PO 40 /day. Being followed? by cardiology. 07/25: appreciate cardiology consultation. can see transaction advisory services manager as outpt. aldactone 12.5 mg/day, amiodarone 200 mg bid, metoprolol 12.5 mg bid with holding parameters. 07/26: became hyperkalemic on aldactone. stop and resume lasix 40 mg qd, amiodarone 200 mg bid, metoprolol 12.5 mg bid with holding parameters. 2. Severe R sided heart failure on echo Likely from pulm htn from his chronic hypoxemic state. Echo does not have very severe diastolic dysfunction 07/24: on po lasix 40 /day 07/25: euvolemic. on amiodarone [address] mg bid[address] stopping lasix. ct aldactone 12.5 mg/day. may stop this too if bp does not tolerate. 07/26: became hyperkalemic on aldactone. stop and resume lasix 40 mg qd, amiodarone 200 mg bid, metoprolol 12.5 mg bid with holding parameters. (3) Pacemaker: ?Onset Date:?02/2020 ?Code(s): Z95.0 - Presence of cardiac pacemaker ?Status:?Acute ?Assessment and Plan: [employer]tr[employer]. Stable. (4) Severe pulmonary hypertension: ?Code(s): I27.20 - Pulmonary hypertension, unspecified Related to chronic hypoxemia. Unlikely to recover. Will need ongoing inhalers. f/u ROBINA to see if pt has primary pulmonary hypertension ?Status:?Acute (5.? COPD with emphysema: ?Qualifiers: ?Emphysema type:?unspecified? Qualified Code(s):?J43.9 - Emphysema, unspecified ?Code(s): Breathing t
[2023-07-26] MEDS: MAGNESIUM CITRATE 300 ML BTL 150 ML PO (15:52)
[2023-07-26] MEDS: METOPROLOL TARTRATE 12.5 MG TABLET PO (20:46)
[2023-07-26] MEDS: ALPRAZolam (*CRX) 0.5 MG TABLET 1 MG PO (22:28)
--- NOTE | 2023-07-27 05:44 | PC.NURSE ---
at 07/26/23 2200 Pts oxygen turned up to 4L per respiratorys instructions. Pts new cpap did not arrive to use & Pts nose has a sore from using ours.
[2023-07-27 06:00] VITALS: BP 107/60; PULSE 64; RESP 2; TEMP 36.3; O2SAT 100
[2023-07-27 07:25] VITALS: PULSE 70; RESP 18; O2SAT 99
[2023-07-27 07:57] LABS: Glucose Point of Care 69 mg/dl (65-105)
[2023-07-27 08:00] VITALS: O2SAT 98
--- NOTE | 2023-07-27 08:25 | PC.NURSE ---
Pt blood sugar 69 this AM. Pt denies need for intervention. States I feel fine. Can just wait for breakfast.
[2023-07-27] MEDS: ASPIRIN 81 MG CHEWABLE TABLET PO (09:12)
[2023-07-27] MEDS: AMIODARONE HCL 200 MG TABLET PO (09:12)
[2023-07-27] MEDS: METOPROLOL TARTRATE 12.5 MG TABLET PO (09:13)
[2023-07-27] MEDS: ENOXAPARIN 40 MG/0.4 ML SYRINGE SUB-Q (09:13)
[2023-07-27] MEDS: polyethylene glycoL 3350 17 GM POWD.PACK PO (09:13)
[2023-07-27] MEDS: EMPAGLIFLOZIN 10 MG TABLET PO (09:13)
[2023-07-27] MEDS: FUROSEMIDE 40 MG TABLET PO (09:13)
--- NOTE | 2023-07-27 11:00 | PM.IMPN ---
Progress Note: A&P Assessment and Plan (1) Acute on chronic respiratory failure with hypoxia and hypercapnia: Code(s): J96.21 - Acute and chronic respiratory failure with hypoxia; J96.22 - Acute and chronic respiratory failure with hypercapnia Status: Acute (2) Pleural effusion, left: Code(s): J90 - Pleural effusion, not elsewhere classified Status: Acute (3) Pneumonia: Code(s): J18.9 - Pneumonia, unspecified organism Status: Acute (4) PAF (paroxysmal atrial fibrillation): Code(s): I48.0 - Paroxysmal atrial fibrillation Status: Acute (5) Diastolic heart failure: Code(s): I50.30 - Unspecified diastolic (congestive) heart failure Status: Acute (6) Acute respiratory failure with hypoxia and hypercapnia: Code(s): J96.01 - Acute respiratory failure with hypoxia; J96.02 - Acute respiratory failure with hypercapnia Status: Acute (7) Diastolic dysfunction: Code(s): I51.89 - Other ill-defined heart diseases Status: Acute (8) Elevated troponin: Code(s): R77.8 - Other specified abnormalities of plasma proteins Status: Acute (9) Hypertension: Code(s): I10 - Essential (primary) hypertension Status: Acute (10) Pacemaker: Onset Date: 02/2020 Code(s): Z95.0 - Presence of cardiac pacemaker Status: Acute (11) Acute exacerbation of CHF (congestive heart failure): Code(s): I50.9 - Heart failure, unspecified Status: Acute Plan # acute on chronic diastolic heart failure: Acute on chronic diastolic HF in setting of severe pulm hypertension. NTproBNP 8,620 which is improved compared to last hospitalization. On Jardiance 10 mg daily. Pulmonology consulted with Dr. Carson. Appreciate her note. Had left thoracentesis 07/22/23 given large pleural effusion with near complete collapse of left lower lobe and not being diuresed aggressively given metabolic alkalosis. Was diuresed with IV Lasix and now transitioned to oral Lasix. On metoprolol 12.5 bid, empaglofizin 10 qd bnp now 1460. Looks euvolemic. Cardiology following # severe R sided heart failure on echo Likely from pulm htn from his chronic hypoxemic state. Echo does not have very severe diastolic dysfunction On Lasix 40 a day Aldactone has been stopped # pacemaker status: Medtronic. Stable. # Severe pulmonary hypertension: Related to chronic hypoxemia. Unlikely to recover. Will need ongoing inhalers. ROBINA negative # cOPD with emphysema: Treated with steroid and now switched to oral On chronic home oxygen pulm following Hypercapnia on ABG qualifies for noninvasive ventilation and process been started. On 3L O2 with 96% saturation. Recommend lowering him down to 88% on RA until starting O2 again to prevent hypercarbic resp failure from loss of respiratory drive. [employer] will get a home machine for BIPAP for him if he goes home. Discussed the benefits of this with him. # pAF (paroxysmal atrial fibrillation): Back in sinus rhythm. New onset on 07/20/23. Amiodarone drip started and restored sinus rhythm. On oral amiodarone Also on metoprolol # dysphagia with silent aspiration on restricted diet MBS reviewed # L pleural effusion s/p thoracentesis RBC's in tap suggestive of CHF as the cause 343 nucleated cells suggestive of transudate as the cause as well (again most likely chf) total protein, ldh, glucose pending from pleural fluid 07/24: gram stain neg for organisms and no wbc's. no growth on cx. on day 4 of cefepime/doxy. cytology pending as well. # pNA (likely atypical pneumonia vs CAP) on cefepime/doxy he will complete the course of antibiotics today no positive sputum cx urine legionella and urine pneumococcal ag pending # aspiration pneumonia 07/24: failed bedside swallow. MBS reviewed. Continue speech therapy # Disposition: snf/ rehab/ or home with hh # subclinical hyperthyroidism 07/26: TSH 0.134, Ft4 1.46, Total T3 0.64 P
[2023-07-27] MEDS: ALPRAZolam (*CRX) 0.5 MG TABLET 1 MG PO (11:21)
[2023-07-27] MEDS: DOXYCYCLINE 100 MG/NS 100 ML 100 MG/100 ML BAG IVPB (11:25)
[2023-07-27 11:52] LABS: Glucose Point of Care 112 mg/dl (65-105)
[2023-07-27] MEDS: CEFEPIME 2 GM/NS 50 ML 2 GM/50 ML BAG IVPB (11:57)
--- NOTE | 2023-07-27 12:50 | PM.PNPUL ---
Progress Note: A&P Assessment and Plan (1) COPD with emphysema: Qualifiers: Emphysema type: unspecified Qualified Code(s): J43.9 - Emphysema, unspecified Code(s): J43.9 - Emphysema, unspecified Status: Acute Assessment and Plan: Patient with 48 pack year tobacco use, quit 05/23/2023, chronic hypercarbic and hypoxemic respiratory failure on 3 L nasal cannula at home. CT scan of the chest on 07/20/2023 with severe panlobular emphysema apices greater than bases. ABG on 07/18/2023 on room air 7.39/63/40 with serum bicarb greater than 40 since 05/25/2023. I have no PFTs. Patient has COPD with chronic hypoxemic and hypercarbic respiratory failure. Patient would benefit from a noninvasive ventilator to prevent further deterioration and subsequent hospitalizations. 07/23/23: Patient has no wheezes on exam. I do not see that wheezes were documented during this hospitalization. He is currently being treated for COPD exacerbation as well as fluid overload. Plan: I will continue levalbuterol 1.25 mg nebulized q.6 hours, ipratropium 0.5 mg nebulized q.6 hours. I will continue budesonide 0.5 mg b.i.d.. I will change to prednisone 40 mg PO Q day starting today. Today is day 3 of steroids and will plan for 5 days total. Goal saturation 90-94%. Patient will need a formal home O2 assessment prior to discharge. 07/24: Patient tells me he has improved since yesterday. Patient is on 2 L nasal cannula saturations 94%. He has no wheezing. Plan: I will change the patient's nebulizers to inhaled Anoro Ellipta 62.5-25 at 1 puff q.day. I will continue prednisone 40 mg p.o. q.day, day 4 of 5. Goal saturation 90-94%. Discussed [facility] Dr. Armas. Will follow with you. Later in the day the patient had a modified barium swallow with severe dysphagia and silent aspiration with a risk of aspiration with every consistency. If he was to remain orally fed the recommendations were puree level 4 and moderately thick liquids. 07/25/23: I took the patient off the BiPAP and placed him on 1 L nasal cannula saturations were 98%. He states he was breathing good. He has decreased breath sounds throughout with no wheezing. Plan: I will discontinue his ipratropium, levalbuterol and budesonide nebulizers and place him on Anoro Ellipta 62.5-25 at 1 puff q.day. discontinue prednisone after today's dose. Continue 1 L cannula and wean for goal saturation 90-94%. 07/26: Currently is on 1 L nasal cannula saturations 94%. He has no shortness of breath at rest. He walked to the door in the room and has dyspnea on exertion. Plan: Patient is stable on Anoro inhaler. He is now off prednisone. Stable on 1 L nasal cannula. Patient is at risk for further aspiration in the future given his swallow study above. 07/27: Patient for wore 4 L nasal cannula last night and said that he finally got some sleep. Currently he is on 3 L nasal cannula saturation 97%. He states he is getting stronger every day and he walked to the hallway yesterday. His breathing is normal at rest. From a pulmonary perspective patient is ready to be discharged on these pulmonary medications: Anoro Ellipta 62.5-25 at 1 puff q.day Rescue albuterol 2 puffs q.4 hours p.r.n. shortness of breath or wheezing Oxygen at rest and with ambulation per living facilities protocol. Currently is requiring 3 L at rest with saturations 97%. When he naps or sleeps, aVAPS AE mode through [employer] with a rate of 16, tidal volume 500, minimum EPAP 4, maximum EPAP 15, minimal inspiratory pressure 5, maximal inspiratory pressure 25 with an inspiratory time of 1.0 and 4 L bleed in. Diuresis per hospitalist team. Follow-up in the Pulmonary Clinic in 3-4 weeks. I am informed our materials scheduler. Communicated with Dr. Sewell, call with questions (2) Acute respiratory failure with hypoxia and hypercapnia: Code(s): J96.01 - Acute respiratory failure with hypoxia; J96.02 - Acute respiratory failure wi
[2023-07-27 14:00] VITALS: BP 111/54; PULSE 76; RESP 20; TEMP 36.6; O2SAT 91
--- NOTE | 2023-07-27 14:30 | PCOTNOTE ---
Attempted to see Patient at this time. Patient Patient stated, I just got comfortable in bed, I'm not feeling well, I'm declining today, I need some rest
--- NOTE | 2023-07-27 15:22 | PM.DS ---
DS: Admitting Diagnosis Discharge Date 07/27/2023 Admitting Diagnosis shortness of breath DS: Discharge Diagnosis Discharge Diagnosis (1) Acute on chronic respiratory failure with hypoxia and hypercapnia: Code(s): J96.21 - Acute and chronic respiratory failure with hypoxia; J96.22 - Acute and chronic respiratory failure with hypercapnia Status: Acute (2) Pleural effusion, left: Code(s): J90 - Pleural effusion, not elsewhere classified Status: Acute (3) Pneumonia: Code(s): J18.9 - Pneumonia, unspecified organism Status: Acute (4) PAF (paroxysmal atrial fibrillation): Code(s): I48.0 - Paroxysmal atrial fibrillation Status: Acute (5) Diastolic heart failure: Code(s): I50.30 - Unspecified diastolic (congestive) heart failure Status: Acute (6) Acute respiratory failure with hypoxia and hypercapnia: Code(s): J96.01 - Acute respiratory failure with hypoxia; J96.02 - Acute respiratory failure with hypercapnia Status: Acute (7) Diastolic dysfunction: Code(s): I51.89 - Other ill-defined heart diseases Status: Acute (8) Elevated troponin: Code(s): R77.8 - Other specified abnormalities of plasma proteins Status: Acute (9) Hypertension: Code(s): I10 - Essential (primary) hypertension Status: Acute (10) Pacemaker: Onset Date: 02/2020 Code(s): Z95.0 - Presence of cardiac pacemaker Status: Acute (11) Acute exacerbation of CHF (congestive heart failure): Code(s): I50.9 - Heart failure, unspecified Status: Acute DS: Summary Hospital Course Hospital Course: # acute on chronic diastolic heart failure: Acute on chronic diastolic HF in setting of severe pulm hypertension. NTproBNP 8,620 which is improved compared to last hospitalization. On Jardiance 10 mg daily. Pulmonology consulted with Dr. Carson. Appreciate her note. Had left thoracentesis 07/22/23 given large pleural effusion with near complete collapse of left lower lobe and not being diuresed aggressively given metabolic alkalosis. Was diuresed with IV Lasix and now transitioned to oral Lasix. On metoprolol 12.5 bid, empaglofizin 10 qd bnp now 1460.? Looks euvolemic. on lasix 40 mg daily Cardiology following # severe R sided heart failure on echo Likely from pulm htn from his chronic hypoxemic state. Echo does not have very severe diastolic dysfunction On Lasix 40 a day Aldactone has been stopped due to brodelrine bp # pacemaker status: [employer]tronic. Stable. # Severe pulmonary hypertension: Related to chronic hypoxemia. Unlikely to recover. Will need ongoing inhalers. # cOPD with emphysema: Treated with steroid and now switched to oral On chronic home oxygen pulm following Hypercapnia on ABG qualifies for noninvasive ventilation and process been started. On 3L O2 with 96% saturation. Recommend lowering him down to 88% on RA until starting O2 again to prevent hypercarbic resp failure from loss of respiratory drive. [employer]) will get a home machine for BIPAP for him if he goes home. Discussed the benefits of this with him. this has been approved and is delviered to [facility] # pAF (paroxysmal atrial fibrillation): Back in sinus rhythm. New onset on 07/20/23. Amiodarone drip started and restored sinus rhythm.? On oral amiodarone Also on metoprolol fu with cardiology as op basis. # dysphagia with silent aspiration on restricted diet MBS reviewed # L pleural effusion s/p thoracentesis RBC's in tap suggestive of CHF as the cause 343 nucleated cells suggestive of transudate as the cause as well (again most likely chf) total protein, ldh, glucose pending from pleural fluid finished antibiotics course. # pNA (likely atypical pneumonia vs CAP) on cefepime/doxy he will complete the course of antibiotics no positive sputum cx urine legionella and urine pneumococcal ag pending # aspiration pneumonia 07/24: failed bedside sw
[2023-07-27 15:39] LABS: SARS-CoV-2 RNA PCR Negative (Negative)
[2023-07-27 16:52] LABS: Glucose Point of Care 94 mg/dl (65-105)
[2023-07-27 19:37] VITALS: PULSE 76; RESP 20; O2SAT 91
[2023-07-29 14:21] LABS: Alpha-1-Antitrypsin, QN 187 mg/dL (83-199)
== END 2023-07-27 20:42 | DRG 291 ==
LOC: ANHED 18:45 → ANHIMU 23:08 → ANH3MEDSUR 07-23 13:22
PROVIDERS: Emergency Medicine; Internal Medicine; Internal Medicine Cardiovascular Disease; Internal Medicine Critical Care Medicine; Internal Medicine Pulmonary Disease; Admitting Provider General Practice; Emergency Provider Emergency Medicine; PCP Family Medicine; Visit Provider Internal Medicine
DX: I11.0 Hypertensive heart disease with heart failure (principal); E43 Unspecified severe protein-calorie malnutrition; I50.33 Acute on chronic diastolic (congestive) heart failure; J96.22 Acute and chronic respiratory failure with hypercapnia; J69.0 Pneumonitis due to inhalation of food and vomit; J96.21 Acute and chronic respiratory failure with hypoxia; I44.2 Atrioventricular block, complete; Z68.1 Body mass index [BMI] 19.9 or less, adult; J90 Pleural effusion, not elsewhere classified; E11.51 Type 2 diabetes mellitus with diabetic peripheral angiopathy without gangrene; E05.80 Other thyrotoxicosis without thyrotoxic crisis or storm; F41.9 Anxiety disorder, unspecified; G47.33 Obstructive sleep apnea (adult) (pediatric); I27.20 Pulmonary hypertension, unspecified; I07.1 Rheumatic tricuspid insufficiency; I73.9 Peripheral vascular disease, unspecified; I48.0 Paroxysmal atrial fibrillation; J43.1 Panlobular emphysema; K74.60 Unspecified cirrhosis of liver; L98.499 Non-pressure chronic ulcer of skin of other sites with unspecified severity; L53.9 Erythematous condition, unspecified; M19.90 Unspecified osteoarthritis, unspecified site; R13.10 Dysphagia, unspecified; Z95.0 Presence of cardiac pacemaker; Z66 Do not resuscitate; Z20.822 Contact with and (suspected) exposure to COVID-19; Z87.891 Personal history of nicotine dependence; Z86.73 Personal history of transient ischemic attack (TIA), and cerebral infarction without residual deficits; Z96.651 Presence of right artificial knee joint; Z99.81 Dependence on supplemental oxygen; Z79.82 Long term (current) use of aspirin; Z79.84 Long term (current) use of oral hypoglycemic drugs
CPT/HCPCS: 32555; 36415; 36600; 70450; 71045; 71046; 71275; 72125; 72170; 80048; 80053; 81003; 82103; 82104; 82375; 82607; 82746; 82805; 82945; 82948; 83050; 83605; 83615; 83735; 83880; 83986; 84145; 84157; 84439; 84443; 84480; 85025; 85049; 85610; 85730; 86038; 86140; 87040; 87070; 87075; 87081; 87205; 87449; 87635; 87899; 88108; 88305; 88342; 89051; 92526; 92610; 92611; 93005; 94002; 94003; 94640; 94762; 96374; 97110; 97116; 97161; 97165; 97530; 97535; 99285; A9270; G0378; J0282; J0692; J1650; J1940; J2920; J7512; P9047; Q9967

== ENCOUNTER 2023-08-05 08:31 | Inpatient (IN) | payer MEDICARE, MEDICAID, SELFPAY ==
[2023-08-05] VITALS (15 sets, daily range): BP systolic 102–128; BP diastolic 47–63; PULSE 69–89; RESP 12–22; TEMP 36.4–36.5; O2SAT 85–99
--- NOTE | ~2023-08-05 | CT_ITS ---
CT of the Abdomen and Pelvis: Indication: Abdominal pain, gastric distention Technique: 2.5 mm axial scans were obtained through the abdomen and pelvis following intravenous adm inistration of 100 cc of Omnipaque 350. Dose reduction technique was used on this scan by utilizing a utomated exposure control and iterative reconstruction technique. The dose-length product (DLP) was 2 59.24 mGy-cm. COMPARISON: 05/20/2021 Findings: Scans through the lung bases partially imaged moderate left pleural effusion. There is par tial left lower lobe atelectatic change. There is probable moderate to advanced emphysematous change at the visualized lung bases with right basilar patchy consolidation which could reflect atelectasis versus pneumonia.. There is heterogeneous hypodensity in the liver, particularly the inferior right hepatic lobe, which appears similar to prior exam given differences in imaging technique. The spleen, pancreas, gallbladd er, and adrenal glands are within normal limits. Horseshoe kidney noted. There are atherosclerotic ca lcifications of the aorta. No lymphadenopathy. No bowel obstruction or bowel wall thickening. There is no evidence to suggest acute appendicitis. Images through the pelvis were performed. Urinary bladder unremarkable. No pelvic mass seen. No ascit es. No ascites. Impression: Moderate left pleural effusion. Moderate to advanced bibasilar emphysema with patchy right basilar consolidation which could reflect atelectasis versus pneumonia. Heterogeneous hypodensity in the liver stable from prior exam. Findings could reflect cirrhosis versu s other chronic hepatic change. Horseshoe kidney. Reviewed, dictated and finalized at [facility]. LEAK INSPECTOR Impression: Moderate left pleural effusion. Moderate to advanced bibasilar emphysema with patchy right basilar consolidatio n which could reflect atelectasis versus pneumonia. Heterogeneous hypodensity in the liver stable from prior exam. Findings could r eflect cirrhosis versus other chronic hepatic change. Horseshoe kidney.
--- NOTE | ~2023-08-05 | XR_ITS ---
EXAMINATION: XR abdomen gastric tube rechec DATE: 08/07/2023 16:22 INDICATION: Nasogastric tube placement. TECHNIQUE: An upright view of the abdomen was obtained. COMPARISON: Chest single view 08/05/2023 FINDINGS: The lower abdomen is excluded. The nasogastric tube tip is in the stomach. There are small right and moderate-sized left pleural effusions. There are airspace opacities in the mid and lower syl ng zones. There is a left chest wall pacer with leads in the right atrium and right ventricle. IMPRESSION: 1. Nasogastric tube tip in the stomach. 2. Airspace opacities in the mid and lower lung zones, consistent with pulmonary edema versus pneumon ia. 3. Small right and moderate-sized left pleural effusions. Reviewed, dictated and finalized at location A. RELIEF CHARGE IMPRESSION: 1. Nasogastric tube tip in the stomach. 2. Airspace opacities in the mid and lower lung zones, consistent with pulmonar y edema versus pneumonia. 3. Small right and moderate-sized left pleural effusions.
--- NOTE | ~2023-08-05 | XR_ITS ---
EXAMINATION: XR_FLGTUBINS_CR DATE: 08/07/2023 11:02 INDICATION: Abdominal distention. TECHNIQUE: I placed a nasogastric tube under fluoroscopic guidance. The fluoroscopy exposure time was 1.5 minutes. One image was obtained. COMPARISON: Abdomen radiograph 08/06/2023 FINDINGS: The nasogastric tube tip is in the stomach. There are pacer wires in right atrium and right ventricle. IMPRESSION: 1. Fluoroscopy guided nasogastric tube placement with tip in the stomach. Reviewed, dictated and finalized at location A. AL TECH
--- NOTE | ~2023-08-05 | XR_ITS ---
EXAMINATION: XR abdomen/kub 1V DATE: 08/06/2023 21:58 INDICATION: Abdominal distention and coffee ground emesis TECHNIQUE: A supine view of the abdomen on 2 radiographs was obtained. COMPARISON: CT dated 05/20/2021 FINDINGS: Marked gastric distention with large gastric bubble occupying the majority of the abdomen. Small amou nt of scattered colonic stool. No dilated gas-filled loops of bowel to suggest obstruction. 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 Again seen i s a heterotopic ossification along the left inguinal canal. Opacities in bilateral lower lung zones, mild on the right and with more dense consolidation in the left lower lung zone suggesting small left pleural effusion with associated atelectasis and/or pneumonia. Heart size is normal. Cardiac pacemak er leads project over the right atrial tendons and apex of the right ventricle. Severe lumbar spondyl osis. Bridging osteophytes at multiple levels consistent with diffuse idiopathic skeletal hyperostosi s (DISH). Moderate osteoarthritis at the bilateral hips. IMPRESSION: 1. Marked gastric distention. Consider nasogastric tube decompression. 2. Bilateral lower lung disease more prominent on the left where there is likely small left pleural e ffusion and associated left basilar atelectasis and/or pneumonia. 3. 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 Reviewed, dictated and finalized at location A. IC AREA SUPERVISOR IMPRESSION: 1. Marked gastric distention. Consider nasogastric tube decompression. 2. Bilateral lower lung disease more prominent on the left where there is likel y small left pleural effusion and associated left basilar atelectasis and/or pn eumonia. 3. Atherosclerotic calcifications along aneurysmal left and ectatic right commo n iliac arteries which does not appear significantly changed since prior CT.
--- NOTE | ~2023-08-05 | XR_ITS ---
EXAMINATION: XR chest 1V portable DATE: 08/05/2023 09:12 INDICATION: Shortness of breath. TECHNIQUE: A single frontal view of the chest was obtained on 2 radiographs. COMPARISON: Chest single view 07/23/2023, chest CT 07/20/23 FINDINGS: There are lucencies and interstitial opacities in the lungs with architectural distortion. There are airspace opacities in the mid and lower lung zones. There are calcified pleural plaques, wh ich may be seen with asbestosis exposure. There are small right and moderate-sized left pleural effus ions. No pneumothorax. The heart size is normal. There is a left chest wall pacer with leads in the r ight atrium and right ventricle. IMPRESSION: 1. Worsened diffuse lung disease, consistent with pulmonary edema versus pneumonia superimposed on em physema. 2. Small right and moderate-sized left pleural effusions, worsened from 07/23/23. Reviewed, dictated and finalized at location E. HOUSEKEEPER IMPRESSION: 1. Worsened diffuse lung disease, consistent with pulmonary edema versus pneumo kyra superimposed on emphysema. 2. Small right and moderate-sized left pleural effusions, worsened from 3.
--- NOTE | 2023-08-05 08:36 | ECG_ITS ---
Measurements Intervals [place] Rate: 74 P: 20 TN: 169 QRS: 148 QRSD: 132 T: 3 QT: 421 QTc: 468 Interpretive Statements SINUS RHYTHM RIGHT AXIS DEVIATION POSSIBLE LEFT ATRIAL ENLARGEMENT RIGHT BUNDLE BRANCH BLOCK ANTEROSEPTAL INFARCT, AGE INDETERMINATE BASELINE ARTIFACT- I, II, III, AVR, AVL, AVF, V1-V3 ABNORMAL ECG COMPARED TO ECG 07/24/2023 16:04:15 NO SIGNIFICANT CHANGES Electronically Signed On 08-06-2023 13:49:26 CHANGE ADVISOR by Alex Allred D.O.
[2023-08-05 08:55] LABS: Basophils Percent Auto 0.6 % (0.2-1.2); Eosinophils Absolute Auto 0.1 K/mm3 (0-0.3); Eosinophils Percent Auto 1.3 % (0-4.4); Hematocrit 43.2 % (42.0-52.0); Hemoglobin 13.3 g/dL (14.0-18.0); Immature Granulocyte Absolute 0.04 K/mm3 (0.00-0.031); Immature Granulocyte Percent A 0.8 % (0-0.5); Lymphocytes Absolute Auto 0.33 K/mm3 (0.9-3.2); Mean Corpuscular HGB Conc 30.8 g/dl (32-36); Mean Corpuscular Hemoglobin 34.1 pg (26-34); Mean Corpuscular Volume 110.8 fl (80-100); Mean Platelet Volume 9.9 fl (7.4-10.4); Monocytes Absolute Auto 0.3 K/mm3 (0.1-0.6); Monocytes Percent Auto 6.8 % (2.6-8.5); Neutrophils Absolute Auto 3.9 K/mm3 (1.3-6.7); Neutrophils Percent Auto 83.5 % (45.5-73.1); Platelet Count Result 180 k/mm3 (150-375); White Blood Count 4.7 K/mm3 (4.5-10.0)
[2023-08-05 09:06] LABS: Prothrombin Time 13.9 Seconds (11.1-14.7)
[2023-08-05 09:07] LABS: Partial Thromboplastin Time 29.9 SECONDS (22.3-36.8)
[2023-08-05 09:10] LABS: Alanine Aminotransferase 46 U/L (6-50); Albumin Level 3.4 g/dL (3.5-5.1); Alkaline Phosphatase 140 U/L (38-126); Aspartate Amino Transferase 42 U/L (17-59); Bilirubin,Total 1.2 mg/dL (0.2-1.3); Blood Urea Nitrogen 23 mg/dL (9-20); Calcium 8.5 mg/dL (8.4-10.2); Carbon Dioxide > 40 mmol/L (22-30); Chloride 94 mmol/L (98-107); Estimated CRCL calculation 63 ml/min; Estimated Glomerular Filt Rate > 60; Glucose 144 mg/dL (65-110); Sodium 142 mmol/L (137-145)
[2023-08-05 09:17] LABS: NT Pro B Type Natriuretic Pept 3610 pg/mL (19.9-100)
[2023-08-05 09:27] LABS: Anisocytosis 2+ (NORMAL); Macrocytosis 2+ (NORMAL); Platelet Estimate Adequate (Adequate); Schistocytes None Seen (NORMAL)
[2023-08-05 09:35] LABS: Alveolar/Arterial O2 Gradient 483.7 mmHg; Base Excess ABG 10.2 mEq/l (+/-2.0); Carboxyhemoglobin 2.4 % THb (0-2.0); Fractional Inspired Oxygen 100 %; HCO3 ABG 38.2 mEq/l (22.0-26.0); Methemoglobin ABG 0.3 %THb (0-1.5); Oxygen Content ABG 18.1 %vol (16.0-22.0); Oxygen Saturation ABG 98.9 % (95.0-100.0); Oxyhemoglobin 95.8 % THb (90.0-100.0); PO2 ABG 161.1 mmHg (80.0-100.0); PO2 FiO2 Ratio Arterial Blood 1.61 %; Reduced Hemoglobin 1.5 %THb (0-5.0); Total Hemoglobin 13.2 g/dL (12.0-18.0); pH ABG 7.366 (7.350-7.450)
[2023-08-05 09:38] LABS: PCO2 ABG 68.2 mmHg (35.0-45.0)
[2023-08-05 09:39] LABS: Device NON-REBREATHER MASK; Site Drawn LEFT BRACHIAL
[2023-08-05 10:01] LABS: Influenza A QL RT-PCR Negative (Negative); Influenza B QL RT-PCR Negative (Negative); SARS-CoV-2 RNA PCR Positive (Negative)
[2023-08-05] MEDS: ACETAMINOPHEN 325 MG TABLET 650 MG PO ×2 (10:37→16:17)
--- NOTE | 2023-08-05 10:42 | ED.GENADULT ---
HPI - General Adult General Chief complaint: Unspecified Stated complaint: low O2 sat's Time Seen by Provider: 08/05/23 08:34 History of Present Illness HPI narrative: Patient is an 87-year-old male who presents ER with low oxygen saturation. Typically wears 2 L of oxygen at home. Now requiring 6 L high flow nasal cannula. No chest pain or chest pressure. Mild cough. He does not have any chest discomfort. Patient does have history of heart failure. Denies orthopnea or increased lower extremity swelling. Related Data Home Medications Medication Instructions Recorded Confirmed multivitamin (Daily Multi-Vitamin 1 tablet PO DAILY 11/10/19 08/05/23 tablet) acetaminophen 500 mg tablet 500 mg PO Q6H PRN pain 08/05/23 08/05/23 amiodarone 200 mg tablet (Pacerone) 200 mg PO HS 08/05/23 08/05/23 metoprolol tartrate 25 mg tablet 12.5 mg PO Q12H 08/05/23 08/05/23 silver sulfadiazine 1 % topical 1 applic topical Q12H 08/05/23 08/05/23 cream (Silvadene) Allergies Allergy/AdvReac Type Severity Reaction Status Date / Time No Known Allergies Allergy Verified 08/05/23 09:08 Review of Systems Review of Systems: All systems reviewed & are unremarkable except as noted in HPI and below Constitutional: Constitutional: Denies chills, Reports fatigue and Denies fever(s) ENT: Denies nasal discharge and Denies sore throat Cardiovascular: Cardiovascular: Denies chest pain, Denies rapid heart rate and Denies radiating jaw, neck or arm pain Respiratory: Respiratory: Denies cough and Reports dyspnea Gastrointestinal: Gastrointestinal: Denies abdominal pain, Denies diarrhea and Denies vomiting Genitourinary: Genitourinary: Reports no additional male genitourinary complaints [facility] Past Medical History Medical History Anxiety Arthritis Chronic anemia Chronic respiratory failure with hypoxia and hypercapnia Cirrhosis Congenital deformity of both upper extremities Forearms 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 Smoker Tricuspid regurgitation Surgical History Surgical History History of cervical spinal surgery History of inguinal hernia repair Laparoscopic left inguinal hernia repair with mesh, da Earnestine assisted History of surgery on upper extremity Surgery of the forearms as a child to help with function History of total right knee replacement Pacemaker (02/2020) Family History Family History Grandparent Diabetes mellitus Sibling Diabetes mellitus Father Bladder cancer Mother Cerebrovascular accident Social History Social History Social History: His common-law of 50 years in 2019. He has no biologic children but had 5 step children. He is still in close contact with 3 of his step children. One of them is . He has smoked between 0.5-1 pack of cigarettes per day since he was a teenager and still continues to smoke. He quit drinking alcohol when he was 42 years old but used to be quite heavy drinker. He denies any illicit substance use. 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 Code status: DNR/DNI (the patient reports he would be okay with noninvasive ventilatory support and or pressors if needed but if these measures fail he would not want to be intubated or have cardiac resuscitation. He is looking for good quality of
[2023-08-05] MEDS: FUROSEMIDE INJ 40 MG/4 ML VIAL IV PUSH ×2 (12:19→21:50)
--- NOTE | 2023-08-05 13:14 | PM.IMHP ---
H&P: HPI History of Present Illness Date/Time: 08/05/23 13:45 Chief Complaint: Low oxygen saturations. Narrative: This is an 87-year-old male with chronic respiratory failure with hypoxia and hypercapnia, chronic obstructive pulmonary disease, right-sided heart failure with severe pulmonary hypertension, paroxysmal atrial fibrillation, hypertension, cirrhosis with history of esophageal varices, peripheral arterial disease, heart block status post pacemaker insertion, and anxiety who presented to the emergency department via EMS for evaluation of low oxygen saturations. The patient provides the following history. He is known to the hospitalist service from a recent admission for CHF exacerbation and aspiration pneumonia (failed bedside swallow, receiving speech therapy) and he was discharged to [facility] for rehab on 07/27/2023. He has been participating in and has been doing well however the last couple of days he has been feeling weak and more short of breath with lesser lesser exertion. Today he was having some dizzy episodes with his shortness of breath and he was sent in for evaluation after he was found to low SpO2 on his usual oxygen setting. He has otherwise been feeling okay and denies fever, headache, chest pain, sinus congestion, shortness of breath, cough, nausea, vomiting, diarrhea, dysuria, and extremity edema. In the ED: He was afebrile on arrival with stable blood pressures. SpO2 was 85% on 4L liters nasal cannula. Labs were significant for a hemoglobin of 13.3, chloride 94, carbon dioxide greater than 40, BUN 23, glucose 144, proBNP 3610. He tested positive for SARS-CoV-2 by PCR. Chest x-ray shows worsened diffuse lung disease consistent with pulmonary edema versus pneumonia superimposed on emphysema and small right and moderate size left pleural effusions which are worse from 07/23/2023. He received furosemide 40 mg IV x1, dexamethasone 6 mg, and remdesivir 200 mg. He is being admitted in this setting for further care. Review of Systems Review of Systems: Twelve systems were reviewed and are negative except for as per HPI. 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 Smoker Tricuspid regurgitation Surgical History Surgical History History of cervical spinal surgery History of inguinal hernia repair Laparoscopic left inguinal hernia repair with mesh, da Earnestine assisted History of surgery on upper extremity Surgery of the forearms as a child to help with function History of total right knee replacement Pacemaker (02/2020) Family History Family History Grandparent Diabetes mellitus Sibling Diabetes mellitus Father Bladder cancer Mother Cerebrovascular accident Social History Social History Social History: His common-law of 50 years in 2019. He has no biologic children but had 5 step children. He is still in close contact with 3 of his step children. One of them is . He has smoked between 0.5-1 pack of cigarettes per day since he was a teenager and still continues to smoke. He quit drinking alcohol when he was
--- NOTE | 2023-08-05 16:03 | ADMGEN ---
This patient, Tera Cortez, was admitted to IMU Room 207-01. Patient/family oriented to hospital policies and general routines including ID bracelet, bed and alarms, visiting hours, pain management, procedures, bathroom and other care routines, personal items, smoking policy, room service/diet, and visiting hours. Information on how to activate the Rapid Response Team has been discussed. Patient/Family are encouraged to report perceived risks to care and to ask questions if they do not understand what they are told or what they should do.
[2023-08-05] MEDS: METOPROLOL TARTRATE 12.5 MG TABLET PO (23:30)
[2023-08-05] MEDS: AMIODARONE HCL 200 MG TABLET PO (23:30)
[2023-08-05] MEDS: REMDESIVIR 200 MG/NS 250 ML 200 MG/250 ML BAG 250 MG IVPB (23:31)
[2023-08-06] VITALS (26 sets, daily range): BP systolic 108–129; BP diastolic 43–57; PULSE 68–84; RESP 18–24; TEMP 36.2–37; O2SAT 91–100; BMI 19.0
[2023-08-06] MEDS: ALPRAZolam (*CRX) 0.5 MG TABLET PO (00:13)
[2023-08-06] MEDS: ACETAMINOPHEN 325 MG TABLET 650 MG PO ×2 (00:14→14:42)
[2023-08-06 05:25] LABS: Hematocrit 45.2 % (42.0-52.0); Hemoglobin 13.8 g/dL (14.0-18.0); Mean Corpuscular HGB Conc 30.5 g/dl (32-36); Mean Corpuscular Hemoglobin 33.8 pg (26-34); Mean Corpuscular Volume 110.8 fl (80-100); Mean Platelet Volume 9.9 fl (7.4-10.4); Platelet Count Result 193 k/mm3 (150-375); Red Blood Count 4.08 M/mm3 (4.6-6.20); Red Cell Distribution Width 17.8 % (11.5-14.5); White Blood Count 3.5 K/mm3 (4.5-10.0)
[2023-08-06 05:45] LABS: Blood Urea Nitrogen 26 mg/dL (9-20); CRP 7.5 mg/dL (<1.0); Calcium 8.5 mg/dL (8.4-10.2); Carbon Dioxide > 40 mmol/L (22-30); Chloride 93 mmol/L (98-107); Estimated CRCL calculation 53 ml/min; Estimated Glomerular Filt Rate > 60; Glucose 117 mg/dL (65-110); Lactate Dehydrogenase 204 U/L (120-246); Magnesium 2.3 mg/dL (1.6-2.3); Potassium 4.3 mmol/L (3.4-5.0); Sodium 141 mmol/L (137-145)
[2023-08-06] MEDS: UMECLIDINIUM/VILANTEROL 62.5-25 MCG ELLIPTA 1 PUFF INHALATION (08:34)
[2023-08-06] MEDS: ENOXAPARIN 40 MG/0.4 ML SYRINGE SUB-Q (09:34)
[2023-08-06] MEDS: FUROSEMIDE INJ 40 MG/4 ML VIAL IV PUSH ×2 (09:36→20:12)
[2023-08-06] MEDS: SILVER SULFADIAZINE 1% CR 400 GM JAR (*BKC) 1 APPLIC TOPICAL (09:37)
[2023-08-06] MEDS: ASPIRIN 81 MG CHEWABLE TABLET PO (09:37)
[2023-08-06] MEDS: MULTIVITAMINS THERAPEUTIC TAB (*BKC) 1 TABLET PO (09:37)
[2023-08-06] MEDS: METOPROLOL TARTRATE 12.5 MG TABLET PO ×2 (09:37→20:12)
[2023-08-06] MEDS: EMPAGLIFLOZIN 10 MG TABLET PO (09:37)
--- NOTE | 2023-08-06 10:23 | PM.IMPN ---
Progress Note: A&P Assessment and Plan (1) Paroxysmal atrial fibrillation: Code(s): I48.0 - Paroxysmal atrial fibrillation Status: Acute (2) Acute on chronic right heart failure: Code(s): I50.813 - Acute on chronic right heart failure Status: Acute (3) Acute on chronic diastolic congestive heart failure: Code(s): I50.33 - Acute on chronic diastolic (congestive) heart failure Status: Acute (4) Acute on chronic respiratory failure with hypoxia and hypercapnia: Code(s): J96.21 - Acute and chronic respiratory failure with hypoxia; J96.22 - Acute and chronic respiratory failure with hypercapnia Status: Acute (5) Chronic anemia: Code(s): D64.9 - Anemia, unspecified Status: Acute (6) Peripheral arterial disease: Code(s): I73.9 - Peripheral vascular disease, unspecified Status: Acute (7) COVID: Code(s): U07.1 - COVID-19 Status: Acute Plan 1. COVID pneumonia ct isolation does not have significant o2 requirements worse than baseline ct dexamethasone (9 more doses scheduled after today) and remdesivir (4 more doses scheduled starting today) does not meet requirement for tocilizumab ct supplemental o2 as needed, right now 2-4L discussed with RN re: lowering o2 to minimum needed to prevent co2 retention from reducing hypoxic drive crp elevated, f/u ESR 2. acute on chronic CHF has diastolic chf and r sided chf bnp ~[address] bid lasix IV f/u cr tomorrow and recommend switching back to po lasix if cr rises 0.8 cr today on jardiance, metoprolol, lasix 3. acute on chronic resp failure ct supplemental o2 as needed o2 recommendation of around 90% from last pulmonary consultation 4. COPD ct umeclidinium rt daily inh albuterol MDI prn because pt has covid currently denies sob takes xanax prn 5. P. A fib ct metoprolol 6. CO2 retention ct bipap 7. dysphagia with silent aspiration on restricted diet MBS reviewed ST ordered to work with him 8. subclinical hyperthyroidism 07/26: TSH 0.134, Ft4 1.46, Total T3 0.64 Pt is at a high risk for complications for CVD. Per uptodate, recommend evaluation and treatment. NM thyroid uptake scan ordered. Can only have it after 08/20. Pt will need to be on BB 9. Prior transudative pleural effusions from CHF monitor, may need taps occasionally Time Spent With Patient Time: 45 min Subjective Date/time seen: 08/06/23 10:23 Interval history: reason for encouter is acute on chronic resp failure 2 to covid pneumonia pt denies acute sob Exam Narrative: General:?Nontoxic, chronically ill-appearing male sitting up in bed. He is in good spirits. Weight: 67 kg.? BMI: 20.0. HEENT:?PERRL, EOMI. Sclera anicteric.? Oral mucosa moist. Edentulous. Neck:??Supple. No significant jugular venous distension. Respiratory:?Respirations are nonlabored and he is speaking full sentences. Lung sounds are diminished at the bases, left greater than right with scattered crackles. Cardiovascular:??Regular rate and rhythm with S1-S2. Gastrointestinal:??Abdomen is soft, nontender, and nondistended with positive bowel sounds. Skin:??Warm and dry.? No rash or lesions on limited exam. Extremities:??No cyanosis, clubbing, or edema. Radial and pedal pulses intact. Neurological:??Alert.? Cranial nerves 2-12 are grossly intact. No gross focal deficits to casual conversation. Psychiatric:??Pleasant and cooperative with normal mood and affect.? Judgment and insight intact. Objective Data Vital Signs Vital Signs: Vital Signs - 24 hr 08/05/23 10:41 08/05/23 11:37 08/05/23 11:59 Temperature Pulse Rate 85 79 71 Respiratory Rate 16 21 H 13 Blood Pressure 114/59 L 128/63 103/47 L Pulse Oximetry 92 91 98 Oxygen Delivery Oxygen Flow Rate Fraction of Inspired Oxygen 08/05/23 12:20 08/05/23 14:47 08/05/23 15:34 Temperature Pulse Rate 79 71 Respiratory Rate 12 17 17 Blood Pressure 109/56 L 102/55 L
[2023-08-06 12:18] LABS: Erythrocyte Sedimentation Rate 22 mm/hr (0-20)
--- NOTE | 2023-08-06 16:31 | PCSTNOTE ---
ST contacted MD regarding need for BSE vs MBS. Waiting on callback.
[2023-08-06] MEDS: DOCUSATE SODIUM 100 MG CAPSULE PO (20:11)
[2023-08-06] MEDS: AMIODARONE HCL 200 MG TABLET PO (20:11)
[2023-08-06] MEDS: REMDESIVIR 100 MG/NS 250 ML 100 MG/250 ML BAG 250 MG IVPB (22:00)
--- NOTE | 2023-08-06 23:27 | PM.EVENT ---
Event Note Event Note Event Note: Patient began complaining of nausea and distended abdomen. No significant pain on exam. Stat KUB showed significantly distended stomach. NG tube ordered.
[2023-08-07] VITALS (19 sets, daily range): BP systolic 96–149; BP diastolic 53–76; PULSE 54–122; RESP 16–36; TEMP 36.2–36.8; O2SAT 93–100
--- NOTE | 2023-08-07 03:53 | PC.NURSE ---
2114 Miriam BURCH informed of distended abdomen and c/o nausea. Orders received. 2219 Miriam BURCH informed of KUB results. Orders received 2229 Multiple attempts made to insert nasogastric tube as ordered. Charge nurse attempted nasogastric tube placement without success. Negin BURCH notified and orders received to have NG placed under fluoro.
[2023-08-07 05:21] LABS: Prothrombin Time 13.3 Seconds (11.1-14.7)
[2023-08-07 08:00] LABS: Alanine Aminotransferase 40 U/L (6-50); Albumin Level 3.5 g/dL (3.5-5.1); Alkaline Phosphatase 141 U/L (38-126); Aspartate Amino Transferase 33 U/L (17-59); Bilirubin,Total 0.9 mg/dL (0.2-1.3); Blood Urea Nitrogen 38 mg/dL (9-20); Calcium 8.7 mg/dL (8.4-10.2); Carbon Dioxide > 40 mmol/L (22-30); Chloride 85 mmol/L (98-107); Estimated CRCL calculation 47 ml/min; Estimated Glomerular Filt Rate > 60; Glucose 139 mg/dL (65-110); Magnesium 2.4 mg/dL (1.6-2.3); Potassium 3.6 mmol/L (3.4-5.0); Sodium 148 mmol/L (137-145)
[2023-08-07] MEDS: UMECLIDINIUM/VILANTEROL 62.5-25 MCG ELLIPTA 1 PUFF INHALATION (08:41)
[2023-08-07] MEDS: FUROSEMIDE INJ 40 MG/4 ML VIAL IV PUSH (09:06)
[2023-08-07] MEDS: MORPHINE SULFATE (*CRX) 4 MG/ML INJ IV PUSH (09:07)
[2023-08-07] MEDS: ONDANSETRON INJ 4 MG/2 ML VIAL IV PUSH ×2 (09:08→14:14)
[2023-08-07] MEDS: ENOXAPARIN 40 MG/0.4 ML SYRINGE SUB-Q (09:09)
--- NOTE | 2023-08-07 09:13 | PCSTNOTE ---
Please refer to the Bedside Swallow Evaluation in the EMR. Please note, silent aspiration cannot be ruled out at bedside.
--- NOTE | 2023-08-07 11:08 | P.CDI_ITS ---
yes, moderate protein calorie malnutrition CDI Query Clarified Diagnosis Clarified Diagnosis: BMI 19.0 Nutritional Diagnostic Statement Moderate protein calorie malnutrition related to poor appetite and intake as evidenced by significant weight loss -9% x 2 months, reported poor intake over the last month. Please refer to the comprehensive nutrition assessment for further information. Please clarify severity of protein calorie malnutrition if known * Mild * Moderate * Severe * Other / Unspecified
[2023-08-07] MEDS: DOCUSATE SODIUM 100 MG CAPSULE PO (13:58)
[2023-08-07] MEDS: polyethylene glycoL 3350 17 GM POWD.PACK PO (13:58)
[2023-08-07] MEDS: EMPAGLIFLOZIN 10 MG TABLET PO (13:58)
[2023-08-07] MEDS: MULTIVITAMINS THERAPEUTIC TAB (*BKC) 1 TABLET PO (13:59)
[2023-08-07] MEDS: ASPIRIN 81 MG CHEWABLE TABLET PO (13:59)
[2023-08-07] MEDS: ALPRAZolam (*CRX) 0.5 MG TABLET PO (14:14)
--- NOTE | 2023-08-07 14:44 | PM.CNGS ---
Assessment and Plan Assessment and plan (1) Gastric distention: Code(s): K31.89 - Other diseases of stomach and duodenum Status: Acute Assessment and Plan: Patient with abdominal pain and vomiting starting last night. KUB showed gastric distention. He has had over 3 liters of output since NG placement. Will get a CT scan of the abdomen and pelvis to further evaluate. May also need an upper GI to further evaluate for gastric outlet obstruction or issues with gastric emptying. It doesn't look like he has had any other workup as an outpatient for this problem here. May need to consider GI consultation. His abdominal pain and distention has improved following NG tube decompression. No indication for any urgent surgical intervention at this time. (2) COVID: Code(s): U07.1 - COVID-19 Status: Acute (3) Acute on chronic respiratory failure with hypoxia and hypercapnia: Code(s): J96.21 - Acute and chronic respiratory failure with hypoxia; J96.22 - Acute and chronic respiratory failure with hypercapnia Status: Acute (4) Acute on chronic diastolic congestive heart failure: Code(s): I50.33 - Acute on chronic diastolic (congestive) heart failure Status: Acute (5) COPD with emphysema: Qualifiers: Emphysema type: unspecified Qualified Code(s): J43.9 - Emphysema, unspecified Code(s): J43.9 - Emphysema, unspecified Status: Acute (6) Cirrhosis: Code(s): K74.60 - Unspecified cirrhosis of liver Status: Acute (7) Pacemaker: Onset Date: 02/2020 Code(s): Z95.0 - Presence of cardiac pacemaker Status: Acute (8) Dysphagia: Code(s): R13.10 - Dysphagia, unspecified Status: Acute Plan I have discussed the patient's case and plan of care with Dr. Mcclendon. Thank you for allowing us to see the patient in consultation and we will continue to follow along with you. History of Present Illness Consult details Consult date: 08/07/23 Requesting physician: Alejandra Ontiveros MD Narrative: This is an 87-year-old man with multiple medical problems, who we have been asked to see in consultation for gastric distention. He was brought into the ER 2 days ago for evaluation of low oxygen saturations on his typical home oxygen setting. He was recently hospitalized for CHF exacerbation and aspiration pneumonia. In the ER, workup revealed worsened lung disease and he was found to be COVID positive. He is now in the IMU and being treated with remdesivir, IV steroids, and diuretics. He developed abdominal distention and vomiting last night with subsequent KUB that showed gastric distention. He had an NG tube placed in Radiology and has since had 3 liters out of the NG. Our service has been consulted and he is now seen. Patient also provides history that this happens to him occasionally, and no one can figure out why he keeps having this issue. He states he fluctuates between constipation and diarrhea. He recently had diarrhea and once he was admitted, he felt constipated and was given Miralax yesterday. He did have a BM after the Miralax. He also has been having swallowing difficulties and appears to have had a modified barium swallow a few weeks ago on his last hospitalization and is currently on a pureed and thickened diet. He denies having a bowel obstruction in the past. He did have an EGD for food bolus extraction in January with also findings of an esophageal web. This was not dilated at the time due to the severe esophagitis from the food bolus. The patient reports having severe RLQ and LUQ abdominal pain that started last night and continued into this morning. His pain has improved since NG tube placement and receiving IV Morphine. He feels his distention has improved. No other specific complaints at this time. Review of Systems Review of Systems: All systems reviewed & are unremarkable except as noted in HPI and below PMFSH Past Medical History Medical Histo
--- NOTE | 2023-08-07 17:22 | PM.IMPN ---
Progress Note: A&P Assessment and Plan (1) Gastric distention: Code(s): K31.89 - Other diseases of stomach and duodenum Status: Acute (2) Paroxysmal atrial fibrillation: Code(s): I48.0 - Paroxysmal atrial fibrillation Status: Acute (3) Acute on chronic right heart failure: Code(s): I50.813 - Acute on chronic right heart failure Status: Acute (4) Acute on chronic respiratory failure with hypoxia and hypercapnia: Code(s): J96.21 - Acute and chronic respiratory failure with hypoxia; J96.22 - Acute and chronic respiratory failure with hypercapnia Status: Acute (5) COVID: Code(s): U07.1 - COVID-19 Status: Acute Plan 87-year-old male with chronic respiratory failure with hypoxia and hypercapnia, chronic obstructive pulmonary disease, right-sided heart failure with severe pulmonary hypertension, paroxysmal atrial fibrillation, hypertension, cirrhosis with history of esophageal varices, peripheral arterial disease, heart block status post pacemaker insertion, and anxiety who presented to the emergency department via EMS for evaluation of low oxygen saturations. 1) acute on chronic respiratory failure with hypoxia and hypercarbia - precipitated by COVID-19 pneumonia. continue remdesevir and decadron. low threshold for start naomi - continue to follow inflammatory markers. starting prophylactic anticoagulation. - cefepime and vancomycin started 08/07. unclear if he has a bacterial pneumonia, will use procalcitonin to gauge relevance and de-escalate MARGARET - COPD, no acute exacerbation, but low threshold for scheduling nebs. for now, prn nebs - cont maint o2 sat between 88-92% to avoid hyperoxygenation and lowering respiratory drive 2) acute on chronic diastolic heart failure, right sided CHF - BNP 3600 on admission, but he has been much higher before. d/c lasix on 08/07 2/2 hypernatremia - monitor CHF parameters 3) hypernatremia - appears dry, if anything. lasix stopped on 08/07. start D5W at 83cc/hr with recheck BMP at midnight 4) p. afib - last admission was cardioverted with amiodarone. he was never placed on AC, not clear why. however, currently in SR so ctm. cont amiodarone and metoprolol 5) dysphagia - quite reluctant to follow speech therapy recs. 6) subclinical hypothyroidism - f/u NM uptake scan 7) gastric distention - relieved s/p NG tube insertion. - surgery consulted, CT scan abdomen pending FEN: D5W, NPO w/ NG tube GI prophylaxis: protonix DVT prophylaxis: lovenox therapeutic Lines: pIV Code Status: DNR Dispo: stable, but guarded More than 35 minutes spent on chart review, patient interaction and assessment and plan. Subjective Date/time seen: 08/07/23 17:22 Interval history: patient developed abdominal pain overnight. KUB demonstrating gastric distention. difficult NG tube placement with subsequent placement under fluroscopy. 3L of fluid retrieved afterwards. he then pulled it out again. he couldnt explain why. re placement at bedside by nurse successful. pt currently doesn't complain of anything, reports resolved abdominal pain. he struggles with on and off constipation Review of Systems Review of Systems: All systems reviewed & are unremarkable except as noted in HPI and below Exam Const: General: comfortable and no acute distress Eyes: Pupils: Equal, round and reactive pupils present Neck: Neck: supple Resp: Effort & Inspection: normal respiratory effort Auscultation: clear to auscultation bilaterally and diminished lung sounds Cardio: Rate: regular rate Rhythm: regular rhythm Heart sounds: no gallops, no murmurs and no rubs GI: Inspection: non-distended GI Palp: Yes Soft to palpation Extrem: General: no edema Objective Data Vital Signs Vital Signs: Vital Signs - 24 hr 08/06/23 18:00 08/06/23 20:11 08/06/23 20:12 Temperature Pulse Rate 74 83 83 Respiratory Rate Blood Pressure Pulse Oximetry Oxygen Delivery
[2023-08-07] MEDS: CEFEPIME 2 GM/NS 50 ML 2 GM/50 ML BAG IVPB (18:13)
[2023-08-07] MEDS: DEXTROSE 5% 1,000 ML 1,000 ML 83 ML IV CONT (18:13)
--- NOTE | 2023-08-07 20:17 | PM.EVENT ---
Event Note Event Note Event Note: Rapid Response Patient was unresponsive with sats at 40%. Patient had displaced his HFNC and pulled his NG tube. Placed on NRB and HFNC replaced. Sat then increased to 95% and patient became responsive. Currently A/Ox4. NRB d/c'd and HFNC titrated back to 3L. Mitts ordered. Assess for efficacy and then replace NG tube. Discussed plan with patient, in agreement.
[2023-08-07] MEDS: ENOXAPARIN 60 MG/0.6 ML SYRINGE SUB-Q (20:21)
[2023-08-07 22:51] LABS: Alveolar/Arterial O2 Gradient 123.6 mmHg; Base Excess ABG 34.7 mEq/l (+/-2.0); Carboxyhemoglobin 1.5 % THb (0-2.0); Fractional Inspired Oxygen 48 %; Methemoglobin ABG 0.3 %THb (0-1.5); Oxygen Saturation ABG 95.6 % (95.0-100.0); PO2 ABG 87.5 mmHg (80.0-100.0); PO2 FiO2 Ratio Arterial Blood 1.82 %; Reduced Hemoglobin 4.2 %THb (0-5.0); Total Hemoglobin 15.1 g/dL (12.0-18.0); pH ABG 7.392 (7.350-7.450)
[2023-08-07 22:53] LABS: Device NASAL CANNULA; Modified Allen's Test Pass; PCO2 ABG 116.1 mmHg (35.0-45.0); Site Drawn LEFT RADIAL
--- NOTE | 2023-08-07 23:18 | P.PNCROSS_ITS ---
Event Note Event Note Event Note: 08/06/2023 at 23:00 Nursing staff contacted me as the patient is repetitively pulling off his oxygen. He has dropped his oxygen saturations as low was 40. I ordered a stat ABG and his pCO2 was 116. The patient is here for gastric distension and COVID. The patient had pulled out his NG earlier in the day after already having 4 L of NG output. Patient does not want an NG replaced. And there was concern about whether not the patient would leave a BiPAP on. He would be at high risk for aspiration with BiPAP given his gastric distension. Given that the patient is confused I did call the patient's power of assistant city attorney [place]. I confirmed that the patient is a DNR DNI. I discussed the option of BiPAP and repeat NG placement verses making the patient comfort measures and proceeding with comfort care. The family and patient want him to be made comfortable. Does comfort measures orders have been placed. 35 minutes spent in critical care activities. Due to a high probability of clinically significant, life threatening deterioration, the patient required my highest level of preparedness to intervene emergently and I personally spent this critical care time directly and personally managing the patient. This critical care time included obtaining a history; examining the patient; pulse oximetry; ordering and review of studies; arranging urgent treatment with development of a management plan; evaluation of patient's response to treatment; frequent reassessment; and discussions with other providers. It was exclusive of separately billable procedures and treating other patients and teaching time. Please see Assessment and Plan section and the rest of the note for further information on patient assessment and treatment.
[2023-08-07] MEDS: LORazepam INJ (*CRX) 2 MG/ML VIAL IV PUSH (23:58)
[2023-08-08] VITALS: PULSE 95
[2023-08-08] MEDS: MORPHINE SULFATE (*CRX) 4 MG/ML INJ IV PUSH (05:39)
--- NOTE | 2023-08-08 06:03 | PC.NURSE ---
The patient transferred to [facility] with belongings. His family have been notified of transfer to comfort care. Report given to HÉCTOR Godinez on [facility].
--- NOTE | 2023-08-08 06:05 | PC.NURSE ---
Patient transferred to room 346 on comfort measures. Patient was resting following medications upon arrival. Room was set-up and alarms in place for safety.
[2023-08-08 07:55] VITALS: O2SAT 85
--- NOTE | 2023-08-08 08:52 | PC.NURSE ---
Spoke with family member at bedside. She stated she would like to talk with other family members via telephone in regards to continuing daily medications. RN educated family on PO medications and that those will be held due to the NPO order. However patient has IV scheduled medications that can be administered. RN educated family on these medications. RN is not going to administer the IV scheduled medications until family has discussed what they would like to do with the daily scheduled medications.
--- NOTE | 2023-08-08 13:59 | PM.IMPN ---
Progress Note: A&P Assessment and Plan (1) Gastric distention: Code(s): K31.89 - Other diseases of stomach and duodenum Status: Acute (2) COVID: Code(s): U07.1 - COVID-19 Status: Acute Plan decision made for comfort care in this 87M w/ multiple comorbidities comfort care started 08/08. [facility] currently conducting eval DNR. comfort care. Subjective Date/time seen: 08/08/23 13:59 Interval history: patient was non compliant with therapy overnight. decision made to be comfort care. patient rests comfortable in bed, somnolent Review of Systems Review of Systems: All systems reviewed & are unremarkable except as noted in HPI and below Exam Const: General: comfortable and no acute distress Neck: Neck: supple Resp: Other: upper airway congestion Cardio: Rate: regular rate Rhythm: regular rhythm Heart sounds: no gallops, no murmurs and no rubs Extrem: General: no edema Objective Data Vital Signs Vital Signs: Vital Signs - 24 hr 08/07/23 18:03 08/07/23 14:00 08/07/23 16:00 Temperature 97.7 F Pulse Rate 92 90 105 H Respiratory Rate Blood Pressure 107/53 L Pulse Oximetry 97 Oxygen Delivery Oxygen Flow Rate 08/07/23 18:00 08/07/23 16:00 08/07/23 20:00 Temperature 97.3 F L Pulse Rate 85 108 H Respiratory Rate 20 Blood Pressure 129/71 Pulse Oximetry 94 99 Oxygen Delivery High Flow Nasal Cannula Oxygen Flow Rate 5 08/07/23 21:37 08/07/23 20:00 08/07/23 23:05 Temperature 97.3 F L 97.9 F Pulse Rate 108 H 122 H 100 Respiratory Rate 24 H 16 Blood Pressure 129/71 110/75 Pulse Oximetry 96 97 Oxygen Delivery High Flow Therapy with Na Oxygen Flow Rate 4 08/07/23 22:00 08/08/23 00:00 08/08/23 08:09 Temperature Pulse Rate 109 H 95 Respiratory Rate Blood Pressure Pulse Oximetry Oxygen Delivery High Flow Nasal Cannula Oxygen Flow Rate 2 08/08/23 07:55 Temperature Pulse Rate Respiratory Rate Blood Pressure Pulse Oximetry 85 L Oxygen Delivery Nasal Cannula Oxygen Flow Rate 2 Intake/Output Intake/Output: Intake & Output 08/05/23 08/06/23 08/07/23 08/08/23 23:59 23:59 23:59 23:59 Intake Total 720 1050 Output Total 1000 6782 2887 462 Balance -8525 -894 -3600 -250 Meds/Results Medications: Active Medications Generic Name Dose Route Start Last Admin Trade Name Freq PRN Reason Stop Dose Admin Acetaminophen 650 mg 08/05/23 11:48 08/06/23 14:42 Acetaminophen 325 Mg Tablet PO 650 mg Q4H PRN Administration Mild Pain (1-3) or Fever Hydrocodone Bitart/Acetaminophen 1 tab 08/05/23 11:48 Hydrocodone/Acetaminophen (*Crx) 5-325 Mg Tablet PO Q4H PRN Pain Rated 4-6 Albuterol 2 puff 08/06/23 10:37 Albuterol Sulfate (*Sp) Aerosol 1 Puff INHALATION Q6HRT PRN Shortness Of Breath Alprazolam 0.5 mg 08/05/23 22:10 08/07/23 14:14 Alprazolam (*Crx) 0.5 Mg Tablet PO 0.5 mg BID PRN Administration anxiety Aspirin 81 mg 08/06/23 08:00 08/08/23 07:42 Aspirin 81 Mg Chewable Tablet PO Not Given DAILY@0800 [facility] Dexamethasone Sodium Phosphate 6 mg 08/06/23 09:00 08/08/23 11:10 Dexamethasone Sod Phos Inj 10 Mg/Ml 1 Ml Vial IV PUSH 08/15/23 09:01 Not Given DAILY [facility] Docusate Sodium 100 mg 08/06/23 21:00 08/08/23 07:42 Docusate Sodium 100 Mg Capsule PO Not Given Q12HR [facility] Empagliflozin 10 mg 08/06/23 09:00 08/08/23 07:42 Empagliflozin 10 Mg Tablet PO Not Given DAILY [facility] Enoxaparin Sodium 60 mg 08/07/23 21:00 08/08/23 11:10 Enoxaparin 60 Mg/0.6 Ml Syringe SUB-Q Not Given Q12HR [facility] Remdesivir 100 mg in 250 mls @ 250 mls/hr 08/06/23 22:00 08/08/23 00:25 IVPB 08/09/23 22:59 Not Given Q24H [facility] Vancomycin HCl 1,250 mg in 250 mls @ 166.667 mls/hr 08/08/23 20:00 Vancomycin 1,250 Mg/Ns 250 Ml IVPB Q24H [facility] Lorazepam 2 mg 08/07/23 23:15 Lorazepam Inj (*Crx)
[2023-08-08 15:41] VITALS: BP 96/68; PULSE 120; RESP 40; TEMP 36.9; O2SAT 38
[2023-08-08] MEDS: MORPHINE SULFATE (*CRX) 2 MG/ML INJ IV PUSH (17:30)
[2023-08-08 17:36] VITALS: BP 115/52; PULSE 122; O2SAT 79
[2023-08-08 20:25] VITALS: BP 122/67; PULSE 118; RESP 24; TEMP 36.9; O2SAT 91
[2023-08-08] MEDS: VANCOMYCIN 1,250 MG/NS 250 ML 1,250 MG/250 ML BAG 166.67 MG IVPB (21:10)
[2023-08-08] MEDS: REMDESIVIR 100 MG/NS 250 ML 100 MG/250 ML BAG 250 MG IVPB (22:54)
[2023-08-09 05:57] VITALS: BP 127/93; PULSE 109; RESP 22; TEMP 37.2; O2SAT 83
--- NOTE | 2023-08-09 10:38 | PCNFU ---
Nutrition Follow-Up Complete: Moderate protein calorie malnutrition related to poor appetite and intake as evidenced by significant weight loss of -9% x 2 months, reported poor intake over the last month. Goal: PO intake 75% of meals and supplements patient is not meeting goal. Pt current nutrition is NPO.Comfort measures. Hospice consult. No further nutritional interventions needed at this time. Monitor intake, wt, labs. Follow up in 7days.
--- NOTE | 2023-08-09 10:56 | PC.NURSE ---
Spoke with patients family, Keri Gann by phone today regarding comfort care and Hospice. Keri verbalized wanting patient to stay at [facility] for Hospice. Electronic Imager referred her to care coordination. At this time daily medications held due to NPO order, as well as comfort measures in place.
[2023-08-09 14:00] VITALS: BP 116/72
--- NOTE | 2023-08-09 14:45 | PM.IMPN ---
Progress Note: A&P Assessment and Plan (1) COVID: Code(s): U07.1 - COVID-19 Status: Acute Plan cont comfort care measures. placement pending Subjective Date/time seen: 08/09/23 14:45 Interval history: NAOE. pleasantly confused Review of Systems Review of Systems: All systems reviewed & are unremarkable except as noted in HPI and below Exam Const: General: comfortable and no acute distress Other: pleasantly confused Neck: Neck: supple Resp: Effort & Inspection: normal respiratory effort Other: upper airway congestion Cardio: Rate: regular rate Rhythm: regular rhythm GI: GI Palp: Yes Soft to palpation Extrem: General: no edema Objective Data Vital Signs Vital Signs: Vital Signs - 24 hr 08/08/23 15:41 08/08/23 17:36 08/08/23 20:25 Temperature 98.4 F 98.5 F Pulse Rate 120 H 122 H 118 H Respiratory Rate 40 H 24 H Blood Pressure 96/68 L 115/52 L 122/67 Pulse Oximetry 38 L 79 L 91 Oxygen Delivery Oxygen Flow Rate 08/09/23 05:57 08/09/23 07:30 08/09/23 14:00 Temperature 98.9 F Pulse Rate 109 H Respiratory Rate 22 H Blood Pressure 127/93 H 116/72 Pulse Oximetry 83 L Oxygen Delivery High Flow Nasal Cannula Oxygen Flow Rate 2 Intake/Output Intake/Output: Intake & Output 08/06/23 08/07/23 08/08/23 08/09/23 23:59 23:59 23:59 23:59 Intake Total 720 1050 500 Output Total 1400 4650 250 250 Balance -680 -3600 250 -250 Meds/Results Medications: Active Medications Generic Name Dose Route Start Last Admin Trade Name Freq PRN Reason Stop Dose Admin Acetaminophen 650 mg 08/05/23 11:48 08/06/23 14:42 Acetaminophen 325 Mg Tablet PO 650 mg Q4H PRN Administration Mild Pain (1-3) or Fever Hydrocodone Bitart/Acetaminophen 1 tab 08/05/23 11:48 Hydrocodone/Acetaminophen (*Crx) 5-325 Mg Tablet PO Q4H PRN Pain Rated 4-6 Alprazolam 0.5 mg 08/05/23 22:10 08/07/23 14:14 Alprazolam (*Crx) 0.5 Mg Tablet PO 0.5 mg BID PRN Administration anxiety Docusate Sodium 100 mg 08/06/23 21:00 08/09/23 09:07 Docusate Sodium 100 Mg Capsule PO Not Given Q12HR [facility] Lorazepam 2 mg 08/07/23 23:15 Lorazepam Inj (*Crx) 2 Mg/Ml Vial IV PUSH Q2H PRN Anxiety/Comfort Morphine Sulfate 4 mg 08/05/23 11:48 08/08/23 05:39 Morphine Sulfate (*Crx) 4 Mg/Ml Inj IV PUSH 4 mg Q2H PRN Administration Pain Rated 7-10 Morphine Sulfate 2 mg 08/07/23 23:15 08/08/23 17:30 Morphine Sulfate (*Crx) 2 Mg/Ml Inj IV PUSH 2 mg Q2H PRN Administration COMFORT Ondansetron HCl 4 mg 08/05/23 11:48 08/07/23 14:14 Ondansetron Inj 4 Mg/2 Ml Vial IV PUSH 4 mg Q4H PRN Administration Nausea Radiology Results: ITS Impressions Chest X-Ray 08/05/23 09:14 IMPRESSION: 1. Worsened diffuse lung disease, consistent with pulmonary edema versus pneumonia superimposed on emphysema. 2. Small right and moderate-sized left pleural effusions, worsened from 07/23/23. NG Tube Placement 08/07/23 11:10 IMPRESSION: 1. Fluoroscopy guided nasogastric tube placement with tip in the stomach. Abdomen X-Ray 08/07/23 16:24 IMPRESSION: 1. Nasogastric tube tip in the stomach. 2. Airspace opacities in the mid and lower lung zones, consistent with pulmonary edema versus pneumonia. 3. Small right and moderate-sized left pleural effusions. Abdomen/Pelvis CT 08/08/23 06:12 Impression: Moderate left pleural effusion. Moderate to advanced bibasilar emphysema with patchy right basilar consolidation which could reflect atelectasis versus pneumonia. Heterogeneous hypodensity in the liver stable from prior exam. Findings could reflect cirrhosis versus other chronic hepatic change. Horseshoe kidney.
[2023-08-09 20:00] VITALS: BP 104/49; PULSE 62; RESP 18; TEMP 37.2; O2SAT 78
--- NOTE | 2023-08-10 07:59 | PC.NURSE ---
Patient is NPO and on comfort measures. PO medications non administer due to NPO order.
[2023-08-10 09:55] VITALS: O2SAT 78
[2023-08-10] MEDS: MORPHINE SULFATE (*CRX) 2 MG/ML INJ IV PUSH ×2 (14:00→17:01)
[2023-08-10 15:21] VITALS: BP 133/70; PULSE 66; RESP 16; TEMP 37; O2SAT 86
--- NOTE | 2023-08-10 15:55 | PM.IMPN ---
Progress Note: A&P Assessment and Plan (1) COVID: Code(s): U07.1 - COVID-19 Status: Acute Plan care coordination still working on transfer to facility for hospice. difficult 2/2 covid status. no change in mgmt so far while he stays here. DNR Subjective Date/time seen: 08/10/23 15:55 Interval history: NAOE. pt follows command intermittently. sometimes his speech is incomprehensible Review of Systems Review of Systems: All systems reviewed & are unremarkable except as noted in HPI and below Exam Const: General: comfortable and no acute distress Eyes: Pupils: Equal, round and reactive pupils present Other: dry MM Resp: Effort & Inspection: normal respiratory effort Cardio: Rate: regular rate Rhythm: regular rhythm GI: GI Palp: Yes Soft to palpation Extrem: General: no edema Objective Data Vital Signs Vital Signs: Vital Signs - 24 hr 08/09/23 20:00 08/10/23 07:42 08/10/23 09:55 Temperature 98.9 F Pulse Rate 62 Respiratory Rate 18 Blood Pressure 104/49 L Pulse Oximetry 78 L 78 L Oxygen Delivery Nasal Cannula Nasal Cannula Oxygen Flow Rate 2 2 08/10/23 15:21 Temperature 98.6 F Pulse Rate 66 Respiratory Rate 16 Blood Pressure 133/70 Pulse Oximetry 86 L Oxygen Delivery Oxygen Flow Rate Intake/Output Intake/Output: Intake & Output 08/07/23 08/08/23 08/09/23 08/10/23 23:59 23:59 23:59 23:59 Intake Total 1050 500 Output Total 4650 250 650 350 Balance -3600 250 -650 -350 Meds/Results Medications: Active Medications Generic Name Dose Route Start Last Admin Trade Name Freq PRN Reason Stop Dose Admin Acetaminophen 650 mg 08/05/23 11:48 08/06/23 14:42 Acetaminophen 325 Mg Tablet PO 650 mg Q4H PRN Administration Mild Pain (1-3) or Fever Hydrocodone Bitart/Acetaminophen 1 tab 08/05/23 11:48 Hydrocodone/Acetaminophen (*Crx) 5-325 Mg Tablet PO Q4H PRN Pain Rated 4-6 Alprazolam 0.5 mg 08/05/23 22:10 08/07/23 14:14 Alprazolam (*Crx) 0.5 Mg Tablet PO 0.5 mg BID PRN Administration anxiety Docusate Sodium 100 mg 08/06/23 21:00 08/10/23 07:58 Docusate Sodium 100 Mg Capsule PO Not Given Q12HR [facility] Lorazepam 2 mg 08/07/23 23:15 Lorazepam Inj (*Crx) 2 Mg/Ml Vial IV PUSH Q2H PRN Anxiety/Comfort Morphine Sulfate 4 mg 08/05/23 11:48 08/08/23 05:39 Morphine Sulfate (*Crx) 4 Mg/Ml Inj IV PUSH 4 mg Q2H PRN Administration Pain Rated 7-10 Morphine Sulfate 2 mg 08/07/23 23:15 08/10/23 14:00 Morphine Sulfate (*Crx) 2 Mg/Ml Inj IV PUSH 2 mg Q2H PRN Administration COMFORT Ondansetron HCl 4 mg 08/05/23 11:48 08/07/23 14:14 Ondansetron Inj 4 Mg/2 Ml Vial IV PUSH 4 mg Q4H PRN Administration Nausea Radiology Results: ITS Impressions Chest X-Ray 08/05/23 09:14 IMPRESSION: 1. Worsened diffuse lung disease, consistent with pulmonary edema versus pneumonia superimposed on emphysema. 2. Small right and moderate-sized left pleural effusions, worsened from 07/23/23. NG Tube Placement 08/07/23 11:10 IMPRESSION: 1. Fluoroscopy guided nasogastric tube placement with tip in the stomach. Abdomen X-Ray 08/07/23 16:24 IMPRESSION: 1. Nasogastric tube tip in the stomach. 2. Airspace opacities in the mid and lower lung zones, consistent with pulmonary edema versus pneumonia. 3. Small right and moderate-sized left pleural effusions. Abdomen/Pelvis CT 08/08/23 06:12 Impression: Moderate left pleural effusion. Moderate to advanced bibasilar emphysema with patchy right basilar consolidation which could reflect atelectasis versus pneumonia. Heterogeneous hypodensity in the liver stable from prior exam. Findings could reflect cirrhosis versus other chronic hepatic change. Horseshoe kidney.
[2023-08-11 06:00] VITALS: BP 74/51; PULSE 72; RESP 24; TEMP 36.4; O2SAT 91
--- NOTE | 2023-08-11 10:11 | PM.IMPN ---
Progress Note: A&P Assessment and Plan (1) COVID: Code(s): U07.1 - COVID-19 Status: Acute Plan no changes. continue comfort measures only. still pending dispo to hospice facility. Subjective Date/time seen: 08/11/23 10:11 Interval history: NAOE. pt is confused Review of Systems Review of Systems: All systems reviewed & are unremarkable except as noted in HPI and below Exam Const: General: comfortable and no acute distress Other: confused. does not participate with exam Eyes: Pupils: Equal, round and reactive pupils present Resp: Other: congested upper airway sounds Cardio: Rate: regular rate GI: GI Palp: Yes Soft to palpation Extrem: General: no edema Objective Data Vital Signs Vital Signs: Vital Signs - 24 hr 08/10/23 15:21 08/11/23 06:00 Temperature 98.6 F 97.5 F L Pulse Rate 66 72 Respiratory Rate 16 24 H Blood Pressure 133/70 74/51 L Pulse Oximetry 86 L 91 Intake/Output Intake/Output: Intake & Output 08/08/23 08/09/23 08/10/23 08/11/23 23:59 23:59 23:59 23:59 Intake Total 500 0 0 Output Total 250 650 350 Balance 250 -650 -350 0 Meds/Results Medications: Active Medications Generic Name Dose Route Start Last Admin Trade Name Freq PRN Reason Stop Dose Admin Acetaminophen 650 mg 08/05/23 11:48 08/06/23 14:42 Acetaminophen 325 Mg Tablet PO 650 mg Q4H PRN Administration Mild Pain (1-3) or Fever Hydrocodone Bitart/Acetaminophen 1 tab 08/05/23 11:48 Hydrocodone/Acetaminophen (*Crx) 5-325 Mg Tablet PO Q4H PRN Pain Rated 4-6 Alprazolam 0.5 mg 08/05/23 22:10 08/07/23 14:14 Alprazolam (*Crx) 0.5 Mg Tablet PO 0.5 mg BID PRN Administration anxiety Docusate Sodium 100 mg 08/06/23 21:00 08/10/23 19:18 Docusate Sodium 100 Mg Capsule PO Not Given Q12HR [facility] Lorazepam 2 mg 08/07/23 23:15 Lorazepam Inj (*Crx) 2 Mg/Ml Vial IV PUSH Q2H PRN Anxiety/Comfort Morphine Sulfate 4 mg 08/05/23 11:48 08/08/23 05:39 Morphine Sulfate (*Crx) 4 Mg/Ml Inj IV PUSH 4 mg Q2H PRN Administration Pain Rated 7-10 Morphine Sulfate 2 mg 08/07/23 23:15 08/10/23 17:01 Morphine Sulfate (*Crx) 2 Mg/Ml Inj IV PUSH 2 mg Q2H PRN Administration COMFORT Ondansetron HCl 4 mg 08/05/23 11:48 08/07/23 14:14 Ondansetron Inj 4 Mg/2 Ml Vial IV PUSH 4 mg Q4H PRN Administration Nausea Radiology Results: ITS Impressions Chest X-Ray 08/05/23 09:14 IMPRESSION: 1. Worsened diffuse lung disease, consistent with pulmonary edema versus pneumonia superimposed on emphysema. 2. Small right and moderate-sized left pleural effusions, worsened from 07/23/23. NG Tube Placement 08/07/23 11:10 IMPRESSION: 1. Fluoroscopy guided nasogastric tube placement with tip in the stomach. Abdomen X-Ray 08/07/23 16:24 IMPRESSION: 1. Nasogastric tube tip in the stomach. 2. Airspace opacities in the mid and lower lung zones, consistent with pulmonary edema versus pneumonia. 3. Small right and moderate-sized left pleural effusions. Abdomen/Pelvis CT 08/08/23 06:12 Impression: Moderate left pleural effusion. Moderate to advanced bibasilar emphysema with patchy right basilar consolidation which could reflect atelectasis versus pneumonia. Heterogeneous hypodensity in the liver stable from prior exam. Findings could reflect cirrhosis versus other chronic hepatic change. Horseshoe kidney.
[2023-08-11 20:00] VITALS: PULSE 72; RESP 24; O2SAT 91
[2023-08-11 22:00] VITALS: BP 120/63; PULSE 76; RESP 16; TEMP 36.5; O2SAT 95
[2023-08-12 08:00] VITALS: O2SAT 95
--- NOTE | 2023-08-12 09:16 | PM.IMPN ---
Progress Note: A&P Assessment and Plan (1) COVID: Code(s): U07.1 - COVID-19 Status: Acute Plan 87M w/ no complication on comfort care. continue as ordered. he is getting pureed comfort feeds. DNR Subjective Date/time seen: 08/12/23 09:16 Interval history: NAOE. pt is confused, he reports being hungry however. Review of Systems Review of Systems: All systems reviewed & are unremarkable except as noted in HPI and below Exam Const: General: comfortable and no acute distress Eyes: Pupils: Equal, round and reactive pupils present Resp: Effort & Inspection: normal respiratory effort Auscultation: clear to auscultation bilaterally Cardio: Rate: regular rate Rhythm: regular rhythm Heart sounds: no gallops, no murmurs and no rubs GI: GI Palp: Yes Soft to palpation Extrem: General: no edema Objective Data Vital Signs Vital Signs: Vital Signs - 24 hr 08/11/23 20:00 08/11/23 22:00 08/12/23 08:00 Temperature 97.7 F Pulse Rate 72 76 Respiratory Rate 24 H 16 Blood Pressure 120/63 Pulse Oximetry 91 95 95 Oxygen Delivery Nasal Cannula Nasal Cannula Oxygen Flow Rate 2 2 Fraction of Inspired Oxygen 36 Intake/Output Intake/Output: Intake & Output 08/09/23 08/10/23 08/11/23 08/12/23 23:59 23:59 23:59 23:59 Intake Total 0 920 440 Output Total 650 350 200 Balance -650 -350 720 440 Meds/Results Medications: Active Medications Generic Name Dose Route Start Last Admin Trade Name Freq PRN Reason Stop Dose Admin Acetaminophen 650 mg 08/05/23 11:48 08/06/23 14:42 Acetaminophen 325 Mg Tablet PO 650 mg Q4H PRN Administration Mild Pain (1-3) or Fever Hydrocodone Bitart/Acetaminophen 1 tab 08/05/23 11:48 Hydrocodone/Acetaminophen (*Crx) 5-325 Mg Tablet PO Q4H PRN Pain Rated 4-6 Alprazolam 0.5 mg 08/05/23 22:10 08/07/23 14:14 Alprazolam (*Crx) 0.5 Mg Tablet PO 0.5 mg BID PRN Administration anxiety Docusate Sodium 100 mg 08/06/23 21:00 08/12/23 07:55 Docusate Sodium 100 Mg Capsule PO Not Given Q12HR BROOKS Lorazepam 2 mg 08/11/23 22:00 Lorazepam Inj (*Crx) 2 Mg/Ml Vial IM Q2HR PRN COMFORT Morphine Sulfate 4 mg 08/05/23 11:48 08/08/23 05:39 Morphine Sulfate (*Crx) 4 Mg/Ml Inj IV PUSH 4 mg Q2H PRN Administration Pain Rated 7-10 Morphine Sulfate 2 mg 08/11/23 22:21 Morphine Sulfate (*Crx) 2 Mg/Ml Inj IM Q2HR PRN comfort Ondansetron HCl 4 mg 08/05/23 11:48 08/07/23 14:14 Ondansetron Inj 4 Mg/2 Ml Vial IV PUSH 4 mg Q4H PRN Administration Nausea Radiology Results: ITS Impressions Chest X-Ray 08/05/23 09:14 IMPRESSION: 1. Worsened diffuse lung disease, consistent with pulmonary edema versus pneumonia superimposed on emphysema. 2. Small right and moderate-sized left pleural effusions, worsened from 07/23/23. NG Tube Placement 08/07/23 11:10 IMPRESSION: 1. Fluoroscopy guided nasogastric tube placement with tip in the stomach. Abdomen X-Ray 08/07/23 16:24 IMPRESSION: 1. Nasogastric tube tip in the stomach. 2. Airspace opacities in the mid and lower lung zones, consistent with pulmonary edema versus pneumonia. 3. Small right and moderate-sized left pleural effusions. Abdomen/Pelvis CT 08/08/23 06:12 Impression: Moderate left pleural effusion. Moderate to advanced bibasilar emphysema with patchy right basilar consolidation which could reflect atelectasis versus pneumonia. Heterogeneous hypodensity in the liver stable from prior exam. Findings could reflect cirrhosis versus other chronic hepatic change. Horseshoe kidney.
[2023-08-12 14:00] VITALS: BP 117/68; PULSE 105; RESP 22; TEMP 36.6; O2SAT 89
[2023-08-12 22:00] VITALS: BP 128/51; PULSE 112; RESP 16; TEMP 36.9; O2SAT 94
[2023-08-13 08:23] VITALS: O2SAT 94
--- NOTE | 2023-08-13 09:20 | PM.IMPN ---
Progress Note: A&P Assessment and Plan (1) COVID: Code(s): U07.1 - COVID-19 Status: Acute Plan 87-year-old male with chronic respiratory failure with hypoxia and hypercapnia, chronic obstructive pulmonary disease, right-sided heart failure with severe pulmonary hypertension, paroxysmal atrial fibrillation, hypertension, cirrhosis with history of esophageal varices, peripheral arterial disease, heart block status post pacemaker insertion, and anxiety who presented to the emergency department via EMS for evaluation of low oxygen saturations. He was diagnosed with COVID-19 pneumonia. On 08/07 overnight he began desaturing, requiring high o2 supplementation. Ultimately, he and the family decided to pursue comfort care. He remains as inpatient on comfort care measures only and DNR. Care coordination has not been able to transfer him to SNF for hospice due to COVID status. Possibly [facility] to [facility]. Subjective Date/time seen: 08/13/23 09:20 Interval history: NAOE. patient is sitting up in bed eating, he has no complaints. Review of Systems Review of Systems: All systems reviewed & are unremarkable except as noted in HPI and below Exam Const: General: comfortable and no acute distress Other: A&O x2 Eyes: Pupils: Equal, round and reactive pupils present Resp: Effort & Inspection: normal respiratory effort Auscultation: clear to auscultation bilaterally Cardio: Rate: regular rate Rhythm: regular rhythm GI: GI Palp: Yes Soft to palpation Extrem: General: no edema Objective Data Vital Signs Vital Signs: Vital Signs - 24 hr 08/12/23 14:00 08/12/23 22:00 08/13/23 08:23 Temperature 97.8 F 98.4 F Pulse Rate 105 H 112 H Respiratory Rate 22 H 16 Blood Pressure 117/68 128/51 L Pulse Oximetry 89 L 94 94 Oxygen Delivery Nasal Cannula Oxygen Flow Rate 2 Intake/Output Intake/Output: Intake & Output 08/10/23 08/11/23 08/12/23 08/13/23 23:59 23:59 23:59 23:59 Intake Total 0 920 1520 240 Output Total 350 200 Balance -110 370 4001 240 Meds/Results Medications: Active Medications Generic Name Dose Route Start Last Admin Trade Name Freq PRN Reason Stop Dose Admin Acetaminophen 650 mg 08/05/23 11:48 08/06/23 14:42 Acetaminophen 325 Mg Tablet PO 650 mg Q4H PRN Administration Mild Pain (1-3) or Fever Hydrocodone Bitart/Acetaminophen 1 tab 08/05/23 11:48 Hydrocodone/Acetaminophen (*Crx) 5-325 Mg Tablet PO Q4H PRN Pain Rated 4-6 Alprazolam 0.5 mg 08/05/23 22:10 08/07/23 14:14 Alprazolam (*Crx) 0.5 Mg Tablet PO 0.5 mg BID PRN Administration anxiety Lorazepam 2 mg 08/11/23 22:00 Lorazepam Inj (*Crx) 2 Mg/Ml Vial IM Q2HR PRN COMFORT Morphine Sulfate 2 mg 08/11/23 22:21 Morphine Sulfate (*Crx) 2 Mg/Ml Inj IM Q2HR PRN comfort Ondansetron HCl 4 mg 08/05/23 11:48 08/07/23 14:14 Ondansetron Inj 4 Mg/2 Ml Vial IV PUSH 4 mg Q4H PRN Administration Nausea Radiology Results: ITS Impressions Chest X-Ray 08/05/23 09:14 IMPRESSION: 1. Worsened diffuse lung disease, consistent with pulmonary edema versus pneumonia superimposed on emphysema. 2. Small right and moderate-sized left pleural effusions, worsened from 07/23/23. NG Tube Placement 08/07/23 11:10 IMPRESSION: 1. Fluoroscopy guided nasogastric tube placement with tip in the stomach. Abdomen X-Ray 08/07/23 16:24 IMPRESSION: 1. Nasogastric tube tip in the stomach. 2. Airspace opacities in the mid and lower lung zones, consistent with pulmonary edema versus pneumonia. 3. Small right and moderate-sized left pleural effusions. Abdomen/Pelvis CT 08/08/23 06:12 Impression: Moderate left pleural effusion. Moderate to advanced bibasilar emphysema with patchy right basilar consolidation which could reflect atelectasis versus pneumonia. Heterogeneous hypodensity in the liver stable from prior exam. Findings could
[2023-08-13 14:41] VITALS: BP 104/73; PULSE 100; RESP 18; TEMP 37.2; O2SAT 95
[2023-08-13 20:00] VITALS: O2SAT 91
[2023-08-13 20:03] VITALS: BP 103/38; PULSE 108; RESP 19; TEMP 38.1; O2SAT 81
[2023-08-14 09:15] VITALS: O2SAT 81
--- NOTE | 2023-08-14 15:11 | PM.DDS ---
Discharge Summary Date and Time Date of : 08/14/23 Time of : 10:40 Provider Pronounced By: Marine Leong RN Probable Cause of Probable Cause of : Acute respiratory distress syndrome --> Acute on chronic respiratory failure with hypoxia and hypercapnia -- > COVID-19 pneumonia Summary Hospital Course: H&P: HPI History of Present Illness Date/Time: 08/05/23? 13:45 Chief Complaint: Low oxygen saturations. Narrative: This is an 87-year-old male with chronic respiratory failure with hypoxia and hypercapnia, chronic obstructive pulmonary disease, right-sided heart failure with severe pulmonary hypertension, paroxysmal atrial fibrillation, hypertension, cirrhosis with history of esophageal varices, peripheral arterial disease, heart block status post pacemaker insertion, and anxiety who presented to the emergency department via EMS for evaluation of low oxygen saturations. The patient provides the following history. He is known to the hospitalist service from a recent admission for CHF exacerbation and aspiration pneumonia (failed bedside swallow, receiving speech therapy) and he was discharged to [facility] for rehab on 07/27/2023. He has been participating in and has been doing well however the last couple of days he has been feeling weak and more short of breath with lesser lesser exertion. Today he was having some dizzy episodes with his shortness of breath and he was sent in for evaluation after he was found to low SpO2 on his usual oxygen setting. He has otherwise been feeling okay and denies fever, headache, chest pain, sinus congestion, shortness of breath, cough, nausea, vomiting, diarrhea, dysuria, and extremity edema. In the ED: He was afebrile on arrival with stable blood pressures. SpO2 was 85% on 4L liters nasal cannula. Labs were significant for a hemoglobin of 13.3, chloride 94, carbon dioxide greater than 40, BUN 23, glucose 144, proBNP 3610. He tested positive for SARS-CoV-2 by PCR. Chest x-ray shows worsened diffuse lung disease consistent with pulmonary edema versus pneumonia superimposed on emphysema and small right and moderate size left pleural effusions which are worse from 07/23/2023. He received furosemide 40 mg IV x1, dexamethasone 6 mg, and remdesivir 200 mg. He is being admitted in this setting for further care. Hospital course ... 08/05/2023 to 08/14/2023: 87-year-old male with chronic respiratory failure with hypoxia and hypercapnia, chronic obstructive pulmonary disease, right-sided heart failure with severe pulmonary hypertension, paroxysmal atrial fibrillation, hypertension, cirrhosis with history of esophageal varices, peripheral arterial disease, heart block status post pacemaker insertion, and anxiety who presented to the emergency department via EMS for evaluation of low oxygen saturations. He was diagnosed with COVID-19 pneumonia. On 08/07 overnight he began desaturing, requiring high o2 supplementation. Ultimately, he and the family decided to pursue comfort care. He remains as inpatient on comfort care measures only and DNR. Care coordination has not been able to transfer him to SNF for hospice due to COVID status. Possibly transition to [facility]. Patient comfortably today, 08/14/2023, at 10:40 a.m. My prayers go out to the patient's family at this difficult time! Total time spent = 22 minutes. Additional Data Confirmation of as documented by pronouncing clinician: Pupillary Reflex, Palpable Pulses, Response to Stimuli, Heart Tones and Breath Sounds Name of Provider Notified: Dr. Flores Time Provider Notified: 10:54 Provider Requests Autopsy: No Accounts Receivable Assistant Notified: Yes Date [facility] Notified of : 08/14/23 Time [facility] Notified of : 11:03
== END 2023-08-14 10:40 | disposition expired | DRG 177 ==
LOC: ANHED 10:42 → ANHIMU 12:34 → ANH3MED 08-08 06:10
PROVIDERS: Internal Medicine; Physician Assistant; Admitting Provider Internal Medicine; Emergency Provider Emergency Medicine; PCP Family Medicine; Visit Provider Family Medicine
DX: U07.1 COVID-19 (principal); I50.33 Acute on chronic diastolic (congestive) heart failure; J96.22 Acute and chronic respiratory failure with hypercapnia; J12.82 Pneumonia due to coronavirus disease 2019; J96.21 Acute and chronic respiratory failure with hypoxia; I85.00 Esophageal varices without bleeding; I44.2 Atrioventricular block, complete; E44.0 Moderate protein-calorie malnutrition; Z68.1 Body mass index [BMI] 19.9 or less, adult; R14.0 Abdominal distension (gaseous); D64.9 Anemia, unspecified; E05.80 Other thyrotoxicosis without thyrotoxic crisis or storm; F41.9 Anxiety disorder, unspecified; G47.30 Sleep apnea, unspecified; I50.813 Acute on chronic right heart failure; I27.29 Other secondary pulmonary hypertension; I48.0 Paroxysmal atrial fibrillation; I73.9 Peripheral vascular disease, unspecified; I07.1 Rheumatic tricuspid insufficiency; I11.0 Hypertensive heart disease with heart failure; J43.9 Emphysema, unspecified; K74.60 Unspecified cirrhosis of liver; K31.89 Other diseases of stomach and duodenum; R13.10 Dysphagia, unspecified; Z66 Do not resuscitate; Z95.0 Presence of cardiac pacemaker; Z99.81 Dependence on supplemental oxygen; Z86.73 Personal history of transient ischemic attack (TIA), and cerebral infarction without residual deficits; Z96.651 Presence of right artificial knee joint; Z87.891 Personal history of nicotine dependence
CPT/HCPCS: 36415; 36600; 71045; 74018; 74177; 80048; 80053; 80076; 82375; 82728; 82805; 83050; 83615; 83735; 83880; 85025; 85027; 85610; 85652; 85730; 86140; 87636; 92610; 93005; 94002; 94640; 96374; 96375; 99285; A9270; G0378; J0248; J0692; J1100; J1650; J1940; J2060; J2270; J2405; J3370; J7070; Q9967